=== PATIENT | female | born 2005 | race African-American/Black ===

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

== ENCOUNTER 2024-09-29 04:34 | Emergency (ER) | payer BC, SELFPAY ==
[2024-09-29 04:36] VITALS: BP 131/69; PULSE 80; RESP 14; TEMP 36.4; O2SAT 100
--- OUTSIDE RECORDS SUMMARY | 2024-10-06 05:43 | XMS_ITS | Encounter Summary ---
Author Organization [facility] Address [address] [place] [address] Care Team Providers Care Fiction And Nonfiction Writer Prose Name Role Phone Alfredo Cardoza MD Primary Care Provider Unavail able Reason for Visit * Reason Onset Date Comments Follow-up 03/08/2014 Encounter Details Date Type Department Care Team (Late st Contact Info) Description 03/08/2014 Telephone [facility] Pediatrics - Urology [address] [place] [id number] Gayatri Yepez APRN-CNP [address] [place] [id number] Follow-up Social History Tobacco Use Types Packs/Day Years Used Date Smoking Tobacco: Never Assessed Sex and Gender Information Value Date Recorded Sex Assigned at Not on file Gender Identity Not on file Sexual Orientation Not on file documented as of this encounter Miscellaneous Notes * Telephone Encounter - Gayatri Yepez APRN-CNP - 03/08/2014 3:07 PM CDT Spoke with mother/ Dr. Pena reviewed records and tests [id number]. He agrees with the plan of care and has no additional recommendations at ashok time. Urine tests from Tuesday are all ok. Mom to call in 2-3 weeks with progress report, anytime with questions or concerns. Mom verbalizes understanding and agreement. documented in this encounter Plan of Treatment Not on file documented as of this encounter Visit Diagnoses Not on filedocumented in this encounter Care Teams Fiction And Nonfiction Writer Prose Relationship Specialty Start Date End Date Alfredo Cardoza MD PCP - General 02/05/11 08/27/21 documented as of this encounter
--- OUTSIDE RECORDS SUMMARY | 2024-10-06 05:43 | XMS_ITS | Encounter Summary ---
Author Organization [facility] Address [address] [place] [address] Care Team Providers Care Project Scientist Name Role Phone Alfredo Cardoza MD Primary Care Provider Unavail able Encounter Details Date Type Department Care Team (Late st Contact Info) Description 03/16/2011 3:50 PM CDT Hospital Encounter [facility] Pediatrics - Surgery [address] [place] [address] Alfred Minor MD No information available Surgery General Discharge Disposition: Home or Self Care Social History Tobacco Use Types Packs/Day Years Used Date Smoking Tobacco: Never Assessed Sex and Gender Information Value Date Recorded Sex Assigned at Not on file Gender Identity Not on file Sexual Orientation Not on file documented as of this encounter Medications at Time of Discharge Medication Sig Dispensed Refills Start Date End Date albuterol (PROVENTIL;VENTOLIN) (2.5 MG/3ML) 0.083% nebulizer solution Inhale by mouth every 4 hours while awake. 01/09/2014 montelukast (SINGULAIR) 4 MG chew tablet Take 4 mg by mouth at bedtime. 01/09/2014 documented as of this encounter Plan of Treatment Not on file documented as of this encounter Visit Diagnoses Not on filedocumented in this encounter Care Teams Project Scientist Relationship Specialty Start Date End Date Alfredo Cardoza MD PCP - General 02/05/11 08/27/21 documented as of this encounter
--- OUTSIDE RECORDS SUMMARY | 2024-10-06 05:43 | XMS_ITS | Encounter Summary ---
Author Organization [facility] Address [address] [address] Care Team Providers Care Entertainment Agent Name Role Phone Radha Grove MD Primary Care Provider [phone] Reason for Visit * Reason Onset Date Comments Mri Triage 09/11/2021 Encounter Details Date Type Department Care Team (Late st Contact Info) Description 09/11/2021 Telephone [facility] Gynecology [facility] [address] [place], [place] [id number] Beti Sesay MD [address] [id number] Mri Triage Social History Tobacco Use Types Packs/Day Years Used Date Smoking Tobacco: Never Smokeless Tobacco: Never Alcohol Use Standard Drinks/Week Comments No 0 (1 standard drink = 0.6 oz pur e alcohol) Sex and Gender Information Value Date Recorded Sex Assigned at Not on file Gender Identity Not on file Sexual Orientation Not on file documented as of this encounter Miscellaneous Notes * Telephone Encounter - Beti Sesay MD - 09/11/2021 4:37 PM CST TC to mother Radha. Reviewed MRI report from scan done 09/09/21. Normal uterus without lesion noted. Smooth fundus. No fibroid or other abnormality seen 4 cm simple left ov cyst. Patient's last menstrual period was 08/20/2021. Due next week. Pain had been 7-8/10, now 3-4, occ pain meds and heat. Normal Hb, WBC, UA 08/27. Advised to contact us if pain persists after next period. Mother agreeable. Beti Sesay MD HIKER * Telephone Encounter - Ju Rodriguez - 09/11/2021 10:50 AM CST Pt's mother called in on her behalf wanting to speak with a nurse regarding her mri results. Pleaseadvise. CB# [phone] HIKER documented in this encounter Plan of Treatment Not on file documented as of this encounter Visit Diagnoses Not on filedocumented in this encounter Care Teams Entertainment Agent Relationship Specialty Start Date End Date Radha Grove MD [address] [place] [phone] PCP - General Pediatrics 08/28/21 documented as of this encounter
--- OUTSIDE RECORDS SUMMARY | 2024-10-06 05:43 | XMS_ITS | Encounter Summary ---
Author Organization [facility] Address [address] [place] [address] Care Team Providers Care Shipping Point Inspector Name Role Phone Alfredo Cardoza MD Primary Care Provider Unavail able Reason for Visit * Reason Comments Evaluation mom states primary doctor sent her for urine issues (negative urine cultures) Encounter Details Date Type Department Care Team (Latest Contact Info) Description 01/09/2014 3:44 PM CDT - 01/09/2014 11:59 PM CDT Hospital Encounter [facility] Pediatrics - Urology [address] [place] [address] Lin Kowalsik, TECHNICAL SUPPORT [facility] [address] [place] [address] Discharge Disposition: Home or Self Care Social History Tobacco Use Types Packs/Day Years Used Date Smoking Tobacco: Never Assessed Sex and Gender Information Value Date Recorded Sex Assigned at Not on file Gender Identity Not on file Sexual Orientation Not on file documented as of this encounter Last Filed Vital Signs Vital Sign Reading Time Taken Comments Blood Pressure 98/50 01/09/2014 3:45 PM CDT Pulse - - Temperature - - Respiratory Rate - - Oxygen Saturation - - Inhaled Oxygen Concentration - - Weight 30.1 kg (66 lb 4.8 oz) 01/09/2014 3:45 PM CDT Height 129.5 cm (4' 2.98 ) 01/09/2014 3:45 PM CD T Body Mass Index 17.93 01/09/2014 3:45 PM CDT Body Mass Index Percentile 71.22% 01/09/2014 3:4 5 PM CDT Growth Chart: [facility] (Girls, 2- 20 Years) documented in this encounter Discharge Instructions * Patient Instructions* Gayatri Yepez APRN-LIGHT OUT EXAMINER - 01/09/2014 4:55 PM CDT BOWEL MANAGEMENT PROTOCOL Many children with urinary tract problems also have the added problem of constipation or infrequentbowel movements. The following recommendations have been developed as the first step in eliminatingthe risk factor for developing urinary tract problems. Lack of success with this protocol may warrant further evaluation. STEP 1: Keep track of your child's bowel movements on an elimination diary for 2 weeks. 1. Foods to be encouraged: Your child should pick at least 3 from these groups: ?? Whole grain bread e.g.. Netta Bowman Brumble, Cinnamon Raisin, Brown Sugar, Smooth and Soft; Wonder-Whole Grain White; Iron Kids or Essentials bread. Netta Bowman also has a hot dog and hamburger buns that are whole grain. Software Artistry high fiber buns. Check the fiber content on the package. ?? Fresh fruits especially apples and pears (not bananas) ?? Salads or any fresh vegetables-uncooked is best but cooked works too. ?? Dried fruits e.g. Raisins, prunes, apricots, Craisins by [place] (they come in flavors of antonio, strawberry, orange and plain) ?? Hot cereal (especially oatmeal). ?? Bran, Total, Wheaties, Frosted Mini Wheats, Frosted [place] Mini Wheats ?? Fiber Plus granola bars or any other high fiber granola bar. ?? Fiber One low calorie lemon bars, brownies, and cinnamon bars ?? Kashi cereals (there are multiple varieties/may also a small amount to another cereal if hesitant to try it alone) ?? Increase fluids-drinks 6-8 glasses per day with one glass before breakfast. ?? Good juices: Grape (white or purple), prune, peach, apricot, or pear nectars: if no urinary symptoms may also use orange or orange combinations to treat constipation. ?? Mix koolaid or another juice like René D with prune juice and freeze to make popsicles. Use equal parts of each. ?? Popcorn-for children over 3 years old. ?? Fahad has raisin bran bagels (7Gm. Fiber) and fig bars (1 Gm. Per cookie) as well as breakfast breads like cinnamon raisin. ?? Kat Splash (fiber infusion packets/just add to water). ?? Sugarfree life savers--start with a 2 per day may help BM's since it has a laxative effect. Serving size says 4 life-savers and eating them in excess may have laxative effect. So increase 1 per day to see how many work. ?? Smooth Move Tea-- (12 yo or older) tea bags to make hot cup of tea; available at [employer], [facility]'s; drink in the evening and get up with soft BM in the morning. In the tea/coffee section. ?? Benefiber can be added to foods or liquids and used in cooking to add fiber. 2. Limited quantities of milk: 2-3 servings (8 ounce/serving) are enough for a day. That should include milk, cheese, yogurt, ice cream, cottage cheese, and custard. Too much dairy products can cause hard BM's. 3. Eliminate the following foods for the first month (each of these foods/drinks may cause hardened or infrequent bowel movements). ?? Cheese ?? Apple Juice ?? Tea ?? Applesauce ?? Bananas 4. The following foods/drinks may be bladder irritants/discontinue for bladder health: ?? Caffeine ?? Brown chocolate ?? Mcdonald fruits and juices ?? Carbonation ?? Energy drinks ?? Gatorade ?? Zyrtec ?? Benadryl STEP 2: Send the calendar to our office (att'n. Pediatric Urology) or fax it to us at [phone].Include your child's name, your name and a daytime phone number with the area code. We will call you back to advise you. ?? Void every 2 hours during waking hours, Sing the ABC's to self and void again. ?? Urinary and bowel limitations and recommendations ?? Elimination diary for 2 weeks ?? School letter ?? Wiggle and wick--girls should wipe front to back. Take another piece of toilet paper, hold it against her private area, stand up and wiggle a little or jump. This will catch any drops of urine that may be caught in her private area. ?? Behavior modification reward calendar for 4 weeks B documented in this encounter Medications at Time of Discharge Medication Sig Dispensed Refills Start Date End Date polyethylene glycol 3350 (MIRALAX) packet Take 17 g by mouth once daily. With 8 ounces of fluid. 527 g 2 01/09/2014 polyethylene glycol 3350 (MIRALAX) powderIndications:Unspecif ied constipation Take 17 g by mouth once daily. 527 g 3 01/09/2014 08/13/2015 documented as of this encounter Progress Notes * Gayatri Yepez APRN-CNP - 01/09/2014 5:36 PM CDT Mary Coffman is a 8 y.o. Black/ who comes to us today for an evaluation and management of frequency and abdominal pain. Mary Coffman has been referred by herPCP. She has had a 1 month history of urinary frequency with abdominal pain, occasional back pain, no fever, nausea, or chills. By report, she urinates at least 5 times a day and has bowel movements most days; it has been at least 2 days since her last bowel movement. She has no other medical issues or concerns today. Mom reports a normal pregnacy, labor and delivery with no history of hydronephrosis. Patient has 2 siblings who are followed by a number of sub specialists. FAMILY HISTORY: No known kidney or bladder issues SOCIAL HISTORY: She lives with her family and attends elementary school Past Medical History Diagnosis Date ??? Asthma Mom states patient has had appendix removed ROS: Complete Negative Except For: Urinary frequency, abdominal pain , back pain ASSESSMENT: BP 98/50 Ht 1.295 m (4' 2.98 ) Wt 30.073 kg (66 lb 4.8 oz) BMI 17.93 kg/m2 SKIN: negative HEENT: normocephalic CHEST: clear all lung puga CARDIO: RRR ABDOMEN/GI: soft, c/o mild lower abdominal pain after deep palpation; good bowel sounds : Female exam: Normal introitus NEUROMUSCULAR: grossly normal IMPRESSION: Constipation Urinary frequency Abdominal and back pain intermittantly DISCHARGE INSTRUCTIONS UA, urine culture Miralax 17 g po daily with fluids q 2 hr timed voiding schedule during the day Elimination diary x 2 weeks- send back to me for review School letter Bowel management protocol Return 6-8 weeks Contact info Call if questions or concerns BRIAN Franco 01/10/2014 1:53 PM documented in this encounter Procedure Notes * Gayatri Yepez APRN-CNP - 01/10/2014 10:20 AM CDTAssociated Order(s): US BLADDER RESIDUAL ACC Procedure(s): MEASURE POST VOID RESIDUAL Pre-Procedure Diagnose(s): Urinary frequency Post void residual per bladder scan 30 ml, immediately after voiding documented in this encounter Miscellaneous Notes * Miscellaneous Scans - Document, Scanned - 01/10/2014 11:30 PM CDT documented in this encounter Plan of Treatment Not on file documented as of this encounter Procedures Procedure Name Priority Date/Time Associated Diagnosis Comments US BLADDER RESIDUAL ACC Routine 01/10/2014 2:51 PM CDT URINALYSIS REFLEX TO MICROSCOPIC NO CULTURE Routine 01/09/2014 5:04 PM CDT Unspecified constipation Urinary frequency CULTURE URINE Routine 01/09/2014 5:04 PM CDT Unspecified constipation Urinary frequency URINE MICROSCOPIC ONLY Routine 01/09/2014 5:04 PM CDT Unspecified constipation Urinary frequency documented in this encounter Results * US BLADDER RESIDUAL ACC (01/10/2014 2:51 PM CDT) Narrative Gayatri Yepez APRN-CNP - 01/10/2014 2:51 PM CDT BRIAN Franco ? 01/10/2014 ??2:51 PM Post void residual per bladder scan 30 ml, immediately after voiding Procedure Note Gayatri Yepez APRN-CNP - 01/10/2014 10:20 AM CDT Post void residual per bladder scan 30 ml, immediately after voiding Gayatri TORRES PROCEDURE ORD ERABLES * CULTURE URINE (01/09/2014 5:04 PM CDT) Pathologist [facility] Culture No Growth (<1,000 CFU/mL) 01/11/2014 6:57 AM CDT [facility] MICROBIOLOGY Urine URINE SPECIMEN OBTAINED BY CLEAN CATCH PROCEDURE / Unknown 01/09/2014 5:04 PM CDT 01/09/2014 5:14 PM CDT Gayatri TORRES LAB - MICROBIOLO GY ORDERABLES [facility] MICROBIOLOGY [address] [facility] * (ABNORMAL) URINALYSIS ROUTINE AUTO (01/09/2014 5:04 PM CDT) Color UA Yellow Straw, Yellow, Dark Yellow 01/09/2014 5:25 PM CDT [facility] Clarity UA Clear 01/09/2014 5:25 PM CDT [facility] Specific [place] UA 1.010 1.005 - 1.030 01/09/2014 5:25 PM CDT [facility] pH UA 6.5 5.0 - 8.0 pH 01/09/2014 5:25 PM CDT [facility] Protein UA Negative Negative 01/09/2014 5:25 PM CDT [facility] Blood UA Negative Negative 01/09/2014 5:25 PM CDT [facility] Leukocyte UA Trace(A) Negative 01/09/2014 5:25 PM CDT [facility] Nitrite UA Negative Negative 01/09/2014 5:25 PM CDT [facility] Glucose UA Negative Negative 01/09/2014 5:25 PM CDT [facility] Ketone UA Negative Negative 01/09/2014 5:25 PM CDT [facility] Bilirubin UA Negative Negative 01/09/2014 5:25 PM CDT [facility] Urobilinogen UA 0.2 0.1 - 1.0 EU/dL 01/09/2014 5:25 PM CDT [facility] Urine URINE SPECIMEN OBTAINED BY CLEAN CATCH PROCEDURE / Unknown 01/09/2014 5:04 PM CDT 01/09/2014 5:13 PM CDT Gayatri Yepez TECHNICAL SUPPORT INTERNSHIP-LIGHT OUT EXAMINER LAB - URINALYSIS ORDERABLES Performing Organization Address City/[facility] Co de Phone Number [facility] [address] [place] [address] * URINALYSIS MICROSCOPIC ONLY (01/09/2014 5:04 PM CDT) RBC UA 0-2 0-2, 2-5 # /hpf 01/09/2014 5:25 PM CDT [facility] WBC UA 0-2 0-2, 2-5 # /hpf 01/09/2014 5:25 PM CDT [facility] Bacteria UA None Seen None Seen, Trace 01/09/2014 5:25 PM CDT [facility] Epithelial Cell UA 0-2 0-2, 2-5 01/09/2014 5:25 PM CDT [facility] Urine URINE SPECIMEN OBTAINED BY CLEAN CATCH PROCEDURE / Unknown 01/09/2014 5:04 PM CDT 01/09/2014 5:13 PM CDT Gayatri Yepez TECHNICAL SUPPORT INTERNSHIP-LIGHT OUT EXAMINER LAB - URINALYSIS ORDERABLES Performing Organization Address City/[facility] Co de Phone Number [facility] [address] [place] [address] documented in this encounter Visit Diagnoses Diagnosis Unspecified constipation- Primary Urinary frequency documented in this encounter Care Teams Shipping Point Inspector Relationship Specialty Start Date End Date Alfredo Cardoza MD PCP - General 02/05/11 08/27/21 documented as of this encounter
--- OUTSIDE RECORDS SUMMARY | 2024-10-06 05:43 | XMS_ITS | Encounter Summary ---
Author Organization [facility] Address [address] [place] [address] Care Team Providers Care Studio Technician Name Role Phone Alfredo Cardoza MD Primary Care Provider Unavail able Encounter Details Date Type Department Care Team (Latest Contact Info) Description 01/09/2014 2:31 PM CDT - 01/09/2014 3:29 PM CDT Hospital Encounter [facility] Pediatrics - Radiology [address] [place] [phone] Discharge Disposition: Home or Self Care Social History Tobacco Use Types Packs/Day Years Used Date Smoking Tobacco: Never Assessed Sex and Gender Information Value Date Recorded Sex Assigned at Not on file Gender Identity Not on file Sexual Orientation Not on file documented as of this encounter Plan of Treatment Not on file documented as of this encounter Procedures Procedure Name Priority Date/Time Associated Diagnosis Comments XR ABDOMEN KUB Routine 01/09/2014 3:06 PM CDT Dysuria documented in this encounter Results * XR ABDOMEN 1 VW (01/09/2014 3:06 PM CDT) Anatomical Region Laterality Modality Abdomen Radiographic Salima ging 01/09/2014 3:31 PM CDT Impressions 01/09/2014 3:32 PM CDT Normal Narrative 01/09/2014 3:32 PM CDT Abdomen, AP view 01/09/2014 Gas pattern is within normal limits. There is no obstruction or free air. No pathologic calcification is present. The lung bases are clear. Procedure Note Jeff Hester MD - 01/09/2014 Abdomen, AP view 01/09/2014 Gas pattern is within normal limits. There is no obstruction or free air. No pathologic calcification is present. The lung bases are clear. IMPRESSION Normal Gayatri Yepez APRN-DYEING MACHINE TENDER DIAGNOSTIC IMAGI NG ORDERABLES documented in this encounter Visit Diagnoses Diagnosis Dysuria documented in this encounter Care Teams Studio Technician Relationship Specialty Start Date End Date Alfredo Cardoza MD PCP - General 02/05/11 08/27/21 documented as of this encounter
--- OUTSIDE RECORDS SUMMARY | 2024-10-06 05:43 | XMS_ITS | Encounter Summary ---
Author Organization [facility] Address [address] [place] [address] Care Team Providers Care Towing Pilot Name Role Phone Alfredo Cardoza MD Primary Care Provider Unavail able Encounter Details Date Type Department Care Team (Latest Contact Info) Description 01/09/2014 3:30 PM CDT - 01/09/2014 3:43 PM CDT Hospital Encounter [facility] Pediatrics - Urology [address] [place] [phone] Jan Pena MD [address] [place] [phone] Discharge Disposition: Home or Self Care Social History Tobacco Use Types Packs/Day Years Used Date Smoking Tobacco: Never Assessed Sex and Gender Information Value Date Recorded Sex Assigned at Not on file Gender Identity Not on file Sexual Orientation Not on file documented as of this encounter Miscellaneous Notes * Miscellaneous Scans - Document, Scanned - 01/10/2014 11:30 PM CDT documented in this encounter Plan of Treatment Not on file documented as of this encounter Visit Diagnoses Not on filedocumented in this encounter Care Teams Towing Pilot Relationship Specialty Start Date End Date Alfredo Cardoza MD PCP - General 02/05/11 08/27/21 documented as of this encounter
--- OUTSIDE RECORDS SUMMARY | 2024-10-06 05:43 | XMS_ITS | Encounter Summary ---
Author Organization [facility] Address [address] [facility] [place] [place] [address] Care Team Providers Care Drilling Foreman Name Role Phone Alfredo Cardoza MD Primary Care Provider Unavail able Reason for Visit * Reason Comments Follow-up appendectomy Encounter Details Date Type Department Care Team (Latest Contact Info) Description 02/18/2011 10:15 AM CDT - 02/18/2011 11:59 PM T Hospital Encounter [facility] Pediatrics - Surgery [address] [place] [phone] Maynor Parks MD [address] [place] [phone] Discharge Disposition: Home or Self Care Social [...] bedtime. 01/09/2014 documented as of this encounter Progress Notes * Black Uribe MD - 02/18/2011 10:30 AM CDT Pediatric Surgery Fellow We saw Mary in follow up after her appendectomy. She has been doing well, with no fevers, nor anorexia. Her pathology confirmed acute appendicitis. Her incisions are well healed and her abdomen is soft and non tender. We have not booked any further followup, but if she has any problems, we'd be happy to see her. Thanks, Black Uribe MD 02/18/2011 10:30 AM documented in this encounter Miscellaneous Notes * Miscellaneous Scans - Document, Scanned - 05/26/2011 8:14 AM CDT * Miscellaneous Scans - Document, Scanned - 04/19/2011 11:29 AM CDT documented in this encounter Plan of Treatment Not on file documented as of this encounter Visit Diagnoses Not on filedocumented in this encounter Care Teams Drilling Foreman Relationship Specialty Start Date End Date Alfredo Cardoza MD PCP - General 02/05/11 08/27/21 documented as of this encounter
--- OUTSIDE RECORDS SUMMARY | 2024-10-06 05:43 | XMS_ITS | Encounter Summary ---
Author Organization [facility] Address [address] [facility] [place] [address] Care Team Providers Care Die Repairer Forging Name Role Phone Alfredo Cardoza MD Primary Care Provider Unavail able Reason for Referral * Radiology Services - Closed Specialty Diagnoses / Procedures Referred By Rowena garcia Referred To Contact Diagnoses Dysuria Procedures US KIDNEY AND BLADDER Gayatri Yepez APRN-CNP [address] [place] [id number] Referral ID Status Reason Start Date Expiration Date Visits Re quested Visits Authorized [id number] Closed 01/04/2014 07/03/2014 1 1 Reason for Visit * Reason Onset Date Comments Consultation 01/04/2014 Encounter Details Date Type Department Care Team (Late st Contact Info) Description 01/04/2014 Telephone [facility] Pediatrics - Urology [address] [place] [phone] Lin Pearson I RN Consultation Social History Tobacco Use Types Packs/Day Years Used Date Smoking Tobacco: Never Assessed Sex and Gender Information Value Date Recorded Sex Assigned at Not on file Gender Identity Not on file Sexual Orientation Not on file documented as of this encounter Miscellaneous Notes * Telephone Encounter - Lin Pearson RN - 01/04/2014 3:32 PM CDT Received referral from PCP to see Mary in urology clinic for urinary frequency and dysuria for4 weeks. Lab results negative for UTI Mary has also been seen in ED recently for same complaints. Records reviewed with PNP Gayatri Yepez, urology recommendation fro KUB, BEAU, and PVR with PNP office visit. Message left on home phone requesting call back to discuss testing and schedule appointments. Will schedule when parent returns call. documented in this encounter Plan of Treatment Not on file documented as of this encounter Results * US KIDNEY AND BLADDER (01/09/2014 3:19 PM CDT) Anatomical Region Laterality Modality Ultrasound 01/09/2014 3:26 PM CDT Impressions 01/09/2014 3:48 PM CDT Normal renal ultrasound. D: Diamond Malik M.D. I, Quinn Marcum, have personally reviewed the images and I agree with this report. Narrative 01/09/2014 3:48 PM CDT EXAMINATION: Renal ultrasound dated ??January 09, 2014 COMPARISON: None available FINDINGS: Renal cortical echogenicity is normal. ??No hydronephrosis, masses, or stones are seen. ??The ureters are not dilated. Length: Right kidney ??8.1 x 3.2 x 4.4 cm Left kidney ??8.7 x 3.6 x 3.3 cm The bladder is incompletely distended, limiting evaluation. Post void images demonstrate a small amount of residual urine within the bladder. Procedure Note Quinn Marcum MD - 01/09/2014 EXAMINATION: Renal ultrasound dated January 09, 2014 COMPARISON: None available FINDINGS: Renal cortical echogenicity is normal. No hydronephrosis, masses, or stones are seen. The ureters are not dilated. Length: Right kidney 8.1 x 3.2 x 4.4 cm Left kidney 8.7 x 3.6 x 3.3 cm The bladder is incompletely distended, limiting evaluation. Post void images demonstrate a small amount of residual urine within the bladder. IMPRESSION Normal renal ultrasound. D: Diamond Malik M.D. I, Quinn Marcum, have personally reviewed the images and I agree with this report. Gayatri Yepez APRN-FILLING WINDER US ORDERABLES * XR ABDOMEN 1 VW (01/09/2014 3:06 [...] bases are clear. IMPRESSION Normal Gayatri Yepez APRN-FILLING WINDER DIAGNOSTIC IMAGI NG ORDERABLES documented in this encounter Visit Diagnoses Diagnosis Dysuria- Primary Dysuria Dysuria documented in this encounter Care Teams Die Repairer Forging Relationship Specialty Start Date End Date Alfredo Cardoza MD PCP - General 02/05/11 08/27/21 documented as of this encounter
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
--- OUTSIDE RECORDS SUMMARY | 2024-10-06 05:43 | XMS_ITS | Encounter Summary ---
Author Organization [facility] Address [address] [place] [address] Care Team Providers Care Hotel Front Office Manager Name Role Phone Alfredo Cardoza MD Primary Care Provider Unavail able Reason for Visit * Reason Comments Injury Leg pain to bottom of R knee x 2 days. pt has been at camp, no recent injuries or falls. pt with full ROM. no redness or swelling noted. wiggles toes, +pedal pulse. denies numbness or ting,ing. cap refill <3. Encounter Details Date Type Department Care Team (Late st Contact Info) Description 03/07/2015 3:20 PM CDT - 03/07/2015 5:07 PM CDT Emergency ER at [address] [address] Knee pain, acute, right; Overuse injury Discharge Disposition: Home or Self Care Social History Tobacco Use Types Packs/Day Years Used Date Smoking Tobacco: Never Alcohol Use Standard Drinks/Week Comments No 0 (1 standard drink = 0.6 oz pur e alcohol) Sex and Gender Information Value Date Recorded Sex Assigned at Not on file Gender Identity Not on file Sexual Orientation Not on file documented as of this encounter Last Filed Vital Signs Vital Sign Reading Time Taken Comments Blood Pressure 124/85 03/07/2015 3:26 PM CDT Pulse 100 03/07/2015 3:26 PM CDT Temperature 37 ??C (98.6 ??F) 03/07/2015 3:26 PM CDT Respiratory Rate 24 03/07/2015 3:26 PM CDT Oxygen Saturation 100% 03/07/2015 3:26 PM CDT Inhaled Oxygen Concentration - - Weight 34.1 kg (75 lb 2.8 oz) 03/07/2015 3:26 PM CDT Height - - Body Mass Index - - documented in this encounter Discharge Instructions * Discharge Instructions* Nadine Martinez APRN-CNP - 03/07/2015 4:49 PM CDT Images from the original note were not included. Knee Pain Knee pain can be a result of an injury or other medical conditions. Treatment will depend on the cause of your pain. HOME CARE ?? Only take medicine as told by your doctor. ?? Keep a healthy weight. Being overweight can make the knee hurt more. ?? Stretch before exercising or playing sports. ?? If there is constant knee pain, change the way you exercise. Ask your doctor for advice. ?? Make sure shoes fit well. Choose the right shoe for the sport or activity. ?? Protect your knees. Wear kneepads if needed. ?? Rest when you are tired. GET HELP RIGHT AWAY IF: ?? Your knee pain does not stop. ?? Your knee pain does not get better. ?? Your knee joint feels hot to the touch. ?? You have a temperature by mouth above 102?? F (38.9?? C), not controlled by medicine. ?? Your baby is older than 3 months with a rectal temperature of 102?? F (38.9?? C) or higher. ?? Your baby is 3 months old or younger with a rectal temperature of 100.4?? F (38?? C) or higher. MAKE SURE YOU: ?? Understand these instructions. ?? Will watch this condition. ?? Will get help right away if you are not doing well or get worse. Document Released: 12/09/2009 Document Revised: 12/04/2012 Document Reviewed: 12/09/2009 ExitCare?? Patient Information ??2014 [employer]. documented in this encounter Medications at Time of Discharge Medication Sig Dispensed Refills Start Date End Date albuterol HFA (PROVENTIL;VENTOLIN;PROAIR ) 108 (90 BASE) MCG/ACT inhaler Inhale 2 Puffs by mouth every 6 hours as needed polyethylene glycol 3350 (MIRALAX) packet Take 17 g by mouth once daily. With 8 ounces of fluid. 527 g 2 01/09/2014 acetaminophen (TYLENOL) 160 MG/5ML SOLN solution Take by mouth every 4 hours as needed for Fever or Pain 09/02/2021 polyethylene glycol 3350 (MIRALAX) powderIndications:Unspecif ied constipation Take 17 g by mouth once daily. 527 g 3 01/09/2014 08/13/2015 documented as of this encounter ED Notes * Kamila Caballero RN - 03/07/2015 5:06 PM CDT Pt awake, alert, NAD, VSS at time of discharge. Discharge instructions reviewed with pt's family member and family member verbalized understanding of instructions with no further questions at this time. Pt ambulatory and walked out of ED with family member. * Kamila Caballero RN - 03/07/2015 4:26 PM CDT Mother updated on plan of care. Awaiting results of pt's xray. Pt resting on stretcher, NAD, motherat bedside. * Kamila Caballero RN - 03/07/2015 3:57 PM CDT Pt transported to and from [facility] with transportation refrigeration technician. * Nadine Martinez APRN-LADI - 03/07/2015 3:33 PM CDT EMERGENCY DEPARTMENT 03/07/2015 Dear Doctor, We had the pleasure of caring for your patient, Mary Coffman in our emergency department on 03/07/2015. A note from the provider(s) who cared for your patient is attached. Should you wish to access any laboratory results, please call . Should you wish to access any radiology results, please call , option 3. In addition, you can access patient information 24 hours a day, from any computer, through [employer], the online version of our electronic medical record. If you would like to use this service, please call Shiloh Tamez, Connectivity Coordinator, at . We appreciate the opportunity to care for your patients. If you would like additional information, please call the emergency department directly at . Sincerely, Nadine Martinez APRN-LADI Division of Emergency Medicine [place], [place] [facility] [place] Provider contact with the patient: 03/07/2015 15:33 Mary Coffman [id number] [facility] History Chief Complaint Patient presents with ??? Injury Leg pain to bottom of R knee x 2 days. pt has been at camp, no recent injuries or falls. pt with full ROM. no redness or swelling noted. wiggles toes, +pedal pulse. denies numbness or ting,ing. cap refill <3. HPI Comments: 9 yo female with history of asthma presents to the ED with her mother for c/o right knee and lower leg pain that started yesterday afternoon. Mom stated, She was folding laundry and all of a sudden started complaining about the pain. Pain has caused the child to cry. No oral medication given. Mom applied warmth to the knee and was able to fall asleep. Denies redness, swelling or fever. Denies injury. Child has been attending [employer] [facility] [employer] camp for 5 days which involves [place], dancing, kickball and other sports. Denies history of right knee or right lower leg injury. Immunizations UTD Past Medical History Diagnosis Date ??? Asthma ??? Frequent urination Past Surgical History Procedure Laterality Date ??? Appendectomy History Social History ??? Marital Status: Single Spouse Name: N/A Number of Children: N/A ??? Years of Education: N/A Occupational History ??? Not on file. Social History Main Topics ??? Smoking status: Never Smoker ??? Smokeless tobacco: Not on file ??? Alcohol Use: No ??? Drug Use: No ??? Sexual Activity: Not on file Other Topics Concern ??? Not on file Social History Narrative Medications Current Outpatient Prescriptions Medication Sig Dispense Refill ??? albuterol HFA (PROVENTIL;VENTOLIN;PROAIR) 108 (90 BASE) MCG/ACT inhaler Inhale 2 Puffs by mouthevery 6 hours as needed ??? acetaminophen (TYLENOL) 160 MG/5ML SOLN solution Take by mouth every 4 hours as needed for Fever or Pain ??? polyethylene glycol 3350 (MIRALAX) powder Take 17 g by mouth once daily. 527 g 3 ??? polyethylene glycol 3350 (MIRALAX) packet Take 17 g by mouth once daily. With 8 ounces of fluid. 527 g 2 Review of Systems Review of Systems Constitutional: Negative for fever, activity change and appetite change. HENT: Negative for congestion and rhinorrhea. Respiratory: Negative for cough. Gastrointestinal: Negative for vomiting and diarrhea. Genitourinary: Negative for decreased urine volume and difficulty urinating. Musculoskeletal: Right knee and lower leg pain Skin: Negative for rash. All relevant systems reviewed. BP 124/85 mmHg Pulse 100 Temp(Src) 98.6 ??F Resp 24 Wt 34.1 kg (75 lb 2.8 oz) SpO2 100% Physical Exam Physical Exam Constitutional: She appears well-developed and well-nourished. She is active. No distress. Sitting on stretcher Cooperative with exam HENT: Head: Atraumatic. Right Ear: Tympanic membrane normal. Left Ear: Tympanic membrane normal. Nose: Nose normal. No nasal discharge. Mouth/Throat: Mucous membranes are moist. Dentition is normal. No dental caries. No tonsillar exudate. Oropharynx is clear. Pharynx is normal. Eyes: Conjunctivae and EOM are normal. Pupils are equal, round, and reactive to light. Right eye exhibits no discharge. Left eye exhibits no discharge. Neck: Normal range of motion. Neck supple. No rigidity. Cardiovascular: Normal rate, regular rhythm, S1 normal and S2 normal. Pulses are palpable. No murmur heard. Pulmonary/Chest: Effort normal and breath sounds normal. There is normal air entry. No stridor. No respiratory distress. Air movement is not decreased. She has no wheezes. She has no rhonchi. She hasno rales. She exhibits no retraction. Abdominal: Soft. Bowel sounds are normal. She exhibits no distension and no mass. There is no hepatosplenomegaly. There is no tenderness. There is no rebound and no guarding. No hernia. Musculoskeletal: Normal range of motion. She exhibits no edema or deformity. Child able to ambulate in the room Normal ROM of right knee but child complains of pain with ROM No redness or swelling of right knee Tenderness noted below right knee Lymphadenopathy: No occipital adenopathy is present. She has no cervical adenopathy. Neurological: She is alert. Skin: Skin is warm and moist. Capillary refill takes less than 3 seconds. No rash noted. She is notdiaphoretic. Nursing note and vitals reviewed. Procedures Procedures ECG Interpretation ECG Interpretation Lab Interpretation Oxygen Saturation Interpretation The oxygen saturation level is: 100%. The patient was on Room Air for the saturation measurement. Measurement frequency: Spot Check. Oxygen saturation interpretation is Normal. Intervention(s) used: None. Progress Notes No evidence of bacterial infection, distress or dehydration. Mom verbalized understanding of discharge plan. Mom advised to return to ED for worsening symptoms, problems, or concerns. Child discharged alert, active and well-appearing. ED Course Explained to Mom that clinically the child does not meet criteria for an x-ray. Mother raised her voice and stated that she demands an x-ray. Orders Placed This Encounter ??? BANDAGE BARON 3 STERILE Standing Status: Standing Number of Occurrences: 1 Standing Expiration Date: Order Specific Question: Is this supply stocked on the unit? Answer: Yes ??? XR KNEE 1 OR 2 VW RIGHT Standing Status: Standing Number of Occurrences: 1 Standing Expiration Date: Order Specific Question: Exam to be performed? Answer: Per Radiologist protocol ??? ibuprofen (ADVIL; MOTRIN) suspension 341 mg Sig: Right Knee X-ray read by radiology: Soft tissue swelling anterior to the anterior tibial tubercle which may represent Agustina-Schlatter's Disease. Findings: No joint effusion. The anterior tibial tubercle is just beginning to ossify. The osseous structuresare intact and well aligned. Plan Rest: No sports for the next week or until there is no more pain. Ice: Keep an ice pack on it for 20 minutes out of every hour while awake as tolerated. Do this for the first 48 hours after the injury, then you may switch to warmth (heating pad). Compression: Keep the baron wrap on except for bathing. Elevate: Keep elevated above the level of the heart if at all possible. May give Ibuprofen every 6 hours as needed for pain. Follow up with the Ortho Clinic in 1 week if the pain has not improved. Medical Decision Making I have reviewed the: Nursing Notes and Vitals. I have interpreted the following results: X-Ray and Oxygen Saturation. I have discussed the case with Family/Caregiver. Clinical Impression Final diagnoses: Knee pain, acute, right Overuse injury documented in this encounter Plan of Treatment Not on file documented as of this encounter Procedures Procedure Name Priority Date/Time Associated Diagnosis Comments XR KNEE RIGHT 2VW OR LESS STAT 03/07/2015 3:54 PM CDT Knee pain, acute, right documented in this encounter Results * XR KNEE 1 OR 2 VW RIGHT (03/07/2015 3:54 PM CDT) Anatomical Region Laterality Modality Lower Extremity Radiographic Salima ging 03/07/2015 4:37 PM CDT Impressions 03/07/2015 4:39 PM CDT Soft tissue swelling anterior to the anterior tibial tubercle which may represent Napoleon-Schlatter's disease. No fracture or dislocation. Narrative 03/07/2015 4:39 PM CDT Exam: Right knee, 2 view History: 9-year-old female with right knee pain x2 days without recent trauma Comparison: None Findings: Soft tissue swelling is present over the anterior tibial tubercle. There is no joint effusion. The anterior tibial tubercle is just beginning to ossify. The osseous structures are intact and well aligned. Procedure Note Reina Macdonald MD - 03/07/2015 Exam: Right knee, 2 view History: 9-year-old female with right knee pain x2 days without recent trauma Comparison: None Findings: Soft tissue swelling is present over the anterior tibial tubercle. There is no joint effusion. The anterior tibial tubercle is just beginning to ossify. The osseous structures are intact and well aligned. IMPRESSION Soft tissue swelling anterior to the anterior tibial tubercle which may represent Napoleon-Schlatter's disease. No fracture or dislocation. Nadine Martinez EFFICIENCY MINER[employer] DIAGNOSTIC SLAIMA GING ORDERABLES documented in this encounter Visit Diagnoses Diagnosis Swelling of limb- Primary Knee pain, acute, right Overuse injury Unspecified site of sprain and strain documented in this encounter Administered Medications Inactive Administered Medications - up to 3 most recent administrations Medication Order MAR Action Action Date Dose Rate Site ibuprofen (ADVIL; MOTRIN) suspension 341 mg 341 mg (10 mg/kg ? 34.1 kg), Oral, NOW, 1 dose, On Tue03/07/15 at 1530, Shake well before using $ Given 03/07/2015 3:28 PM CDT 341 mg documented in this encounter Active and Recently Administered Medications Times are shown in CDT. Scheduled Medication Order 03/05/2015 03/06/2015 03/07/2015 ibuprofen (ADVIL; MOTRIN) suspension 341 mg (COMPLETED) 341 mg (10 mg/kg ? 34.1 kg), Oral, NOW, 1 dose, On Tue03/07/15 at 1530, Shake well before using 1528 ($ Given - Prov ider: Radha Ng RN) documented in this encounter Care Teams Hotel Front Office Manager Relationship Specialty Start Date End Date Alfredo Cardoza MD PCP - General 02/05/11 08/27/21 documented as of this encounter
--- OUTSIDE RECORDS SUMMARY | 2024-10-06 05:43 | XMS_ITS | Encounter Summary ---
Author Organization [facility] Address [address] [place] [address] Care Team Providers Care Clothing Worker Name Role Phone Alfredo Cardoza MD Primary Care Provider Unavail able Reason for Visit * Reason Onset Date Comments Consultation 01/07/2014 Encounter Details Date Type Department Care Team (Late st Contact Info) Description 01/07/2014 Telephone [facility] Pediatrics - Urology [address] [place] [id number] Lin Pearson I RN Consultation Social History Tobacco Use Types Packs/Day Years Used Date Smoking Tobacco: Never Assessed Sex and Gender Information Value Date Recorded Sex Assigned at Not on file Gender Identity Not on file Sexual Orientation Not on file documented as of this encounter Miscellaneous Notes * Telephone Encounter - Lin Pearson I RN - 01/07/2014 10:27 AM CDT Mom returned call, informed of urology recommendation for BEAU, KUB, and PVR. Mom verbalized understanding, appointments scheduled for January 09, 2014. documented in this encounter Plan of Treatment Not on file documented as of this encounter Visit Diagnoses Not on filedocumented in this encounter Care Teams Clothing Worker Relationship Specialty Start Date End Date Alfredo Cardoza MD PCP - General 02/05/11 08/27/21 documented as of this encounter
--- OUTSIDE RECORDS SUMMARY | 2024-10-06 05:43 | XMS_ITS | Encounter Summary ---
Author Organization [facility] Address [address] [place] [address] Care Team Providers Care Safety Compliance Specialist Name Role Phone Alfredo Cardoza MD Primary Care Provider Unavail able Reason for Visit * Reason Comments Pain Urinary Mom states pt has sanchez d intermittent complaint of dysuria for a week, but has worsened. No fever. Encounter Details Date Type Department Care Team (Late st Contact Info) Description 12/09/2013 11:00 AM CDT - 12/09/2013 12:18 PM CDT Emergency ER at [address] [address] Farzana Preston, [address] [address] Dysuria (Primary Dx); Constipation Discharge Disposition: Home or Self Care Social History Tobacco Use Types Packs/Day Years Used Date Smoking Tobacco: Never Assessed Sex and Gender Information Value Date Recorded Sex Assigned at Not on file Gender Identity Not on file Sexual Orientation Not on file documented as of this encounter Last Filed Vital Signs Vital Sign Reading Time Taken Comments Blood Pressure 124/54 12/09/2013 11:05 AM CDT Pulse 65 12/09/2013 11:05 AM CDT Temperature 36.9 ??C (98.5 ??F) 12/09/2013 11:05 AM C DT Respiratory Rate 20 12/09/2013 11:05 AM CDT Oxygen Saturation - - Inhaled Oxygen Concentration - - Weight 30.1 kg (66 lb 5.7 oz) 12/09/2013 11:05 A M CDT Height - - Body Mass Index - - documented in this encounter Discharge Instructions * Discharge Instructions* Farzana Preston, FRONT END WEB DESIGNER-SENIOR MAINTENANCE TECHNICIAN - 12/09/2013 12:10 PM CDT Dysuria Dysuria is the medical term for pain with urination. There are many causes for dysuria, but urinarytract infection is the most common. If a urinalysis was performed it can show that there is a urinary tract infection. A urine culture confirms that you or your child is sick. You will need to followup with a healthcare provider because: ?? If a urine culture was done you will need to know the culture results and treatment recommendations. ?? If the urine culture was positive, you or your child will need to be put on antibiotics or know if the antibiotics prescribed are the right antibiotics for your urinary tract infection. ?? If the urine culture is negative (no urinary tract infection), then other causes may need to be explored or antibiotics need to be stopped. Today laboratory work may have been done and there does not seem to be an infection. If cultures were done they will take at least 24 to 48 hours to be completed. Today x-rays may have been taken and they read as normal. No cause can be found for the problems. The x-rays may be re-read by a radiologist and you will be contacted if additional findings are made. You or your child may have been put on medications to help with this problem until you can see yourprimary caregiver. If the problems get better, see your primary caregiver if the problems return. If you were given antibiotics (medications which kill germs), take all of the mediations as directed for the full course of treatment. If laboratory work was done, you need to find the results. Leave a telephone number where you can be reached. If this is not possible, make sure you find out how you are to get test results. HOME CARE INSTRUCTIONS ?? Drink lots of fluids. For adults, drink eight, 8 ounce glasses of clear juice or water a day. For children, replace fluids as suggested by your caregiver. ?? Empty the bladder often. Avoid holding urine for long periods of time. ?? After a bowel movement, women should cleanse front to back, using each tissue only once. ?? Empty your bladder before and after sexual intercourse. ?? Take all the medicine given to you until it is gone. You may feel better in a few days, but TAKEALL MEDICINE. ?? Avoid caffeine, tea, alcohol and carbonated beverages, because they tend to irritate the bladder. ?? In men, alcohol may irritate the prostate. ?? Only take [id number] or prescription medicines for pain, discomfort, or fever as directed by your caregiver. ?? If your caregiver has given you a follow-up appointment, it is very important to keep that appointment. Not keeping the appointment could result in a chronic or permanent injury, pain, and disability. If there is any problem keeping the appointment, you must call back to this facility for assistance. SEEK IMMEDIATE MEDICAL CARE IF: ?? Back pain develops. ?? A fever develops. ?? There is nausea (feeling sick to your stomach) or vomiting (throwing up). ?? Problems are no better with medications or are getting worse. MAKE SURE YOU: ?? Understand these instructions. ?? Will watch your condition. ?? Will get help right away if you are not doing well or get worse. Document Released: 06/10/2005 Document Revised: 12/04/2012 Document Reviewed: 04/17/2009 Constipation in Children Over One Year of Age, with Fiber Content of Foods Constipation is a change in a child's bowel habits. Constipation occurs when the stools are too hard, too infrequent, too painful, too large, or there is an inability to have a bowel movement at all. SYMPTOMS ?? Cramping with belly (abdominal) pain. ?? Hard stool or painful bowel movements. ?? Less than 1 stool in 3 days. ?? Soiling of undergarments. HOME CARE INSTRUCTIONS ?? Check your child's bowel movements so you know what is normal for your child. ?? If your child is toilet trained, have them sit on the toilet for 10 minutes following breakfast or until the bowels empty. Rest the child's feet on a stool for comfort. ?? Do not show concern or frustration if your child is unsuccessful. Let the child leave the bathroom and try again later in the day. ?? Include fruits, vegetables, bran, and whole grain cereals in the diet. ?? A child must have fiber-rich foods with each meal (see Fiber Content of Foods Table). ?? Encourage the intake of extra fluids between meals. ?? Prunes or prune juice once daily may be helpful. ?? Encourage your child to come in from play to use the bathroom if they have an urge to have a bowel movement. Use rewards to reinforce this. ?? If your caregiver has given medication for your child's constipation, give this medication everyday. You may have to adjust the amount given to allow your child to have 1 to 2 soft stools every day. ?? To give added encouragement, reward your child for good results. This means doing a small favor for your child when they sit on the toilet for an adequate length (10 minutes) of time even if they have not had a bowel movement. ?? The reward may be any simple thing such as getting to watch a favorite TV show, giving a stickeror keeping a chart so the child may see their progress. ?? Using these methods, the child will develop their own schedule for good bowel habits. ?? Do not give enemas, suppositories, or laxatives unless instructed by your child's caregiver. ?? Never punish your child for soiling their pants or not having a bowel movement. This will only worsen the problem. SEEK IMMEDIATE MEDICAL CARE IF: ?? There is bright red blood in the stool. ?? The constipation continues for more than 4 days. ?? There is abdominal or rectal pain along with the constipation. ?? There is continued soiling of undergarments. ?? You have any questions or concerns. Drinking plenty of fluids and consuming foods high in fiber can help with constipation. See the list below for the fiber content of some common foods. Starches and Grains Cheerios, 1 Cup, 3 grams of fiber Gilbert's Brumley Flakes, 1 Cup, 0.7 grams of fiber Rice Krispies, 1 ?? Cup, 0.3 grams of fiber Confucianism Oat Life Cereal, ?? Cup, 2.1 grams of fiberOatmeal, instant (cooked), ?? Cup, 2 grams of fiberEnrique's Frosted Mini Wheats, 1 Cup, 5.1 grams of fiberRice, brown, long-grain (cooked), 1 Cup, 3.5 grams of fiberRice, white, long-grain (cooked), 1 Cup, 0.6 grams of fiberMacaroni, cooked, enriched, 1 Cup, 2.5 grams of fiber Legumes Beans, baked, canned, plain or vegetarian, ?? Cup, 5.2 grams of fiberBeans, kidney, canned, ?? Cup,6.8 grams of fiberBeans, kelly, dried (cooked), ?? Cup, 7.7 grams of fiberBeans, kelly, canned, ?? Cup, 7.7 grams of fiber Breads and Crackers Skyler crackers, plain or honey, 2 squares, 0.7 grams of fiberSaltine crackers, 3, 0.3 grams of fiberPretzels, plain, salted, 10 pieces, 1.8 grams of fiberBread, whole wheat, 1 slice, 1.9 grams of fiber Bread, white, 1 slice, 0.7 grams of fiberBread, raisin, 1 slice, 1.2 grams of fiberBagel, plain, 3 oz, 2 grams of fiberTortilla, flour, 1 oz, 0.9 grams of fiberTortilla, corn, 1 small, 1.5 grams of fiber Bun, hamburger or hotdog, 1 small, 0.9 grams of fiber Fruits Apple, raw with skin, 1 medium, 4.4 grams of fiber Applesauce, sweetened, ?? Cup, 1.5 grams of fiberBanana, ?? medium, 1.5 grams of fiberGrapes, 10 grapes, 0.4 grams of fiberOrange, 1 small, 2.3 grams of fiberRaisin, 1.5 oz, 1.6 grams of fiber Melon,1 Cup, 1.4 grams of fiber Vegetables Green beans, canned ?? Cup, 1.3 grams of fiber Carrots (cooked), ?? Cup, 2.3 grams of fiber Broccoli (cooked), ?? Cup, 2.8 grams of fiber Peas, frozen (cooked), ?? Cup, 4.4 grams of fiber Potatoes, mashed, ?? Cup, 1.6 grams of fiber Lettuce, 1 Cup, 0.5 grams of fiber Brumley, canned, ?? Cup, 1.6 gramsof fiber Tomato, ?? Cup, 1.1 grams of fiberInformation taken from the USDA National Nutrient Database, 2008. Document Released: 09/12/2006 Document Revised: 12/04/2012 Document Reviewed: 01/16/2008 ExitCare?? Patient Information ??2013 BasisCode. * Discharge Instructions* Document, Scanned - 12/11/2013 1:12 AM CDT documented in this encounter Medications at [...] bedtime. 01/09/2014 documented as of this encounter Procedure Notes * Document, Scanned - 02/07/2014 10:12 AM CDTAssociated Order(s): LAB RESULTS ORDER documented in this encounter ED Notes * Farzana Preston APRN-CNP - 12/09/2013 11:15 AM CDT Images from the original note were not included. EMERGENCY DEPARTMENT 12/09/2013 Dear Doctor, We had the pleasure of caring for your patient, Mary Coffman in our emergency department on 12/09/2013. A note from the provider(s) who cared for your patient is attached. Should you wish to access any laboratory results, please call . Should you wish to access any radiology results, please call , option 3. In addition, you can access patient information 24 hours a day, from any computer, through [employer], the online version of our electronic medical record. If you would like to use this service, please call Shiloh Tamez, Connectivity Coordinator, at . We appreciate the opportunity to care for your patients. If you would like additional information, please call the emergency department directly at . Sincerely, Farzana Preston APRN-LADI Division of Emergency Medicine [place], [place] [facility] [place] DESIGNATED EMERGENCY DEPARTMENT Provider contact with the patient: 12/09/2013 11:[id number] [facility] EMERGENCY DEPARTMENT History Chief Complaint Patient presents with ??? Pain Urinary Mom states pt has had intermittent complaint of dysuria for a week, but has worsened. No fever. Female Genitourinary The primary symptoms include dysuria.The primary symptoms do not include vaginal bleeding or flank pain.The history is provided by the parent and patient. This is a new problem. Episode onset: 1 weekago. The problem occurs intermittent. The problem has been gradually worsening. The pain is moderate. The symptoms occur during urination and after urination. Urine output has increased. The last void occurred less than 6 hours ago. Associated symptoms include constipation and frequency.Pertinent negatives include no diarrhea, no nausea, no vomiting, no hematuria, no urgency or no vaginal discharge.There has been no fever. She has tried a warm bath for the symptoms. Past Medical History Diagnosis [...] on file Medications Current Outpatient Prescriptions Medication Sig Dispense Refill ??? fluticasone hfa 110 (FLOVENT HFA 110) 110 MCG/ACT inhaler Inhale 2 Puffs by mouth 2 times daily. ??? montelukast (SINGULAIR) 4 MG chew tablet Take 4 mg by mouth at bedtime. ??? albuterol (PROVENTIL;VENTOLIN) (2.5 MG/3ML) 0.083% nebulizer solution Inhale by mouth every 4 hours while awake. Review of Systems Review of Systems Constitutional: Negative. NKA; albuterol PRN; hx asthma, appendectomy 2 years ago; vaccinations UTD. HENT: Negative. Eyes: Negative. Respiratory: Negative. Hx asthma Cardiovascular: Negative. Gastrointestinal: Positive for constipation. Negative for nausea, vomiting, diarrhea and blood in stool. Last BM 2 days ago with straining. Has been miralax in past for constipation. Genitourinary: Positive for dysuria and frequency. Negative for urgency, hematuria, flank pain, decreased urine volume, vaginal bleeding, vaginal discharge, enuresis and difficulty urinating. Urine odor sometimes. Denies discharge or itching. Musculoskeletal: Negative. Skin: Negative. BP 124/54 Pulse 65 Temp 98.5 ??F Resp 20 Wt 30.1 kg (66 lb 5.7 oz) Physical Exam Physical Exam Nursing note and vitals reviewed. Constitutional: She appears well-developed and well-nourished. She is active. HENT: Mouth/Throat: Mucous membranes are moist. Oropharynx is clear. Eyes: Conjunctivae normal and EOM are normal. Pupils are equal, round, and reactive to light. Neck: Normal range of motion. Neck supple. No adenopathy. Cardiovascular: Normal rate and regular rhythm. Pulmonary/Chest: Effort normal and breath sounds normal. Abdominal: Soft. Bowel sounds are normal. She exhibits no distension and no mass. There is no hepatosplenomegaly. There is tenderness. There is no rebound and no guarding. No hernia. Mild epigastric, periumbilical, lower abdomen tenderness. Small scar inferior to umbilicus. Neurological: She is alert. Skin: Skin is warm and dry. Capillary refill takes less than 3 seconds. Procedures Procedures Lab/SPO2 Interpretation Results for orders placed during the hospital encounter of 12/09/13 URINALYSIS ROUTINE AUTO Component Value Range Color UA Yellow Straw, Yellow, Dark Yellow Clarity UA Clear Specific Lucas UA 1.010 1.005-1.030 pH UA 7.0 5.0-8.0 pH Protein UA Negative Negative Blood UA Negative Negative Leukocyte UA Negative Negative Nitrite UA Negative Negative Glucose UA Negative Negative Ketone UA Negative Negative Bili UA Negative Negative Urobilinogen UA 0.2 0.1-1.0 EU/dL URINALYSIS MICROSCOPIC ONLY Component Value Range RBC UA 0-2 0-2, 2-5 # /hpf WBC UA 0-2 0-2, 2-5 # /hpf Bacteria UA Trace None Seen, Trace Epithelial Cell UA 0-2 0-2, 2-5 Progress Notes Pt alert, active, well-appearing. ED Course Orders Placed This Encounter ??? CULTURE URINE Standing Status: Standing Number of Occurrences: 1 Standing Expiration Date: ??? URINALYSIS ROUTINE AUTO Standing Status: Standing Number of Occurrences: 1 Standing Expiration Date: ??? URINALYSIS MICROSCOPIC ONLY Standing Status: Standing Number of Occurrences: 1 Standing Expiration Date: Culture pending. Mother made aware of cx process and f/u. Medical Decision Making I have reviewed the: Nursing Notes and Vitals. I have interpreted the following results: Labs. I have discussed the case with Family/Caregiver. Encourage fluid intake and fiber in diet; fruits, vegetables, whole grains. Allow ample time for daily bowel movements. Start miralax 8.5g (1/2 capful) daily to facilitate bowel movements. Call your wet machine cutter for persistence/worsening or other concerns. Our follow-up nurse will call your if the urine culture is abnormal. Clinical Impression Final diagnoses: Dysuria (Primary) Constipation documented in this encounter Miscellaneous Notes * Miscellaneous Scans - Document, Scanned - 12/11/2013 1:12 AM CDT documented in this encounter Plan of Treatment Not on file documented as of this encounter Procedures Procedure Name Priority Date/Time Associated Diagnosis Comments LAB RESULTS ORDER 02/07/2014 10: 12 AM CDT URINALYSIS REFLEX TO MICROSCOPIC NO CULTURE STAT 12/09/2013 11:13 AM CDT CULTURE URINE STAT 12/09/2013 11:13 AM CDT URINE MICROSCOPIC ONLY STAT 12/09/2013 11:13 AM CDT documented in this encounter Results * LAB RESULTS ORDER (02/07/2014 10:12 AM CDT) Narrative 02/07/2014 10:12 AM CDT Ordered by an unspecified provider. Transcriptions Document, Scanned - 02/07/2014 10:12 AM CDT Scanned Document LAB - THERAPEUTIC DR [place]ING[place] MONITORING ORDERABLES * CULTURE URINE (12/09/2013 11:13 AM CDT) Culture <10,000 CFU/mL normal urogenital sarah 12/11/2013 6:59 AM CDT [facility] Urine URINE SPECIMEN OBTAINED BY CLEAN CATCH PROCEDURE / Unknown 12/09/2013 11:13 AM CDT 12/09/2013 11:29 AM CDT Farzana Preston APRN-SENIOR MAINTENANCE TECHNICIAN LAB - MICROBIOL OGY ORDERABLES [facility] [address] [place], [place] [address], [facility] * URINALYSIS ROUTINE AUTO (12/09/2013 11:13 AM CDT) Color UA Yellow Straw, Yellow, Dark Yellow 12/09/2013 11:43 AM CDT [facility] Clarity UA Clear 12/09/2013 11:43 AM CDT [facility] Specific Lucas UA 1.010 1.005 - 1.030 12/09/2013 11:43 AM CDT [facility] pH UA 7.0 5.0 - 8.0 pH 12/09/2013 11:43 AM CDT [facility] Protein UA Negative Negative 12/09/2013 11:43 AM CDT [facility] Blood UA Negative Negative 12/09/2013 11:43 AM CDT [facility] Leukocyte UA Negative Negative 12/09/2013 11:43 AM CDT [facility] Nitrite UA Negative Negative 12/09/2013 11:43 AM CDT [facility] Glucose UA Negative Negative 12/09/2013 11:43 AM CDT [facility] Ketone UA Negative Negative 12/09/2013 11:43 AM T [facility] Bilirubin UA Negative Negative 12/09/2013 11:43 AM T [facility] Urobilinogen UA 0.2 0.1 - 1.0 EU/dL 12/09/2013 11:43 AM T [facility] Urine URINE SPECIMEN OBTAINED BY CLEAN CATCH PROCEDURE / Unknown 12/09/2013 11:13 AM CDT 12/09/2013 11:29 AM CDT Farzana Preston APRN-SENIOR MAINTENANCE TECHNICIAN LAB - URINALYSI S ORDERABLES Performing Organization Address [facility] Co de Phone Number [facility] [address] [place] [address] * URINALYSIS MICROSCOPIC ONLY (12/09/2013 11:13 AM CDT) RBC UA 0-2 0-2, 2-5 # /hpf 12/09/2013 11:52 AM T [facility] WBC UA 0-2 0-2, 2-5 # /hpf 12/09/2013 11:52 AM T [facility] Bacteria UA Trace None Seen, Trace 12/09/2013 11:52 AM T [facility] Epithelial Cell UA 0-2 0-2, 2-5 12/09/2013 11:52 AM T [facility] Urine URINE SPECIMEN OBTAINED BY CLEAN CATCH PROCEDURE / Unknown 12/09/2013 11:13 AM CDT 12/09/2013 11:29 AM CDT Farzana Preston APRN-SENIOR MAINTENANCE TECHNICIAN LAB - URINALYSI S ORDERABLES Performing Organization Address City/[facility] Co de Phone Number [facility] [address] [place] [address] documented in this encounter Visit Diagnoses Diagnosis Dysuria- Primary Constipation documented in this encounter Care Teams Safety Compliance Specialist Relationship Specialty Start Date End Date Alfredo Cardoza MD PCP - General 02/05/11 08/27/21 documented as of this encounter
--- OUTSIDE RECORDS SUMMARY | 2024-10-06 05:43 | XMS_ITS | Encounter Summary ---
Author Organization [facility] Address [address] [place] [address] Care Team Providers Care Clerical Order Filler Name Role Phone Alfredo Cardoza MD Primary Care Provider Unavail able Reason for Visit * Reason Comments Urinary frequency Dysuria Encounter Details Date Type Department Care Team (Latest Contact Info) Description 03/06/2014 3:45 PM CDT - 03/06/2014 11:59 PM CDT Hospital Encounter [facility] Pediatrics - Urology [address] [place] [id number] Lin Kowalski, CASH MANAGEMENT ASSOCIATE-[address] [address] Discharge Disposition: Home or Self Care Social History Tobacco Use Types Packs/Day Years Used Date Smoking Tobacco: Never Assessed Sex and Gender Information Value Date Recorded Sex Assigned at Not on file Gender Identity Not on file Sexual Orientation Not on file documented as of this encounter Last Filed Vital Signs Vital Sign Reading Time Taken Comments Blood Pressure 88/56 03/06/2014 3:46 PM CDT Pulse - - Temperature - - Respiratory Rate - - Oxygen Saturation - - Inhaled Oxygen Concentration - - Weight 30.3 kg (66 lb 11.2 oz) 03/06/2014 3:46 P M CDT Height 130.2 cm (4' 3.26 ) 03/06/2014 3:46 PM CD T Body Mass Index 17.85 03/06/2014 3:46 PM CDT Body Mass Index Percentile 68.93% 03/06/2014 3:4 6 PM CDT Growth Chart: [facility] (Girls, 2- 20 Years) documented in this encounter Discharge Instructions * Patient Instructions* Lucho Gayatri, CASH MANAGEMENT ASSOCIATE-POINTER HELPER - 03/06/2014 4:37 PM CDT Call me in 2 weeks with response to ditropan; dose may be adjusted yrodynamics nurse will call to schedule testing I will call with Dr Pena's recommendations ?? Void every 2 hours during waking hours, Sing the ABC's to self and void again. ?? Urinary and bowel limitations and recommendations ? School letter ?? Wiggle and wick--girls should wipe front to back. Take another piece of toilet paper, hold it against her private area, stand up and wiggle a little or jump. This will catch any drops of urine that may be caught in her private area. BOWEL MANAGEMENT PROTOCOL Many children with urinary [...] on an elimination diary for 2 weeks. Foods to be encouraged: Your child should pick at least 3 from these groups: Whole grain bread e.g.. Netta Bowman Brumble, Cinnamon Raisin, Brown Sugar, Smooth and Soft; Wonder- Whole Grain White; Iron Kids or Essentials bread. Netta Bowman also has a hot dog and hamburger buns that are whole grain. Arnold brand high fiber buns. Check the fiber content on the package. Fresh fruits especially apples and pears (not bananas) Salads or any fresh vegetables-uncooked is best but cooked works too. Dried fruits e.g. Raisins, prunes, apricots, Craisins by [place] (they come in flavors of antonio, strawberry, orange and plain) Hot cereal (especially oatmeal). Bran, Total, Wheaties, Frosted Mini Wheats, Frosted [place]isk Mini Wheats Fiber Plus granola bars or any other high fiber granola bar. Fiber One low calorie lemon bars, brownies, and cinnamon bars Kashi cereals (there are multiple varieties/may also a small amount to another cereal if hesitant to try it alone) Increase fluids-drinks 6-8 glasses per day with one glass before breakfast. Good juices: Grape (white or purple), prune, peach, apricot, or pear nectars: if no urinary symptoms may also use orange or orange combinations to treat constipation. Mix koolaid or another juice like René D with prune juice and freeze to make popsicles. Use equal parts of each. Popcorn-for children over 3 years old. [employer] has raisin bran bagels (7Gm. Fiber) and fig bars (1 Gm. Per cookie) as well as breakfast breads like cinnamon raisin. Kat Splash (fiber infusion packets/just add to water). Sugarfree life savers--start with a 2 per day may help BM's since it has a laxative effect. Esperanza says 4 life-savers and eating them in excess may have laxative effect. So increase 1 per day to see how many work. Smooth Move Tea-- (12 yo or older) tea bags to make hot cup of tea; available at [employer], [employer] and [employer]; drink in the evening and get up with soft BM in the morning. In the tea/coffee section. Yogi brand--Get Regular tea (also for 12 yo and older) in the herbal tea section. Benefiber can be added to foods or [...] may cause hardened or infrequent bowel movements). Cheese Apple Juice Tea Applesauce Bananas 4. The following foods/drinks may be bladder irritants/discontinue for bladder health: Caffeine Brown chocolate [place] fruits and juices Carbonation Energy drinks Gatorade Zyrtec Benadryl STEP 2: Send the calendar to our office (att'n. Pediatric Urology) or fax it to us at [phone].Include your child's name, your name and a daytime phone number with the area code. We will call you back to advise you. documented in this encounter Medications at Time of Discharge Medication Sig Dispensed Refills Start Date End Date polyethylene glycol 3350 (MIRALAX) packet Take 17 g by mouth once daily. With 8 ounces of fluid. 527 g 2 01/09/2014 oxybutynin (DITROPAN) 5 MG/5ML syrupIndications:Urinary Frequency Take 3 mL by mouth 3 times daily. Indications: Frequent Urination 473 mL 0 03/06/2014 03/07/2015 polyethylene glycol 3350 (MIRALAX) powderIndications:Unspec ified constipation Take 17 g by mouth once daily. 527 g 3 01/09/2014 08/13/2015 documented as of this encounter Progress Notes * Gayatri Yepez APRN-CNP - 03/06/2014 5:20 PM CDT Mary Coffman is a 8 y.o. Black/ who comes to us today for an evaluation and management of frequency. Mary Coffman was seen for the first time in Urology 4-6 weeks ago for the same problem. She was started on Miralx, q 2 hr timed voiding schedule with properpositioning, and wiping techniques. Her mom reports she still continues with frequency. Her bowel habits are beginning to improve. She is here for an office visit. Will try to obtain a post void residual first. Post void residual 60ml. After second void 30 ml. There are no new issues or concerns. FAMILY HISTORY: No known history of kidney or bladder issues SOCIAL HISTORY: Lives with parents and sibling; attends elementary school ROS: Complete Negative Except For:frequency, dysuria, constipation ASSESSMENT: BP 88/56 Ht 1.302 m (4' 3.26 ) Wt 30.255 kg (66 lb 11.2 oz) BMI 17.85 kg/m2 SKIN: negative HEENT: normocephalic CHEST: clear all lung puga CARDIO:RRR ABDOMEN/GI: Soft, no tenderness to palpation, bowel sounds present : Female exam: Stan I and Normal introitus, no discharge NEUROMUSCULAR:grossly normal IMPRESSION: Frequency constipation DISCHARGE INSTRUCTIONS: UA, urine culture, calcium/creatinine ratio Continue q 2 hr timed voiding schedule, with positioning and wiping techniques Continue miralax Start a short course of ditropan 3 ml tid- may increase dose if she tolerates medication Will review post void residual with Dr Pena for further recommendation Follow up pending Contact info Call if questions or concerns BRIAN Franco 03/07/2014 1:23 PM documented in this encounter Procedure Notes * Vanesa Murry RN - 03/07/2014 11:40 AM CDTProcedure(s): URODYNAMIC TESTING Post void residual (pvr) per Bladder scan after 10 ml void = 60 ml. Voided a second time 20 ml, PVR = 30 ml. documented in this encounter Miscellaneous Notes * Miscellaneous Scans - Document, Scanned - 03/08/2014 12:49 AM CDT documented in this encounter Plan of Treatment Not on file documented as of this encounter Procedures Procedure Name Priority Date/Time Associated Diagnosis Comments CALCIUM/CREAT RATIO URINE RANDOM PANEL Routine 03/06/2014 4:49 PM CDT Frequency URINALYSIS REFLEX TO MICROSCOPIC NO CULTURE Routine 03/06/2014 4:48 PM CDT Frequency CULTURE URINE Routine 03/06/2014 4:48 PM CDT Frequency URINE MICROSCOPIC ONLY Routine 03/06/2014 4:48 PM CDT Frequency documented in this encounter Results * CALCIUM/CREAT RATIO URINE RANDOM PANEL (03/06/2014 4:49 PM CDT) Calcium Urine 3.36 mg/dL 03/06/2014 5:41 PM CDT [facility] Creatinine Urine 79.20 mg/dL 03/06/2014 5:41 PM CDT [facility] Calcium/Creatin ine Ratio Urine 0.04 03/06/2014 5:41 PM CDT [facility] Urine URINE SPECIMEN OBTAINED BY CLEAN CATCH PROCEDURE / Unknown 03/06/2014 4:49 PM CDT 03/06/2014 4:56 PM CDT Narrative [facility] - 03/06/2014 5:41 PM CDT Normal ? <0.16 Borderline ??0.16-0.20 Abnormal ?? >0.20 Gayatri Yepez [facility] LAB - URINE CHEM ISTRY ORDERABLES Performing Organization Address City/[facility] Co de Phone Number [facility] [address] [place] [address] * CULTURE URINE (03/06/2014 4:48 PM CDT) [facility] Culture 10,000-50,000 CFU/mL normal urogenital sarah 03/08/2014 11:46 AM CDT [facility] MICROBIOLOG[facility] Urine URINE SPECIMEN OBTAINED BY CLEAN CATCH PROCEDURE / Unknown 03/06/2014 4:48 PM CDT 03/06/2014 4:56 PM CDT Gayatri Yepez [facility] LAB - MICROBIOLO GY ORDERABLES Performing Organization Address City/[facility]/ZIP Co de Phone Number [facility] MICROBIOLOGY [address] [place] [address], [facility] * (ABNORMAL) URINALYSIS ROUTINE AUTO (03/06/2014 4:48 PM CDT) Color UA Yellow Straw, Yellow, Dark Yellow 03/06/2014 5:39 PM CDT [facility] Clarity UA Clear 03/06/2014 5:39 PM CDT [facility] Specific [place] UA 1.010 1.005 - 1.030 03/06/2014 5:39 PM CDT [facility] pH UA 8.5(H) 5.0 - 8.0 pH 03/06/2014 5:39 PM CDT [facility] Protein UA Negative Negative 03/06/2014 5:39 PM CDT [facility] Blood UA Negative Negative 03/06/2014 5:39 PM CDT [facility] Leukocyte UA Negative Negative 03/06/2014 5:39 PM CDT [facility] Nitrite UA Negative Negative 03/06/2014 5:39 PM CDT [facility] Glucose UA Negative Negative 03/06/2014 5:39 PM CDT [facility] Ketone UA Negative Negative 03/06/2014 5:39 PM CDT [facility] Bilirubin UA Negative Negative 03/06/2014 5:39 PM CDT [facility] Urobilinogen UA 0.2 0.1 - 1.0 EU/dL 03/06/2014 5:39 PM CDT [facility] Urine URINE SPECIMEN OBTAINED BY CLEAN CATCH PROCEDURE / Unknown 03/06/2014 4:48 PM CDT 03/06/2014 4:56 PM CDT Gayatri Yepez APRN-POINTER HELPER LAB - URINALYSIS ORDERABLES Performing Organization Address City/[facility]/ZIP Co de Phone Number [facility] [address] [place] [address] * URINALYSIS MICROSCOPIC ONLY (03/06/2014 4:48 PM CDT) RBC UA 0-2 0-2, 2-5 # /hpf 03/06/2014 5:39 PM CDT [facility] WBC UA 0-2 0-2, 2-5 # /hpf 03/06/2014 5:39 PM CDT [facility] Bacteria UA None Seen None Seen, Trace 03/06/2014 5:39 PM CDT [facility] Epithelial Cell UA 0-2 0-2, 2-5 03/06/2014 5:39 PM CDT [facility] Urine URINE SPECIMEN OBTAINED BY CLEAN CATCH PROCEDURE / Unknown 03/06/2014 4:48 PM CDT 03/06/2014 4:56 PM CDT Gayatri Yepez APRN-POINTER HELPER LAB - URINALYSIS ORDERABLES Performing Organization Address City/[facility]/ZIP Co de Phone Number [facility] [address] [place] [phone] documented in this encounter Visit Diagnoses Diagnosis Frequency- Primary Urinary frequency Unspecified constipation documented in this encounter Care Teams Clerical Order Filler Relationship Specialty Start Date End Date Alfredo Cardoza MD PCP - General 02/05/11 08/27/21 documented as of this encounter
--- OUTSIDE RECORDS SUMMARY | 2024-10-06 05:43 | XMS_ITS | Encounter Summary ---
Author Organization [facility] [employer] Address [address] [place] [address] Care Team Providers Care Jamb Cutter Name Role Phone Alfredo Cardoza MD Primary Care Provider Unavail able Encounter Details Date Type Department Care Team (Latest Contact Info) Description 02/18/2011 10:14 AM CDT Hospital Encounter [facility] [facility] Pediatrics - Surgery [address] [place] [address] Maynor Parks MD [facility] [place] [address] Surgery General Discharge Disposition: Home or Self [...] documented as of this encounter Visit Diagnoses Diagnosis Acute appendicitis without mention of peritonitis documented in this encounter Care Teams Jamb Cutter Relationship Specialty Start Date End Date Alfredo Cardoza MD PCP - General 02/05/11 08/27/21 documented as of this encounter
--- OUTSIDE RECORDS SUMMARY | 2024-10-06 05:43 | XMS_ITS | Encounter Summary ---
Author Organization [facility] Address [address] [place] [address] Care Team Providers Care Trailer Tank Truck Driver Name Role Phone Alfredo Cardoza MD Primary Care Provider Unavail able Reason for Visit * Reason Comments Urinary frequency Encounter Details Date Type Department Care Team (Latest Contact Info) Description 08/13/2015 3:15 PM FLAT KNITTER HELPER - 08/13/2015 11:59 PM [facility] Hospital Encounter [facility] Pediatrics - Urology [address] [place] [address] Henrietta Lal, FASHION INTERN-HOT BRAIDER [address] [place] [address] Discharge Disposition: Home or Self Care Social [...] Sign Reading Time Taken Comments Blood Pressure 90/58 08/13/2015 3:34 PM FLAT KNITTER HELPER Pulse - - Temperature - - Respiratory Rate - - Oxygen Saturation - - Inhaled Oxygen Concentration - - Weight 37 kg (81 lb 9.1 oz) 08/13/2015 3:[address] Height 141 cm (4' 7.51 ) 08/13/2015 3:34 PM FLAT KNITTER HELPER Body Mass Index 18.61 08/13/2015 3:34 PM FLAT KNITTER HELPER Body Mass Index Percentile 65.86% 08/13/2015 3:3 4 PM FLAT KNITTER HELPER Growth Chart: [facility] (Girls, 2- 20 Years) documented in this encounter Discharge Instructions * Patient Instructions* Hali Henrietta DICKSON Velasquez-HOT BRAIDER - 08/13/2015 4:10 PM FLAT KNITTER HELPER Foods to be encouraged to help with Bowel Movements (Your child should pick at least 3 from these groups): ?? Whole grain bread e.g.. Netta Bowman Brumble, Cinnamon Raisin, Brown Sugar, Smooth and Soft; Wonder-Whole Grain White; Iron Kids or Essentials bread. Netta Bowman also has a hot dog and hamburger buns that are whole grain. [employer] brand high fiber buns. Check the fiber content on the package. ?? Fresh fruits especially apples and pears (not bananas) ?? Salads or any fresh vegetables-uncooked is best but cooked works too. ?? Dried fruits e.g. Raisins, prunes, apricots, Craisins by [place] (they come in flavors of antonio, strawberry, orange and plain) ?? Hot cereal (especially oatmeal). ?? Bran, Total, Wheaties, Frosted Mini Wheats, Frosted [place] Mini Wheats ?? Fiber Plus granola bars [...] or orange combinations to treat constipation. ?? Mckeon's 100% grape juice FIBER has added fiber. (3 grams/8 ounces) ?? Mix koolaid or another juice like [...] hot cup of tea; available at [employer], Jenn Foster's; drink in the evening and get up with soft BM in the morning. In the tea/coffee section. Yogi brand--Get Regular tea (also for 12 yo and older) in the herbal tea section. ?? Benefiber can be added to foods or liquids and used in cooking to add fiber. DO'S AND DON'TS OF URINARY AND BOWEL HEALTH DO'S: ?? Use Dove or Tone bar soap without additives (we have no data on either soap in its liquid form).These are the closest to normal skin pH. ?? Use all cotton panties (not just cotton panty liners) ?? Use unscented menstrual pads and tampons ?? Use menstrual pads without plastic liners ?? Use diaper wipes without alcohol or scents ?? SHOWERS! --hand held showers offer the benefit of better hygiene. (If you do not have a hand held shower, you can use an empty squirt bottle filled with warm water. [place] the genital area to improve hygiene after spreading the labia apart). ?? Use color and fragrance free moisturizers and cleansers. May have sodium LAURATH sulfate. ?? Wipe front to back and use different paper when cleaning after having a bowel movement. ?? Potty train when closer to 3 years and can tell you he/she has to go and shows interest in learning. Being able to wake up dry is also a sign of readiness. ?? Girls should spread their legs in a V-Shape when urinating. Always wipe from front to the back. ?? Drink more water and decrease salt. Eat more fruits and vegetables. ?? Can try taking sugarfeee lifesavers to help make BM's soft. Start with 1-2 per day and increase if needed. DO NOT'S: The following may cause problems with your bladder: ?? Caffeine (check all drinks, sodas, yogurts, ice cream, etc for caffeine eg mocha flavors) ?? [place] fruit and juices ?? Energy drinks (contain guarana) ?? Carbonation ?? Chocolate (white chocolate is ok) ?? Gatorade (too much salt) ?? Zyrtec (allergy medicine) ?? Hot, spicy foods The following may cause problems with the bowel: ?? Bananas ?? Applesauce ?? Apple juice or apple juice combinations ?? Tea ?? Slices of cheese, grilled cheese, string cheese, etc. ?? More than 3 servings of milk products per day -- there is also some possible correlation to bedwetting so no milk products after lunch may also help. The following have been associated with infections, irritation, and/or blood in the urine: ?? Always menstrual pads or any other pads with a plastic barrier on the pad. ?? Tampons and menstrual pads with scent or deodorant ?? Thong underwear ?? Douches ?? Powders ?? Many bath soaps are very harsh and extremely irritating to skin in the genital area eg. Zest, Ivory, [place] Spring, Coast, Dial, Lever 2000 ?? Bubble baths or tub baths with shampoo and soapy water ?? Scented toilet paper ?? Diaper wipes with alcohol ?? Cleansers and moisturizers with color, fragrance or sodium LAURYL sulfate ?? Potty training at 2 years or younger -- many children learn to hold too well ?? Soda has been associated with kidney stones ?? No powders, talc, or diaper ointments should be used after diaper changes Other possible associations with enuresis or bed wetting are carbonated drinks, artificial colors, citric acid (orange, lemon and grapefruit), vitamin C, sugary foods and candy, and milk products in the evening. Instructions for patients with megacystis (large capacity for age), wet pants or bed, urine poolingin the genital (private) area, and/or infrequent or too frequent voiding: ?? Void every 2 hours by the clock during waking hours. She may not feel like she needs to go but she should go in, relax, and try to urinate. Say the ABC's to themselves and try to void again. In other words, take your time and don't acosta. ?? Use Dove or Tone bar soap for bathing. Children should shower and rinse well. They should not sit in soapy or shampoo water or use other soaps including liquid soaps. ?? Girls should straddle the toilet backwards or sit with their legs spread in a V shape to void.Feet should be on floor, stool, or phone books so she is sitting up straight with feet supported. ?? Girls should wipe with toilet paper from front to back. Take additional paper, hold to their genital area, stand up and do a little dance to wick any urine out of the genital area. ?? Do not wear tight underwear or clothing. Increase size with weight gain and growth. ?? Crooked, spraying, sideways, or backward streams should be reported. Report consistent problems with this to your doctor or nurse practitioner. It may also be caused by constipation from pressure on the bladder and/or urethra. So first correct the constipation. ?? Many children with urinary issues also have bowel issues. BM's should be soft, shaped like a banana, slide into the toilet water without splashing, and be messy enough to require several wipes to get clean. Ball-shaped, large, bulky, difficult to pass or flush BM's are signs of constipation or an unhealthy bowel habit. ?? Children with bedwetting need to stop drinking liquids 2 hours before bedtime as well as the above info. ?? To aid in keeping the genitals (privates) clean, use a hand held shower to rinse well. ?? Use a hairdryer on a low setting to fan dry after bathing to manage rashes or irritation in the genital area. This is the most often needed in overweight children. If there is not improvement in 2days, call our office to discuss further treatment. ?? For redness in the private area of girls, can apply generic Aquaphor healing ointment 2-3 times per day. Should improve in 24-48 hours. If not call and discuss with provider. ?? Urinary and bowel limitations and recommendations ?? Elimination diary for 2 weeks--fax or send when completed ?? School letter ?? Wiggle and wick: girls should wipe front to back. Take another piece of toilet paper, hold it against her private area, stand up and wiggle a little or jump. This will catch any drops of urine that may be caught in her private area. ?? Behavior modification reward calendar for 4 weeks--fax or send when completed Fluid guidelines for children--vary depending on activity and temperature outside; especially encourage water. (1 cup=8 ounces) 4-8 yo girls: 5 cups 9-13 yo girls: 7 cups 14-18 yo girls: 8 cups Please call in one month with an update or as needed with concerns at [phone] ext [phone]. Our fax number is . KNITTER HELPER documented in this encounter Medications at Time of Discharge Medication Sig Dispensed Refills Start Date End Date albuterol HFA (PROVENTIL;VENTOLIN;PROA IR) 108 (90 BASE) MCG/ACT inhaler Inhale 2 Puffs by mouth every 6 hours as needed polyethylene glycol 3350 (MIRALAX) packet Take 17 g by mouth once daily. With 8 ounces of fluid. 527 g 2 01/09/2014 acetaminophen (TYLENOL) 160 MG/5ML SOLN solution Take by mouth every 4 hours as needed for Fever or Pain 09/02/2021 oxybutynin (DITROPAN) 5 MG tabletIndications:Urinar y Frequency,Urinary Incontinence,Urinary Urgency Take 1 Tab by mouth 3 times daily Reasons: Frequent Urination, Urinary Incontinence, Urinary Urgency 90 Tab 5 08/13/2015 09/02/2021 documented as of this encounter Progress Notes * Henrietta Lal APRN-CNP - 08/13/2015 3:43 PM CST Mary Coffman and her mother were seen in our Pediatric Urology Clinic at [facility] on 08/13/2015. She is a 10 y.o. who presents for evaluation and management of: Urinary frequency HPI: Mary has been experiencing urinary frequency and urgency. This has been an ongoing problem that did get better but over the last two months it has seemed to return. She was previously on Ditropan-per parent this was helpful. No dysuria, no hematuria, no belly pain, no back pain, no enuresis. No recent UTIs. She drinks milk, water, juice, chocolate milk and Helene Sun. She voids 5 times at home and 5 times at school. She was potty trained at 18month for daytime continence and 18months for night time continence. Her stream caliber is full. BMs are banana shaped and mixed with usage of toilet paper requires more wipes. Incontinence score 10. Records Reviewed Yes. Mary Coffman's current treatment regimen is as follows: Current Outpatient Prescriptions on File Prior to Encounter Medication Sig Dispense Refill ??? albuterol HFA (PROVENTIL;VENTOLIN;PROAIR) 108 (90 BASE) MCG/ACT inhaler Inhale 2 Puffs by mouthevery 6 hours as needed ??? acetaminophen (TYLENOL) 160 MG/5ML SOLN solution Take by mouth every 4 hours as needed for Fever or Pain ??? polyethylene glycol 3350 (MIRALAX) packet Take 17 g by mouth once daily. With 8 ounces of fluid. 527 g 2 No current facility-administered medications on file prior to encounter. Review of Systems: :frequency and urgency Psychological: negative HEENT: positive for - headaches, should wear glasses but they are broken Allergy: negative Hematological: negative Endocrine: negative Respiratory: positive for - asthma Cardiovascular: negative Gastrointestinal: positive for - constipation (history of) Musculoskeletal: negative Neurological: positive for - headaches Dermatological: positive for - eczema Labor and Delivery: Born at 40 weeks, weighing 6lbs 10oz via emergency delivery due to decels and went home with mom, had to go back due to jaundice. Past Medical, Family, and Social history: Past Medical History Diagnosis Date ??? Asthma ??? Frequent urination Family History: Maternal- No pertinent history Paternal- No pertinent history Siblings- 3 sisters-healthy Social History: History Social History Narrative Mary Coffman lives with her mother, father, grandmother, and 3 sisters. She attends school and is in the 5th grade and is achieving good grades. For extracurricular activity She participates plays board games and enjoys art. Physical Examination: BP 90/58 mmHg Ht 1.41 m (4' 7.51 ) Wt 37 kg (81 lb 9.1 oz) BMI 18.61 kg/m2 66%ile (Z=0.41) based on CDC 2-20 Years BMI-for-age data using vitals from 08/13/2015. General: awake and alert : Normal appearing introitus; Stan 2 HEENT: normocephalic, normal TM's, PERRL, normal tonsils and airway and uvula midline Cardiovascular: RRR Respiratory: clear all lung puga and normal RR Dermatological: negative Abdomen: no masses and no organomegaly Neurological/Developmental: normal gait and developmentally appropriate Musculoskeletal: normal gait Diagnostic Studies: Hospital Encounter on 08/13/15 CULTURE URINE Result Value Ref Range Culture <10,000 CFU/mL normal urogenital sarah URINALYSIS ROUTINE AUTO Result Value Ref Range Color UA Yellow Straw, Yellow, Dark Yellow Clarity UA Clear Specific [place] UA <=1.005 1.005-1.030 pH UA 7.0 5.0-8.0 pH Protein UA Negative Negative Blood UA Negative Negative Leukocyte UA Trace (Abnormal) Negative Nitrite UA Negative Negative Glucose UA Negative Negative Ketone UA Negative Negative Bili UA Negative Negative Urobilinogen UA 0.2 0.1-1.0 EU/dL URINALYSIS MICROSCOPIC ONLY Result Value Ref Range RBC UA 0-2 0-2, 2-5 # /hpf WBC UA 2-5 0-2, 2-5 # /hpf Bacteria UA Trace None Seen, Trace Epithelial Cell UA 5-10 (Abnormal) 0-2, 2-5 Impression: Urinary Frequency; Plan: ?? Void every 2 hours, double void; girls should sit with their legs spread in wide V shape, and with their feet on the floor or a stool. She may also straddle the toilet backwards. ?? Do not wear tight underwear or clothing. ?? Urinary and bowel limitations and recommendations ?? Elimination diary for 2 weeks--fax or send when completed. ?? Behavior modification reward calendar for 4 weeks--fax or send when completed. ?? School letter ?? Wiggle and wick--girls who leak, should wipe front to back. Take another piece of toilet paper, hold it against her private area, stand up and wiggle a little or jump. This will catch any drops ofurine that may be caught in her private area. ?? Use Dove or Tone bar soap for bathing. No additives or perfumes to soap. ?? Restart Ditropan until spring or summer break then trial off ?? Consider Miralax to help with stooling if Ditropan causes constipation ?? Parent to call office in one month with an update or sooner for concerns Follow-up: Return in about 6 months (around 02/11/2016). BRIAN Farley 08/13/2015 KNITTER HELPER documented in this encounter Plan of Treatment Not on file documented as of this encounter Procedures Procedure Name Priority Date/Time Associated Diagnosis Comments CULTURE URINE Routine 08/13/2015 5:52 PM FLAT KNITTER HELPER Urinary frequency URINALYSIS REFLEX TO MICROSCOPIC NO CULTURE Routine 08/13/2015 4:43 PM FLAT KNITTER HELPER Urinary frequency URINE MICROSCOPIC ONLY Routine 08/13/2015 4:43 PM FLAT KNITTER HELPER Urinary frequency documented in this encounter Results * CULTURE URINE (08/13/2015 5:52 PM FLAT KNITTER HELPER) Pathologist [facility] Culture <10,000 CFU/mL normal urogenital sarah HE 08/15/2015 7:51 AM FLAT KNITTER HELPER [facility] MICROBIOLOGY Urine URINE SPECIMEN OBTAINED BY CLEAN CATCH PROCEDURE / Unknown 08/13/2015 5:52 PM FLAT KNITTER HELPER 08/13/2015 4:43 PM FLAT KNITTER HELPER [facility] - MICROBIO LOGY ORDERABLES [facility] MICROBIOLOG[facility] [address] [place] [address], [facility] [phone] * (ABNORMAL) URINALYSIS MICROSCOPIC ONLY (08/13/2015 4:43 PM FLAT KNITTER HELPER) Pathologist [facility] RBC UA 0-2 0-2, 2-5 # /hpf 08/13/2015 5:10 PM [facility] WBC UA 2-5 0-2, 2-5 # /hpf 08/13/2015 5:10 PM [facility] Bacteria UA Trace None Seen, Trace 08/13/2015 5:10 PM [facility] Epithelial Cell UA 5-10(A) 0-2, 2-5 08/13/2015 5:10 PM [facility] Urine URINE SPECIMEN OBTAINED BY CLEAN CATCH PROCEDURE / Unknown 08/13/2015 4:43 PM FLAT KNITTER HELPER 08/13/2015 4:43 PM FLAT KNITTER HELPER Henrietta A Hali FASHION INTERN-HOT BRAIDER LAB - URINALYS IS ORDERABLES Performing Organization Address City/State/[facility] Co de Phone Number [facility] [place] [address] * (ABNORMAL) URINALYSIS ROUTINE AUTO (08/13/2015 4:43 PM FLAT KNITTER HELPER) Color UA Yellow Straw, Yellow, Dark Yellow 08/13/2015 5:10 PM [facility] Clarity UA Clear 08/13/2015 5:10 PM [facility] Specific [place] UA <=1.005 1.005 - 1.030 08/13/2015 5:10 PM [facility] pH UA 7.0 5.0 - 8.0 pH 08/13/2015 5:10 PM [facility] Protein UA Negative Negative 08/13/2015 5:10 PM [facility] Blood UA Negative Negative 08/13/2015 5:10 PM [facility] Leukocyte UA Trace(A) Negative 08/13/2015 5:10 PM [facility] Nitrite UA Negative Negative 08/13/2015 5:10 PM [facility] Glucose UA Negative Negative 08/13/2015 5:10 PM [facility] Ketone UA Negative Negative 08/13/2015 5:10 PM [facility] Bilirubin UA Negative Negative 08/13/2015 5:10 PM [facility] Urobilinogen UA 0.2 0.1 - 1.0 EU/dL 08/13/2015 5:10 PM [facility] Urine URINE SPECIMEN OBTAINED BY CLEAN CATCH PROCEDURE / Unknown 08/13/2015 4:43 PM FLAT KNITTER HELPER 08/13/2015 4:43 PM FLAT KNITTER HELPER Henrietta A Hali FASHION INTERN-HOT BRAIDER LAB - URINALYS IS ORDERABLES [facility] [address] [place] [address] documented in this encounter Visit Diagnoses Diagnosis Urinary frequency- Primary documented in this encounter Care Teams Trailer Tank Truck Driver Relationship Specialty Start Date End Date Alfredo Cardoza MD PCP - General 02/05/11 08/27/21 documented as of this encounter
--- OUTSIDE RECORDS SUMMARY | 2024-10-06 05:43 | XMS_ITS | Referral Summary ---
Author Organization [facility] Address [address] [facility] [place] [address] Care Team Providers Care Retail Parts Professional Name Role Phone Radha Grove MD Primary Care Provider [phone] Source Comments [facility],non-owned Affiliates and Associated Physician Practices is amultiple site organization consisting of ambulatory clinics and hospital sitesin [place], [place], [place] and [place]. This disclosure is being madepursuant to the Care Everywhere program and may not contain all information available regarding this patient. Last updated 18.[facility] Allergies Active Allergy Reactions Criticality Noted Date Comments Amoxicillin Other Medium 08/27/2021 Medications * Be aware that medications may not be up to date on this document. Alwaysverify current medications with the patient. Medication Sig Dispensed Refills Start Date End Date Status polyethylene glycol 3350 (MIRALAX) packet Take 17 g by mouth once daily. With 8 ounces of fluid. 527 g 2 01/09/2014 Active Additional Information Patient taking differently:17 g OralDAILY PRN, With 8 ounces of fluid., Reported on 09/02/2021 albuterol HFA (PROVENTIL;VENTOLIN; PROAIR) 108 (90 BASE) MCG/ACT inhaler Inhale 2 Puffs by mouth every 6 hours as needed Active triamcinolone acetonide (KENALOG) 0.1 % cream APPLY EXTERNALLY TO THE AFFECTED AREA THREE TIMES DAILY FOR 7 DAYS DIRECTED 12/29/2020 Active Acetaminophen (TYLENOL PO) Take 500 mg by mouth as needed Active ibuprofen (MOTRIN) 200 MG tablet Take 200 mg by mouth every 6 hours as needed for Pain Active Active Problems Problem Noted Date Diagnosed Date Appendicitis 02/05/2011 Immunizations Name Administration Dates Next Due Tom Salmon primary monoval ent 12+ yr 0.3mL Purple cap 04/25/2021,04/04/2021 INFLUENZA VACCINE, QUADR. (F LUZONE; FLULAVAL; FLUARIX; AFLURIA QUADRIVALENT; 6MO+), 0.5 ML (IIV4) 08/27/2021 Social History Tobacco Use Types Packs/Day Years Used Date Smoking Tobacco: Never Smokeless Tobacco: Never Alcohol Use Standard Drinks/Week Comments No 0 (1 standard drink = 0.6 oz pur e alcohol) Sex and Gender Information Value Date Recorded Sex Assigned at Not on file Gender Identity Not on file Sexual Orientation Not on file Last Filed Vital Signs Vital Sign Reading Time Taken Comments Blood Pressure 122/78 09/02/2021 8:33 AM FACILITY SECURITY OFFICER Pulse 100 03/07/2015 3:26 PM CDT Temperature 37 ??C (98.6 ??F) 03/07/2015 3:26 PM CDT Respiratory Rate 24 03/07/2015 3:26 PM CDT Oxygen Saturation 100% 03/07/2015 3:26 PM CDT Inhaled Oxygen Concentration - - Weight 61.2 kg (135 lb) 09/02/2021 8:33 AM FACILITY SECURITY OFFICER Height 157.5 cm (5' 2 ) 09/02/2021 8:33 AM FACILITY SECURITY OFFICER Body Mass Index 24.69 09/02/2021 8:33 AM FACILITY SECURITY OFFICER Plan of Treatment Not on file Care Teams Retail Parts Professional Relationship Specialty Start Date End Date Radha Grove MD [address] [place] [address] PCP - General Pediatrics 08/28/21
--- OUTSIDE RECORDS SUMMARY | 2024-10-06 05:43 | XMS_ITS | Encounter Summary ---
Author Organization [facility] Address [address] [place] [address] Care Team Providers Care Dip Dyer Name Role Phone Alfredo Cardoza MD Primary Care Provider Unavail able Reason for Visit * Reason Comments Surgical Follow-up appendectomy Mom thi nks there is a lump at umbilicus and child compains of pain. no drainage Encounter Details Date Type Department Care Team (Late st Contact Info) Description 03/16/2011 3:50 PM CDT Hospital Encounter [facility] Pediatrics - Surgery [address] [place] [address] Alfred Minor MD No information available Discharge Disposition: Home or Self Care Social [...] as of this encounter Progress Notes * Cornelio Rhodes MD - 03/16/2011 4:11 PM CDT Pediatric Surgery Clinic Visit Mary Coffman 5 y.o. female 2005 Alfredo Cardoza MD Reason for visit: Redness around umbilical incision site since today (s/p laparoscopic appendectomy on 02/05). No fever, discharge, drainage. No other complaints. Exam There were no vitals taken for this visit. AO x 3, in no apparent distress Chest: clear to auscultation bilaterally CVS: RRR, no murmurs Abd: soft, erythema around umbilicus with slight tenderness to palpation, no fluctuance/discharge, bowel sounds present Assessment: Superficial skin infection (umbilical incision site) Plan: 1. Patient seen in clinic with Dr Minor. 2. Will prescribe a course of Augmentin with instructions to follow up in clinic with Dr Parks nextday. 3. Plan discussed with mother. Patient seen and discussed with Dr. Minor. Cornelio Rhodes MD 03/16/2011 4:11 PM documented in this encounter Miscellaneous Notes * Miscellaneous Scans - Document, Scanned - 06/08/2011 4:00 PM CDT documented in this encounter Plan of Treatment Not on file documented as of this encounter Visit Diagnoses Not on filedocumented in this encounter Care Teams Dip Dyer Relationship Specialty Start Date End Date Alfredo Cardoza MD PCP - General 02/05/11 08/27/21 documented as of this encounter
--- OUTSIDE RECORDS SUMMARY | 2024-10-06 05:43 | XMS_ITS | Encounter Summary ---
Author Organization [facility] Address [address] [place] [address] Care Team Providers Care Exercise Teacher Name Role Phone Alfredo Cardoza MD Primary Care Provider Unavail able Reason for Referral * Radiology Services - Closed Specialty Diagnoses / Procedures Referred By Rowena garcia Referred To Contact Diagnoses Dysuria Procedures KIDNEY AND BLADDER Gayatri Yepez APRN-CNP [address] [place] [id number] Referral ID Status Reason Start Date Expiration Date Visits Re quested Visits Authorized [id number] Closed 01/04/2014 07/03/2014 1 1 Reason for Visit * Radiology Services - Closed Specialty Diagnoses / Procedures Referred By Rowena garcia Referred To Contact Diagnoses Dysuria Procedures KIDNEY AND BLADDER Gayatri Yepez APRN-CNP [address] [place] [id number] Referral ID Status Reason Start Date Expiration Date Visits Re quested Visits Authorized [id number] Closed 01/04/2014 07/03/2014 1 1 Encounter Details Date Type Department Care Team (Latest Contact Info) Description 01/09/2014 2:31 PM CDT - 01/09/2014 3:29 PM CDT Hospital Encounter [facility] - Ultrasound [address] [place] [address] Lucho Gayatri, DICKSON-BATCH TRUCKER [address] [place] [address] Discharge Disposition: Home or Self Care Social History Tobacco Use Types Packs/Day Years Used Date Smoking Tobacco: Never Assessed Sex and Gender Information Value Date Recorded Sex Assigned at Not on file Gender Identity Not on file Sexual Orientation Not on file documented as of this encounter Miscellaneous Notes * Miscellaneous Scans - Document, Scanned - 01/11/2014 12:13 AM CDT documented in this encounter Plan of Treatment Not on file documented as of this encounter Procedures Procedure Name Priority Date/Time Associated Diagnosis Comments US KIDNEYS W BLADDER Routine 01/09/2014 3:19 PM CDT Dysuria documented in this encounter Results * US KIDNEY AND [...] I agree with this report. Gayatri Yepez LEAD RECREATION ASSISTANT-BATCH TRUCKER US ORDERABLES documented in this encounter Visit Diagnoses Diagnosis Dysuria documented in this encounter Care Teams Exercise Teacher Relationship Specialty Start Date End Date Alfredo Cardoza MD PCP - General 02/05/11 08/27/21 documented as of this encounter
--- OUTSIDE RECORDS SUMMARY | 2024-10-06 05:43 | XMS_ITS | Encounter Summary ---
Author Organization [facility] Address [address] [place] [address] Care Team Providers Care Editor Dictionary Name Role Phone Alfredo Cardoza MD Primary Care Provider Unavail able Reason for Visit * Reason Comments Appendix Problem pt with abd pain for the last 9 days intermittently, yesterday pain got increasingly worse and today mom took to OSH, transferred here for R/O appy. Encounter Details Date Type Department Care Team (Latest Contact Info) Description 02/05/2011 10:24 PM CDT - 02/07/2011 2:56 PM CDT Hospital Encounter CG [address] [address] Alexi Saxena MD [address] [place] [id number] Maynor Parks MD [address] [place] [id number] Surgery General Discharge Disposition: Home or Self Care Social History Tobacco Use Types Packs/Day Years Used Date Smoking Tobacco: Never Assessed Sex and Gender Information Value Date Recorded Sex Assigned at Not on file Gender Identity Not on file Sexual Orientation Not on file documented as of this encounter Last Filed Vital Signs Vital Sign Reading Time Taken Comments Blood Pressure 101/48 02/07/2011 8:10 AM CDT Pulse 86 02/07/2011 8:10 AM CDT Temperature 36.1 ??C (97 ??F) 02/07/2011 8:10 AM CDT Respiratory Rate 20 02/07/2011 8:10 AM CDT Oxygen Saturation 100% 02/07/2011 8:10 AM CDT Inhaled Oxygen Concentration - - Weight 17 kg (37 lb 7.7 oz) 02/05/2011 4:02 PM C DT Height - - Body Mass Index - - documented in this encounter Discharge Summaries * Maynor Parks MD - 02/07/2011 12:32 PM CDT Pediatric Surgery Discharge Summary This is a clinical resume for patient Mary Coffman for attending Alexi Saxena MD Admission Date: 02/05/2011 Discharge Date: 02/07/2011 Hospitalization duration: Hospital Day: 2 HPI: Mary presented to the hospital with abdominal pain and was found clinically and radiographically to have appendicitis. She was taken to the operating room where appendectomy was performed. Post operatively she had a slow advance of her diet, but was able on day of discharge to tolerate diet well. Past Medical History Diagnosis Date ??? ASTHMA No past surgical history on file. No family history on file. Clinical course: improved Pertinent labs: CBC w/o Manual Diff: Component Name 02/07/11 1151 WBC 5.92 HGB 10.6* HCT 30.8* PLTCOUNT 310 BMP: No results found for this basename: SODIUM:3,POTASSIUM:3,CHLORIDE:3,CO2:3,BUN:3,CREATININE:3,GLUCOSE:3,CALCIUM:3 in the last 90838 hours Consultations: None Diagnostic studies: radiology: CT scan: consistant with appendicitis Procedures: See hospital course Discharge Physical Exam: Relevent findings include: General: healthy, alert and no distress Neuro: alert, oriented, normal speech, no focal findings or movement disorder noted Neck: range of motion is intact, no masses, thyroid not enlarged, no adenopathy, supple Lungs: breath sounds symmetrical without rales or wheezes Heart: regular rate and rhythm, normal S1 and S2, no murmurs Abdomen: soft, tender, non-distended, no hepatosplenomegaly or masses and incisions clean/dry/intact Skin: no rashes Extremities: No clubbing, cyanosis or edema Mary Coffman Home Medication Instructions JOSIE:[facility]_[id number] Printed on:02/07/11 1232 Medication Information montelukast (SINGULAIR) 4 MG chew tablet Take 4 mg by mouth at bedtime. albuterol (PROVENTIL;VENTOLIN) (2.5 MG/3ML) 0.083% nebulizer solution Inhale by mouth every 4 hours while awake. hydrocodone-acetaminophen solution (LORTAB) 7.5-500 MG/15ML solution Take 5 mL by mouth every 4 hours as needed for Pain. Discharge Diagnosis(es): Acute appendicits Follow up in 2 weeks( 02/18/2011) with Dr. Maynor Parks MD during the Surgery clinic. Call [phone] for appointment time. Return to ER or call [phone] and page pediatric surgery resident if develop severe pain, nausea, vomiting, or fever > 101.0 F. Osman Manzanares MD CC: Alfredo Cardoza MD documented in this encounter Discharge Instructions * Discharge Instructions* Glenna Vang RN - 02/07/2011 1:25 PM CDT Discharge Instructions for: Mary Coffman Discharge Procedure Orders CALL PHYSICIAN If unrelieved pain; excessive bleeding at surgical site; excessive redness/unusual drainage at surgical site or IV site; fever over 100 degrees under the arm or 101 degrees orally; numbness/tingling/changes in color in affected extremity. PATIENT TO CALL PHYSICIAN/CLINIC FOR APPOINTMENT Follow up with Dr. Parks in 14 days. Bring all medications to next visit. NO RESTRICTIONS. No diet restrictions NO ACTIVITY RESTRICTIONS AT DISCHARGE Return to school in 2 days, a parent needs to stay home to care for child during this period. The following belonging have been returned to you If your child has any worsening of his or her condition, please call your primary care doctor (or their exchange if after hours) or return to the ED if your primary care doctor cannot be reached. 02/07/2011 * Discharge Instructions* Document, Scanned - 02/09/2011 9:05 AM CDT documented in this encounter Medications at Time of Discharge Medication Sig Dispensed Refills Start Date End Date albuterol (PROVENTIL;VENTOLIN) (2.5 MG/3ML) 0.083% nebulizer solution Inhale by mouth every 4 hours while awake. 01/09/2014 hydrocodone-acetaminophen solution (LORTAB) 7.5-500 MG/15ML solution Take 5 mL by mouth every 4 hours as needed for Pain. 120 mL 1 02/07/2011 02/18/2011 montelukast (SINGULAIR) 4 MG chew tablet Take 4 mg by mouth at bedtime. 01/09/2014 documented as of this encounter Progress Notes * Document, Scanned - 02/09/2011 9:05 AM CDT * Glenna Vang RN - 02/07/2011 1:00 PM CDT Reviewed patient discharge instructions and prescription with mother. Mother's questions answered. Waiting on ride. * Rika Arcos - 02/07/2011 6:28 AM CDT Patient slept comfortably over night after receiving one dose morphine as ordered. No other significant events from . * Maynor Parks MD - 02/07/2011 6:27 AM CDT Pediatric General Surgery Progress Note Admit Date: 02/05/2011 10:24 PM Hospital Day: 2 Subjective No acute events overnight. Scheduled Toradol started to get better pain control - child appears more comfortable. No other complaints. Objective Data BP: 106/74 Pulse: 96 Temp: 98 ??F Resp: 20 Wt: 17 kg (37 lb 7.7 oz) SpO2: 99% FiO2: Intake/Output Summary (Last 24 hours) at 02/07/11 0627 Last data filed at 02/07/11 0550 Gross per 24 hour Intake 1432.2 ml Output 1305 ml Net 127.2 ml My review of labs, imaging, notes and other tests shows no new significant findings. Physical Exam General appearance: alert, cooperative, no distress Lungs: breath sounds normal and symmetric; no rales or wheezes Abdomen: soft without mass, mild tenderness to palpation at incision sites, with normal bowel sounds Wound: incision: clean and dry, no erythema Extremities: no clubbing, cyanosis or edema Assessment/Plan 5 yr old female s/p laparoscopic appendectomy 1. Patient seen and examined during morning rounds. 2. Child appears to be doing better this morning. 3. May consider discharging patient later today if she is doing better. 4. Advance to regular diet, decrease iv fluids to 25 ml/hr, ambulate as tolerated. Cornelio Rhodes MD 02/07/2011 6:28 AM I have seen and examined this patient and agree with above note as amended by me. On examination Minimal abdominal distension Plan Advance diet as tolerated CBC with diff Maynor Parks MD 02/07/2011 12:50 PM * Glenna Vang RN - 02/06/2011 7:42 PM CDT No significant events noted during shift [id number]. * Maynor Parks MD - 02/06/2011 7:53 AM CDT Pediatric General Surgery Progress Note Admit Date: 02/05/2011 10:24 PM Hospital Day: 1 Subjective S/p laparoscopic appendectomy on 02/05/2011. Patient appears to be doing well. Complains of some incisional pain, but is otherwise feeling better. Tolerated some sips of liquids. Objective Data BP: 107/54 Pulse: 73 Temp: 97.2 ??F Resp: 26 Wt: 17 kg (37 lb 7.7 oz) SpO2: 99% FiO2: Intake/Output Summary (Last 24 hours) at 02/06/11 0754 Last data filed at 02/06/11 0056 Gross per 24 hour Intake 409 ml Output 0 ml Net 409 ml My review of labs, imaging, notes and other tests shows no new significant findings. Physical Exam General appearance: alert, cooperative, no distress Lungs: breath sounds normal and symmetric; no rales or wheezes Abdomen: soft without mass, mild tenderness to palpation at incision sites, with normal bowel sounds Wound: incision: clean and dry, no erythema Extremities: no clubbing, cyanosis or edema Assessment/Plan 5 yr old female s/p laparoscopic appendectomy 1. Patient seen and examined during morning rounds. 2. Child appears to be doing better this morning. 3. Will advance diet as tolerated to regular diet. 4. May consider discharging patient later today if she is doing better Cornelio Rhodes MD 02/06/2011 7:53 AM I have seen and examined this patient and agree with above note as amended by me. On examination Abdominal distension Plan: slowly advance the feed .Maynor Parks MD 02/06/2011 12:30 PM * Mathieu Daugherty MD - 02/05/2011 11:31 PM CDT POST-OP ANESTHESIA EVALUATION Mary Coffman is Post Op from Scheduled Procedure Scheduled procedure: Laparoscopic appendectomy The patient is sufficiently recovered from the acute administration of the anesthesia so as to participate in the evaluation or neurologic status has returned to pre-operative or expected level of consciousness. The post-anesthesia assessment was completed based upon the elements below. The patient is stable and has adequately recovered from anesthesia unless otherwise noted. Post-op Evaluation: Temp: 97.2 ??F Pulse: 73 Resp: 26 SpO2: 99 % BP: 107/54 mmHg Pain Rating Score #: 0 Resp function: Natural Airway Cardiac Function: Stable Mental Status : Awake/Alert Pain: Comfortable / acceptable Nausea / Vomiting: None Post Procedure Hydration: Adequate Other complications A post-op evaluation was performed on the patient with the following assessment: No Apparent Anesthesia Complications Unless otherwise indicated, the patient is being discharged from anesthesia care. * Mathieu Daugherty MD - 02/05/2011 8:32 PM CDT Mary Coffman 5 y.o. female : 2005 PRE-ANESTHESIA EVALUATION Scheduled Procedure Scheduled procedure: Laparoscopic appendectomy Patient Active Problem List Diagnoses Code ??? Appendicitis 541E Allergies Review of patient's allergies indicates no known allergies. Meds Prescriptions prior to admission Medication Sig Dispense Refill ??? montelukast (SINGULAIR) 4 MG chew tablet Take 4 mg by mouth at bedtime. ??? albuterol (PROVENTIL;VENTOLIN) (2.5 MG/3ML) 0.083% nebulizer solution Inhale by mouth every 4 hours while awake. Current facility-administered medications Medication Dose Route Frequency Provider Last Rate Last Dose ??? ioversol (OPTIRAY 320) 68 % injection Intravenous Contrast - Once Alexi Saxena MD Last Dose: 37 mL at 02/05/11 1829 ??? 0.9 % nacl IV BOLUS 340 mL 20 mL/kg Intravenous Once Ani G Silvestre, DO Last Dose: 340 mL at 02/05/11 1944 ??? piperacillin-tazobactam (ZOSYN) 60 mg/ml pediatric IV 1,699.8 mg 100 mg/kg Intravenous Once AniG Silvestre, DO ??? metroNIDAZOLE (FLAGYL) pediatric IV 255 mg 15 mg/kg Intravenous q8h Ani G Silvestre, DO Past Medical History Diagnosis Date ??? ASTHMA No past surgical history on file.No family history on file. Labs:No results found for this basename: WBC,HGB,HCT,PLTCOUNT in the last 59916 hoursNo results found for this basename: SODIUM,POTASSIUM,CLORIDE,CO2,BUN,CREATININE,GLUCOSE in the last 59750 hoursNo r esults found for this basename: PT,INR,PTT in the last 59081 hours Test:No results found for this basename: HCGURINE,HCGQUAL in the last 32067 hours VITAL SIGNS Temp: 98.6 ??F Pulse: 100 Resp: 24 BP: 112/62 mmHg Weight: 17 kg (37 lb 7.7 oz) Pre-Eval ExamPrevious Review I reviewed previous documentation: Yes PHYSICAL EXAM NPO status: Other (NPO to clear liquids x 1 hour, NPO to solids > 24 h) Heart Sounds: S1 S2 Respiratory Pattern/Effort: CTA Oriented x 3: Yes Teeth: Ok;Loose (upper two incisors loose) Airway Class: I ANESTHESIA ASA: II;E Anesthesia Choices: General Post-Op: PACU PRE-EVAL REVIEW I have reviewed all previously documented physician evaluations: Yes Patient prefers Mask flavor: strawberry I have discussed anesthesia with the parents including possible complications and techniques. He/She/They understand(s) and consent(s). * Lalo Antonio MD - 02/05/2011 8:32 PM CDT I have personally reviewed the patient's condition and agree with the above evaluation and anesthetic plan. documented in this encounter H&P Notes * Maynor Parks MD - 02/05/2011 6:09 PM CDT Pediatric General Surgery History and Physical Patient's Primary Care Physician: Alfredo Cardoza MD Name: Mary Coffman Age: 5 y.o. Race: Sex: female Admit Date: 02/05/2011 3:55 PM Chief Complaint/History of Present Illness 5 yr old female presents to [facility] ER with c/o abdominal pain. Patient's mother states that the childhas been having cramping lower abdominal pain for the past 9 days. It was intermittent in nature, and lasted only a few seconds. Since yesterday, the patient's pain became constant, mostly in her lower abdomen (mainly ori-umbilical and RLQ). The pain was constant, severe and did not have any aggravating/relieving factors. Patient also had some nausea and a few episodes of non-bilious emesis. Patient has not been taking goodPO intake since yesterday, although she has been having normal bowel movements. Child complains of some burning while micturating. Mother states that she has also been having fever (reported up to 101.8 F, currently 100.2 F) for which received Ibuprofen. Child was taken to [facility] in [place] where workup revealed a WBC count of 14.8 and a KUB which showed some stool in her rectum - she received some laxatives for this. She was transferred to [facility] ER for further evaluation and treatment of her abdominal pain. Past Medical History Diagnosis Date ??? ASTHMA No past surgical history on file. No family history on file. Social History Occupational History ??? Not on file. Social History Main Topics ??? Smoking status: Not on file ??? Smokeless tobacco: Not on file ??? Alcohol Use: Not on file ??? Drug Use: Not on file ??? Sexually Active: Not on file (Not in a hospital admission) No Known Allergies Review of Systems Pertinent items are noted in HPI Exam Vitals: 02/05/11 1602 02/05/11 1759 BP: 112/62 Pulse: 92 88 Temp: 99.8 ??F 97 ??F Resp: 20 24 Weight: 17 kg (37 lb 7.7 oz) General appearance: alert, cooperative, no distress Heart: regular rhythm, normal S1 and S2, without murmurs, rubs or gallops Lungs: breath sounds normal and symmetric; no rales or wheezes Abdomen: soft, tenderness to palpation over lower abdomen, rebound tenderness - ve, no peritoneal signs, non-distended, bowel sounds present. Extremities: no clubbing, cyanosis or edema Data BP: 112/62 Pulse: 88 Temp: 97 ??F Resp: 24 Wt: 17 kg (37 lb 7.7 oz) FiO2: No intake or output data in the 24 hours ending 02/05/11 1816 Imaging: ADDITIONAL COMMENTS: 1.2 cm fluid filled appendix with thickened enhancing rosa, extending into R pelvis. Mild ori-appendiceal fat stranding. Mild free pelvic fluid. Findings c/w acute appendicitis. Small bowel ileus. DW Dr. Silvestre of ER. Assessment and Plan 5 yF with appendicitis per CT scan -Zosyn Flagyl -IVF bolus -NPO To the OR for appendectomy Consent obtained from Mom Pt seen with Dr. Charly Manzanares MD 02/05/2011 10:17 PM I have seen and examined this patient and agree with above note as amended by me. History noted On examination Tenderness right lower quadrant Guarding and rigidity Diagnosis: Acute appendicitis Plan: Laparoscopic possible open appendectomy. Maynor Parks, MD 02/05/2011 10:30 PM documented in this encounter Procedure Notes * Document, Scanned - 02/09/2011 9:05 AM CDTAssociated Order(s): LAB RESULTS ORDER * Document, Scanned - 02/09/2011 9:05 AM CDTAssociated Order(s): PATHOLOGY/CYTOLOGY REPORT ORDER documented in this encounter OR Notes * Operative - Maynor Parks MD - 02/05/2011 9:32 PM CDT PEDIATRIC SURGERY OPERATIVE REPORT Date of Procedure: 02/05/2011 Patient name: Mary Coffman Preoperative diagnosis: Acute appendicitis Postoperative diagnosis: Acute appendicitis, non-ruptured. Procedure performed: Laparoscopic appendectomy Surgeon: Maynor Parks MD Medical Record Transcriber: Black Uribe MD Anesthesia: General endotracheal anesthesia with local ropivicaine Indications: This is a 5 y.o. female with a history of abdominal pain. The history and physical exam are consistent with acute appendicitis. The patient also had a CT scan confirming the diagnosis. Therefore, we will proceed with a laparoscopic appendectomy. We have discussed the potential benefitsversus risks of the operation and the parents wish to proceed. Findings: Acutely inflamed appendix without perforation with purulent fluid in right paracolic gutter. Procedure: The patient was brought to the operating room and underwent general anesthesia. The abdomen was prepped and draped in the standard fashion. IV antibiotics were given and a Jhonston catheter was placed. We made a 10 mm incision below the umbilicus and extended this down to the fascia. The fascia was opened and the trocar placed under direct visualization. Two more 5 mm trocars were inserted in the suprapubic and left lower quadrant areas. Ropivicaine was infiltrated into the wounds. There was a little pus in the belly, and the appendix was inflamed but not perforated. The appendix was located and grasped at the base. A window was made at the base and then the appendix was stapled free of the cecum. The mesentery was then stapled free of the cecum, and then the appendix was removed using an EndoCatch bag. We then suctioned all of the fluid out of the abdomen, including the pelvis. The insuff lation was then terminated. The trocars were removed and the wounds were closed using 0 Vicryl and 4-0 Monocryl sutures. The wounds were dressed with steristrips. The patient was extubated and taken to the recovery room in satisfactory condition. Dr Parks was present for the entirety of the case. Complications: none EBL: minimal Specimens: appendix Black Uribe MD 02/05/2011 9:33 PM documented in this encounter ED Notes * Fabiola Jesus RN - 02/05/2011 5:55 PM CDT Surgery at to see pt. * Alexi Saxena MD - 02/05/2011 5:06 PM CDT 02/05/2011 5:06 PM Mary Coffman [id number] [facility] EMERGENCY DEPT History Chief Complaint Patient presents with ??? Appendix Problem pt with abd pain for the last 9 days intermittently, yesterday pain got increasingly worse and today mom took to OSH, transferred here for R/O appy. HPI Comments: 5 yo female began having abd pain yesterday along with some N/V no diarrhea along with fever today Was seen at [facility] and received IV fluids, zofran and labs. Now with worsening of RLQ pain and tenderness PMH no previous surgeries ROS + fever +N/V no diarrhea PE wn wd in no distress pink alert awake lungs clear RRR Abd soft +RLQ tenderness +guarding CBC 14,800 crp -elevated gen surg consult - think she has an appendicytis and needs an operation Signed out to Dr [email or web address] I have personally seen and examined this patient. I have fully participated in the care of this patient. I have reviewed all pertinent clinical information, including history, physical exam and plan.I have reviewed the nurses notes. I have reviewed available labs and radiographic studies. RLQ abd pain R/O appendicytis Past Medical History Diagnosis Date ??? ASTHMA No past surgical history on file. History [...] ??? No narrative on file Medications Current outpatient prescriptions Medication Sig Dispense Refill ??? montelukast (SINGULAIR) 4 MG chew tablet Take 4 mg by mouth at bedtime. ??? albuterol (PROVENTIL;VENTOLIN) (2.5 MG/3ML) 0.083% nebulizer solution Inhale by mouth every 4 hours while awake. Review of Systems BP 112/62 Pulse 92 Temp 99.8 ??F Resp 20 Wt 17 kg (37 lb 7.7 oz) Physical Exam Procedures Procedures EKG Interpretation Lab/SPO2 Interpretation Medical Decision Making Progress Notes ED Plan/Course US equivical IV fluids gen surg consultation needsadmission for possible appendicytis Clinical Impression appendicytis Encounter Diagnosis Name Primary? Abdominal pain, right lower quadrant * Michelle Silvestre DO - 02/05/2011 4:55 PM CDT 02/05/2011 4:55 PM Mary Coffman [id number] [facility] EMERGENCY DEPT History Chief Complaint Patient presents with ??? Appendix Problem pt with abd pain for the last 9 days intermittently, yesterday pain got increasingly worse and today mom took to OSH, transferred here for R/O appy. HPI Comments: Pt is a 5 yo female who presents with mom and dad for c/o RLQ pain x 9 days. Mom reports that pt has had intermittent abd pain for the past 9 days, 2-3 episodes/day lasting around 5-10 seconds. Yesterday had vomiting, dec energy and appetite. Slept for most of day. This AM temp of 102.1F. Gave ibuprofen. Mom says has been walking guarding RLQ. Pain has been constant since yesterday, worse with movement, wants to stay curled up. Mom denies diarrhea or constipation. KUB from other facility showed small amount stool in rectal vault. Went to [facility] in [place].Found that WBC was 14.8. Given 1mg morphine from outside facility and Zofran. No congestion, runny nose. Has a small cough, but nothing out of ordinary for her as she is a known asthmatic. Transferred to [facility] for r/o appy. Otherwise other med hx includes asthma. No prev surgeries. NKDA. No hospitalizations. Past Medical History Diagnosis Date ??? ASTHMA No past surgical history on file. History [...] ??? No narrative on file Medications Current outpatient prescriptions Medication Sig Dispense Refill ??? montelukast (SINGULAIR) 4 MG chew tablet Take 4 mg by mouth at bedtime. ??? albuterol (PROVENTIL;VENTOLIN) (2.5 MG/3ML) 0.083% nebulizer solution Inhale by mouth every 4 hours while awake. Review of Systems Constitutional: Positive for fever, activity change, appetite change and fatigue. HENT: Negative for ear pain, nosebleeds, congestion, sore throat, rhinorrhea, sneezing and neck pain. Respiratory: Positive for cough. Negative for shortness of breath and wheezing. Cardiovascular: Negative for chest pain. Gastrointestinal: Positive for nausea, vomiting and abdominal pain. Negative for diarrhea, constipation and blood in stool. Genitourinary: Negative for dysuria, hematuria, decreased urine volume and difficulty urinating. Musculoskeletal: Negative for back pain, arthralgias and gait problem. Skin: Negative for rash. Neurological: Negative for dizziness, facial asymmetry and headaches. Psychiatric/Behavioral: Negative for behavioral problems and agitation. BP 112/62 Pulse 92 Temp 99.8 ??F Resp 20 Wt 17 kg (37 lb 7.7 oz) Physical Exam Constitutional: She appears well-developed and well-nourished. She is active. No distress. HENT: Head: Atraumatic. Right Ear: Tympanic membrane normal. Left Ear: Tympanic membrane normal. Nose: Nose normal. No nasal discharge. Mouth/Throat: Mucous membranes are moist. Dentition is normal. No tonsillar exudate. Oropharynx is clear. Pharynx is normal. Eyes: Conjunctivae and extraocular motions are normal. Pupils are equal, round, and reactive to light. Neck: Normal range of motion. Neck supple. No rigidity or adenopathy. Cardiovascular: Normal rate, regular rhythm, S1 normal and S2 normal. Pulses are palpable. No murmur heard. Pulmonary/Chest: Effort normal and breath sounds normal. There is normal air entry. No respiratory distress. She has no wheezes. She has no rhonchi. She has no rales. She exhibits no retraction. Abdominal: Soft. Bowel sounds are normal. She exhibits no distension. Tenderness is present in the right lower quadrant. She has rebound and guarding. She has no rigidity. No hernia. Musculoskeletal: Normal range of motion. Neurological: She is alert. No cranial nerve deficit. Skin: Skin is warm and dry. Capillary refill takes less than 3 seconds. No rash noted. She is not diaphoretic. Procedures Procedures EKG Interpretation Lab/SPO2 Interpretation Medical Decision Making I have reviewed the: Nursing Notes, Vitals and Outside Records. I have interpreted the following results: Ultrasound and CT Scans. I have discussed the case with PCP and Surgery. Progress Notes ED Plan/Course 1) Abd pain, RLQ, fever, vomiting. Suspicious for appy. Will consult surgery. RLQ US ordered. RLQ US showed exam limited by extensive bowel gas, minimal ascites. Surgery requested CT abd/pelvis. CT showed 1.2 cm dilated appendix, wall thickening, mild fat stranding, SBO ileus, likely appendicitis on CT. Will order Zosyn at 100mg/kg and Flagyl at 15mg/kg pre-op. Will Bolus NS at 20ml/kg. Pain control as needed. Surgery planned for 2029 tonite. Will admit to Dr[address] Parks, ped surg. Spoke to Dr. Cardoza, relayed information about pt visit and diagnosis of appendectomy, to OR tonite. Clinical Impression Encounter Diagnosis Name Primary? Abdominal pain, right lower quadrant * Fabiola Jesus RN - 02/05/2011 4:04 PM CDT Pt awake, alert and in nad in triage, lungs CTA, MMM, abd soft, tender to the lower umbilical area upon palpation. * Fabiola Jesus RN - 02/05/2011 3:57 PM CDTBed:1
Expected date:
Expected time:
Means of arrival:
Comments:
R/o appy documented in this encounter Miscellaneous Notes * Miscellaneous Scans - Document, Scanned - 02/12/2011 8:52 PM CDT * Miscellaneous Scans - Document, Scanned - 02/10/2011 1:22 PM CDT * Miscellaneous Scans - Document, Scanned - 02/09/2011 9:05 AM CDT * Miscellaneous Scans - Document, Scanned - 02/09/2011 9:05 AM CDT * Miscellaneous Scans - Document, Scanned - 02/09/2011 9:05 AM CDT * Miscellaneous Scans - Document, Scanned - 02/09/2011 9:05 AM CDT * Miscellaneous Scans - Document, Scanned - 02/09/2011 9:05 AM CDT * Miscellaneous Scans - Document, Scanned - 02/09/2011 9:05 AM CDT * Miscellaneous Scans - Document, Scanned - 02/09/2011 9:05 AM CDT * Miscellaneous Scans - Document, Scanned - 02/09/2011 9:05 AM CDT * Miscellaneous Scans - Document, Scanned - 02/09/2011 9:05 AM CDT * Miscellaneous Scans - Document, Scanned - 02/09/2011 9:05 AM CDT documented in this encounter Plan of Treatment Not on file documented as of this encounter Procedures Procedure Name Priority Date/Time Associated Diagnosis Comments PATHOLOGY/CYTOLOGY REPORT ORDER 02/09/2011 9:05 AM CDT LAB RESULTS ORDER 02/09/2011 9:0 5 AM CDT CBC W AUTO DIFFERENTIAL STAT 02/07/2011 11:51 AM CDT GROSS + MICRO EXAM Routine 02/05/2011 9: [address] ABDOMEN PELVIS W CONTRAST STAT 02/05/2011 6:39 PM CDT Abdominal pain, right lower quadrant US ABDOMEN LIMITED STAT 02/05/2011 4: 46 PM CDT Abdominal pain, right lower quadrant documented in this encounter Results * PATHOLOGY/CYTOLOGY REPORT ORDER (02/09/2011 9:05 AM CDT) Narrative Procedure Note Document, Scanned - 02/09/2011 9:05 AM CDT Scanned Document LAB - PATHOLOGY/CYTO LOGY ORDERABLES * LAB RESULTS ORDER (02/09/2011 9:05 AM CDT) Narrative Procedure Note Document, Scanned - 02/09/2011 9:05 AM CDT Scanned Document LAB - THERAPEUTIC DR BINGHAM MONITORING ORDERABLES * (ABNORMAL) CBC W AUTO DIFFERENTIAL (02/07/2011 11:51 AM CDT) WBC 5.92 5.0 - 14.5 K/cumm [facility] RBC 3.73(L) 3.90 - 5.30 mill/cumm [facility] Hemoglobin 10.6(L) 11.5 - 13.5 gm/dl [facility] Hematocrit 30.8(L) 34.0 - 40.0 % [facility] MCV 82.6 75.0 - 87.0 cu microns [facility] MCH 28.4 24.0 - 30.0 uug [facility] MCHC 34.4 31.0 - 37.0 % [facility] RDW 12.5 % [facility] MPV 9.1 fl [facility] Platelet Count 310 100 - 400 K/cumm [facility] Granulocytes % 56.3 20 - 70 % [facility] Lymphocytes % 33.1 16 - 70 % [facility] Monocytes % 7.4 3 - 13 % [facility] Eosinophils % 2.4 0 - 7 % [facility] Basophils % 0.8 0 - 1 % [facility] Comment Manual Diff Automated Diff Performed [facility] BLOOD SPECIMEN / Unknown 02/07/2011 11:51 AM CDT 02/07/2011 12:06 PM CDT Alexi Saxena MD LAB - HEMATOLOGY O RDERABLES [facility] [address] [facility] [place] [address] * GROSS + MICRO EXAM (02/05/2011 9:20 PM CDT) [facility] Clinical History [facility] Comment: The patient is a 5-year-old girl with appendicitis who underwent laparoscopic appendectomy. Gross Description [facility] Comment: Submitted fresh in one container labeled with the patient's name, Mary Coffman, and appendix is a 9.0 x 0.8 x 0.5 cm vermiform appendix with attached mesoappendix. ??The external surface is pale, pink-art and partially covered by a yellow-white, fibrinous exudate. ?? The proximal appendix and mesentery are stapled. ??The appendiceal lumen is patent and contains dark red mucoid material. ??The appendiceal wall varies from 1.0 mm to 3.0 mm in thickness. ??The appendiceal lumen varies from 2.0 mm to 4.0 mm in diameter. ??The specimen is serially sectioned, and service center representative sections are submitted in cassette A1 . ?? (CT/lw) Microscopic Examination [facility] Comment: 1 H+E Sections of the appendix show intraluminal pus, a transmural neutrophilic infiltrate with focal necrosis, and a serosal surface with a fibrinopurulent exudate. ??(SS/lw) Diagnosis [facility] Comment: DIAGNOSIS: ??VERMIFORM APPENDIX, APPENDECTOMY: ?-ACUTE APPENDICITIS. This case has been personally reviewed and interpreted by the attending (teaching) pathologist. Parts Clerk Plant Maintenance Zbigniew Parker, [facility] Resident in Pathology Daylin Miner M.D. [facility] Pathologist Dc Rodríguez M.D. [facility] Electronically Signed By Dc Rodríguez M.D. [facility] ENTIRE APPENDIX / Unknown 02/05/2011 9:20 PM CDT 02/08/2011 8:18 AM CDT Alexi Saxena MD LAB - PATHOLOGY/CY TOLOGY ORDERABLES [facility] [address] [facility] [place] [address] * CT ABDOMEN AND PELVIS WITH IV CONTRAST (02/05/2011 6:39 PM CDT) Anatomical Region Laterality Modality Abdomen, Pelvis Computed Tomogra phy 02/06/2011 8:12 AM CDT Impressions 02/06/2011 8:12 AM CDT Findings consistent with appendicitis as described above. Narrative 02/06/2011 8:12 AM CDT EXAMINATION:CT scan of the abdomen, and pelvis with intravenous contrast dated ??February 05, 2011 06:39:56 PM. HISTORY: ??ABDOMINAL PAIN, RIGHT LOWER QUADRANT . TECHNIQUE: Utilizing 1.25mm collimation images of the abdomen, and pelvis were obtained with IV contrast. 5mm reconstructions were made with lung and soft tissue algorithms.Additional multiplanar reconstructions were made using the thin data set in the coronal plane. FINDINGS: No prior examinations are available for comparison. The lung bases are clear without evidence infiltrates or nodular opacity. No pleural effusion, focal pleural thickening is identified. The liver, gallbladder, pancreas, spleen, adrenals, and kidneys appear normal. The appendix is visualized and measures approximately 1.2 cm in maximal diameter. It is fluid-filled with thickened enhancing rosa . There is some mild periappendiceal fat stranding . Is a small amount of free pelvic fluid. ??No free air is identified. No other imaging abnormalities are appreciated. Procedure Note Quinn Marcum - 02/06/2011 EXAMINATION:CT scan of the abdomen, and pelvis with intravenous contrast dated February 05, 2011 06:39:56 PM. HISTORY: ABDOMINAL PAIN, RIGHT LOWER QUADRANT . TECHNIQUE: Utilizing 1.25mm collimation images of the abdomen, and pelvis were obtained with IV contrast. 5mm reconstructions were made with lung and soft tissue algorithms.Additional multiplanar reconstructions were made using the thin data set in the coronal plane. FINDINGS: No prior examinations are available for comparison. The lung bases are clear without evidence infiltrates or nodular opacity. No pleural effusion, focal pleural thickening is identified. The liver, gallbladder, pancreas, spleen, adrenals, and kidneys appear normal. The appendix is visualized and measures approximately 1.2 cm in maximal diameter. It is fluid-filled with thickened enhancing rosa . There is some mild periappendiceal fat stranding . Is a small amount of free pelvic fluid. No free air is identified. No other imaging abnormalities are appreciated. IMPRESSION Findings consistent with appendicitis as described above. Michelle Griffiths DO CT ORDERABLES * US ABD FOR APPENDICITIS (02/05/2011 4:46 PM CDT) Anatomical Region Laterality Modality Abdomen Ultrasound 02/05/2011 5:03 PM CDT Impressions 02/05/2011 5:03 PM CDT 1. Exam limited by extensive bowel gas artifact. 2. Minimal ascites. 3. No gross evidence for appendicitis, however, I cannot exclude it given the extensive gas in the abdomen. Narrative 02/05/2011 5:03 PM CDT Ultrasound abdomen limited 02/05/2011 The examination is markedly limited by extensive bowel gas present within the abdomen. At the area of palpated tenderness indicated by the patient, there is no appendix visible. Minimal ascites is present. Procedure Note Jeff Hester MD - 02/05/2011 Ultrasound abdomen limited 02/05/2011 The examination is markedly limited by extensive bowel gas present within the abdomen. At the area of palpated tenderness indicated by the patient, there is no appendix visible. Minimal ascites is present. IMPRESSION 1. Exam limited by extensive bowel gas artifact. 2. Minimal ascites. 3. No gross evidence for appendicitis, however, I cannot exclude it given the extensive gas in the abdomen. Alexi Saxena MD US ORDERABLES documented in this encounter Visit Diagnoses Diagnosis Abdominal pain, right lower quadrant Appendicitis Appendicitis, unqualified Appendicitis Appendicitis, unqualified documented in this encounter Administered Medications Inactive Administered Medications - up to 3 most recent administrations Medication Order MAR Action Action Date Dose Rate Site 0.9 % nacl IV BOLUS 340 mL 340 mL (20 mL/kg ? 17 kg), at 340 mL/hr, Administer over 60 Minutes, Intravenous, ONCE, 1 dose, On Tue02/05/11 at 1945 $ Given 02/05/2011 7:44 PM CDT 340 mL 340 mL/hr 0.9% NaCl infusion at 75 mL/hr, Intravenous, CONTINUOUS, Starting on Tue02/05/11 at 1930, Until Tue02/05/11 at 1939 $ New Bag/Syringe 02/05/2011 7:29 PM CDT 75 mL/hr 75 mL/hr 0.9% NaCl infusion ADS Med 1 dose, Starting on Tue02/05/11 at 1926, Until Tue02/05/11 at 1929, FABIOLA JESUS: Cabinet Override 0.9% NaCl injection 1-10 mL 1-10 mL (0.0588-0.5882 mL/kg), Intracatheter, EVERY 8 HOURS, First dose on Tue02/07/11 at 1630, Until Discontinued $ Given 02/07/2011 10:28 AM CDT 2.5 mL dextrose 5% and 0.45% nacl with KCl 20 mEq infusion at 55 mL/hr, Intravenous, CONTINUOUS, Starting on Tue02/05/11 at 2315, Until Tue02/07/11 at 0731 $ New Bag/Syringe 02/06/2011 5:10 PM CDT 55 mL/hr $ New Bag/Syringe 02/05/2011 11:40 PM CDT 55 mL /hr dextrose 5% and 0.45% nacl with KCl 20 mEq infusion at 25 mL/hr, Intravenous, CONTINUOUS, Starting on Tue02/07/11 at 0745, Until Tue02/08/11 at 0256 Rate Change 02/07/2011 8:02 AM CDT 25 mL/hr hydrocodone-acetaminophen solution (LORTAB) 7.5-500 MG/15ML solution 5 mL 5 mL (0.294 mL/kg = 2.5 mg), Oral, EVERY 4 HOURS PRN, Pain, Starting on Tue02/05/11 at 2227, Until Tue02/08/11 at 0256 $ Given 02/07/2011 10:38 AM CDT 5 mL $ Given 02/06/2011 8:04 AM CDT 5 mL $ Given 02/06/2011 1:00 AM CDT 5 mL ioversol (OPTIRAY 320) 68 % injection Intravenous, CONTRAST ONCE, Starting on Tue02/05/11 at 1828, Until Tue02/05/11 at 2227 $ Given 02/05/2011 6:29 PM CDT 37 mL isolyte-S pH 7.4 infusion 4 mL/kg/hr ? 17 kg (rounded to 68 mL/hr), Intravenous, POST-OP CONTINUOUS, Starting on Tue02/05/11 at 2115, Until Tue02/05/11 at 2224 Current Rate 02/05/2011 9:43 PM CDT 4 mL/kg/hr 68 mL/hr ketorolac (TORADOL) injection 8.4 mg 8.4 mg (0.494 mg/kg = 0.5 mg/kg ? 17 kg), Intravenous, EVERY 6 HOURS, 20 doses, First dose on Tue02/06/11 at 2030, Last dose on Juanita 02/11/11 at 1430, Infuse SLOWLY over 1-5 minutes. . WASTE DISPOSAL INSTRUCTIONS: Black Bin Disposal required. $ Given 02/07/2011 8:03 AM CDT 8.4 mg $ Given 02/07/2011 3:06 AM CDT 8.4 mg $ Given 02/06/2011 9:39 PM CDT 8.4 mg metroNIDAZOLE (FLAGYL) pediatric IV 255 mg 255 mg (15 mg/kg ? 17 kg), at 51 mL/hr, Intravenous, EVERY 8 HOURS, First dose on Tue02/05/11 at 2200, Until Discontinued, Diluted in Normal Saline. DO NOT Refrigerate $ Given 02/07/2011 8:03 AM CDT 255 mg 51 mL/hr $ Given 02/07/2011 12:13 AM CDT 255 mg 51 mL/hr $ Given 02/06/2011 5:13 PM CDT 255 mg 51 mL/hr morphine injection 0.3 mg 0.3 mg (0.0176 mg/kg), Intravenous, EVERY 2 HOURS PRN, Pain, Starting on 02/06/11 at 1005, Until Tue02/08/11 at 0256 $ Given 02/06/2011 10:37 PM CDT 0.3 mg $ Given 02/06/2011 2:48 PM CDT 0.3 mg morphine injection 0.5 mg 0.5 mg (0.0294 mg/kg), Intravenous, EVERY 2 HOURS PRN, Pain, Starting on Tue02/05/11 at 2227, Until 02/06/11 at 1005 $ Given 02/06/2011 8:18 AM CDT 0.5 mg $ Given 02/06/2011 3:30 AM CDT 0.5 mg morphine injection 1 mg 1 mg (0.0588 mg/kg), Intravenous, POST-OP MULTIPLE, Starting on Tue02/05/11 at 2105, Until Tue02/05/11 at 2224, May repeat first dose every 5 minutes. Max dose 2.5 mg. For pain level 5-10 on pain scale. DO NOT EXCEED MORPHINE 0.2 mg/kg/hr IV. High Risk, High Alert Medication: Must document double check on IV MAR Flowsheet $ Given 02/05/2011 10:00 PM CDT 1 mg ondansetron (ZOFRAN) injection 2 mg 2 mg (0.118 mg/kg), Intravenous, EVERY 6 HOURS PRN, Nausea/Vomiting, Starting on 02/06/11 at 0036, Until 02/08/11 at 0256 $ Given 02/06/2011 8:18 AM CDT 2 mg phenol (CHLORASEPTIC) 1.4 % liquid Oral, PRN, Sore Throat, Starting on 02/06/11 at 0715, Until 02/08/11 at 0256, . WASTE DISPOSAL INSTRUCTIONS: Black Bin Disposal required. $ Given 02/06/2011 9:45 AM CDT piperacillin-tazobactam (ZOSYN) 60 mg/ml pediatric IV 1,699.8 mg 1,699.8 mg (100 mg/kg ? 17 kg), at 56.66 mL/hr, Intravenous, ONCE, 1 dose, On Tue02/05/11 at 1945, Diluted in D5W $ Given 02/05/2011 8:50 PM CDT 1,699.8 mg 56.66 mL/hr piperacillin-tazobactam (ZOSYN) 60 mg/ml pediatric IV 1,699.8 mg 1,699.8 mg (100 mg/kg ? 17 kg), at 56.66 mL/hr, Intravenous, EVERY 6 HOURS, First dose on 02/06/11 at 0230, Until Discontinued, Diluted in D5W $ Given 02/07/2011 8:03 AM CDT 1,699.8 mg 56.66 mL/hr $ Given 02/07/2011 2:32 AM CDT 1,699.8 mg 56.66 mL/hr $ Given 02/06/2011 8:24 PM CDT 1,699.8 mg 56.66 mL/hr documented in this encounter Active and Recently Administered Medications Times are shown in CDT. Scheduled Medication Order 02/05/2011 02/06/2011 02/07/2011 0.9 % nacl IV BOLUS 340 mL (COMPLETED) 340 mL (20 mL/kg ? 17 kg), at 340 mL/hr, Administer over 60 Minutes, Intravenous, ONCE, 1 dose, On Tue02/05/11 at 1945 1944 ($ Given - Provider: Fabiola Jesus, TIANA)4 (Due: Rx Stopped - Provider: Fabiola Jesus RN) 0.9% NaCl injection 1-10 mL (CANCELED) 1-10 mL (0.0588-0.5882 mL/kg), Intracatheter, EVERY 8 HOURS, First dose on Tue02/07/11 at 1630, Until Discontinued 1028 ($ Given - Provider: Glenna Vang RN) ioversol (OPTIRAY 320) 68 % injection (CANCELED) Intravenous, CONTRAST ONCE, Starting on Tue02/05/11 at 1828, Until Tue02/05/11 at 2227 1829 ($ Given - Provider: Olga Garcia, RT(R)) ketorolac (TORADOL) injection 8.4 mg (CANCELED) 8.4 mg (0.494 mg/kg = 0.5 mg/kg ? 17 kg), Intravenous, EVERY 6 HOURS, 20 doses, First dose on Tue02/06/11 at 2030, Last dose on Juanita 02/11/11 at 1430, Infuse SLOWLY over 1-5 minutes. . WASTE DISPOSAL INSTRUCTIONS: Black Bin Disposal required. 1714 ($ Given - Provider: Glenna Vang RN - Comment: ID pain control)2139 ($ Given - Provider: Rika Arcos) 0306 ($ Given - Provider: Rika Arcos)0803 ($ Given - Provider: Glenna Vang, TIANA)1430 (Due) metroNIDAZOLE (FLAGYL) pediatric IV 255 mg (CANCELED) 255 mg (15 mg/kg ? 17 kg), at 51 mL/hr, Intravenous, EVERY 8 HOURS, First dose on Tue02/05/11 at 2200, Until Discontinued, Diluted in Normal Saline. DO NOT Refrigerate 2049 ($ Given - Provider: Lalo Antonio MD)215 (Due: Rx Stopped - Provider: Lalo Antonio MD) 0300 ($ Given - Provider: Alejandra Blake, RN)0400 (Rx Stopped - Provider: Alejandra Blake RN)0943 ($ Given - Provider: Glenna Vang RN - Comment: morphine given prior to dose)1058 (Rx Stopped - Provider: Glenna Vang RN)1713 ($ Given - Provider: Glenna Vang, TIANA)1819 (Rx Stopped - Provider: Glenna Vang RN) 0013 ($ Given - Provider: Rika Arcos)0113 (Rx Stopped - Provider: Rika Arcos)0803 ($ Given - Provider: Glenna Vang RN)0947 (Rx Stopped - Provider: Glenna Vang RN) morphine injection 1 mg (CANCELED) 1 mg (0.0588 mg/kg), Intravenous, POST-OP MULTIPLE, Starting on Tue02/05/11 at 2105, Until Tue02/05/11 at 2224, May repeat first dose every 5 minutes. Max dose 2.5 mg. For pain level 5-10 on pain scale. DO NOT EXCEED MORPHINE 0.2 mg/kg/hr IV. High Risk, High Alert Medication: Must document double check on IV MAR Flowsheet 2199 ($ Given - Provider: Abi Samuel, TIANA) piperacillin-tazobactam (ZOSYN) 60 mg/ml pediatric IV 1,699.8 mg (COMPLETED) 1,699.8 mg (100 mg/kg ? 17 kg), at 56.66 mL/hr, Intravenous, ONCE, 1 dose, On Tue02/05/11 at 1945, Diluted in D5W 1944 (Due)2049 ($ Given - Provider: Lalo Antonio MD)2119 (Due: Rx Stopped - Provider: Lalo Antonio MD) piperacillin-tazobactam (ZOSYN) 60 mg/ml pediatric IV 1,699.8 mg (CANCELED) 1,699.8 mg (100 mg/kg ? 17 kg), at 56.66 mL/hr, Intravenous, EVERY 6 HOURS, First dose on 02/06/11 at 0230, Until Discontinued, Diluted in D5W 0230 ($ Given - Provider: Alejandra Blake RN)0300 (Rx Stopped - Provider: Alejandra Blake RN)0804 ($ Given - Provider: Glenna Vang, TIANA)0940 (Rx Stopped - Provider: Glenna Vang RN)1433 ($ Given - Provider: Glenna Vang, TIANA)1510 (Rx Stopped - Provider: Glenna Vang, TIANA)2024 ($ Given - Provider: Rika Bowman [place])2054 (Rx Stopped - Provider: Rika Bowman [place]) 0232 ($ Given - Provider: Rika Bowman [place])0306 (Rx Stopped - Provider: Rika Arcos)0803 ($ Given - Provider: Glenna Vang RN)0858 (Rx Stopped - Provider: Glenna Vang RN)1430 (Due) Continuous Medication Order 02/05/2011 02/06/2011 02/07/2011 0.9% NaCl infusion (CANCELED) at 75 mL/hr, Intravenous, CONTINUOUS, Starting on Tue02/05/11 at 1930, Until Tue02/05/11 at 1939 1929 ($ New Bag/Syringe - Provider: Fabiola Jesus, TIANA)1944 (Stopped - Provider: Fabiola Jesus, TIANA) dextrose 5% and 0.45% nacl with KCl 20 mEq infusion (CANCELED) at 55 mL/hr, Intravenous, CONTINUOUS, Starting on Tue02/05/11 at 2315, Until Tue02/07/11 at 0731 2340 ($ New Bag/Syringe - Provider: Alvaro Shi RN) 1710 ($ New Bag/Syringe - Provider: Glenna Vang RN) dextrose 5% and 0.45% nacl with KCl 20 mEq infusion (CANCELED) at 25 mL/hr, Intravenous, CONTINUOUS, Starting on 02/07/11 at 0745, Until Tue02/08/11 at 0256 0802 (Rate Change - Provider: Glenna Vang RN)1036 (Stopped - Provider: Glenna Vang RN) isolyte-S pH 7.4 infusion (CANCELED) 4 mL/kg/hr ? 17 kg (rounded to 68 mL/hr), Intravenous, POST-OP CONTINUOUS, Starting on Tue02/05/11 at 2115, Until Tue02/05/11 at 2224 2143 (Current Rate - Provider: Abi Samuel RN - Comment: started in OR) PRN Medication Order 02/05/2011 02/06/2011 02/07/2011 hydrocodone-acetaminophen solution (LORTAB) 7.5-500 MG/15ML solution 5 mL 5 mL (0.294 mL/kg = 2.5 mg), Oral, EVERY 4 HOURS PRN, Pain, Starting on Tue02/05/11 at 2227, Until 02/08/11 at 0256 0100 ($ Given - Provider: Alvaro Shi RN)0804 ($ Given - Provider: Glenna Vang RN) 1038 ($ Given - Provider: Glenna Vang RN) morphine injection 0.3 mg (CANCELED) 0.3 mg (0.0176 mg/kg), Intravenous, EVERY 2 HOURS PRN, Pain, Starting on 02/06/11 at 1005, Until 02/08/11 at 0256 1448 ($ Given - Provider: Glenna Vang RN)2237 ($ Given - Provider: Rika Arcos) morphine injection 0.5 mg (CANCELED) 0.5 mg (0.0294 mg/kg), Intravenous, EVERY 2 HOURS PRN, Pain, Starting on Tue02/05/11 at 2227, Until 02/06/11 at 1005 0330 ($ Given - Provider: Alejandra Blake RN)0818 ($ Given - Provider: Glenna Vang, TIANA) ondansetron (ZOFRAN) injection 2 mg (CANCELED) 2 mg (0.118 mg/kg), Intravenous, EVERY 6 HOURS PRN, Nausea/Vomiting, Starting on 02/06/11 at 0036, Until 02/08/11 at 0256 0818 ($ Given - Provider: Glenna Vang, TIANA) phenol (CHLORASEPTIC) 1.4 % liquid (CANCELED) Oral, PRN, Sore Throat, Starting on 02/06/11 at 0715, Until 02/08/11 at 0256, . WASTE DISPOSAL INSTRUCTIONS: Black Bin Disposal required. 0945 ($ Given - Provider: Glenna Vang RN) documented in this encounter Care Teams Editor Dictionary Relationship Specialty Start Date End Date Alfredo Cardoza MD PCP - General 02/05/11 08/27/21 documented as of this encounter
--- OUTSIDE RECORDS SUMMARY | 2024-10-06 05:43 | XMS_ITS | Clinical Summary ---
Author Organization [facility] [employer] Address [address] [place] [address] Care Team Providers Care Electric System Operator Name Role Phone Radha Grove MD Primary Care Provider [phone] Source Comments [facility],non-owned Affiliates and Associated Physician Practices is amultiple site organization consisting of ambulatory clinics and hospital sitesin [place] and [place]. This disclosure is being madepursuant to the Care Everywhere program and may not contain all information available regarding this patient. 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 BUILDER Pulse 100 03/07/2015 3:26 PM CDT Temperature 37 ??C (98.6 ??F) 03/07/2015 3:26 PM CDT Respiratory Rate 24 03/07/2015 3:26 PM CDT Oxygen Saturation 100% 03/07/2015 3:26 PM CDT Inhaled Oxygen Concentration - - Weight 61.2 kg (135 lb) 09/02/2021 8:33 AM BAND BUILDER Height 157.5 cm (5' 2 ) 09/02/2021 8:33 AM BAND BUILDER Body Mass Index 24.69 09/02/2021 8:33 AM BAND BUILDER Plan of Treatment Health Maintenance Due Date Last Done Comments HIV SCREENING 2019 HPV VACCINE (1 - 3-dose series) 2019 CHLAMYDIA/GONORRHEA SCREENING 2020 MENINGOCOCCAL (Group B) VACCINE (1 of 2 - Standard) 2020 HEPATITIS C SCREENING 07/18/2022 DTAP/TDAP/TD VACCINES (1 - Tdap) 2023 HEPATITIS B VACCINE (1 of 3 - 19+ 3-dose series) 2023 COVID-19 VACCINE (3 - 2023-2 5 season) 2024 04/25/2021, 04/04/2021 INFLUENZA VACCINE (#1) 2024 08/27/2021 DEPRESSION SCREENING 09/26/2024 ZOSTER VACCINE (1 of 2) 2054 HIB VACCINE Aged Out No longer eligi ble based on patient's age to complete this topic MENINGOCOCCAL VACCINE Aged Out No sandy hailey eligible based on patient's age to complete this topic PNEUMOCOCCAL VACCINE Aged Out No long er eligible based on patient's age to complete this topic Care Teams Electric System Operator Relationship Specialty Start Date End Date Radha Grove MD [address] [place] [address] PCP - General Pediatrics 08/28/21
--- OUTSIDE RECORDS SUMMARY | 2024-10-06 05:43 | XMS_ITS | Encounter Summary ---
Author Organization [facility] Address [address] [place] [address] Care Team Providers Care Vice President Of Advertising Name Role Phone Radha Grove MD Primary Care Provider Reason for Visit * Radiology Services (Routine) - Closed Specialty Diagnoses / Procedures Referred By Contac t Referred To Contact MRI Diagnoses Uterine mass Left lower quadrant abdominal pain Left flank pain Procedures MRI PELVIS WWO CONTRAST Beti Sesay MD [address] [address] [facility] [address] [place] [id number] Referral ID Status Reason Start Date Expiration Date Visits Re quested Visits Authorized [id number] Closed 09/02/2021 10/31/2021 1 1 Encounter Details Date Type Department Care Team (Latest Contact Info) Description 09/09/2021 3:08 PM [facility] - 09/09/2021 11:59 PM [facility] Hospital Encounter [facility] - MRI [address] [place] [address] Beti Sesay MD [address] [facility] [address] [place] [address] Discharge Disposition: Home or Self Care Social [...] Sig Dispensed Refills Start Date End Date Acetaminophen (TYLENOL PO) Take 500 mg by mouth as needed albuterol HFA (PROVENTIL;VENTOLIN;PROA IR) 108 (90 BASE) MCG/ACT inhaler Inhale 2 Puffs by mouth every 6 hours as needed ibuprofen (MOTRIN) 200 MG tablet Take 200 mg by mouth every 6 hours as needed for Pain polyethylene glycol 3350 (MIRALAX) packet Take 17 g by mouth once daily. With 8 ounces of fluid. 527 g 2 01/09/2014 triamcinolone acetonide (KENALOG) 0.1 % cream APPLY EXTERNALLY TO THE AFFECTED AREA THREE TIMES DAILY FOR 7 DAYS DIRECTED 12/29/2020 documented as of this encounter Plan of Treatment Not on file documented as of this encounter Procedures Procedure Name Priority Date/Time Associated Diagnosis Comments MRI PELVIS WWO CONTRAST Routine 09/09/2021 4:56 PM [facility] Uterine mass Left lower quadrant abdominal pain Left flank pain documented in this encounter Results * MRI PELVIS WWO CONTRAST (09/09/2021 4:56 PM ORE DRYER) Anatomical Region Laterality Modality Pelvis Magnetic Resonan ce 09/10/2021 10:3 5 AM [facility]ER Addenda Addendum by Fawn Nolan MD on 09/10/2021 11:46 AM ORE DRYER Findings should state: VAGINAL CANAL/VULVA: No abnormal signal or enhancement. > Interpreting Provider: Fawn Nolan MD on 09/10/2021 11:43 AM Impressions 09/10/2021 11:37 AM [facility] IMPRESSION: 1. A 4.7 cm simple left ovarian cyst for which no further follow-up is required. 2. Normal adnexa and uterus. > Interpreting Provider: Fawn Nolan MD on 09/10/2021 11:37 AM Narrative 09/10/2021 11:37 AM ORE DR[facility]ER PROCEDURE: ??MRI PELVIS WWO CONTRAST, DATE/TIME OF EXAM: ??09/09/2021 4:58 PM, LOCATION ??[facility] INDICATION: N85.8: Other specified noninflammatory disorders of uterus; R10.32: Left lower quadrant pain; R10.9: Unspecified abdominal pain ADDITIONAL CLINICAL INFORMATION: Ordering Provider Reason For Exam: ??acute LLQ/left flank pain, ??PV US at [facility] in [place] 08/27 wtih 2.8 cm heterogeneous area in body of uterus (report in [facility]) Technologist Note: ??Left lower quadrant/left flank pain, outside ultrasound 08/27/2021 showed 2.8 cm heterogeneous focus in the fundus of the uterus Additional: Independent review of the report from the outside institution for pelvic ultrasound 08/27/2021 described a 2.8 cm heterogeneous rounded mass at the uterine fundus questioning a fibroid. COMPARISON: No ultrasound images available for comparison. CT 02/05/2011 is reviewed TECHNIQUE: Multiplanar, multisequence MRI of the female pelvis was performed without and with intravenous contrast. CONTRAST: ?? GADOBUTROL 1 MMOL/ML IV SOLN:6 mL FINDINGS: RIGHT OVARY/ADNEXA: Normal signal and enhancement of the stroma, contains numerous tiny follicles. Measures 2.0 x 1.9 x 4.0 cm. No adnexal mass. LEFT OVARY/ADNEXA: Contains a 4.7 x 3.6 x 4.0 cm simple cyst. Ovarian stroma structure about the cyst shows normal signal and enhancement. There are numerous adjacent tiny follicles. No left adnexal mass. UTERUS/CERVIX: Anteverted and retroflexed. Normal thickness of the junctional zone measuring 4 mm. Normal thickness of the endometrial stripe, 10 mm. Normal signal and enhancement of the uterine myometrium. Normal signal, enhancement of the cervix. No abnormality at the endocervix. No fibroid. VAGINAL CANAL/VULVA: Abnormal signal and enhancement. OTHER: : Urinary bladder is decompressed. GI: Grossly normal caliber. No bowel wall thickening Peritoneum/Retroperitoneum: Small amount of free fluid in the pelvis, likely physiologic. Vascular: Normal flow voids and enhancement. Bones/Soft Tissues: Normal marrow signal. No adenopathy. Normal soft tissues. Procedure Note Fawn Nolan MD - 09/10/2021 PROCEDURE: MRI PELVIS WWO CONTRAST, DATE/TIME OF EXAM: 09/09/2021 4:58 PM, LOCATION [facility] INDICATION: N85.8: Other specified noninflammatory disorders of uterus; R10.32: Left lower quadrant pain; R10.9: Unspecified abdominal pain ADDITIONAL CLINICAL INFORMATION: Ordering Provider Reason For Exam: acute LLQ/left flank pain, PV US at [facility] in [place] 08/27 wtih 2.8 cm heterogeneous area in body of uterus (report in [facility]) Technologist Note: Left lower quadrant/left flank pain, outsideultrasound 08/27/2021 showed 2.8 cm heterogeneous focus in the fundus of the uterus Additional: [facility] described a 2.8 cm heterogeneous rounded mass at the uterine fundus questioning a fibroid. COMPARISON: No ultrasound images available for comparison. CT 02/05/2011is reviewed TECHNIQUE: Multiplanar, multisequence MRI of the female pelvis was performedwithout and with intravenous contrast. CONTRAST: GADOBUTROL 1 MMOL/ML IV SOLN:6 mL FINDINGS: RIGHT OVARY/ADNEXA: Normal signal and enhancement of the stroma,contains numerous tiny follicles. Measures 2.0 x 1.9 x 4.0 cm. No adnexal mass. LEFT OVARY/ADNEXA: Contains a 4.7 x 3.6 x 4.0 cm simple cyst. Ovarian stroma structure about the cyst shows normal signal and enhancement.There are numerous adjacent tiny follicles. No left adnexal mass. UTERUS/CERVIX: Anteverted and retroflexed. Normal thickness of the junctional zone measuring 4 mm. Normal thickness of the endometrialstripe, 10 mm. Normal signal and enhancement of the uterine myometrium. Normal signal, enhancement of the cervix. No abnormality at the endocervix. No fibroid. VAGINAL CANAL/VULVA: Abnormal signal and enhancement. OTHER: : Urinary bladder is decompressed. GI: Grossly normal caliber. No bowel wall thickening Peritoneum/Retroperitoneum: Small amount of free fluid in the pelvis, likely physiologic. Vascular: Normal flow voids and enhancement. Bones/Soft Tissues: Normal marrow signal. No adenopathy. Normal soft tissues. IMPRESSION: 1. A 4.7 cm simple left ovarian cyst for which no further follow-up is required. 2. Normal adnexa and uterus. > Interpreting Provider: Fawn Nolan MD on 09/10/2021 11:37 AM Beti Sesay MD MR ORDERABLES documented in this encounter Visit Diagnoses Diagnosis Uterine mass Other specified symptom associated with female genital organs Left lower quadrant abdominal pain Left flank pain Abdominal pain, unspecified site documented in this encounter Administered Medications Inactive Administered Medications - up to 3 most recent administrations Medication Order MAR Action Action Date Dose Rate Site gadobutrol (Gadavist) injection Intravenous, CONTRAST ONCE, Starting on 09/09/21 at 1613, Until Juanita 09/10/21 at 0123 $ Given - Contrast 09/09/2021 4:40 PM [facility] 6 mL documented in this encounter Care Teams Vice President Of Advertising Relationship Specialty Start Date End Date Radha Grove MD [address] [place] [address] PCP - General Pediatrics 08/28/21 documented as of this encounter
--- OUTSIDE RECORDS SUMMARY | 2024-10-06 05:43 | XMS_ITS | Encounter Summary ---
Author Organization [facility] Address [address] [place] [address] Care Team Providers Care Cook Jelly Name Role Phone Radha Grove MD Primary Care Provider Reason for Visit * Reason Onset Date Comments Consultation 08/28/2021 for abnormal pel neftali US, acute lower abdominal pain Encounter Details Date Type Department Care Team (Late st Contact Info) Description 08/28/2021 Telephone [facility] [address] [place], [place] [id number] Beti Sesay MD [address] [address] Consultation (for abnormal pelvic US, acute lower abdominal pain) Social History Tobacco Use Types Packs/Day Years [...] Telephone Encounter - Beti Sesay MD - 08/28/2021 11:05 AM CST Tc from PNP at PCP office. Mother called that 16 year old 1 month old patient with 2 day h/o 8/10 lower abdominal pain. Seen at office 08/27 and then sent to ER. Seen at [facility] in [place]. Labs and pelvic ultrasound done. Ultrasound showed 2 m cystic area in superior portion of uterus suggestive of fibroid. Recommended MRI f/u. Pat still with pain. Labs n/a to PNP at time of phone call (CBC,CMP, amylase, lipase). Did have neg urine test. Advised we will call to schedule new patient consultation with myself or one of my [facility] colleagues next week at our [facility] office location. PNP requested we call mother directly to schedule. Confirmed mother Radha Coffman Phone numbers: [phone] Advised Ms. Dowling we would contact them if unable to see patient for any reason (insurance coverageor otherwise) After phone call with PNP and phone encounter opened, I was then able to view US reports, lab results and ER note. PNP had said lower abdominal pain, ER note and imagina indicaions listed as LLQ and left flank pain for 2 days. Patient had to lay on right side due to colicky pain. No urinary symptoms. H/o appy. Denied any prior SA. No exercise, trauma or strenuous activity. Poor appetite. lmp lastweek normal. UA and UPT at PCP office neg 08/27. ER note A/P: 16 year old female presenting with LLQ pain/left flank pain who is well appearing and in no acute distress. DDx: Kidney stone vs ovarian pathology (torsion vs cyst) vs UTI (less likely as reportedly normal UA at PMD's office) vs (less likely as reportedly negative beta HCG). Reports never been sexually active so lower concern for PID. Pancreatitis possible given family history (sister has recurrent pancreatitis of unknown cause) but no nausea/vomiting so less likely. Planfor CBC, CMP, lipase, UA, urine and ultrasound of ovaries and kidney. For pain plan for tylenol and NS bolus. Will then reassess. ED Course as of 08/27/21 7303 Time: 08/27 2326 Comment: Ultrasound shows 2.8 cm heterogeneous round mass within the uterus fundus, possibly a fibroid and radiology recommended MRI for further evaluation. Ovaries and kidneys normal on ultrasound. Discussed ultrasound finding with mother and patient. Recommended close gynecology follow-upfor further imaging and evaluatuion. Also discussed NSAID and heating pad as needed for comfort until follow-up. Mother requested [facility] gynecology number, number provided. Gave return precautions. Mother and patient expressed understanding. By: Farzana Amin MD Jill K Powell, MD SURGEON documented in this encounter Plan of Treatment Not on file documented as of this encounter Visit Diagnoses Not on filedocumented in this encounter Care Teams Cook Jelly Relationship Specialty Start Date End Date Radha Grove MD [address] [place] [address] PCP - General Pediatrics 08/28/21 documented as of this encounter
--- OUTSIDE RECORDS SUMMARY | 2024-10-06 05:43 | XMS_ITS | Encounter Summary ---
Author Organization [facility] Address [address] [place] [address] Care Team Providers Care Knife Blade Polisher Name Role Phone Alfredo Cardoza MD Primary Care Provider Unavail able Reason for Visit * Reason Onset Date Comments Results 01/10/2014 Encounter Details Date Type Department Care Team (Late st Contact Info) Description 01/10/2014 Telephone [facility] Pediatric[facility] - Urology [address] [place] [id number] Gayatri Yepez APRN-CNP [address] [place] [phone] Results Social History Tobacco Use Types Packs/Day Years Used Date Smoking Tobacco: Never Assessed Sex and Gender Information Value Date Recorded Sex Assigned at Not on file Gender Identity Not on file Sexual Orientation Not on file documented as of this encounter Miscellaneous Notes * Telephone Encounter - Gayatri Yepez APRN-CNP - 01/14/2014 9:28 AM CDT Notified mom of negative urines so far; will follow documented in this encounter Plan of Treatment Not on file documented as of this encounter Visit Diagnoses Not on filedocumented in this encounter Care Teams Knife Blade Polisher Relationship Specialty Start Date End Date Alfredo Cardoza MD PCP - General 02/05/11 08/27/21 documented as of this encounter
--- OUTSIDE RECORDS SUMMARY | 2024-10-06 05:43 | XMS_ITS | Encounter Summary ---
Author Organization [facility] Address [address] [place] [address] Care Team Providers Care Motion Picture Camera Operator Name Role Phone Alfredo Cardoza MD Primary Care Provider Unavail able Reason for Visit * Reason Comments Surgical Follow-up appy 02/05 then dejan garcia infection Encounter Details Date Type Department Care Team (Latest Contact Info) Description 03/25/2011 8:59 AM CDT - 03/25/2011 11:59 PM CDT Hospital Encounter [facility] Pediatrics - Surgery [address] [place] [address] Discharge Disposition: Home or Self Care Social [...] mouth every 4 hours while awake. 01/09/2014 amoxicillin-clavulanate (AUGMENTIN) 400-57 MG chew tabletIndications:skin infection Take 1 Tab by mouth 2 times daily for 10 days. Indications: skin infection 20 Tab 0 03/16/2011 03/26/2011 montelukast (SINGULAIR) 4 MG chew tablet Take 4 mg by mouth at bedtime. 01/09/2014 documented as of this encounter Progress Notes * Maynor Parks MD - 03/25/2011 9:27 AM CDT Mary Coffman Female, 5 y.o. 2005 She was operated on 02/05/2011for Lap appendectomy and seen by surgery team for follow up. On examination Abdomen Soft Incision sites are healing well. No evidence of infection at this time Plan: Follow up as needed. Maynor Parks MD 03/25/2011 9:29 AM documented in this encounter Miscellaneous Notes * Miscellaneous Scans - Document, Scanned - 06/17/2011 11:00 AM CDT documented in this encounter Plan of Treatment Not on file documented as of this encounter Visit Diagnoses Not on filedocumented in this encounter Care Teams Motion Picture Camera Operator Relationship Specialty Start Date End Date Alfredo Cardoza MD PCP - General 02/05/11 08/27/21 documented as of this encounter
--- OUTSIDE RECORDS SUMMARY | 2024-10-06 05:43 | XMS_ITS | Encounter Summary ---
Author Organization [facility] Address [address] [place] [address] Care Team Providers Care Cement Rubber Name Role Phone Radha Grove MD Primary Care Provider [phone] Reason for Referral * Radiology Services (Routine) - Closed Specialty Diagnoses / Procedures Referred By Contdidi t Referred To Contact MRI Diagnoses Uterine mass Left lower quadrant abdominal pain Left flank pain Procedures MRI PELVIS WWO CONTRAST Beti Sesay MD [address] [address] [place] [address] Referral ID Status Reason Start Date Expiration Date Visits Re quested Visits Authorized [id number] Closed 09/02/2021 10/31/2021 1 1 [place] PERFORMANCE SPECIALIST Reason for Visit * Reason Comments Pain Abdominal left side Encounter Details Date Type Department Care Team (Late st Contact Info) Description 09/02/2021 8:30 AM RETAIL PERFORMANCE SPECIALIST Office Visit [facility] [address] [place] [address] Beti Sesay MD [address] [address] Uterine mass (Primary Dx); Left lower quadrant abdominal pain; Left flank pain Social History Tobacco Use Types Packs/Day Years [...] Comments Blood Pressure 122/78 09/02/2021 8:33 AM RETAIL PERFORMANCE SPECIALIST Pulse - - Temperature - - Respiratory Rate - - Oxygen Saturation - - Inhaled Oxygen Concentration - - Weight 61.2 kg (135 lb) 09/02/2021 8:33 AM RETAIL PERFORMANCE SPECIALIST Height 157.5 cm (5' 2 ) 09/02/2021 8:33 AM RETAIL PERFORMANCE SPECIALIST Body Mass Index 24.69 09/02/2021 8:33 AM RETAIL PERFORMANCE SPECIALIST Body Mass Index Percentile 82.52% 09/02/2021 8:3 3 AM RETAIL PERFORMANCE SPECIALIST Growth Chart: [facility] (Girls, 2- 20 Years) documented in this encounter Patient Instructions * Patient Instructions* Beti Sesay MD - 09/02/2021 9:19 AM RETAIL PERFORMANCE SPECIALIST Trial of lidocaine patches as directed on box Trial of alternating heat/ice for 10 minutes at a time to area Continue the scheduled NSAIDS (ibuprofen 600 mg every 6-8 hours) We will coordinate with [facility] about getting the MRI of the pelvis approved to check the uterus in better detail. Contact us if you have not heard about the scheduling for it by Friday 09/07. [place] PERFORMANCE SPECIALIST documented in this encounter Progress Notes * Beti Sesay MD - 09/13/2021 11:51 PM CST 16 year old 1 month old here for f/u abnormal ultrasound ?2.8 cm homogeneous echogenic area at fundus of uterus 08/27/21 [facility] pelvic US. Reviewed report in CareEverywhere on DOS Done for left flank, LLQ pain. No h/o severe dysmenorrhea, uterine problems, etc. Normal BM's, voiding. Patient's last menstrual period was 08/20/2021. Outpatient Medications Marked as Taking for the 09/02/21 encounter (Office Visit) with Beti Sesay MD Medication Sig ??? Acetaminophen (TYLENOL PO) Take 500 mg by mouth as needed ??? albuterol HFA (PROVENTIL;VENTOLIN;PROAIR) 108 (90 BASE) MCG/ACT inhaler Inhale 2 Puffs by mouthevery 6 hours as needed ??? ibuprofen (MOTRIN) 200 MG tablet Take 200 mg by mouth every 6 hours as needed for Pain ??? polyethylene glycol 3350 (MIRALAX) packet Take 17 g by mouth once daily. With 8 ounces of fluid. (Patient taking differently: Take 17 g by mouth once daily as needed With 8 ounces of fluid.) ??? triamcinolone acetonide (KENALOG) 0.1 % cream APPLY EXTERNALLY TO THE AFFECTED AREA THREE TIMESDAILY FOR 7 DAYS DIRECTED Allergies Allergen Reactions ??? Amoxicillin Other Past Medical History: Diagnosis Date ??? Asthma ??? Frequent urination Past Surgical History: Procedure Laterality Date ??? Appendectomy No family history on file. Social History Tobacco Use ??? Smoking status: Never Smoker ??? Smokeless tobacco: Never Used Vaping Use ??? Vaping Use: Never used Substance Use Topics ??? Alcohol use: No ??? Drug use: No Social History Substance and Sexual Activity Sexual Activity Not on file Social History Social History Narrative Mary Coffman lives with her mother, father, grandmother, and 3 sisters. She attends school and is in the 5th grade and is achieving good grades. For extracurricular activity She participates plays board games and enjoys art. PE: BP 122/78 Ht 5' 2 Wt 135 lb BMI 24.69 kg/m2 WDWN female in NAD Skin: No rashes or abn lesions HEENT: WNL Neck: No tmg, nodules, lad Nodes: Negative cerv, SCL, ax, inguinal Abd: Soft, nt, nd, no masses or organomegaly Ext: No c/c/e Neuro: Grossly nonfocal Psych: Normal affect and behavior A/P: ICD-10-CM 1. Uterine mass N85.8 2. Left lower quadrant abdominal pain R10.32 3. Left flank pain R10.9 Orders Placed This Encounter ??? CULTURE URINE REFLEXED III ??? MRI PELVIS WWO CONTRAST Standing Status: Future Number of Occurrences: 1 Standing Expiration Date: 09/02/2022 Order Specific Question: Release to patient Answer: Immediate Order Specific Question: What is the anatomic region of interest? Answer: Uterus Order Specific Question: Exam to be performed? Answer: Per Radiologist protocol Order Specific Question: What specific clinical question do you want answered? Answer: acute LLQ/left flank pain, PV US at [facility] in [place] 08/27 wtih 2.8 cm heterogeneous area in body of uterus (report in careeverywhere) ??? URINALYSIS W/MICROSCOPIC REFLEX TO CULTURE Order Specific Question: Release to patient Answer: Immediate Unclear etiology for pain and for abnormal pelvic US imaging. Needs MRI to further investigate. Possible MS abd wall pain source. Patient Instructions Trial of lidocaine patches as directed on box Trial of alternating heat/ice for 10 minutes at a time to area Continue the scheduled NSAIDS (ibuprofen 600 mg every 6-8 hours) We will coordinate with [facility] about getting the MRI of the pelvis approved to check the uterus in better detail. Contact us if you have not heard about the scheduling for it by Friday 09/07. Beti Sesay MD [place] PERFORMANCE SPECIALIST documented in this encounter Plan of Treatment Not on file documented as of this encounter Procedures Procedure Name Priority Date/Time Associated Diagnosis Comments CULTURE URINE REFLEXED III 09/02/2021 11:57 AM RETAIL PERFORMANCE SPECIALIST Left lower quadrant abdominal pain Left flank pain URINALYSIS W/MICROSCOPIC REFLEX TO CULTURE Routine 09/02/2021 11:57 AM RETAIL PERFORMANCE SPECIALIST Left lower quadrant abdominal pain Left flank pain documented in this encounter Results * MRI PELVIS WWO CONTRAST (09/09/2021 4:56 PM RETAIL PERFORMANCE SPECIALIST) Anatomical Region Laterality Modality Pelvis Magnetic Resonan ce 09/10/2021 10:3 5 AM RETAIL PERFORMANCE SPECIALIST Addenda Addendum by Fawn Nolan MD on 09/10/2021 11:46 AM RETAIL PERFORMANCE SPECIALIST Findings should state: VAGINAL CANAL/VULVA: No abnormal signal or enhancement. > Interpreting Provider: Fawn Nolan MD on 09/10/2021 11:43 AM Impressions 09/10/2021 11:37 AM RETAIL PERFORMANCE SPECIALIST IMPRESSION: 1. A 4.7 cm simple left ovarian cyst for which no further follow-up is required. 2. Normal adnexa and uterus. > Interpreting Provider: Fawn Nolan MD on 09/10/2021 11:37 AM Narrative 09/10/2021 11:37 AM RETAIL PERFORMANCE SPECIALIST PROCEDURE: ??MRI PELVIS WWO CONTRAST, DATE/TIME OF EXAM: ??09/09/2021 4:58 PM, LOCATION ??[facility] INDICATION: N85.8: Other specified noninflammatory disorders of uterus; R10.32: Left lower quadrant pain; R10.9: Unspecified abdominal pain ADDITIONAL CLINICAL INFORMATION: Ordering Provider Reason For Exam: ??acute LLQ/left flank pain, ??PV US at [facility] in [place] 08/27 wtih 2.8 cm heterogeneous area in body of uterus [facility] Technologist Note: ??Left lower quadrant/left flank pain, [...] DATE/TIME OF EXAM: 09/09/2021 4:58 PM, LOCATION [facility] INDICATION: N85.8: Other specified noninflammatory disorders of uterus; R10.32: Left lower quadrant pain; R10.9: Unspecified abdominal pain ADDITIONAL CLINICAL INFORMATION: Ordering Provider Reason For Exam: acute LLQ/left flank pain, PV US at [facility] in [place] 08/27 wtih 2.8 cm heterogeneous area in body of uterus ([facility] Technologist Note: Left lower quadrant/left flank pain, outsideultrasound 08/27/2021 showed 2.8 cm heterogeneous focus in the fundus of the uterus Additional: Independent review of the report from the outsideinstitution for pelvic ultrasound 08/27/2021 described a 2.8 [...] 11:37 AM Beti Sesay MD MR ORDERABLES * CULTURE URINE REFLEXED III (09/02/2021 11:57 AM RETAIL PERFORMANCE SPECIALIST) Reflexive Urine Culture See Below [facility] Comment: NO CULTURE INDICATED Test Performed at: [facility] ??[id number] SHAKA HAY MD 09/02/2021 11:5 7 AM RETAIL PERFORMANCE SPECIALIST 09/03/2021 2:53 AM RETAIL PERFORMANCE SPECIALIST Beti Sesay MD LAB - MICROBIOLOGY O RDERABLES [address] [address] * URINALYSIS W/MICROSCOPIC REFLEX TO CULTURE (09/02/2021 11:57 AM RETAIL PERFORMANCE SPECIALIST) Color UA YELLOW YELLOW [facility] Appearance CLEAR CLEAR [facility] Specific [place] UA 1.024 1.001 - 1.035 [facility] pH UA 6.5 5.0 - 8.0 [facility] Glucose UA NEGATIVE NEGATIVE [facility] Bilirubin UA NEGATIVE NEGATIVE [facility] Ketone UA NEGATIVE NEGATIVE [facility] Blood UA NEGATIVE NEGATIVE [facility] Protein UA NEGATIVE NEGATIVE [facility] Nitrite NEGATIVE NEGATIVE [facility] Leukocyte Esterase NEGATIVE NEGATIVE [facility] WBC UA 0-5 < OR = 5 /HPF [facility] RBC UA NONE SEEN < OR = 2 /HPF [facility] Epithelial Cell UA 0-5 < OR = 5 /HPF [facility] Bacteria UA NONE SEEN NONE SEEN /HPF [facility] Hyaline Casts NONE SEEN NONE SEEN /LPF [facility] Comment: Test Performed at: [facility] [place], [place] ??[id number] SHAKA HAY MD Urine URINE SPECIMEN OBTAINED BY CLEAN CATCH PROCEDURE / Unknown 09/02/2021 11:57 AM RETAIL PERFORMANCE SPECIALIST 09/03/2021 2:53 AM RETAIL PERFORMANCE SPECIALIST Beti Sesay MD LAB - URINALYSIS ORD ERABLES Performing Organization Address City/State/[facility] Co de Phone Number [address] [address] documented in this encounter Visit Diagnoses Diagnosis Uterine mass- Primary Other specified symptom associated with female genital organs Left lower quadrant abdominal pain Left flank pain Abdominal pain, unspecified site Uterine mass Other specified symptom associated with female genital organs Left lower quadrant abdominal pain Left flank pain Abdominal pain, unspecified site documented in this encounter Care Teams Cement Rubber Relationship Specialty Start Date End Date Radha Grove MD [address] [place] [address] PCP - General Pediatrics 08/28/21 documented as of this encounter
--- OUTSIDE RECORDS SUMMARY | 2024-10-06 05:43 | XMS_ITS | Patient Health Summary ---
Author Organization [facility] [employer] Address [address] [place] [address] Care Team Providers Care Manager Medicare Marketing Name Role Phone Radha Grove MD Primary Care Provider [phone] Note from [facility],non-owned Affiliates and Associated Physician Practices is amultiple site organization consisting of ambulatory clinics and hospital sitesin [place], [place], [place] and [place]. This disclosure is being madepursuant to the Care Everywhere program and may not contain all information available regarding this patient. Last updated 18.[facility] Allergies * Amoxicillin(Other) -Medium Criticality Medications * Be aware that medications may not be up to date on this document. Alwaysverify current medications with the patient. * polyethylene glycol 3350 (MIRALAX) packet(Started 01/09/2014) Take 17 g by mouth once daily. With 8 ounces of fluid. 2 refills left * albuterol HFA (PROVENTIL;VENTOLIN;PROAIR) 108 (90 BASE) MCG/ACT inhaler Inhale 2 Puffs by mouth every 6 hours as needed * triamcinolone acetonide (KENALOG) 0.1 % cream(Started 12/29/2020) APPLY EXTERNALLY TO THE AFFECTED AREA THREE TIMES DAILY FOR 7 DAYS DIRECTED * Acetaminophen (TYLENOL PO) Take 500 mg by mouth as needed * ibuprofen (MOTRIN) 200 MG tablet Take 200 mg by mouth every 6 hours as needed for Pain Active Problems Problem Noted Date Diagnosed Date Appendicitis 02/05/2011 Immunizations * Covid Pfizer primary monovalent 12+ yr 0.3mL Purple cap(Given 04/25/2021, 04/04/2021) * INFLUENZA VACCINE, QUADR. (FLUZONE; FLULAVAL; FLUARIX; AFLURIA QUADRIVALENT; 6MO+), 0.5 ML (IIV4)(Given 08/27/2021) Social History Tobacco Use Types Packs/Day Years [...] Comments Blood Pressure 122/78 09/02/2021 8:33 AM AVIATION SURVIVAL TECHNICIAN Pulse 100 03/07/2015 3:26 PM CDT Temperature 37 ??C (98.6 ??F) 03/07/2015 3:26 PM CDT Respiratory Rate 24 03/07/2015 3:26 PM CDT Oxygen Saturation 100% 03/07/2015 3:26 PM CDT Inhaled Oxygen Concentration - - Weight 61.2 kg (135 lb) 09/02/2021 8:33 AM AVIATION SURVIVAL TECHNICIAN Height 157.5 cm (5' 2 ) 09/02/2021 8:33 AM AVIATION SURVIVAL TECHNICIAN Body Mass Index 24.69 09/02/2021 8:33 AM AVIATION SURVIVAL TECHNICIAN Procedures * MRI PELVIS WWO CONTRAST(Performed 09/09/2021) Performed for Uterine mass, Left lower quadrant abdominal pain, Left flank pain * URINALYSIS W/MICROSCOPIC REFLEX TO CULTURE(Performed 09/02/2021) Performed for Left lower quadrant abdominal pain, Left flank pain * CULTURE URINE REFLEXED III(Performed 09/02/2021) Performed for Left lower quadrant abdominal pain, Left flank pain * CULTURE URINE(Performed 08/13/2015) Performed for Urinary frequency * URINE MICROSCOPIC ONLY(Performed 08/13/2015) Performed for Urinary frequency * URINALYSIS REFLEX TO MICROSCOPIC NO CULTURE(Performed 08/13/2015) Performed for Urinary frequency * XR KNEE RIGHT 2VW OR LESS(Performed 03/07/2015) Performed for Knee pain, acute, right * CALCIUM/CREAT RATIO URINE RANDOM PANEL(Performed 03/06/2014) Performed for Frequency * URINALYSIS REFLEX TO MICROSCOPIC NO CULTURE(Performed 03/06/2014) Performed for Frequency * CULTURE URINE(Performed 03/06/2014) Performed for Frequency * URINE MICROSCOPIC ONLY(Performed 03/06/2014) Performed for Frequency * LAB RESULTS ORDER(Performed 02/07/2014) * US BLADDER RESIDUAL ACC(Performed 01/10/2014) * URINALYSIS REFLEX TO MICROSCOPIC NO CULTURE(Performed 01/09/2014) Performed for Unspecified constipation, Urinary frequency * CULTURE URINE(Performed 01/09/2014) Performed for Unspecified constipation, Urinary frequency * URINE MICROSCOPIC ONLY(Performed 01/09/2014) Performed for Unspecified constipation, Urinary frequency * US KIDNEYS W BLADDER(Performed 01/09/2014) Performed for Dysuria * XR ABDOMEN KUB(Performed 01/09/2014) Performed for Dysuria * URINALYSIS REFLEX TO MICROSCOPIC NO CULTURE(Performed 12/09/2013) * CULTURE URINE(Performed 12/09/2013) * URINE MICROSCOPIC ONLY(Performed 12/09/2013) * XR PANOREX(Performed 06/12/2013) Performed for Jaw pain * PATHOLOGY/CYTOLOGY REPORT ORDER(Performed 02/09/2011) * LAB RESULTS ORDER(Performed 02/09/2011) * CBC W AUTO DIFFERENTIAL(Performed 02/07/2011) * GROSS + MICRO EXAM(Performed 02/05/2011) * CT ABDOMEN PELVIS W CONTRAST(Performed 02/05/2011) Performed for Abdominal pain, right lower quadrant * US ABDOMEN LIMITED(Performed 02/05/2011) Performed for Abdominal pain, right lower quadrant Results * MRI PELVIS WWO CONTRAST (09/09/2021 4:56 PM AVIATION SURVIVAL TECHNICIAN) Anatomical Region Laterality Modality Pelvis Magnetic Resonan ce 09/10/2021 10:3 5 AM AVIATION SURVIVAL TECHNICIAN Addenda Addendum by Fawn Nolan MD on 09/10/2021 11:46 AM AVIATION SURVIVAL TECHNICIAN Findings should state: VAGINAL CANAL/VULVA: No abnormal signal or enhancement. > Interpreting Provider: Fawn Nolan MD on 09/10/2021 11:43 AM Impressions 09/10/2021 11:37 AM AVIATION SURVIVAL TECHNICIAN IMPRESSION: 1. A 4.7 cm simple left ovarian cyst for which no further follow-up is required. 2. Normal adnexa and uterus. > Interpreting Provider: Fawn Nolan MD on 09/10/2021 11:37 AM Narrative 09/10/2021 11:37 AM AVIATION SURVIVAL TECHNICIAN PROCEDURE: ??MRI PELVIS WWO CONTRAST, DATE/TIME OF EXAM: ??09/09/2021 4:58 PM, LOCATION ??[facility] INDICATION: N85.8: Other specified noninflammatory disorders of uterus; R10.32: Left lower quadrant pain; R10.9: Unspecified abdominal pain ADDITIONAL CLINICAL INFORMATION: Ordering Provider Reason For Exam: ??acute LLQ/left flank pain, ??PV US at [facility] in [place] 08/27 wtih 2.8 cm heterogeneous area in body of uterus (report in [facility]) Technologist Note: ??Left lower quadrant/left flank pain, [...] DATE/TIME OF EXAM: 09/09/2021 4:58 PM, LOCATION [facility] INDICATION: N85.8: Other specified noninflammatory disorders of uterus; R10.32: Left lower quadrant pain; R10.9: Unspecified abdominal pain ADDITIONAL CLINICAL INFORMATION: Ordering Provider Reason For Exam: acute LLQ/left flank pain, PV US at [facility] in [place] 08/27 wtih 2.8 cm heterogeneous area in body of uterus (report in [facility]) Technologist Note: Left lower quadrant/left flank pain, [...] CULTURE URINE REFLEXED III (09/02/2021 11:57 AM AVIATION SURVIVAL TECHNICIAN) Reflexive Urine Culture See Below [facility] Comment: NO CULTURE INDICATED Test Performed at: [email or web address] ??[id number] SHAKA HAY MD 09/02/2021 11:5 7 AM AVIATION SURVIVAL TECHNICIAN 09/03/2021 2:53 AM AVIATION SURVIVAL TECHNICIAN Beti Sesay MD LAB - MICROBIOLOGY O RDERABLES [address] [address] * URINALYSIS W/MICROSCOPIC REFLEX TO CULTURE (09/02/2021 11:57 AM AVIATION SURVIVAL TECHNICIAN) Color UA YELLOW YELLOW [facility] Appearance CLEAR CLEAR [facility] Specific [place] UA 1.024 1.001 - 1.035 [facility] pH [...] SEEN /LPF [facility] Comment: Test Performed at: [email or web address] ??[id number] SHAKA HAY MD Urine URINE SPECIMEN OBTAINED BY CLEAN CATCH PROCEDURE / Unknown 09/02/2021 11:57 AM AVIATION SURVIVAL TECHNICIAN 09/03/2021 2:53 AM AVIATION SURVIVAL TECHNICIAN Beti Sesay MD LAB - URINALYSIS ORD ERABLES [facility] [address] [place] [address] * CULTURE URINE (08/13/2015 5:52 PM AVIATION SURVIVAL TECHNICIAN) Only the most recent of4 resultswithin the time period is included. Culture <10,000 CFU/mL normal urogenital sarah HE 08/15/2015 7:51 AM AVIATION SURVIVAL TECHNICIAN [facility] MICROBIOLOGY Urine URINE SPECIMEN OBTAINED BY CLEAN CATCH PROCEDURE / Unknown 08/13/2015 5:52 PM AVIATION SURVIVAL TECHNICIAN 08/13/2015 4:43 PM AVIATION SURVIVAL TECHNICIAN Henrietta Lal APRN-CAR FRAMER LAB - MICROBIO LOGY ORDERABLES Performing Organization Address City/[facility]/ZIP Co de Phone Number [facility] MICROBIOLOGY [address] [phone] * (ABNORMAL) URINALYSIS ROUTINE AUTO (08/13/2015 4:43 PM AVIATION SURVIVAL TECHNICIAN) Only the most recent of4 resultswithin the time period is included. Color UA Yellow Straw, Yellow, Dark Yellow 08/13/2015 5:10 PM [facility] Clarity UA Clear 08/13/2015 5:10 PM [facility] Specific [place] UA <=1.005 1.005 - 1.030 08/13/2015 5:10 PM [facility] pH UA 7.0 5.0 - 8.0 pH 08/13/2015 5:10 PM [facility] Protein UA Negative Negative 08/13/2015 5:10 PM [facility] Blood UA Negative Negative 08/13/2015 5:10 PM [facility] Leukocyte UA Trace(A) Negative 08/13/2015 5:10 PM [facility] Nitrite UA Negative Negative 08/13/2015 5:10 PM [facility] Glucose UA Negative Negative 08/13/2015 5:10 PM [facility] Ketone UA Negative Negative 08/13/2015 5:10 PM [facility] Bilirubin UA Negative Negative 08/13/2015 5:10 PM [facility] Urobilinogen UA 0.2 0.1 - 1.0 EU/dL 08/13/2015 5:10 PM AVIATION SURVIVAL TECHNICIAN [facility] Urine URINE SPECIMEN OBTAINED BY CLEAN CATCH PROCEDURE / Unknown 08/13/2015 4:43 PM AVIATION SURVIVAL TECHNICIAN 08/13/2015 4:43 PM AVIATION SURVIVAL TECHNICIAN Henrietta Lal REAL ESTATE RECRUITER-CAR FRAMER LAB - URINALYS IS ORDERABLES Performing Organization Address [facility] Co de Phone Number [facility] [address] [place] [address] * (ABNORMAL) URINALYSIS MICROSCOPIC ONLY (08/13/2015 4:43 PM AVIATION SURVIVAL TECHNICIAN) Only the most recent of4 resultswithin the time period is included. RBC UA 0-2 0-2, 2-5 # /hpf 08/13/2015 5:10 PM AVIATION SURVIVAL TECHNICIAN [facility] WBC UA 2-5 0-2, 2-5 # /hpf 08/13/2015 5:10 PM [facility] Bacteria UA Trace None Seen, Trace 08/13/2015 5:10 PM [facility] Epithelial Cell UA 5-10(A) 0-2, 2-5 08/13/2015 5:10 PM [facility] Urine URINE SPECIMEN OBTAINED BY CLEAN CATCH PROCEDURE / Unknown 08/13/2015 4:43 PM AVIATION SURVIVAL TECHNICIAN 08/13/2015 4:43 PM AVIATION SURVIVAL TECHNICIAN Henrietta Lal REAL ESTATE RECRUITER-CAR FRAMER LAB - URINALYS IS ORDERABLES Performing Organization Address [facility] de Phone Number [facility] [address] [place] [address] * XR KNEE 1 OR 2 VW RIGHT (03/07/2015 3:54 PM CDT) Anatomical Region Laterality Modality Lower Extremity Radiographic Salima ging 03/07/2015 4:37 PM CDT Impressions 03/07/2015 4:39 PM CDT Soft tissue swelling anterior to the anterior tibial tubercle which may represent Agustina-Schlatter's disease. No fracture or dislocation. Narrative 03/07/2015 [...] anterior tibial tubercle which may represent Agustina-Schlatter's disease. No fracture or dislocation. Nadine TORRES DIAGNOSTIC SALIMA GING ORDERABLES * CALCIUM/CREAT RATIO URINE RANDOM PANEL (03/06/2014 4:49 PM CDT) Calcium Urine 3.36 mg/dL 03/06/2014 5:41 PM CDT [facility] Creatinine Urine 79.20 mg/dL 03/06/2014 5:41 PM CDT [facility] Calcium/Creatin ine Ratio Urine 0.04 03/06/2014 5:41 PM CDT [facility] Urine URINE SPECIMEN OBTAINED BY CLEAN CATCH PROCEDURE / Unknown 03/06/2014 4:49 PM CDT 03/06/2014 4:56 PM CDT Narrative [facility] - 03/06/2014 5:41 PM CDT Normal ? <0.16 Borderline ??0.16-0.20 Abnormal ?? >0.20 Gayatri Yepez [facility] - URINE CHEM ISTRY ORDERABLES [facility] [address] [place] [address] * LAB RESULTS ORDER (02/07/2014 10:12 AM CDT) Only the most recent of2 resultswithin the time period is included. Narrative 02/07/2014 10:12 AM CDT Ordered by an unspecified provider. Transcriptions Document, Scanned - 02/07/2014 10:12 AM CDT Scanned Document LAB - THERAPEUTIC DR [place] MONITORING ORDERABLES * US BLADDER RESIDUAL ACC (01/10/2014 2:51 PM CDT) Narrative Gayatri Yepez APRN-CNP - 01/10/2014 2:51 PM CDT BRIAN Franco ? 01/10/2014 ??2:51 PM Post void residual per bladder scan 30 ml, immediately after voiding Procedure Note Gayatri Yepez APRN-CNP - 01/10/2014 10:20 AM CDT Post void residual per bladder scan 30 ml, immediately after voiding Gayatri TORRES PROCEDURE ORD ERABLES * US KIDNEY AND BLADDER (01/09/2014 3:19 [...] I agree with this report. Gay[facility] US ORDERABLES * XR ABDOMEN 1 VW [...] bases are clear. IMPRESSION Normal [facility]atri [facility] DI[facility]STIC IMAGI NG ORDERABLES * XR PANOREX (06/12/2013 9:11 PM CDT) Anatomical Region Laterality Modality Head Radiographic Salima ging 06/13/2013 7:27 AM CDT Impressions 06/13/2013 7:52 AM CDT No evidence of mandible fracture. Dictated by Arron Booth on 06/13/2013 7:37 AM I, Precious Pickens, have personally reviewed the images and I [...] by Arron Booth on 06/13/2013 7:37 AM I, Precious Pickens, have personally reviewed the images and I agree with this report. Tameka Collazo APRN-[employer] [facility] DIAGNOSTIC IMAG ING ORDERABLES * PATHOLOGY/CYTOLOGY REPORT ORDER (02/09/2011 9:05 AM CDT) Narrative Procedure Note Document, Scanned - 02/09/2011 9:05 AM CDT Scanned Document LAB - PATHOLOGY/CYTO LOGY ORDERABLES * (ABNORMAL) CBC W AUTO DIFFERENTIAL (02/07/2011 11:51 AM CDT) WBC 5.92 5.0 - 14.5 K/cumm [facility] RBC 3.73(L) 3.90 - 5.30 mill/cumm [facility] Hemoglobin 10.6(L) 11.5 - 13.5 gm/dl [facility] Hematocrit 30.8(L) 34.0 - 40.0 % [facility] MCV 82.6 75.0 - 87.0 cu microns [facility] MCH 28.4 24.0 - 30.0 uug [facility] MCHC 34.4 31.0 - 37.0 % [facility] RDW 12.5 % [facility] MPV 9.1 fl [facility] Platelet Count 310 100 - 400 K/cumm [facility] Granulocytes % 56.3 20 - 70 % [facility] Lymphocytes % 33.1 16 - 70 % [facility] Monocytes % 7.4 3 - 13 % [facility] Eosinophils % 2.4 0 - 7 % [facility] Basophils % 0.8 0 - 1 % [facility] Comment Manual Diff Automated Diff Performed [facility] BLOOD SPECIMEN / Unknown 02/07/2011 11:51 AM CDT 02/07/2011 12:06 PM CDT Alexi Saxena MD LAB - HEMATOLOGY O RDERABLES [facility] [address] [place] [address] * GROSS + MICRO EXAM (02/05/2011 9:20 PM CDT) [facility] Clinical History [facility] Comment: The patient is a 5-year-old girl with appendicitis who underwent laparoscopic appendectomy. Gross Description [facility] Comment: Submitted fresh in one [...] diameter. ??The specimen is serially sectioned, and district sales representative sections are submitted in cassette A1 . ?? (CT/lw) Microscopic Examination [facility] Comment: 1 H+E Sections of the appendix show intraluminal pus, a transmural neutrophilic infiltrate with focal necrosis, and a serosal surface with a fibrinopurulent exudate. ??(SS/lw) Diagnosis [facility] Comment: DIAGNOSIS: ??VERMIFORM APPENDIX, APPENDECTOMY: ?-ACUTE APPENDICITIS. This case has been personally reviewed and interpreted by the attending (teaching) pathologist. District Engineer Zbigniew Parker, [facility] Resident in Pathology Daylin Miner M.D. [facility] Pathologist Dc Rodríguez M.D. [facility] Electronically Signed By Dc Rodríguez M.D. [facility] ENTIRE APPENDIX / Unknown 02/05/2011 9:20 PM CDT 02/08/2011 8:18 AM CDT Alexi Saxena MD LAB - PATHOLOGY/CY DIETER ORDERABLES [facility] [address] [place] [address] * CT ABDOMEN AND PELVIS WITH IV [...] consistent with appendicitis as described above. Michelle Vera XanderGoldieVadito CT ORDERABLES * US ABD FOR APPENDICITIS [...] gas in the abdomen. Alexi Saxena MD ORDERABLES Care Teams Manager Medicare Marketing Relationship Specialty Start Date End Date Radha Grove MD [address] [place] [address] PCP - General Pediatrics 08/28/21
--- OUTSIDE RECORDS SUMMARY | 2024-10-06 05:44 | XMS_ITS | Clinical Summary ---
Author Organization [place] [id number] [facility] Address [address] [place] [address] Care Team Providers Care Cardiopulmonary Technician Name Role Phone Katarina Jack NP Primary Care Provider [phone] Allergies Active Allergy Reactions Criticality Noted Date Comments Amoxicillin Muscle pain Medium 08/27/2021 Medications ibuprofen 200 mg tab/cap Take 1 tablet/capsule (200 mg total) by mouth every 6 (six) hours as needed Active triamcinolone (KENALOG) 0.1 % creamIndications: Eczema, unspecified type Apply topically 3 (three) times a day 30 g 1 023 Active Additional Information Patient not taking.Reported on 08/20/2024 fluticasone propionate (FLONASE) 50 mcg/actuation nasal spray Administer 1 spray into each nostril daily 1 each 1 024 Active polyethylene glycol (MIRALAX) 17 gram packetIndications :constipation Take 1 packet (17 g total) by mouth daily 30 packet 11 024 2024 Active albuterol HFA (PROVENTIL HFA,VENTOLIN HFA,PROAIR HFA) 90 mcg/actuation inhalerIndication s:Mild persistent asthma, unspecified whether complicated INHALE 2 PUFFS BY MOUTH EVERY 6 HOURS NEEDED FOR SHORTNESS OF BREATH 6.7 g 1 025 Active drospirenone-ethi nyl estradioL (Sydni, 28,) 3-0.02 mg per tabletIndications :Contraceptive education Take 1 tablet by mouth daily 84 tablet 2 025 2025 Active ondansetron ODT (ZOFRAN-ODT) 4 mg disintegrating tablet Take 1 tablet (4 mg total) by mouth every 8 (eight) hours as needed for nausea or vomiting 20 tablet 025 Active albuterol HFA (PROVENTIL HFA,VENTOLIN HFA,PROAIR HFA) 90 mcg/actuation inhalerIndication s:Mild persistent asthma, unspecified whether complicated Inhale 2 puffs every 6 (six) hours as needed for shortness of breath 1 each 1 023 2024 Discontinued drospirenone-ethi nyl estradioL (Sydni, 28,) 3-0.02 mg per tabletIndications :Contraceptive education Take 1 tablet by mouth daily 84 tablet 12 024 2024 Discontinued(R eorder) Active Problems Problem Noted Date Diagnosed Date Diarrhea 02/10/2024 Tonsil pain 10/14/2023 BMI 26.0-26.9,adult 02/17/2023 Physical exam, annual 02/17/2023 Assessment & Plan (02/17/2023 10:07 AM CDT): This is a significant, separately identifiable problem that was evaluated and managed on the same day as the wellness exam Eczema 02/17/2023 Mild persistent asthma 02/17/2023 Sore throat 01/20/2023 Assessment & Plan (01/20/2023 3:34 PM CDT): VSS, no acute respiratory distress, lungs CTAB Bilateral tonsilar edema 2, large right sided tonsilar exudate Rapid strep negative. Throat culture pending PCN intolerance (dehdyration, muscle pain?) Omnicef 300 mg BID x 10 days. Discussed with patient she can wait till cultures to start antibiotic, or go ahead and start antibiotic prior to culture results if symptoms persist or worsen Warm salt water gargles Tylenol (acetaminophen) or Advil/Motin (ibuprofen) as needed per package directions for aches/pains. CDC recommendations for return to work/school: at least 12 hours on antibiotics and no fever Change your toothbrush on the third day you are on antibiotics. Avoid sharing food/drinks and close contact until you are less contagious. Frequent warm or cool liquids can be soothing. Try soups or popsicles for comfort. If you are not improving or worsening in the next 3-5 days you must RETURN to the clinic, go to your PCP, or Urgent Care/ER to be SEEN and reevaluated. No further prescriptions or refills will be given by phone without another evaluation. Encounters Date Type Department Care Team Description 09/29/2024 6:45 AM [facility]ADLE [facility]END[facility] - 09/29/2024 8:03 AM [facility] Emergency [facility] Emergency Department [address] [place] [address] Bakari Alba MD Abdominal pain (Primary Dx); Nausea and vomiting, unspecified vomiting type Discharge Disposition: Discharge to home or self care 09/28/2024 Telephone [facility] [address] [place] [address] Sangeeta Randall PA 08/28/2024 Telephone [facility] Gastroenterology [address] [place] [address] Sydni Mendoza LPN 08/20/2024 9:25 AM [facility] T[facility]ER Lab [facility] Endocrinology Metabolism and Lipid [address]th [place] [address] [place] [address] Irritable bowel syndrome with constipation; Screening for cholesterol level 08/20/2024 9:21 AM [facility]ADLE TENDER - 08/20/2024 11:59 PM [employer] TENDER Hospital Encounter [facility] [address] [place] [address] Irritable bowel syndrome with constipation Discharge Disposition: Discharge to home or self care 08/20/2024 8:30 AM [facility]AD[employer] TENDER Office Visit [facility] Gastroenterology [address] [place] [address] [place] [address] Bel Mata PA Irritable bowel syndrome with constipation (Primary Dx); Heartburn; Diarrhea, unspecified type from Last 3 Months Immunizations Name Administration Dates Next Due DTaP 05/13/2006 DTaP / Hep B / IPV 02/16/2005,2004, 004 DTaP, Unspecified 05/10/2009 HPV9 11/23/2016,07/20/2016,05/20/2016 Hep A, Ped Unspecified 12/06/2006,05/13/2006 Hep B, Adolescent or Pediatric 2004 HiB 10/25/2005,2004,2004 IPV 05/10/2009 Influenza, Quadrivalent, Spl it, Preservative Free, Intramuscular 08/27/2021,07/30/2014 Influenza, Unspecified 02/10/2024(Deferr ed: Patient Refused),10/14/2023(Deferred: Patient Refused),09/26/2023(Deferred: Patient Refused),09/26/2023(Deferred: Patient Refused),09/26/2023(Deferred: Patient Refused),04/14/2023(Deferred: Patient Refused),02/17/2023(Deferred: Patient Refused),10/27/2021(Deferred: Patient Refused),10/27/2021(Deferred: Patient Refused) MMR 05/10/2009 MMRV 10/25/2005 Meningococcal B, OMV (Bexsero) 05/17/2022,2021 Meningococcal MCV4P (Menactra) 04/14/2022,2015 Pneumococcal Conjugate 7-Valent 10/25/19 06,02/16/2005,2004,09/17 Pneumococcal Conjugate PCV 13 09/18/2005 Tdap 05/20/2016 Varicella 05/10/2009 Surgical History Surgery Date Site/Laterality Comments APPENDECTOMY Medical History Medical History Date Comments Asthma Eczema Family History Medical History Relation Name Comments Diabetes Father Hypertension Father Stroke Father Multiple myeloma Maternal Grandfather Hypertension Mother Pancreatitis Sister Relation Name Status Comments Father Maternal Grandfather Mother Sister Social History Tobacco Use Types Packs/Day Years Used Date Smoking Tobacco: Never Smokeless Tobacco: Never Tobacco Cessation:Counseling Given: Not Answered Alcohol Use Standard Drinks/Week Comments Never 0 (1 standard drink = 0.6 oz pur e alcohol) AUDIT-C Answer Date Recorded Frequency of Alcohol Consumption Not on file 03/08/2024 Q2: How many drinks containi ng alcohol do you have on a typical day when you are drinking? Patient does not drink Frequency of Binge Drinking Not on file 02/24 PHQ-2 Answer Date Recorded PHQ-2 Total Score (If total score is 3 or more points, staff should administer the PHQ-9) 0 03/09/2024 Personal Safety Answer Date Recorded Have you ever been in or are you currently in a harmful physical or emotional relationship or is someone making you feel afraid or unsafe? Denies 09/29/2024 Comments No Sex and Gender Information Value Date Recorded Sex Assigned at Not on file Legal Sex Female 7:28 PM [employer] Gender Identity Not on file Sexual Orientation Not on file Obstetrics History Last Filed Vital Signs Vital Sign Reading Time Taken Comments Blood Pressure 141/81 09/29/2024 7:30 AM [employer] TENDER Pulse 80 09/29/2024 7:30 AM [employer]ADLE TENDER Temperature 36.7 ??C (98 ??F) 09/29/2024 6:37 AM [employer]ADLE TENDER Respiratory Rate 18 09/29/2024 7:30 AM [employer]ADLE TENDER Oxygen Saturation 99% 09/29/2024 7:30 AM [employer]ADLE TENDER Inhaled Oxygen Concentration - - Weight 64.4 kg (141 lb 15.6 oz) 09/29/2024 6:37 AM [employer]ADLE TENDER Height 157.5 cm (5' 2 ) 09/29/2024 6:37 AM [employer]ADLE TENDER Body Mass Index 25.97 09/29/2024 6:37 AM [employer] LADLE TENDER Plan of Treatment Health Maintenance Due Date Last Done Comments Chlamydia and Gonorrhea (GC/ CT) Screening 2004 Hepatitis C Screening 2004 Pneumococcal vaccine <65 (1 of 1 - PPSV23 or PCV20) 2010 10/25/2005, 09/18/2005, 02/16/2005, Additional history exists Covid-19 Vaccine (3 2023-2 5 season) 2024 04/25/2021, 04/04/2021 Influenza Vaccine (#1) 2024 08/27/2021, 2013 Depression Screening 03/09/2025 03/09/2024, 02/10/2024, 10/14/2023, Additional history exists Regular Well Visit/Exam 18-64 03/09/2025 03/09/2024, 02/17/2023 DTaP/Tdap/Td Vaccine (7 - Td or Tdap) 05/20/2026 05/20/2016, 05/10/2009, 05/13/2006, Additional history exists Varicella Vaccines Completed 05/10/2009, 10/25/2005 HPV Vaccines Completed 11/23/2016, 06/27, 05/20/2016 Meningococcal Vaccine Completed 04/14/2022, 016 Meningococcal B Vaccine Completed 05/17/2022, 04/14 Procedures Procedure Name Priority Date/Time Associated Diagnosis Comments POCT HCG, URINE Routine 09/29/2024 7:45 AM BUGGY LADLE TENDER URINALYSIS, MICROSCOPIC ONLY STAT 09/29/2024 7:45 AM [employer] LADLE TENDER URINALYSIS AND REFLEX TO MICROSCOPIC AND CULTURE STAT 09/29/2024 7:45 AM [employer] TENDER EGFR STAT 09/29/2024 6:47 AM [employer]LE TENDER DIFFERENTIAL AUTO STAT 09/29/2024 6:4 7 AM [employer] T[employer]ER COMPREHENSIVE METABOLIC PANEL STAT 09/29/2024 6:47 AM [employer] TENDER CBC WITH AUTO DIFFERENTIAL STAT 09/29/2024 6:47 AM [employer] TENDER INFLUENZA A/B, RSV, AND COVID-19 PCR STAT 09/29/2024 6:47 AM [employer]LE TENDER LIPID PANEL Routine 08/20/2024 9:22 AM [employer] TENDER Screening for cholesterol level IGA Routine 08/20/2024 9:21 AM [employer] TENDER Irritable bowel syndrome with constipation TISSUE TRANSGLUTAMINASE, IGA Routine 08/20/2024 9:21 AM [employer]ER Irritable bowel syndrome with constipation CBC WITH AUTO DIFFERENTIAL Routine 08/20/2024 9:21 AM [employer]ADLE TENDER Irritable bowel syndrome with constipation COMPREHENSIVE METABOLIC PANEL Routine 08/20/2024 9:21 AM [employer] TENDER Irritable bowel syndrome with constipation TSH Routine 08/20/2024 9:21 AM [employer] TENDER Irritable bowel syndrome with constipation from Last 3 Months Results * (ABNORMAL) Urinalysis reflex to microscopic and culture Urine (09/29/2024 7:45 AM BUGGY LADLE TENDER) Color, ur Yellow Yellow Comment:Testing performed by : [address] [address] Clarity, ur Clear Clear CAROLINE Comment:Testing performed by : [address] [address] Specific gravity, ur 1.030 1.003 - 1.030 CAR[facility]INE Comment:Testing performed by : [address] [address] pH, urine 7.0 CAROLINE Comment: Interpretive Data ? Urine pH is affected by diet, medications, systemic acid-base disturbances, and renal tubular function. ??pH may affect urinary stone formation. ??For example, urine pH below 6.0 may help reduce the tendency for calcium phosphate stones and pH greater than 6.0 may reduce the tendency for uric acid stone formation. Source: [facility] [employer] Current Interpretive Data was last revised on 2017 Testing performed by: [address] [address] Protein, ur ql 1+(A) Negative CAROLINE Comment:Testing performed by : [address] [address] Glucose, ur ql Negative Negative CAROLINE Comment:Testing performed by : [address] [address] Ketones, ur 2+(A) Negative CAROLINE Comment:Testing performed by : [address] [address] Bilirubin, ur Negative Negative CAROLINE Comment:Testing performed by : [address] [address] Blood, ur Negative Negative CAROLINE Comment:Testing performed by : [address], [place]., [address] Urobilinogen, ur <2.0 <2.0 mg/dL CAROLINE HORVATH Comment:Testing performed by : [facility] [address] [place] [address], [place]., [address] Nitrite, ur Negative Negative CAROLINE Comment:Testing performed by : [facility] [address] [place] [address], [place]., [address] Leukocyte esterase, ur Negative Negative CAROLINE Comment:Testing performed by : [facility] [address] [place] [address], [place]., [address] UA reflex comment Reflex to microscopic UA will be performed. CAROLINE HORVATH Comment:Testing performed by : [facility] [address] [place] [address], [place]., [address] Urine 09/29/2024 7:45 AM [employer]Y LADLE TENDER 09/29/2024 7:48 AM [employer] TENDER Bakari Alba MD LAB MICROBIOLOGY - GEN ERAL ORDERABLES Final Result CAROLINE [address] [facility] [place] [address] * (ABNORMAL) Urinalysis, microscopic only (09/29/2024 7:45 AM BUGGY LADLE TENDER) WBC, ur 0-5 0 - 5 /HPF Comment:Testing performed by : [facility] [address] [place] [address], [place]., [address] RBC, ur 0-2 0 - 2 /HPF CAROLINE HORVATH Comment:Testing performed by : [facility] [address] [place] [address], [place]., [address] Epithelial cells, squamous, ur 21-50(A) 0 - 5 /HPF CAROLINE Comment:Testing performed by : [facility] [address] [place] [address], [place]., [address] Mucous, ur Present(A) CAROLINE HORVATH Comment:Testing performed by : [address], [place]., [address] Culture Reflex Comment Reflex conditions for urine culture (WBC >10) not met. CAROLINE HORVATH Comment:Testing performed by : [facility] [address] [place] [address], [place]., [address] Urine 09/29/2024 7:45 AM BU[employer] LADLE TENDER 09/29/2024 7:48 AM [employer]ADLE TENDER Bakari Alba MD LAB URINE ORDERABLES F inal Result CAROLINE [address] [facility] Department [place] [address] * POCT hCG, urine (09/29/2024 7:45 AM BUGGY LADLE TENDER) Pathologist [facility] HCG, ur, POC Negative Negative Lot Number [id number] QC Backgroud Clear Acceptable QC Control Line Acceptable Urine 09/29/2024 7:45 AM [employer]ADLE TENDER Bakari Alba MD POINT OF CARE TEST ORD ERABLES Final Result * Influenza A/B, RSV, and COVID-19 PCR Nasopharyngeal (09/29/2024 6:47 AM BUGGY LADLE TENDER) [facility] COVID-19 RNA Negative Negative Comment:Testing performed by : [address] [address] Influenza A RNA Negative Negative [facility] Comment:Testing performed by : [address] [address] Influenza B RNA Negative Negative [facility] Comment:Testing performed by : [address] [address] RSV RNA Negative Negative [facility] Comment: Interpretive data: Testing performed by [facility]. This test is performed using the [employer] Xpert Xpress CoV-2/Flu/RSV plus assay. This is a multiplex, real-time reverse transcriptase PCR assay intended for the qualitative detection of nucleic acid from SARS-CoV-2, influenza A, influenza B, and respiratory syncytial virus. This assay has been cleared by the [place] Food and Drug administration. The performance characteristics have been verified by the [facility]. ??Results must be considered in the clinical context, and a negative result does not rule out infection. Interpretive Data last revised 2023 Testing performed by: [address], [place]., [address] Nasopharyngeal 09/29/2024 6: 47 AM [employer]Y LADLE TENDER 09/29/2024 6:51 AM BUGGY LADLE TENDER Narrative CAROLINE HORVATH - 09/29/2024 7:36 AM BUGGY LADLE TENDER Is the Patient experiencing symptoms consistent with COVID?->Unknown Bakari Alba MD LAB MICROBIOLOGY - GEN ERAL ORDERABLES Final Result CAROLINE [address] [facility] [place] [address] * eGFR (09/29/2024 6:47 AM BUGGY LADLE TENDER) eGFR >90 >=60 mL/min/1. 73 m2 Comment: Interpretive Data Reference Interval Normal ?>/= 90 mL/min/1.73m2 Mildly decreased* ? 60 - 89 mL/min/1.73m2 Mildly to moderately decreased ?45 - 59 mL/min/1.73m2 Moderately to severely decreased ??30 - 44 mL/min/1.73m2 Severely decreased ?15 - 29 mL/min/1.73m2 Kidney Failure ?< 15 ??mL/min/1.73m2 *Relative to young adult level Estimated glomerular filtration rate is determined by the 2020 CKD-EPI equation recommended by the National Kidney Foundation (A Unifying Approach to GFR Estimation: Recommendations of the NKF-ASK Task Force on Reassessing the Inclusion of Race in Diagnosing Kidney Disease, JASN 202). The CKD-EPI equation should not be used for patients with unstable renal function and has not been validated in children and those over 70. Current interpretive data was last reviewed 2021. Testing performed by: [facility], [address] [place] [address]., [address] Blood 09/29/2024 6:47 AM BU[employer]Y LADLE TENDER 09/29/2024 6:51 AM BUGGY LADLE TENDER us Bakari Alba MD LAB BLOOD ORDERABLES F inal Result CAROLINE [address] [facility] [place] [address] * (ABNORMAL) Differential, auto (09/29/2024 6:47 AM BUGGY LADLE TENDER) Neutrophil abs 9.2(H) 1.5 - 6.5 K/cumm Comment:Testing performed by : [address] [address] Imm gran abs 0.0 0.0 - 0.1 K/cumm CAROLINE Comment:Testing performed by : [address] [address] Lymphocyte abs 1.1 0.8 - 3.3 K/cumm CAROLINE Comment:Testing performed by : [address] [address] Monocyte abs 0.3 0.2 - 0.8 K/cumm CAROLINE Comment:Testing performed by : [address] [address] Eosinophil abs 0.0 0.0 - 0.5 K/cumm CAROLINE Comment:Testing performed by : [address] [address] Basophil abs 0.0 0.0 - 0.1 K/cumm CAROLINE Comment:Testing performed by : [address] [address] Neutrophil pct 86.0 % CAROLINE Comment: Interpretive Data Percent cell count reference ranges are not reported, since discordance with absolute values may lead to misinterpretation of CBC data. Current Interpretive Data was last revised on 2018. Testing performed by: [address] [address] Imm gran pct 0.3 % [facility] Comment: Interpretive Data Percent cell count reference ranges are not reported, since discordance with absolute values may lead to misinterpretation of CBC data. Current Interpretive Data was last revised on 2018. Testing performed by: [address] [address] Lymphocyte pct 10.3 % [facility] Comment: Interpretive Data Percent cell count reference ranges are not reported, since discordance with absolute values may lead to misinterpretation of CBC data. Current Interpretive Data was last revised on 2018. Testing performed by: [address] [address] Monocyte pct 3.0 % [facility] Comment: Interpretive Data Percent cell count reference ranges are not reported, since discordance with absolute values may lead to misinterpretation of CBC data. Current Interpretive Data was last revised on 2018. Testing performed by: [address] [address] Eosinophil pct 0.1 % [facility] Comment: Interpretive Data Percent cell count reference ranges are not reported, since discordance with absolute values may lead to misinterpretation of CBC data. Current Interpretive Data was last revised on 2018. Testing performed by: [address] [address] Basophil pct 0.3 % [facility] Comment: Interpretive Data Percent cell count reference ranges are not reported, since discordance with absolute values may lead to misinterpretation of CBC data. Current Interpretive Data was last revised on 2018. Testing performed by: [address] [address] Blood 09/29/2024 6:47 AM BUGGY LADLE TENDER 09/29/2024 6:51 AM BUGG[employer] LADLE TENDER us Bakari Alba MD LAB BLOOD ORDERABLES F inal Result CAROLINE [address] [facility] [place] [address] * (ABNORMAL) CBC with auto differential (09/29/2024 6:47 AM BUGGY LADLE TENDER) WBC 10.7(H) 3.8 - 9.9 K/cumm Comment:Testing performed by : [address] [place] [address] Hgb 12.8 11.9 - 15.5 g/dL CAROLINE Comment:Testing performed by : [address] [address] Hct 37.4 35.6 - 45.5 % CAROLINE Comment:Testing performed by : [address] [address] Plt 318 150 - 400 K/cumm CAROLINE Comment:Testing performed by : [address] [address] MPV 9.8 9.1 - 12.3 fL CAROLINE Comment:Testing performed by : [address], [address] RBC 4.22 3.90 - 5.20 M/cumm CAROLINE Comment:Testing performed by : [address] [address] MCV 88.6 81.3 - 96.4 fL CAROLINE Comment:Testing performed by : [address] [address] MCH 30.3 27.1 - 33.3 pg CAROLINE Comment:Testing performed by : [address] [address] MCHC 34.2 32.3 - 35.7 g/dL CAROLINE Comment:Testing performed by : [address], [address] RDW CV 11.9 11.1 - 14.9 % CAROLINE Comment:Testing performed by : [address], [address] RDW SD 38.1 35.7 - 48.1 fL CAROLINE Comment:Testing performed by : [address] [address] NRBC abs 0.00 0.00 - 0.01 K/cumm CAROLINE Comment:Testing performed by : [address] [address] Blood 09/29/2024 6:47 AM BUGGY LADLE TENDER 09/29/2024 6:51 AM BUGGY LADLE TENDER us Bakari Alba MD LAB BLOOD ORDERABLES F inal Result CAROLINE [address] [facility] [place] [address] * (ABNORMAL) Comprehensive metabolic panel (09/29/2024 6:47 AM BUGGY LADLE TENDER) Sodium 138 135 - 145 mmol/L Comment:Testing performed by : [address] [address] Potassium, pl 4.1 3.3 - 4.9 mmol/L CAROLINE Comment:Testing performed by : [address] [address] Chloride 104 97 - 110 mmol/L CAROLINE Comment:Testing performed by : [address] [address] CO2 23 22 - 32 mmol/L CAROLINE Comment:Testing performed by : [address] [address] Anion gap 11 2 - 15 mmol/L CAROLINE Comment:Testing performed by : [address] [address] BUN 8 6 - 25 mg/dL CAROLINE Comment:Testing performed by : [address] [address] Creatinine 0.50(L) 0.60 - 1.10 mg/dL CAROLINE Comment:Testing performed by : [address] [address] Glucose 118 70 - 199 mg/dL CAROLINE Comment: Interpretive Data Fasting glucose >/= 126 mg/dl is diagnostic for diabetes. ?? Fasting is defined as no caloric intake for at least 8 hours. Fasting glucose between 100 mg/dl to 125 mg/dl is diagnostic of prediabetes. In a patient with classic symptoms of hyperglycemia or hyperglycemic crisis, a random glucose >/= 200 mg/dl is diagnostic for diabetes. In the absence of unequivocal hyperglycemia, results should be confirmed by repeat testing. The classification and Diagnosis of Diabetes Diabetes Care 202; 46: S19-S40. Current interpretive data was last revised 2022. Testing performed by: [facility], [address] [place] [address]., [address] Calcium 9.7 8.5 - 10.3 mg/dL CAROLINE Comment:Testing performed by : [facility], [address] [place] [address]., [address] Bilirubin, total 0.4 0.1 - 1.2 mg/dL CAROLINE Comment:Testing performed by : [address], [address] Protein, pl 8.0 6.5 - 8.5 g/dL CAROLINE Comment:Testing performed by : [address] [address] Albumin 4.7 3.5 - 5.0 g/dL CAROLINE Comment:Testing performed by : [address] [address] Alk phos 61 40 - 130 Units/L CAROLINE Comment:Testing performed by : [address], [address] ALT 8 7 - 45 Units/L CAROLINE Comment:Testing performed by : [address] [address] AST 19 10 - 45 Units/L CAROLINE Comment:Testing performed by : [address] [address] Blood 09/29/2024 6:47 AM BUGGY LADLE TENDER 09/29/2024 6:51 AM BUGGY LADLE TENDER us Bakari Alba MD LAB BLOOD ORDERABLES F inal Result CAROLINE [address] [facility] [place] [address] * (ABNORMAL) Lipid panel (08/20/2024 9:22 AM BUGGY LADLE TENDER) Triglycerides 179(H) <150 mg/dL [facility] Comment: Desirable: <150 mg/dL, fasting <175 mg/dL, non-fasting Persistently elevated triglycerides may enhance atherosclerotic cardiovascular disease. Total Cholesterol 212(H) <200 mg/dL [facility] Total HDL-C Direct 75 >50 mg/dL [facility] Non-HDL cholesterol 137 <220 mg/dL [facility] Friedewald LDL Chol 101 <190 mg/dL [facility] Comment: The Friedewald equation is accurate in most patients when triglycerides are less than 150 mg/dL. ??Consider the use of non-HDL-C or Apo B to help estimate atherosclerotic cardiovascular diesase risk if triglycerides are elevated. Blood 08/20/2024 9:22 AM BUGGY LADLE TENDER 08/20/2024 11:01 AM BUGGY LADLE TENDER Narrative [facility] - 08/20/2024 12:10 PM BUGGY LADLE TENDER Current interpretive data was last updated August 28, 2021. us Katarina Jack [facility] LAB BLOOD ORDERABLES Final Re sult [facility] * CBC with auto differential (08/20/2024 9:21 AM BUGGY LADLE TENDER) White Blood Count 6.9 3.6 - 11.2 K/uL [facility] RBC 4.39 3.63 - 4.92 M/uL [facility] Hemoglobin 13.6 11.9 - 15.5 g/dL [facility] Hematocrit 39.8 36.1 - 44.3 % [facility] MCV 90.6 80.0 - 97.6 fL [facility] MCH 31.1 26.7 - 33.7 pg [facility] MCHC 34.3 32.7 - 35.5 g/dL [facility] RBC Dist Width 12.7 12.3 - 17.0 % [facility] Platelet Count 247 140 - 440 K/uL [facility] MPV 9.5 6.8 - 10.4 fL [facility] Neutrophils % 50.6 38.7 - 74.5 % [facility] Lymphocyte % 39.5 20.0 - 54.3 % [facility] Monocytes % 7.5 4.3 - 13.5 % [facility] Eosinophils % 1.7 0.0 - 6.0 % [facility] Basophil % 0.7 0.0 - 3.0 % [facility] Absolute Neutrophil 3.5 1.8 - 6.6 K/uL [facility] Absolute Lymphocyte 2.7 0.8 - 3.3 K/uL [facility] Absolute Monocyte 0.5 0.2 - 1.2 K/uL [facility] Absolute Eosinophil 0.1 0.0 - 0.5 K/uL [facility] Absolute Basophil 0.0 0.0 - 0.2 K/uL [facility] Nucleated RBC % 0.2 0.0 - 0.4 /100 WBC [facility] Blood 08/20/2024 9:21 AM BUGGY LADLE TENDER 08/20/2024 11:01 AM BUGGY LADLE TENDER [place] [facility] LAB BLOOD ORDERABLES Fi nal Result Performing Organization Address City/[facility]/ZIP Co de Phone Number [facility] * Tissue transglutaminase IgA (TGG-IgA Ab) (08/20/2024 9:21 AM BUGGY LADLE TENDER) TTG ab, IgA <0.5 <=14.9 units/mL Comment: Interpretive data Negative: <15 units/mL Positive: > or equal to 15 units/mL Current interpretive data was last revised on 2017. Blood 08/20/2024 9:21 AM BUGGY LADLE TENDER 08/20/2024 12:06 PM BUGGY LADLE TENDER [place] [facility] LAB BLOOD ORDERABLES Fi nal Result [facility] Department [place] [address] * TSH (08/20/2024 9:21 AM BUGGY LADLE TENDER) TSH (Thyrotropin) 1.76 0.27 - 4.20 uIU/mL [facility] Blood 08/20/2024 9:21 AM BUGGY LADLE TENDER 08/20/2024 11:01 AM BUGGY LADLE TENDER [place] [facility] BLOOD ORDERABLES Fi nal Result [facility] * IgA (08/20/2024 9:21 AM BUGGY LADLE TENDER) Immunoglobulin A 97 70 - 400 mg/dL Blood 08/20/2024 9:21 AM BUGGY LADLE TENDER 08/20/2024 12:06 PM BUGGY LADLE TENDER [place] [facility] LAB BLOOD ORDERABLES Fi nal Result [facility] Department [place] [address] * Comprehensive metabolic panel (08/20/2024 9:21 AM BUGGY LADLE TENDER) Total Protein 8.1 6.1 - 8.4 g/dL [facility] Albumin 4.5 3.5 - 5.2 g/dL [facility] Calcium 9.7 8.6 - 10.3 mg/dL [facility] BUN 7 7 - 23 mg/dL [facility] Total Bilirubin 0.28 0.20 - 1.40 mg/dL [facility] Alk Phos, Total 59 35 - 129 IU/L [facility] AST (SGOT) 20 11 - 47 IU/L [facility] ALT (SGPT) 16 6 - 53 IU/L [facility] Creatinine 0.62 0.60 - 1.10 mg/dL [facility] Sodium 139 135 - 145 mmol/L [facility] Potassium 4.0 3.3 - 5.1 mmol/L [facility] Chloride 103 95 - 107 mmol/L [facility] CO2 Content 23 21 - 29 mmol/L [facility] Glucose 77 64 - 99 mg/dL [facility] Comment: NONFASTING GLUCOSE RANGE = 64-199 mg/dL FASTING GLUCOSE 64 - 99 = NORMAL FASTING GLUCOSE 100 - 125 = IMPAIRED FASTING GLUCOSE FASTING GLUCOSE >=126 = PROVISIONAL DIAGNOSIS OF DIABETES eGFR >90.0 >60.0 mL/min/1.7 3 m2 [facility] Blood 08/20/2024 9:21 AM BUGGY LADLE TENDER 08/20/2024 11:01 AM BUGGY LADLE TENDER [place] [facility] BLOOD ORDERABLES Fi nal Result [facility] from Last 3 Months Insurance [employer] [facility] [employer] REPLACED BY [facility] Care Teams Cardiopulmonary Technician Relationship Specialty Start Date End Date Katarina Jack NP [address] [facility] [address] [place] [address] PCP - General Internal Medicine 02/17/23
--- OUTSIDE RECORDS SUMMARY | 2024-10-06 05:44 | XMS_ITS | Clinical Summary ---
Author Organization [facility] Address [address] [place] [address] Care Team Providers Care Fluorescent Lighting Model Maker Name Role Phone Unavailable Primary Care Provider Unavailabl e Social History Tobacco Use Types Packs/Day Years Used Date Smoking Tobacco: Never Assessed Comments Unknown Sex and Gender Information Value Date Recorded Sex Assigned at Not on file Legal Sex Female 1:51 PM ORDER TO DELIVERY SUPERVISOR Gender Identity Not on file Sexual Orientation Not on file Plan of Treatment Health Maintenance Due Date Last Done Comments Hepatitis C Virus (HCV) Screening 2004 Meningococcal B Immunization (1 of 2 - Standard) 2020 Influenza Immunization (#1) 2024 07/30/2014 SARS-COV-2 Immunization ( season) 2024 Respiratory Syncytial Virus (RSV) Immunization (Adult) (1 - 1-dose 75+ series) 2079 Hepatitis B Immunization Completed 005, 2004, 2004, Additional history exists Polio (IPV) Immunization Discontinued 005, 2004, 2004 Pneumococcal Immunization Combined Completed 10/25/2005, 09/18/2005, 02/16/2005, Additional history exists Hepatitis A Immunization Discontinued 12/06/2006, 04/26 Measles Mumps Rubella (MMR) Immunization Discontinued 05/10/2009, 10/25/2005 Varicella Immunization Discontinued 05/10/2009, 2005 DTaP/Tdap/Td Immunization Discontinued 2015, 05/10/2009, 05/13/2006, Additional history exists Meningococcal Immunization (ACWY) Aged Out 05/20/2016 No longer eligible based on patient's age to complete this topic TdaP Immunization Completed 05/20/2016 Human Papillomavirus (HPV) Immunization Completed 11/23/2016, 07/20/2016, 05/20/2016 Rotavirus Immunization Aged Out No lo nger eligible based on patient's age to complete this topic
--- OUTSIDE RECORDS SUMMARY | 2024-10-06 05:44 | XMS_ITS | Encounter Summary ---
Author Organization [facility] Address [address] [facility] [address] [place] [address] Phone Care Team Providers Care Tower Hand Name Role Phone Katarina Jack NP Primary Care Provider [phone] Encounter Details Date Type Department Care Team (Late st Contact Info) Description 08/28/[address] [facility] G[facility] [address] [facility] [address] [place] [address] Sydni Mendoza LPN Social History Tobacco Use Types Packs/Day Years Used Date Smoking Tobacco: Never Smokeless Tobacco: Never Alcohol Use Standard Drinks/Week Comments Never 0 [...] staff should administer the PHQ-9) 0 03/09/2024 Comments No Sex and Gender Information Value Date Recorded Sex Assigned at Not on file Legal Sex Female 7:28 PM AIR TRAFFIC CONTROLLER Gender Identity Not on file Sexual Orientation Not on file documented as of this encounter Miscellaneous Notes * Telephone Encounter - Sydni Mendoza LPN - 08/28/2024 11:22 AM CST Called and left detailed VM for patient to discuss celiac testing results. TRAFFIC CONTROLLER documented in this encounter Plan of Treatment Not on file documented as of this encounter Visit Diagnoses Not on filedocumented in this encounter Care Teams Tower Hand Relationship Specialty Start Date End Date Katarina Jack NP [address] [facility] [address] [place] [address] PCP - General Internal Medicine 02/17/23 documented as of this encounter
--- OUTSIDE RECORDS SUMMARY | 2024-10-06 05:44 | XMS_ITS | Referral Summary ---
Author Organization [facility] [address] [facility] Address [facility] [place] [address] Care Team Providers Care Draw End Hand Name Role Phone Katarina Jack NP Primary Care Provider [phone] Encounters Date Type Department Care Team Description 09/29/2024 6:45 AM GENERAL STORE MANAGER - 09/29/2024 8:03 AM GENERAL STORE MANAGER Emergency [facility] Emergency Department [address] [place] [address] Bakari Alba MD Abdominal pain (Primary Dx); Nausea and vomiting, unspecified vomiting type Discharge Disposition: Discharge to home or self care 09/28/2024 Telephone [facility] Family Medicine [address] [facility] [address] [place] [address] Sangeeta Randall PA 08/28/2024 Telephone [facility] Gastroenterology [address] [facility] 2nd [address] [place] [address] Sydni Mendoza LPN 08/20/2024 9:21 AM GENERAL STORE MANAGER - 08/20/2024 11:59 PM GENERAL STORE MANAGER Hospital Encounter [facility] [address] [place] [address] Irritable bowel syndrome with constipation Discharge Disposition: Discharge to home or self care 08/20/2024 9:25 AM GENERAL STORE MANAGER Lab [facility] Endocrinology Metabolism and Lipid [address] [facility] 12th [place] [address] [place] [address] Irritable bowel syndrome with constipation; Screening for cholesterol level 08/20/2024 8:30 AM GENERAL STORE MANAGER Office Visit [facility] Gastroenterology [address] [facility] 12th [place] [address] [place] [address] Bel Mata PA Irritable bowel syndrome with constipation (Primary Dx); Heartburn; Diarrhea, unspecified type from Last 3 Months Allergies Active Allergy Reactions Criticality Noted Date [...] be given by phone without another evaluation. Immunizations Name Administration Dates Next Due DTaP [...] PCV 13 09/18/2005 Tdap 05/20/2016 Varicella 05/10/2009 Social History Tobacco Use Types Packs/Day Years [...] on file Legal Sex Female 7:28 PM GENERAL STORE MANAGER Gender Identity Not on file Sexual Orientation Not on file Last Filed Vital Signs Vital Sign Reading Time Taken Comments Blood Pressure 141/81 09/29/2024 7:30 AM GENERAL STORE MANAGER Pulse 80 09/29/2024 7:30 AM GENERAL STORE MANAGER Temperature 36.7 ??C (98 ??F) 09/29/2024 6:37 AM GENERAL STORE MANAGER Respiratory Rate 18 09/29/2024 7:30 AM GENERAL STORE MANAGER Oxygen Saturation 99% 09/29/2024 7:30 AM GENERAL STORE MANAGER Inhaled Oxygen Concentration - - Weight 64.4 kg (141 lb 15.6 oz) 09/29/2024 6:37 AM GENERAL STORE MANAGER Height 157.5 cm (5' 2 ) 09/29/2024 6:37 AM GENERAL STORE MANAGER Body Mass Index 25.97 09/29/2024 6:37 AM GENERAL STORE MANAGER Plan of Treatment Not on file Procedures Procedure Name Priority Date/Time Associated Diagnosis Comments POCT HCG, URINE Routine 09/29/2024 7:45 AM GENERAL STORE MANAGER URINALYSIS, MICROSCOPIC ONLY STAT 09/29/2024 7:45 AM GENERAL STORE MANAGER URINALYSIS AND REFLEX TO MICROSCOPIC AND CULTURE STAT 09/29/2024 7:45 AM GENERAL STORE MANAGER EGFR STAT 09/29/2024 6:47 AM GENERAL STORE MANAGER DIFFERENTIAL AUTO STAT 09/29/2024 6:4 7 AM GENERAL STORE MANAGER COMPREHENSIVE METABOLIC PANEL STAT 09/29/2024 6:47 AM GENERAL STORE MANAGER CBC WITH AUTO DIFFERENTIAL STAT 09/29/2024 6:47 AM GENERAL STORE MANAGER INFLUENZA A/B, RSV, AND COVID-19 PCR STAT 09/29/2024 6:47 AM GENERAL STORE MANAGER LIPID PANEL Routine 08/20/2024 9:22 AM GENERAL STORE MANAGER Screening for cholesterol level IGA Routine 08/20/2024 9:21 AM GENERAL STORE MANAGER Irritable bowel syndrome with constipation TISSUE TRANSGLUTAMINASE, IGA Routine 08/20/2024 9:21 AM GENERAL STORE MANAGER Irritable bowel syndrome with constipation CBC WITH AUTO DIFFERENTIAL Routine 08/20/2024 9:21 AM GENERAL STORE MANAGER Irritable bowel syndrome with constipation COMPREHENSIVE METABOLIC PANEL Routine 08/20/2024 9:21 AM GENERAL STORE MANAGER Irritable bowel syndrome with constipation TSH Routine 08/20/2024 9:21 AM GENERAL STORE MANAGER Irritable bowel syndrome with constipation from Last 3 Months Results * (ABNORMAL) Urinalysis reflex to microscopic and culture Urine (09/29/2024 7:45 AM GENERAL STORE MANAGER) Color, ur Yellow Yellow Comment:Testing performed by : [address] [address] Clarity, ur Clear Clear CAROLINE Comment:Testing performed by : [address] [address] Specific gravity, ur 1.030 1.003 - 1.030 CAROLINE Comment:Testing performed by : [address] [address] pH, urine 7.0 CAROLINE Comment: Interpretive Data ? Urine pH is affected by diet, medications, systemic acid-base disturbances, and renal tubular function. ??pH may affect urinary stone formation. ??For example, urine pH below 6.0 may help reduce the tendency for calcium phosphate stones and pH greater than 6.0 may reduce the tendency for uric acid stone formation. Source: [employer] Current Interpretive Data was last revised on 2017 Testing performed by: [address] [address] Protein, ur ql 1+(A) Negative CAROLINE Comment:Testing performed by : [facility], [address] [place] [address], [place]., [address] Glucose, ur ql Negative Negative CAROLINE Comment:Testing performed by : [address], [place]., [address] Ketones, ur 2+(A) Negative CAROLINE HORVATH Comment:Testing performed by : [facility], [address] [place] [address], [place]., [address] Bilirubin, ur Negative Negative CAROLINE Comment:Testing performed by : [address], [place]., [address] Blood, ur Negative Negative CAROLINE Comment:Testing performed by : [address], [place]., [address] Urobilinogen, ur <2.0 <2.0 mg/dL CAROLINE Comment:Testing performed by : [address], [place]., [address] Nitrite, ur Negative Negative CAROLINE Comment:Testing performed by : [address], [place]., [address] Leukocyte esterase, ur Negative Negative CAROLINE Comment:Testing performed by : [address], [place]., [address] UA reflex comment Reflex to microscopic UA will be performed. CAROLINE Comment:Testing performed by : [address], [place]., [address] Urine 09/29/2024 7:45 AM GENERAL STORE MANAGER 09/29/2024 7:48 AM GENERAL STORE MANAGER us Bakari Alba MD LAB MICROBIOLOGY - GEN ERAL ORDERABLES Final Result CAROLINE [address] [facility] Department [place] [address] * (ABNORMAL) Urinalysis, microscopic only (09/29/2024 7:45 AM GENERAL STORE MANAGER) WBC, ur 0-5 0 - 5 /HPF Comment:Testing performed by : [address], [place]., [address] RBC, ur 0-2 0 - 2 /HPF CAROLINE HORVATH Comment:Testing performed by : [facility], [address] [place] [address]., [address] Epithelial cells, squamous, ur 21-50(A) 0 - 5 /HPF CAROLINE Comment:Testing performed by : [facility], [address] [place] [address], [place]., [address] Mucous, ur Present(A) CAROLINE Comment:Testing performed by : [address], [place]., [address] Culture Reflex Comment Reflex conditions for urine culture (WBC >10) not met. CAROLINE Comment:Testing performed by : [address] [address] Urine 09/29/2024 7:45 AM GENERAL STORE MANAGER 09/29/2024 7:48 AM GENERAL STORE MANAGER Bakari Alba MD LAB URINE ORDERABLES F inal Result Performing Organization Address City/State/[facility] Co de Phone Number CAROLINE [address] [facility] Department [place] [address] * POCT hCG, urine (09/29/2024 7:45 AM GENERAL STORE MANAGER) HCG, ur, POC Negative Negative Lot Number [id number] QC Backgroud Clear Acceptable QC Control Line Acceptable Urine 09/29/2024 7:45 AM GENERAL STORE MANAGER Bakari Alba MD POINT OF CARE TEST ORD ERABLES Final Result * Influenza A/B, RSV, and COVID-19 PCR Nasopharyngeal (09/29/2024 6:47 AM GENERAL STORE MANAGER) COVID-19 RNA Negative Negative Comment:Testing performed by : [address] [address] Influenza A RNA Negative Negative CAROLINE Comment:Testing performed by : [address] [address] Influenza B RNA Negative Negative CAROLINE Comment:Testing performed by : [address] [address] RSV RNA Negative Negative CAROLINE Comment: Interpretive data: Testing performed by [facility]. This test is performed using the [employer] Xpert Xpress CoV-2/Flu/RSV plus assay. This is a multiplex, real-time reverse transcriptase PCR assay intended for the qualitative detection of nucleic acid from SARS-CoV-2, influenza A, influenza B, and respiratory syncytial virus. This assay has been cleared by the [place] Food and Drug administration. The performance characteristics have been verified by the [facility]. ??Results must be considered in the clinical context, and a negative result does not rule out infection. Interpretive Data last revised 2023 Testing performed by: [facility], [address] [place] [address], [place]., [address] Nasopharyngeal 09/29/2024 6: 47 AM GENERAL STORE MANAGER 09/29/2024 6:51 AM GENERAL STORE MANAGER Narrative CAROLINE - 09/29/2024 7:36 AM GENERAL STORE MANAGER Is the Patient experiencing symptoms consistent with COVID?->Unknown us Bakari Alba MD LAB MICROBIOLOGY - GEN ERAL ORDERABLES Final Result [facility] [address] [facility] Department [place] [address] * eGFR (09/29/2024 6:47 AM GENERAL STORE MANAGER) eGFR >90 >=60 mL/min/1. 73 m2 Comment: [...] of Race in Diagnosing Kidney Disease, JASN 2020). The CKD-EPI equation should not be used for patients with unstable renal function and has not been validated in children and those over 70. Current interpretive data was last reviewed 2021. Testing performed by: [address] [address] Blood 09/29/2024 6:47 AM GENERAL STORE MANAGER 09/29/2024 6:51 AM GENERAL STORE MANAGER us Bakari Alba MD LAB BLOOD ORDERABLES F inal Result [place] [address] [facility] Department [place] [address] * (ABNORMAL) Differential, auto (09/29/2024 6:47 AM GENERAL STORE MANAGER) Neutrophil abs 9.2(H) 1.5 - 6.5 K/cumm Comment:Testing performed by : [address] [address] Imm gran abs 0.0 0.0 - 0.1 K/cumm CAROLINE Comment:Testing performed by : [address] [address] Lymphocyte abs 1.1 0.8 - 3.3 K/cumm CAROLINE Comment:Testing performed by : [address] [address] Monocyte abs 0.3 0.2 - 0.8 K/cumm CAROLINE Comment:Testing performed by : [address] [address] Eosinophil abs 0.0 0.0 - 0.5 K/cumm CAROLINE Comment:Testing performed by : [address] [address] Basophil abs 0.0 0.0 - 0.1 K/cumm CAROLINE Comment:Testing performed by : [address] [address] Neutrophil pct 86.0 % CAROLINE Comment: Interpretive Data Percent cell count reference ranges are not reported, since discordance with absolute values may lead to misinterpretation of CBC data. Current Interpretive Data was last revised on 2018. Testing performed by: [address] [address] Imm gran pct 0.3 % CAROLINE Comment: Interpretive Data Percent cell count reference ranges are not reported, since discordance with absolute values may lead to misinterpretation of CBC data. Current Interpretive Data was last revised on 2018. Testing performed by: [address] [address] Lymphocyte pct 10.3 % [facility] Comment: Interpretive Data Percent cell count reference ranges are not reported, since discordance with absolute values may lead to misinterpretation of CBC data. Current Interpretive Data was last revised on 2018. Testing performed by: [address] [address] Monocyte pct 3.0 % [facility] Comment: Interpretive Data Percent cell count reference ranges are not reported, since discordance with absolute values may lead to misinterpretation of CBC data. Current Interpretive Data was last revised on 2018. Testing performed by: [address] [address] Eosinophil pct 0.1 % [facility] Comment: Interpretive Data Percent cell count reference ranges are not reported, since discordance with absolute values may lead to misinterpretation of CBC data. Current Interpretive Data was last revised on 2018. Testing performed by: [address] [address] Basophil pct 0.3 % [facility] Comment: Interpretive Data Percent cell count reference ranges are not reported, since discordance with absolute values may lead to misinterpretation of CBC data. Current Interpretive Data was last revised on 2018. Testing performed by: [address] [address] Blood 09/29/2024 6:47 AM GENERAL STORE MANAGER 09/29/2024 6:51 AM GENERAL STORE MANAGER us Bakari Alba MD LAB BLOOD ORDERABLES F inal Result CAROLINE [address] [facility] Department [place] [address] * (ABNORMAL) CBC with auto differential (09/29/2024 6:47 AM GENERAL STORE MANAGER) [facility] WBC 10.7(H) 3.8 - 9.9 K/cumm Comment:Testing performed by : [address] [address] Hgb 12.8 11.9 - 15.5 g/dL CAROLINE Comment:Testing performed by : [address] [address] Hct 37.4 35.6 - 45.5 % CAROLINE Comment:Testing performed by : [address] [address] Plt 318 150 - 400 K/cumm CAROLINE Comment:Testing performed by : [address] [address] MPV 9.8 9.1 - 12.3 fL CAROLINE Comment:Testing performed by : [address] [address] RBC 4.22 3.90 - 5.20 M/cumm CAROLINE Comment:Testing performed by : [address] [address] MCV 88.6 81.3 - 96.4 fL CAROLINE Comment:Testing performed by : [address] [address] MCH 30.3 27.1 - 33.3 pg CAROLINE HORVATH Comment:Testing performed by : [address] [address] MCHC 34.2 32.3 - 35.7 g/dL CAROLINE Comment:Testing performed by : [address] [address] RDW CV 11.9 11.1 - 14.9 % CAROLINE HORVATH Comment:Testing performed by : [address] [address] RDW SD 38.1 35.7 - 48.1 fL CAROLINE HORVATH Comment:Testing performed by : [address] [address] NRBC abs 0.00 0.00 - 0.01 K/cumm CAROLINE HORVATH Comment:Testing performed by : [address] [address] Blood 09/29/2024 6:4 7 AM GENERAL STORE MANAGER 09/29/2024 6:51 AM GENERAL STORE MANAGER us Bakari Alba MD LAB BLOOD ORDERABLES F inal Result CAROLINE HORVATH [facility] Department [place] [address] * (ABNORMAL) Comprehensive metabolic panel (09/29/2024 6:47 AM GENERAL STORE MANAGER) Sodium 138 135 - 145 mmol/L Comment:Testing performed by : [address] [address] Potassium, pl 4.1 3.3 - 4.9 mmol/L CAROLINE HORVATH Comment:Testing performed by : [address] [address] Chloride 104 97 - 110 mmol/L CAROLINE HORVATH Comment:Testing performed by : [address] [address] CO2 23 22 - 32 mmol/L CAROLINE HORVATH Comment:Testing performed by : [address] [address] Anion gap 11 2 - 15 mmol/L CAROLINE HORVATH Comment:Testing performed by : [address] [address] BUN 8 6 - 25 mg/dL CAROLINE HORVATH Comment:Testing performed by : [address] [address] Creatinine 0.50(L) 0.60 - 1.10 mg/dL CAROLINE HORVATH Comment:Testing performed by : [address] [address] Glucose 118 70 - 199 mg/dL CAROLINE [...] classification and Diagnosis of Diabetes Diabetes Care 2021; 46: S19-S40. Current interpretive data was last revised 2022. Testing performed by: [address] [address] Calcium 9.7 8.5 - 10.3 mg/dL CAROLINE Comment:Testing performed by : [address] [address] Bilirubin, total 0.4 0.1 - 1.2 mg/dL [facility] Comment:Testing performed by : [address] [address] Protein, pl 8.0 6.5 - 8.5 g/dL [facility] Comment:Testing performed by : [address] [address] Albumin 4.7 3.5 - 5.0 g/dL CAROLINE Comment:Testing performed by : [address] [address] Alk phos 61 40 - 130 Units/L [facility] Comment:Testing performed by : [address] [address] ALT 8 7 - 45 Units/L [facility] Comment:Testing performed by : [address] [address] AST 19 10 - 45 Units/L CAROLINE Comment:Testing performed by : [address] [address] Blood 09/29/2024 6:47 AM GENERAL STORE MANAGER 09/29/2024 6:51 AM GENERAL STORE MANAGER Bakari Alba MD LAB BLOOD ORDERABLES F inal Result Performing Organization Address City/[facility]/ZIP Co de Phone Number [facility] Department of Laboratories [place], [place] [id number] * (ABNORMAL) Lipid panel (08/20/2024 9:22 AM GENERAL STORE MANAGER) Triglycerides 179(H) <150 mg/dL [facility] Comment: Desirable: <150 mg/dL, fasting <175 mg/dL, [...] triglycerides are elevated. Blood 08/20/2024 9:22 AM GENERAL STORE MANAGER 08/20/2024 11:01 AM GENERAL STORE MANAGER Narrative [facility] - 08/20/2024 12:10 PM GENERAL STORE MANAGER Current interpretive data was last updated August 28, 2021. Katarina Jack NP LAB BLOOD ORDERABLES Final Re sult [facility] * CBC with auto differential (08/20/2024 9:21 AM GENERAL STORE MANAGER) White Blood Count 6.9 3.6 - 11.2 [...] [facility] Blood 08/20/2024 9:21 AM GENERAL STORE MANAGER 08/20/2024 11:01 AM GENERAL STORE MANAGER Bel JORGENSEN LAB BLOOD ORDERABLES Fi nal Result [facility] * Tissue transglutaminase IgA (TGG-IgA Ab) (08/20/2024 9:21 AM GENERAL STORE MANAGER) TTG ab, IgA <0.5 <=14.9 units/mL Comment: Interpretive data Negative: <15 units/mL Positive: > or equal to 15 units/mL Current interpretive data was last revised on 2017. Blood 08/20/2024 9:21 AM GENERAL STORE MANAGER 08/20/2024 12:06 PM GENERAL STORE MANAGER Bel JORGENSEN LAB BLOOD ORDERABLES Fi nal Result CAROLINE [facility] [place] [address] * TSH (08/20/2024 9:21 AM GENERAL STORE MANAGER) TSH (Thyrotropin) 1.76 0.27 - 4.20 uIU/mL [facility] Blood 08/20/2024 9:21 AM GENERAL STORE MANAGER 08/20/2024 11:01 AM GENERAL STORE MANAGER Bel JORGENSEN LAB BLOOD ORDERABLES Fi nal Result Performing Organization Address [facility] Co de Phone Number [facility] * IgA (08/20/2024 9:21 AM GENERAL STORE MANAGER) Pathologist [facility] Immunoglobulin A 97 70 - 400 mg/dL Blood 08/20/2024 9:21 AM GENERAL STORE MANAGER 08/20/2024 12:06 PM GENERAL STORE MANAGER Bel JORGENSEN LAB BLOOD ORDERABLES Fi nal Result Performing Organization Address [facility] Co de Phone Number [facility] Department [place] [address] * Comprehensive metabolic panel (08/20/2024 9:21 AM GENERAL STORE MANAGER) Total Protein 8.1 6.1 - 8.4 g/dL [...] [facility] Blood 08/20/2024 9:21 AM GENERAL STORE MANAGER 08/20/2024 11:01 AM GENERAL STORE MANAGER us Bel JORGENSEN LAB BLOOD ORDERABLES nal Result Performing Organization Address City/State/[facility] Co de Phone Number [facility] from Last 3 Months Insurance [facility] [employer] [place] ST[place] Care Teams Draw End Hand Relationship Specialty Start Date End Date Katarina Jack NP [address] [facility] [address] [place] [address] PCP - General Internal Medicine 02/17/23
--- OUTSIDE RECORDS SUMMARY | 2024-10-06 05:44 | XMS_ITS | Encounter Summary ---
Author Organization [facility] Address [address] [place] [address]. [place] [id number] [place] [address] Care Team Providers Care Roof Fitter Name Role Phone Bg Gordon MD Primary Care Provider Unavailable Encounter Details Date Type Department Care Team (Late st Contact Info) Description 07/30/2017 [place] [address] Bg Gordon MD Social History Tobacco Use Types Packs/Day Years Used Date Smoking Tobacco: Never Assessed Comments Unknown Sex and Gender Information Value Date Recorded Sex Assigned at Not on file Legal Sex Female 6:51 PM CDT Gender Identity Not on file Sexual Orientation Not on file documented as of this encounter Plan of Treatment Not on file documented as of this encounter Visit Diagnoses Not on filedocumented in this encounter Care Teams Roof Fitter Relationship Specialty Start Date End Date Bg Gordon MD PCP - General 04/04/16 documented as of this encounter
--- OUTSIDE RECORDS SUMMARY | 2024-10-06 05:44 | XMS_ITS | Encounter Summary ---
Author Organization [facility] Address [address] [place] [address] Care Team Providers Care Wallcovering Hanger Name Role Phone Unavailable Primary Care Provider Unavailabl e Encounter Details Date Type Department Care Team (Late st Contact Info) Description 08/04/2020 Lab Requisition [facility] Mobile Testing [facility] [address] [place] [address] [place] [address] [place] [address] Social History Tobacco Use Types Packs/Day Years Used Date Smoking Tobacco: Never Assessed Comments Unknown Sex and Gender Information Value Date Recorded Sex Assigned at Not on file Legal Sex Female 1:51 PM SLD TEACHER Gender Identity Not on file Sexual Orientation Not on file documented as of this encounter Plan of Treatment Not on file documented as of this encounter Procedures Procedure Name Priority Date/Time Associated Diagnosis Comments SARS-COV-2 PCR [facility] ONLY Routine 08/04/2020 3:02 PM SLD TEACHER documented in this encounter Visit Diagnoses Not on filedocumented in this encounter
--- OUTSIDE RECORDS SUMMARY | 2024-10-06 05:44 | XMS_ITS | Encounter Summary ---
Author Organization [facility] Address [address] [place] [address]. [place], [place] [id number] [place] [address] Care Team Providers Care Solar Energy Technician Name Role Phone Bg Gordon MD Primary Care Provider Unavailable Encounter Details Date Type Department Care Team (Late st Contact Info) Description 04/04/2016 Abstract [facility] [address] [place], [place] [id number] Shaniqua Banks, MONOTYPER [address] [facility] [address] [place], [place] [id number] Social History Tobacco Use Types Packs/Day Years Used Date Smoking Tobacco: Never Assessed Comments Unknown Sex and Gender Information Value Date Recorded Sex Assigned at Not on file Legal Sex Female 6:51 PM CDT Gender Identity Not on file Sexual Orientation Not on file documented as of this encounter Plan of Treatment Not on file documented as of this encounter Visit Diagnoses Diagnosis Otalgia of right ear Otalgia, unspecified documented in this encounter Care Teams Solar Energy Technician Relationship Specialty Start Date End Date Bg Gordon MD PCP - General 04/04/16 documented as of this encounter
--- OUTSIDE RECORDS SUMMARY | 2024-10-06 05:44 | XMS_ITS | Encounter Summary ---
Author Organization [facility] Address [address] [place] [address] Phone Care Team Providers Care Pig Machine Crane Operator Name Role Phone Katarina Jack NP Primary Care Provider [phone] Encounter Details Date Type Department Care Team (Late st Contact Info) Description 08/20/2024 9:25 AM ACTIVITIES ATTENDANT Lab [facility] Endocrinology Metabolism and Lipid [address] [facility] Advanced Medicine 12th [place] [address] [place] [address] Irritable bowel syndrome with constipation; Screening for cholesterol level Social History Tobacco Use Types Packs/Day Years [...] on file Legal Sex Female 7:28 PM ACTIVITIES ATTENDANT Gender Identity Not on file Sexual Orientation Not on file documented as of this encounter Plan of Treatment Not on file documented as of this encounter Procedures Procedure Name Priority Date/Time Associated Diagnosis Comments LIPID PANEL Routine 08/20/2024 9:22 AM ACTIVITIES ATTENDANT Screening for cholesterol level CBC WITH AUTO DIFFERENTIAL Routine 08/20/2024 9:21 AM ACTIVITIES ATTENDANT Irritable bowel syndrome with constipation TSH Routine 08/20/2024 9:21 AM ACTIVITIES ATTENDANT Irritable bowel syndrome with constipation COMPREHENSIVE METABOLIC PANEL Routine 08/20/2024 9:21 AM ACTIVITIES ATTENDANT Irritable bowel syndrome with constipation documented in this encounter Results * (ABNORMAL) Lipid panel (08/20/2024 9:22 AM ACTIVITIES ATTENDANT) Triglycerides 179(H) <150 mg/dL [facility] [...] triglycerides are elevated. Blood 08/20/2024 9:22 AM ACTIVITIES ATTENDANT 08/20/2024 11:01 AM ACTIVITIES ATTENDANT Narrative [facility] - 08/20/2024 12:10 PM ACTIVITIES ATTENDANT Current interpretive data was last updated August 28, 2021. us Katarina Jack LEVERS LACE MACHINE OPERATOR LAB BLOOD ORDERABLES Final Re sult [facility] * CBC with auto differential (08/20/2024 9:21 AM ACTIVITIES ATTENDANT) White Blood Count 6.9 3.6 - 11.2 [...] [facility] Blood 08/20/2024 9:21 AM ACTIVITIES ATTENDANT 08/20/2024 11:01 AM ACTIVITIES ATTENDANT us Bel JORGENSEN LAB BLOOD ORDERABLES Fi nal Result [facility] * Comprehensive metabolic panel (08/20/2024 9:21 AM ACTIVITIES ATTENDANT) Total Protein 8.1 6.1 - 8.4 g/dL [...] [facility] Blood 08/20/2024 9:21 AM ACTIVITIES ATTENDANT 08/20/2024 11:01 AM ACTIVITIES ATTENDANT Bel JORGENSEN LAB BLOOD ORDERABLES Fi nal Result [facility] * TSH (08/20/2024 9:21 AM ACTIVITIES ATTENDANT) TSH (Thyrotropin) 1.76 0.27 - 4.20 uIU/mL [facility] Blood 08/20/2024 9:21 AM ACTIVITIES ATTENDANT 08/20/2024 11:01 AM ACTIVITIES ATTENDANT Bel JORGENSEN LAB BLOOD ORDERABLES Fi nal Result [facility] documented in this encounter Visit Diagnoses Diagnosis Irritable bowel syndrome with constipation Irritable bowel syndrome Screening for cholesterol level documented in this encounter Care Teams Pig Machine Crane Operator Relationship Specialty Start Date End Date Katarina Jack NP [address] [address] PCP - General Internal Medicine 02/17/23 documented as of this encounter
--- OUTSIDE RECORDS SUMMARY | 2024-10-06 05:44 | XMS_ITS | Encounter Summary ---
Author Organization [facility] Healthcare Address [address] [place] [address] Care Team Providers Care Plate Painter Name Role Phone Katairna Jack NP Primary Care Provider [phone] Encounter Details Date Type Department Care Team (Latest Contact Info) Description 08/20/2024 9:21 AM AUTOMOBILE ENGINE ASSEMBLER - 08/20/2024 11:59 PM AUTOMOBILE ENGINE ASSEMBLER Hospital Encounter [address] [address] Irritable bowel syndrome with constipation Discharge Disposition: Discharge to home or self care Social History Tobacco Use Types Packs/Day Years [...] on file Legal Sex Female 7:28 PM AUTOMOBILE ENGINE ASSEMBLER Gender Identity Not on file Sexual Orientation Not on file documented as of this encounter Medications at Time of Discharge ibuprofen 200 mg tab/cap Take 1 tablet/capsule (200 mg total) by mouth every 6 (six) hours as needed polyethylene glycol (MIRALAX) 17 gram packetIndications :constipation Take 1 packet (17 g total) by mouth daily 30 packet 11 08/20/2024 5 triamcinolone (KENALOG) 0.1 % creamIndications: Eczema, unspecified type Apply topically 3 (three) times a day 30 g 1 02/17/2023 albuterol HFA (PROVENTIL HFA,VENTOLIN HFA,PROAIR HFA) 90 mcg/actuation inhalerIndication s:Mild persistent asthma, unspecified whether complicated Inhale 2 puffs every 6 (six) hours as needed for shortness of breath 1 each 1 02/17/2023 5 drospirenone-ethi nyl estradioL (Sydni, 28,) 3-0.02 mg per tabletIndications :Contraceptive education Take 1 tablet by mouth daily 84 tablet 12 06/25/2024 5 documented as of this encounter Discharge Disposition Disposition Code Departure Means Destination Discharge to home or self care documented in this encounter Plan of Treatment Not on file documented as of this encounter Procedures Procedure Name Priority Date/Time Associated Diagnosis Comments TISSUE TRANSGLUTAMINASE, IGA Routine 08/20/2024 9:21 AM AUTOMOBILE ENGINE ASSEMBLER Irritable bowel syndrome with constipation IGA Routine 08/20/2024 9:21 AM AUTOMOBILE ENGINE ASSEMBLER Irritable bowel syndrome with constipation documented in this encounter Results * IgA (08/20/2024 9:21 AM AUTOMOBILE ENGINE ASSEMBLER) Immunoglobulin A 97 70 - 400 mg/dL Blood 08/20/2024 9:21 AM AUTOMOBILE ENGINE ASSEMBLER 08/20/2024 12:06 PM AUTOMOBILE ENGINE ASSEMBLER us Bel JORGENSEN LAB BLOOD ORDERABLES Fi nal Result [facility] Department [place] [address] * Tissue transglutaminase IgA (TGG-IgA Ab) (08/20/2024 9:21 AM AUTOMOBILE ENGINE ASSEMBLER) TTG ab, IgA <0.5 <=14.9 units/mL Comment: Interpretive data Negative: <15 units/mL Positive: > or equal to 15 units/mL Current interpretive data was last revised on 2017. Blood 08/20/2024 9:21 AM AUTOMOBILE ENGINE ASSEMBLER 08/20/2024 12:06 PM AUTOMOBILE ENGINE ASSEMBLER us Bel JORGENSEN LAB BLOOD ORDERABLES Fi nal Result [facility] Department [place] [address] documented in this encounter Visit Diagnoses Diagnosis Irritable bowel syndrome with constipation Irritable bowel syndrome documented in this encounter Care Teams Plate Painter Relationship Specialty Start Date End Date Katarina Jack NP [address] [facility] [address] [place] [address] PCP - General Internal Medicine 02/17/23 documented as of this encounter
--- OUTSIDE RECORDS SUMMARY | 2024-10-06 05:44 | XMS_ITS | Clinical Summary ---
Author Organization [facility] Address [address] [place] [address]. [place] [address] Care Team Providers Care Measurement Operator Name Role Phone Unavailable Primary Care Provider Unavailabl e Social History Tobacco Use Types Packs/Day Years Used Date Smoking Tobacco: Never Assessed Comments Unknown Sex and Gender Information Value Date Recorded Sex Assigned at Not on file Legal Sex Female 6:51 PM CDT Gender Identity Not on file Sexual Orientation Not on file Plan of Treatment Health Maintenance Due Date Last Done Comments Annual Physical 2007 HPV Vaccines (1 - 3-dose series) 2019 Hepatitis C 2022 DTaP, Tdap and Td Vaccines ( 1 - Tdap) 2023 Hepatitis B Vaccines (1 of 3 - 19+ 3-dose series) 2023 COVID-19 Vaccine ( - 2023-2 5 season) 2024 Influenza Adult (#1) 2024 Meningococcal Vaccine Aged Out No sandy hailey eligible based on patient's age to complete this topic Pneumococcal Vaccine: Pediat rics (0 to 5 Years) and At-Risk Patients (6 to 64 Years) Aged Out No longer eligible b ased on patient's age to complete this topic RSV Immunizations Under 20 Months Aged Out No longer eligible based on patient's age to complete this topic
--- OUTSIDE RECORDS SUMMARY | 2024-10-06 05:44 | XMS_ITS | Encounter Summary ---
Author Organization [facility] Healthcare Address [address] [place] [address] Care Team Providers Care Slotter Operator Name Role Phone Katarina Jack NP Primary Care Provider [phone] Encounter Details Date Type Department Care Team (Late st Contact Info) Description 09/28/2024 Telephone [facility] Medical Group Family Medicine [address] [facility] [address] [place] [address] Sangeeta Randall PA [address] [facility] [place] [address] Social History Tobacco Use Types Packs/Day Years [...] on file Legal Sex Female 7:28 PM LIBRARY PAGE Gender Identity Not on file Sexual Orientation Not on file documented as of this encounter Ordered Prescriptions Prescription Sig Dispense Quantity Refills Last Filled Start Date End Date drospirenone-ethin yl estradioL (Sydni, 28,) 3-0.02 mg per tabletIndications: Contraceptive education Take 1 tablet by mouth daily 84 tablet 2 09/28/2024 09/28/2025 documented in this encounter Miscellaneous Notes * Telephone Encounter - Renae García LPN - 09/28/2024 8:16 AM LIBRARY PAGE Refill sent per pt request ARY PAGE documented in this encounter Plan of Treatment Not on file documented as of this encounter Visit Diagnoses Diagnosis Contraceptive education Unspecified contraceptive management documented in this encounter Discontinued Medications Medication Sig Discontinue Reason Start Date End Da te drospirenone-ethinyl estradioL (Sydni, 28,) 3-0.02 mg per tabletIndications:Contra ceptive education Take 1 tablet by mouth daily Reorder 06/25/2024 09/28/2024 documented as of this encounter Care Teams Slotter Operator Relationship Specialty Start Date End Date Katarina Jack NP [address] [facility] [address] [place] [address] PCP - General Internal Medicine 02/17/23 documented as of this encounter
--- OUTSIDE RECORDS SUMMARY | 2024-10-06 05:44 | XMS_ITS | Encounter Summary ---
Author Organization [facility] Address [address] [place] [address] Care Team Providers Care Dry House Worker Name Role Phone Unavailable Primary Care Provider Unavailabl e Encounter Details Date Type Department Care Team (Late st Contact Info) Description 08/04/2020 2:00 PM CENTERLESS GRINDER OPERATOR Rapid Evaluation [place] [facility] Community Testing [facility] [address] [place] [address] Social History Tobacco Use Types Packs/Day Years Used Date Smoking Tobacco: Never Assessed Comments Unknown Sex and Gender Information Value Date Recorded Sex Assigned at Not on file Legal Sex Female 1:51 PM CENTERLESS GRINDER OPERATOR Gender Identity Not on file Sexual Orientation Not on file documented as of this encounter Plan of Treatment Not on file documented as of this encounter Visit Diagnoses Not on filedocumented in this encounter
--- OUTSIDE RECORDS SUMMARY | 2024-10-06 05:45 | XMS_ITS | Encounter Summary ---
Author Organization [facility] Healthcare Address [address] [place] [address] Care Team Providers Care Fine Craft Artist Name Role Phone Katarina Jack INFORMATION TECHNOLOGY TEACHER Primary Care Provider [phone] Reason for Visit * Reason Comments Follow-up Follow up 4wk Encounter Details Date Type Department Care Team (Late st Contact Info) Description 03/09/2024 9:30 AM CDT Office Visit [facility] Medical Group Internal Medicine [facility] [place] [address] [place] [address] Katarina Jack, INFORMATION TECHNOLOGY TEACHER [address] [place], [place] [id number] Physical exam, annual (Primary Dx); BMI 26.0-26.9,adult; Screening for thyroid disorder; Screening for cholesterol level; Screening for diabetes mellitus Social History Tobacco Use Types Packs/Day Years [...] on file Legal Sex Female 7:28 PM SILVER MINER Gender Identity Not on file Sexual Orientation Not on file documented as of this encounter Last Filed Vital Signs Vital Sign Reading Time Taken Comments Blood Pressure 120/80 03/09/2024 9:44 AM CDT Pulse 69 03/09/2024 9:44 AM CDT Temperature 36.9 ??C (98.4 ??F) 03/09/2024 9:44 AM CD T Respiratory Rate - - Oxygen Saturation 98% 03/09/2024 9:44 AM CDT Inhaled Oxygen Concentration - - Weight 65.3 kg (144 lb) 03/09/2024 9:44 AM CDT Height 157.5 cm (5' 2 ) 03/09/2024 9:44 AM CDT Body Mass Index 26.34 03/09/2024 9:44 AM CDT documented in this encounter Patient Instructions * Patient Instructions* Katarina Jack NP - 03/09/2024 9:30 AM CDT Routine annual physical completed today. Follow-up in 1 year. Have lab work completed. Contact the office with any questions or concerns documented in this encounter Progress Notes * Katarina Jack NP - 03/09/2024 9:30 AM CDT Images from the original note were not included. Subjective/Objective Patient ID: Mary Coffman is a 18 y.o. female. Visit Date: 03/09/2024 Chief Complaint Follow-up (Follow up 4wk) HPI 18-year-old female in for annual wellness exam. Due for lab work. Total cholesterol the last time was elevated at 217. She is seeing GI in March. She states her stomach has been doing well lately. Shehas no additional complaints concerns or needs Review of Systems Constitutional: Negative for activity change, chills and fatigue. HENT: Negative for congestion, ear pain, nosebleeds, rhinorrhea and sinus pressure. Respiratory: Negative for cough and shortness of breath. Cardiovascular: Negative for chest pain and palpitations. Gastrointestinal: Negative for abdominal pain. Endocrine: Negative for cold intolerance. Genitourinary: Negative for difficulty urinating and hematuria. Musculoskeletal: Negative for back pain and myalgias. Neurological: Negative for dizziness, weakness and headaches. Psychiatric/Behavioral: Negative for agitation, confusion and sleep disturbance. Physical Exam Constitutional: Appearance: Normal appearance. She is well-developed. HENT: Head: Normocephalic and atraumatic. Right Ear: Tympanic membrane normal. Left Ear: Tympanic membrane normal. Nose: Nose normal. Mouth/Throat: Mouth: Mucous membranes are moist. Eyes: Pupils: Pupils are equal, round, and reactive to light. Cardiovascular: Rate and Rhythm: Normal rate and regular rhythm. Heart sounds: Normal heart sounds. Pulmonary: Effort: Pulmonary effort is normal. Breath sounds: Normal breath sounds. Abdominal: General: Bowel sounds are normal. There is no distension. Palpations: Abdomen is soft. Musculoskeletal: General: No tenderness. Normal range of motion. Cervical back: Normal range of motion and neck supple. Skin: General: Skin is warm and dry. Capillary Refill: Capillary refill takes less than 2 seconds. Findings: No rash. Neurological: Mental Status: She is alert and oriented to person, place, and time. Psychiatric: Behavior: Behavior normal. Thought Content: Thought content normal. Assessment/Plan Diagnoses and all orders for this visit: Physical exam, annual (Z00.00) (Primary) Comments: Routine annual physical completed today. Complete lab work. Follow-up in 1 year sooner as needed BMI 26.0-26.9,adult (Z68.26) Comments: Maintain healthy and balanced diet Screening for thyroid disorder (Z13.29) Comments: Have lab work completed Orders: - TSH; Future Screening for cholesterol level (Z13.220) Comments: Have lab work completed Orders: - Lipid panel; Future Screening for diabetes mellitus (Z13.1) Comments: Have lab work completed Orders: - Comprehensive metabolic panel; Future documented in this encounter Miscellaneous Notes * Addendum Note - Barbra Crowley - 03/09/2024 9:30 AM CDTAddended by: BARBRA CROWLEY on: 08/20/2024 09:22 AM Modules accepted: Orders ER MINER documented in this encounter Plan of Treatment Scheduled Orders Name Type Priority Associated Diagnoses Orde r Schedule TSH Lab Routine Screening for thyroid disorder Expected: 03/12/2024, Expires: 03/09/2025 Comprehensive metabolic panel Lab Routine Screening for diabetes mellitus Expected: 03/12/2024, Expires: 03/09/2025 documented as of this encounter Results * (ABNORMAL) Lipid panel (08/20/2024 9:22 AM SILVER MINER) Triglycerides 179(H) <150 mg/dL [facility] [...] triglycerides are elevated. Blood 08/20/2024 9:22 AM SILVER MINER 08/20/2024 11:01 AM SILVER MINER Narrative [facility] - 08/20/2024 12:10 PM SILVER MINER Current interpretive data was last updated August 28, 2021. us Katarina Jack NP LAB BLOOD ORDERABLES Final Re sult [facility] documented in this encounter Visit Diagnoses Diagnosis Physical exam, annual- Primary BMI 26.0-26.9,adult Screening for thyroid disorder Screening for cholesterol level Screening for diabetes mellitus Irritable bowel syndrome with constipation Irritable bowel syndrome Screening for cholesterol level documented in this encounter Additional Health Concerns Infection Onset Date Last Indicated Resolved Time COVID: Suspected 04/14/2024 04/14/2024 04/14/2024 3:52 PM CDT COVID19 04/14/2024 04/14/2024 04/24/2024 3:05 AM CDT COVID: Recovered Comment:Added based on recent COVID infection. 04/24/2024 05/13/2024 07/23/2024 3:05 AM C DT documented as of this encounter Care Teams Fine Craft Artist Relationship Specialty Start Date End Date Katarina Jack, INFORMATION TECHNOLOGY TEACHER [address] [facility] [address] [place] [address] PCP - General Internal Medicine 02/17/23 documented as of this encounter
--- OUTSIDE RECORDS SUMMARY | 2024-10-06 05:45 | XMS_ITS | Encounter Summary ---
Author Organization [facility] Address [address] [facility] [address] [place] [address] Phone Care Team Providers Care Productivity Engineer Name Role Phone Katarina Jack NP Primary Care Provider [phone] Encounter Details Date Type Department Care Team (Late st Contact Info) Description 01/23/2024 Telephone [place] [facility] ([facility] ENT [address] [facility] Advanced Medicine 11th [place] [address] [place] [phone] Karolina Benton MS Social History Tobacco Use Types Packs/Day Years Used Date Smoking Tobacco: Never Smokeless Tobacco: Never Alcohol Use Standard Drinks/Week Comments Never 0 (1 standard drink = 0.6 oz pur e alcohol) PHQ-2 Answer Date Recorded PHQ-2 Total Score (If total score is 3 or more points, staff should administer the PHQ-9) 0 10/14/2023 Comments No Sex and Gender Information Value Date Recorded Sex Assigned at Not on file Legal Sex Female 7:28 PM AGENCY APPOINTMENTS SUPERVISOR Gender Identity Not on file Sexual Orientation Not on file documented as of this encounter Miscellaneous Notes * Telephone Encounter - Colby Albarran - 01/23/2024 12:40 PM CDT Provider called to see if referral has been reviewed, sent inbasket to [facility]. documented in this encounter Plan of Treatment Not on file documented as of this encounter Visit Diagnoses Not on filedocumented in this encounter Care Teams Productivity Engineer Relationship Specialty Start Date End Date Katarina Jack NP [address] [facility] [address] [place] [address] PCP - General Internal Medicine 02/17/23 documented as of this encounter
--- OUTSIDE RECORDS SUMMARY | 2024-10-06 05:45 | XMS_ITS | Encounter Summary ---
Author Organization [facility] Healthcare Address [address] [place] [address] Care Team Providers Care Grease And Tallow Pumper Name Role Phone Radha Grove MD PhD Primary Care Pr ovider Encounter Details Date Type Department Care Team (Latest Contact Info) Description 01/20/2023 3:22 PM CDT - 01/20/2023 11:59 PM CDT Hospital Encounter [address] [address] Sore throat Discharge Disposition: Discharge to home or self care Social History Tobacco Use Types Packs/Day Years Used Date Smoking Tobacco: Never Smokeless Tobacco: Never Alcohol Use Standard Drinks/Week Comments Never 0 (1 standard drink = 0.6 oz pur e alcohol) Comments No Sex and Gender Information Value Date Recorded Sex Assigned at Not on file Legal Sex Female 7:28 PM INFECTION CONTROL NURSE Gender Identity Not on file Sexual Orientation Not on file documented as of this encounter Medications at Time of Discharge ibuprofen 200 mg tab/cap Take 1 tablet/capsule (200 mg total) by mouth every 6 (six) hours as needed cefdinir (OMNICEF) 300 mg capsuleIndicatio ns:Sore throat Take 1 capsule (300 mg total) by mouth 2 (two) times a day for 10 days 20 capsule 01/20/2023 3 albuterol HFA (PROVENTIL HFA,VENTOLIN HFA,PROAIR HFA) 90 mcg/actuation inhaler Inhale 2 puffs every 6 (six) hours as needed 3 polyethylene glycol (MIRALAX) 17 gram/dose powder Take 17 g by mouth daily 01/09/2014 3 triamcinolone (KENALOG) 0.1 % cream APPLY EXTERNALLY TO THE AFFECTED AREA THREE TIMES DAILY FOR 7 DAYS DIRECTED 12/29/2020 3 documented as of this encounter Discharge Disposition Disposition Code Departure Means Destination Discharge to home or self care documented in this encounter Plan of Treatment Not on file documented as of this encounter Procedures Procedure Name Priority Date/Time Associated Diagnosis Comments THROAT CULTURE Routine 01/20/2023 9:55 AM CDT Sore throat documented in this encounter Results * Throat culture Throat (01/20/2023 9:55 AM CDT) Report Final Report: No growth of pathogens. [facility] Throat 01/20/2023 9:55 AM CDT 01/21/2023 11:17 AM CDT Narrative [facility] - 01/24/2023 11:30 AM CDT Collection date/time has been modified to:01/20/2023 09:55. Previous Collection date/time: 01/21/2023 09:55. Testing performed by [facility] Microbiology Laboratory ([phone]). Nickie [facility] MICROBIOLOGY - [facility] NIKHIL MESSINA Final Result [facility] One [facility] Department [place] [address] documented in this encounter Visit Diagnoses Diagnosis Sore throat Acute pharyngitis documented in this encounter Care Teams Grease And Tallow Pumper Relationship Specialty Start Date End Date Radha Grove MD PhD PCP - General Pediatrics 08/27/21 02/16/23 documented as of this encounter
--- OUTSIDE RECORDS SUMMARY | 2024-10-06 05:45 | XMS_ITS | Encounter Summary ---
Author Organization [facility] Healthcare Address [address] [place] [address] Care Team Providers Care Food Products Sales Representative Name Role Phone Katarina Jack NP Primary Care Provider [phone] Reason for Visit * Reason Comments Sore Throat Sore throat, body ac hes, cough started yesterday Encounter Details Date Type Department Care Team (Late st Contact Info) Description 04/14/2024 3:45 PM CDT Office Visit [facility] [place] [address] [place] [id number] Raissa Arita, JOSLYN [address] [place] [address] Strep pharyngitis (Primary Dx); COVID-19 Social History Tobacco Use Types Packs/Day Years [...] on file 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 Gender Identity Not on file Sexual Orientation Not on file documented as of this encounter Last Filed Vital Signs Vital Sign Reading Time Taken Comments Blood Pressure 112/62 04/14/2024 3:45 PM CDT Pulse 77 04/14/2024 3:45 PM CDT Temperature 36.5 ??C (97.7 ??F) 04/14/2024 3:45 PM CD T Respiratory Rate 16 04/14/2024 3:45 PM CDT Oxygen Saturation 98% 04/14/2024 3:45 PM CDT Inhaled Oxygen Concentration - - Weight - - Height - - Body Mass Index - - documented in this encounter Patient Instructions * Patient Instructions* Raissa Arita PA - 04/14/2024 3:45 PM CDT Warm salt water gargles Change toothbrush after 2 days of antibiotics Avoid sharing food/drinks and close contact Frequent warm/cool liquids Supportive care, rest, fluids (water), steam inhalation/humidifier OTC medications (Flonase, Nasal saline spray, Zyrtec/Claritin, Tylenol/Ibuprofen, Mucinex, Delsym per package instructions) Recommend monitoring oxygen saturation at home with pulse ox, if oxygen is <92% go to ER CDC Respiratory Virus Guidance recommends to stay home and away from others until BOTH: symptoms are improving AND fever-free for 24 hours without use of fever reducing medications. Then, take added precautions for the next 5 days to prevent spread of the virus. * Attachments The following attachments cannot be sent through Care Everywhere. * Strep Throat (AfterCare(R) Instructions(ER/ED)) (Wallisian) documented in this encounter Ordered Prescriptions Prescription Sig Dispense Quantity Refills Last Filled Start Date End Date cefdinir (OMNICEF) 300 mg capsuleIndications :Strep pharyngitis Take 1 capsule (300 mg total) by mouth 2 (two) times a day for 10 days 20 capsule 04/14/2024 4 documented in this encounter Progress Notes * Raissa Arita PA - 04/14/2024 3:45 PM CDT Images from the original note were not included. Subjective/Objective Patient ID: Mary Coffman is a 18 y.o. female. Chief Complaint Sore Throat (Sore throat, body aches, cough started yesterday ) Sore Throat Associated symptoms include coughing. Pertinent negatives include no abdominal pain, congestion, diarrhea, ear pain, headaches, shortness of breath or vomiting. Patient presents for evaluation of sore throat, body aches, cough since yesterday. Recently returned from [place]. Hx of asthma, has not needed to use albuterol inhaler. Review of Systems Constitutional: Negative for chills and fever. HENT: Positive for sore throat. Negative for congestion, ear pain and postnasal drip. Respiratory: Positive for cough. Negative for chest tightness, shortness of breath and wheezing. Cardiovascular: Negative for chest pain. Gastrointestinal: Negative for abdominal pain, diarrhea and vomiting. Musculoskeletal: Positive for myalgias. Neurological: Negative for headaches. All other systems reviewed and are negative. Physical Exam Vitals reviewed. Constitutional: General: She is not in acute distress. Appearance: Normal appearance. HENT: Head: Normocephalic and atraumatic. Right Ear: Tympanic membrane, ear canal and external ear normal. Left Ear: Tympanic membrane, ear canal and external ear normal. Nose: Nose normal. Mouth/Throat: Mouth: Mucous membranes are moist. Pharynx: Oropharynx is clear. Uvula midline. Posterior oropharyngeal erythema present. Tonsils: 2+ on the right. 2+ on the left. Cardiovascular: Rate and Rhythm: Normal rate and regular rhythm. Pulmonary: Effort: Pulmonary effort is normal. No respiratory distress. Breath sounds: Normal breath sounds. No stridor. No wheezing, rhonchi or rales. Skin: General: Skin is warm and dry. Neurological: General: No focal deficit present. Mental Status: She is alert and oriented to person, place, and time. Psychiatric: Mood and Affect: Mood normal. Behavior: Behavior normal. Vitals: 04/14/24 1545 BP: 112/62 Pulse: 77 Resp: 16 Temp: 36.5 ??C (97.7 ??F) SpO2: 98% Assessment/Plan Diagnoses and all orders for this visit: Strep pharyngitis (Primary) - POCT rapid strep A - cefdinir (OMNICEF) 300 mg capsule; Take 1 capsule (300 mg total) by mouth 2 (two) times a day for10 days COVID-19 - POC Influenza A/B, COVID-19 antigen Strep and COVID+ Cefdinir Warm salt water gargles Change toothbrush after 2 days of antibiotics Avoid sharing food/drinks and close contact Frequent warm/cool liquids Supportive care, rest, fluids (water), steam inhalation/humidifier OTC medications (Flonase, Nasal saline spray, Zyrtec/Claritin, Tylenol/Ibuprofen, Mucinex, Delsym per package instructions) Recommend monitoring oxygen saturation at home with pulse ox, if oxygen is <92% go to ER CDC Respiratory Virus Guidance recommends to stay home and away from others until BOTH: symptoms are improving AND fever-free for 24 hours without use of fever reducing medications. Then, take added precautions for the next 5 days to prevent spread of the virus. Recent Results (from the past 4 hour(s)) POC Influenza A/B, COVID-19 antigen Collection Time: 04/14/24 3:52 PM Result Value Ref Range Influenza A Ag, POC Negative Negative Influenza B Ag, POC Negative Negative COVID-19 Ag POC Positive (A) Presumptive Negative, Invalid POCT rapid strep A Collection Time: 04/14/24 3:56 PM Result Value Ref Range Rapid Strep A, POC Positive (A) Negative Disposition Treatment plan including expectations, follow up, and return precautions discussed with patient/parent, verbalizes understanding. Medication dosage, use, and potential adverse reactions discussed with patient/parent. Advised to follow up with PCP if symptoms do not resolve as expected or sooner if condition worsens. Signs/symptoms warranting ER evaluation reviewed. Patient and/or guardian was given an opportunity to ask questions, questions answered. JOSLYN Milner 04/14/24 4:13 PM documented in this encounter Plan of Treatment Not on file documented as of this encounter Procedures Procedure Name Priority Date/Time Associated Diagnosis Comments POCT RAPID STREP Routine 04/14/2024 3:56 PM CDT Strep pharyngitis POC INFLUENZA A/B, COVID-19 ANTIGEN Routine 04/14/2024 3:52 PM CDT COVID-19 documented in this encounter Results * (ABNORMAL) POCT rapid strep A (04/14/2024 3:56 PM CDT) Rapid Strep A, POC Positive(A ) Negative Swab 04/14/2024 3:56 PM CDT Raissa JORGENSEN POINT OF CARE TEST ORDERABLE S Final Result * (ABNORMAL) POC Influenza A/B, COVID-19 antigen (04/14/2024 3:52 PM CDT) Influenza A Ag, POC Negative Negative [facility] Influenza B Ag, POC Negative Negative [facility] COVID-19 Ag POC Positive(A) Presumptive Negative, Invalid [facility] Nasal 04/14/2024 3:52 PM CDT Raissa JORGENSEN POINT OF CARE TEST ORDERABLE S Final Result Performing Organization Address City/State/[facility] Co de Phone Number [facility] [address] [place] [address] documented in this encounter Visit Diagnoses Diagnosis Strep pharyngitis- Primary COVID-19 documented in this encounter Additional Health Concerns Infection Onset Date Last Indicated Resolved Time COVID: Suspected 04/14/2024 04/14/2024 04/14/2024 3:52 PM CDT COVID19 04/14/2024 04/14/2024 04/24/2024 3:05 AM CDT documented as of this encounter Care Teams Food Products Sales Representative Relationship Specialty Start Date End Date Katarina Jack NP [address] [place] [address] [place] [address] PCP - General Internal Medicine 02/17/23 documented as of this encounter
--- OUTSIDE RECORDS SUMMARY | 2024-10-06 05:45 | XMS_ITS | Encounter Summary ---
Author Organization [facility] Address [address] [facility] [address] [place] [address] Phone Care Team Providers Care Explosives Detonator Name Role Phone Katarina Jack NP Primary Care Provider [phone] Encounter Details Date Type Department Care Team (Late st Contact Info) Description 01/25/2024 Telephone [facility] ([facility]) - [facility] ENT [address] [facility] Advanced Medicine 11th [place] [address] [place] [phone] Karolina Benton MS Social History Tobacco Use [...] on file 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 documented in this encounter Plan of Treatment Not on file documented as of this encounter Visit Diagnoses Not on filedocumented in this encounter Care Teams Explosives Detonator Relationship Specialty Start Date End Date Katarina Jack NP [address] [facility] [address] [place] [address] PCP - General Internal Medicine 02/17/23 documented as of this encounter
--- OUTSIDE RECORDS SUMMARY | 2024-10-06 05:45 | XMS_ITS | Encounter Summary ---
Author Organization [facility] Address [address] [facility] [address] [place] [address] Care Team Providers Care Launchman Name Role Phone Katarina Jack NP Primary Care Provider [phone] Encounter Details Date Type Department Care Team (Late st Contact Info) Description 06/21/2023 Telephone [facility] Family Medicine [address] [place] [address] Katarina Jack NP [address] [facility] [place] [address] [place] [address] Social History Tobacco Use Types Packs/Day Years Used Date Smoking Tobacco: Never Smokeless Tobacco: Never Alcohol Use Standard Drinks/Week Comments Never 0 (1 standard drink = 0.6 oz pur e alcohol) PHQ-2 Answer Date Recorded PHQ-2 Total Score (If total score is 3 or more points, staff should administer the PHQ-9) 0 04/14/2023 Comments No Sex and Gender Information Value Date Recorded Sex Assigned at Not on file 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 Pt discharged with orders for metronidazole. See attached notes. documented in this encounter Plan of Treatment Not on file documented as of this encounter Visit Diagnoses Not on filedocumented in this encounter Care Teams Launchman Relationship Specialty Start Date End Date Katarina Jack NP [address] [facility] [address] [place] [address] PCP - General Internal Medicine 02/17/23 documented as of this encounter
--- OUTSIDE RECORDS SUMMARY | 2024-10-06 05:45 | XMS_ITS | Encounter Summary ---
Author Organization [facility] Healthcare Address [address] [place] [address] Care Team Providers Care Log Truck Driver Name Role Phone Katarina Jack NP Primary Care Provider [phone] Encounter Details Date Type Department Care Team (Late st Contact Info) Description 02/17/2023 10:40 AM CDT Lab [facility] Lab [address] [place] [address] Physical exam, annual Social History Tobacco Use Types Packs/Day Years Used Date Smoking Tobacco: Never Smokeless Tobacco: Never Alcohol Use Standard Drinks/Week Comments Never 0 (1 standard drink = 0.6 oz pur e alcohol) PHQ-2 Answer Date Recorded PHQ-2 Total Score (If total score is 3 or more points, staff should administer the PHQ-9) 0 02/17/2023 Comments No Sex and Gender Information Value Date Recorded Sex Assigned at Not on file 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 Gender Identity Not on file Sexual Orientation Not on file documented as of this encounter Plan of Treatment Not on file documented as of this encounter Procedures Procedure Name Priority Date/Time Associated Diagnosis Comments EGFR Routine 02/17/2023 11:14 AM CDT Physical exam, annual DIFFERENTIAL AUTO Routine 02/17/2023 11: 14 AM CDT Physical exam, annual IRON PROFILE W/ IBC Routine 02/17/2023 1 1:14 AM CDT Physical exam, annual CBC WITH AUTO DIFFERENTIAL Routine 02/17/2023 11:14 AM CDT Physical exam, annual TSH Routine 02/17/2023 11:14 AM CDT Physical exam, annual LIPID PANEL Routine 02/17/2023 11:14 AM CDT Physical exam, annual COMPREHENSIVE METABOLIC PANEL Routine 02/17/2023 11:14 AM CDT Physical exam, annual documented in this encounter Results * eGFR (02/17/2023 11:14 AM CDT) [facility] eGFR 133 mL/min/1. 73 m2 [facility] Comment: Interpretive Data Reference Interval Normal ?>/= [...] Current interpretive data was last reviewed 2021. Blood 02/17/2023 11:1 4 AM CDT 02/17/2023 11:19 AM CDT us Katarina Jack SAMPLE CLERK LAB BLOOD ORDERABLES Final Re sult [facility] [address] [facility] Department [place] [address] * Differential, auto (02/17/2023 11:14 AM CDT) Neutrophil abs 3.7 1.7 - 6.5 K/cumm [facility] Imm gran abs 0.0 0.0 - 0.1 K/cumm [facility] Lymphocyte abs 2.3 0.8 - 3.3 K/cumm [facility] Monocyte abs 0.4 0.2 - 0.8 K/cumm [facility] Eosinophil abs 0.1 0.0 - 0.5 K/cumm [facility] Basophil abs 0.1 0.0 - 0.1 K/cumm [facility] Neutrophil pct 56.7 % [facility] Comment: Interpretive Data Percent cell count reference ranges are not reported, since discordance with absolute values may lead to misinterpretation of CBC data. Current Interpretive Data was last revised on 2018. Imm gran pct 0.2 % [facility] Comment: Interpretive Data Percent cell count reference ranges are not reported, since discordance with absolute values may lead to misinterpretation of CBC data. Current Interpretive Data was last revised on 2018. Lymphocyte pct 35.0 % [facility] Comment: Interpretive Data Percent cell count reference ranges are not reported, since discordance with absolute values may lead to misinterpretation of CBC data. Current Interpretive Data was last revised on 2018. Monocyte pct 6.4 % [facility] Comment: Interpretive Data Percent cell count reference ranges are not reported, since discordance with absolute values may lead to misinterpretation of CBC data. Current Interpretive Data was last revised on 2018. Eosinophil pct 0.9 % [facility] Comment: Interpretive Data Percent cell count reference ranges are not reported, since discordance with absolute values may lead to misinterpretation of CBC data. Current Interpretive Data was last revised on 2018. Basophil pct 0.8 % [facility] Comment: Interpretive Data Percent cell count reference ranges are not reported, since discordance with absolute values may lead to misinterpretation of CBC data. Current Interpretive Data was last revised on 2018. Blood 02/17/2023 11:1 4 AM CDT 02/17/2023 11:19 AM CDT Katarina Jack SAMPLE CLERK LAB BLOOD ORDERABLES Final Re sult Performing Organization Address City/[facility]/ZIP Co de Phone Number CAROLINE [address] [place] [address] * CBC with auto differential (02/17/2023 11:14 AM CDT) WBC 6.4 3.8 - 9.9 K/cumm [facility] Hgb 13.8 11.9 - 15.5 g/dL [facility] Hct 41.5 35.6 - 45.5 % [facility] Plt 319 150 - 400 K/cumm [facility] MPV 9.5 9.1 - 12.3 fL [facility] RBC 4.52 3.90 - 5.20 M/cumm [facility] MCV 91.8 81.3 - 96.4 fL [facility] MCH 30.5 27.1 - 33.3 pg [facility] MCHC 33.3 32.3 - 35.7 g/dL [facility] RDW CV 12.1 11.1 - 14.9 % [facility] RDW SD 40.4 35.7 - 48.1 fL [facility] NRBC abs 0.00 0.00 - 0.01 K/cumm [facility] Blood 02/17/2023 11:1 4 AM CDT 02/17/2023 11:19 AM CDT Katarina Jack SAMPLE CLERK LAB BLOOD ORDERABLES Final Re sult Performing Organization Address City/[facility] Co de Phone Number CAROLINE [address] [place] [address] * Iron profile w/ IBC (02/17/2023 11:14 AM CDT) Iron 117 35 - 145 mcg/dL [facility] TIBC 380 250 - 400 mcg/dL [facility] Transferrin saturation 31 20 - 50 % [facility] Blood 02/17/2023 11:1 4 AM CDT 02/17/2023 11:19 AM CDT us Katarina Jack SAMPLE CLERK LAB BLOOD ORDERABLES Final Re sult [facility] [address] [facility] Department [place] [address] * (ABNORMAL) Comprehensive metabolic panel (02/17/2023 11:14 AM CDT) Sodium 139 135 - 145 mmol/L [facility] Potassium, pl 4.1 3.3 - 4.9 mmol/L [facility] Chloride 104 97 - 110 mmol/L [facility] CO2 24 22 - 32 mmol/L [facility] Anion gap 11 2 - 15 mmol/L [facility] BUN 9 8 - 25 mg/dL [facility] Creatinine 0.60 0.40 - 1.00 mg/dL [facility] Glucose 97 70 - 199 mg/dL [facility] Comment: Interpretive Data Fasting glucose >/= 126 [...] Current interpretive data was last revised 2022. Calcium 10.1 8.5 - 10.3 mg/dL [facility] Bilirubin, total 0.5 0.1 - 1.2 mg/dL [facility] Protein, pl 8.5 6.5 - 8.5 g/dL [facility] Albumin 5.2(H) 3.5 - 5.0 g/dL [facility] Alk phos 63(L) 70 - 260 Units/L [facility] ALT 9 7 - 45 Units/L [facility] AST 17 10 - 45 Units/L [facility] Blood 02/17/2023 11:1 4 AM CDT 02/17/2023 11:19 AM CDT us Katarina Jack SAMPLE CLERK LAB BLOOD ORDERABLES Final Re sult [facility] [address] [facility] Department [place] [address] * (ABNORMAL) Lipid panel (02/17/2023 11:14 AM CDT) Cholesterol 217(H) <=199 mg/dL [facility] Comment: Interpretive Data Ages < or = 19 years ??Acceptable: ? <170 mg/dL ??Borderline high: ??170-199 mg/dL ??High: ? >or= 200 mg/dL Ages > or = 20 years ??Desirable: ?<200 mg/dL ??Borderline high: ??200-239 mg/dL ??High: ? >or= 240 mg/dL Literature References: 1. Expert Panel on Integrated Guidelines for Cardiovascular Health and Risk Reduction in Children and Adolescents. Pediatrics 2011;128:S213 2. NCEP Expert Panel. Circulation 2004;110:227 Current Interpretive Data was last revised on 2018. Triglycerides 55 <=129 mg/dL [facility] Comment: Interpretive Data Ages < or = 9 years ??Acceptable: ? <75 mg/dL ??Borderline high: ??75-99 mg/dL ??High: ? >or= 100 mg/dL Ages 10 to 20 years ??Acceptable: ? <90 mg/dL ??Borderline high: ??90-129 mg/dL ??High: ? >or= 130 mg/dL Ages > or = 20 years ??Desirable: ?<150 mg/dL ??Borderline high: ??150-199 mg/dL ??High: ? 200-499 mg/dL ?Very high: ?? >or= 499 mg/dL Literature References: 1. Expert Panel on Integrated Guidelines for Cardiovascular Health and Risk Reduction in Children and Adolescents. Pediatrics 2011;128:S213 2. NCEP Expert Panel. Circulation 2004;110:227 Current Interpretive Data was last revised on 2018. HDL 83 >=45 mg/dL [facility] Comment: Interpretive Data Ages < or = 19 years ??Acceptable: ? >45 mg/dL ??Borderline low: ?? 40-45 mg/dL ??Low: ? <40 mg/dL Ages > or = 20 years ??Desirable: ?>or= 60 mg/dL ??Low: ? <40 mg/dL Literature References: 1. Expert Panel on Integrated Guidelines for Cardiovascular Health and Risk Reduction in Children and Adolescents. Pediatrics 2011;128:S213 2. NCEP Expert Panel. Circulation 2004;110:227 Current Interpretive Data was last revised on 2018. LDL, calculated 123 <=129 mg/dL [facility] Comment: Interpretive Data Ages < or = 19 years ??Acceptable: ? <110 mg/dL ??Borderline high: ??110-129 mg/dL ??High: ?>or= 130 mg/dL Ages > or = 20 years ??Optimal: ? <100 mg/dL ??Near optimal: ?100-129 mg/dL ??Borderline high: ?? 130-159 mg/dL ??High: ?>160 mg/dL Literature References: 1. Expert Panel on Integrated Guidelines for Cardiovascular Health and Risk Reduction in Children and Adolescents. Pediatrics 2011;128:S213 2. NCEP Expert Panel. Circulation 2004;110:227 Current Interpretive Data was last revised on 2018. Non-HDL Cholesterol 134 <=144 mg/dL [facility] Comment: Interpretive Data Ages < or = 19 years ??Acceptable: ?<120 mg/dL ??Borderline high: ??120-144 mg/dL ??High: ?>145 mg/dL Ages > or = 20 years ??When triglycerides are >200 mg/dL, Non-HDL cholesterol is a secondary target of ? therapy with treatment goals that are 30 mg/dL greater than the LDL cholesterol target. ? Literature References: 1. Expert Panel on Integrated Guidelines for Cardiovascular Health and Risk Reduction in Children and Adolescents. Pediatrics 2011;128:S213 2. NCEP Expert Panel. Circulation 2004;110:227 Current Interpretive Data was last revised on 2018. Chol/HDL ratio 3 [facility] Blood 02/17/2023 11:1 4 AM CDT 02/17/2023 11:19 AM CDT Katarina Jack SAMPLE CLERK LAB BLOOD ORDERABLES Final Re sult Performing Organization Address City/[facility] Co de Phone Number [facility] [facility] [place] [address] * TSH (02/17/2023 11:14 AM CDT) Thyroid Stimulating Hormone 1.05 0.30 - 4.20 mcIUnit/mL [facility] Blood 02/17/2023 11:1 4 AM CDT 02/17/2023 11:19 AM CDT Katarina Jack SAMPLE CLERK LAB BLOOD ORDERABLES Final Re sult Performing Organization Address City/[facility] de Phone Number [place] [id number] [facility] [place] [address] documented in this encounter Visit Diagnoses Diagnosis Physical exam, annual documented in this encounter Care Teams Log Truck Driver Relationship Specialty Start Date End Date Katarina Jack NP [address] [facility] [address] [place] [address] PCP - General Internal Medicine 02/17/23 documented as of this encounter
--- OUTSIDE RECORDS SUMMARY | 2024-10-06 05:45 | XMS_ITS | Encounter Summary ---
Author Organization [facility] Healthcare Address [address] [place] [address] Care Team Providers Care Posting Clerk Name Role Phone Alfredo Cardoza MD Primary Care Provider [phone] Encounter Details Date Type Department Care Team (Late st Contact Info) Description 03/14/2019 9:55 AM CDT - 03/14/2019 11:20 AM CDT Hospital Encounter [facility] [address] [place] [address] Unknown, Norma Hwang, Keven Isidro MD [address] [place] [address] [place] [id number] Discharge Disposition: Discharge to home or self care Social History Tobacco Use Types Packs/Day Years Used Date Smoking Tobacco: Never Assessed Comments Unknown Sex and Gender Information Value Date Recorded Sex Assigned at Not on file 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 Gender Identity Not on file Sexual Orientation Not on file documented as of this encounter Last Filed Vital Signs Vital Sign Reading Time Taken Comments Blood Pressure 120/76 03/14/2019 10:15 AM CDT Pulse 71 03/14/2019 10:15 AM CDT Temperature 36.7 ??C (98.1 ??F) 03/14/2019 10:15 AM C DT Respiratory Rate - - Oxygen Saturation 99% 03/14/2019 10:15 AM CDT Inhaled Oxygen Concentration - - Weight 55 kg (121 lb 4.1 oz) 03/14/2019 10:15 AM CDT Height 157.5 cm (5' 2 ) 03/14/2019 10:15 AM CDT Body Mass Index 22.18 03/14/2019 10:15 AM CDT Body Mass Index Percentile 75.73% 03/14/2019 10: 15 AM CDT Growth Chart: [facility] (Girls, 2- 20 Years) documented in this encounter Medications at Time of Discharge polyethylene glycol (MIRALAX) 17 gram/dose powder Take 17 g by mouth daily 01/09/2014 02/17/2023 documented as of this encounter Discharge Disposition Disposition Code Departure Means Destination Discharge to home or self care documented in this encounter Plan of Treatment Not on file documented as of this encounter Visit Diagnoses Not on filedocumented in this encounter Care Teams Posting Clerk Relationship Specialty Start Date End Date Alfredo Cardoza MD [address] [place] [address] PCP - General 03/14/19 08/26/21 documented as of this encounter
--- OUTSIDE RECORDS SUMMARY | 2024-10-06 05:45 | XMS_ITS | Encounter Summary ---
Author Organization [facility] Healthcare Address [address] [place] [address] Care Team Providers Care Long Distance Billing Operator Name Role Phone Katarina Jack NP Primary Care Provider [phone] Reason for Referral * Consultation (Routine) - Authorized Specialty Diagnoses / Procedures Referred By Contdidi t Referred To Contact Gastroenterology Diagnoses Diarrhea, unspecified type Katarina Jack NP [address] [place] [address] [place] [address] Phone: tel: fax: Aditi Sequeira MD [address] [facility] [place] [address] [place] [address] Phone: tel: fax: Referral ID Status Reason Start Date Expiration Date Visits Requested Visits Authorized [id number] Authorized Specialty Services Required 02/10/2024 03/11/2025 99 99 Question Answer Process Instructions: THE AMBULATORY REFERRAL TO GASTROENTEROLOGY IS NOT AN ORDER FOR A PROCEDURE (I.E. EGD, COLONOSCOPY.) USE THE DIRECT SCHEDULING CASE REQUEST ORDER (GI50) IF THE PATIENT REQUIRES A PROCEDURE TO BE PERFORMED. Please select the performing region: [facility] (All Locations) [[id number]] To provider: ADITI SEQUEIRA [[id number]] # of visits: 1 Reason for Visit * Reason Comments Diarrhea Mult GI problems wan ting referral Constipation Encounter Details Date Type Department Care Team (Late st Contact Info) Description 02/10/2024 9:30 AM CDT Office Visit [facility] Medical Group Internal Medicine at [place] [address] [place] [address] Katarina Jack NP [address] [place] [address] [place] [address] Diarrhea, unspecified type (Primary Dx); BMI 26.0-26.9,adult Social History Tobacco Use Types Packs/Day Years Used Date Smoking Tobacco: Never Smokeless Tobacco: Never Tobacco Cessation:Counseling Given: Not Answered Alcohol Use Standard Drinks/Week Comments Never 0 (1 standard drink = 0.6 oz pur e alcohol) PHQ-2 Answer Date Recorded PHQ-2 Total Score (If total score is 3 or more points, staff should administer the PHQ-9) 0 02/10/2024 Comments No Sex and Gender Information Value Date Recorded Sex Assigned at Not on file 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 Gender Identity Not on file Sexual Orientation Not on file documented as of this encounter Last Filed Vital Signs Vital Sign Reading Time Taken Comments Blood Pressure 100/60 02/10/2024 9:38 AM CDT Pulse 83 02/10/2024 9:38 AM CDT Temperature 37.1 ??C (98.7 ??F) 02/10/2024 9:38 AM CD T Respiratory Rate - - Oxygen Saturation 98% 02/10/2024 9:38 AM CDT Inhaled Oxygen Concentration - - Weight 65.3 kg (144 lb) 02/10/2024 9:38 AM CDT Height 157.5 cm (5' 2 ) 02/10/2024 9:38 AM CDT Body Mass Index 26.34 02/10/2024 9:38 AM CDT documented in this encounter Patient Instructions * Patient Instructions* Katarina Jack NP - 02/10/2024 9:30 AM CDT Use referral for Gastroenterology at [facility]. Follow-up in 4 weeks for annual wellness exam. Contact the office with any questions or concerns. Continue stool softener documented in this encounter Progress Notes * Katarina Jack NP - 02/10/2024 9:30 AM CDT Images from the original note were not included. Subjective/Objective Patient ID: Mary Coffman is a 18 y.o. female. Visit Date: 02/10/2024 Chief Complaint Diarrhea (Mult GI problems wanting referral) and Constipation HPI 18-year-old female in with complaints of constipation and diarrhea. [facility] States she has intermittent symptoms. Has taking Colace and MiraLax in the past. They caused stomach cramps and pain. Will not give Bentyl for this reason. She is currently taking astool softener. She would like to see a female at [place]. She will be due for her annual visit the o this month. She voices understanding Review of Systems Constitutional: Negative for activity change, chills and fatigue. HENT: Negative for congestion, ear pain, nosebleeds, rhinorrhea and sinus pressure. Respiratory: Negative for cough and shortness of breath. Cardiovascular: Negative for chest pain and palpitations. Gastrointestinal: Positive for abdominal pain, constipation and diarrhea. Endocrine: Negative for cold intolerance. Genitourinary: Negative for difficulty urinating and hematuria. Musculoskeletal: Negative for back pain and myalgias. Neurological: Negative for dizziness, weakness and headaches. Psychiatric/Behavioral: Negative for agitation, confusion and sleep disturbance. Physical Exam Constitutional: Appearance: Normal appearance. She is well-developed. HENT: Head: Normocephalic and atraumatic. Eyes: Pupils: Pupils are equal, round, and reactive to light. Cardiovascular: Rate and Rhythm: Normal rate and regular rhythm. Heart sounds: Normal heart sounds. Pulmonary: Effort: Pulmonary effort is normal. Breath sounds: Normal breath sounds. Abdominal: General: Bowel sounds are normal. There is no distension. Palpations: Abdomen is soft. Tenderness: There is abdominal tenderness. Musculoskeletal: General: No tenderness. Normal range of [...] Diagnoses and all orders for this visit: Diarrhea, unspecified type (R19.7) (Primary) Comments: intermittent constipation with diarrhea. Use referral to follow-up with GI for probable colonoscopy Orders: - Ambulatory referral to Gastroenterology; Future BMI 26.0-26.9,adult (Z68.26) Comments: maintain healthy and balanced diet documented in this encounter Plan of Treatment Scheduled Referrals Name Type Priority Associated Diagnoses Order Schedule Ambulatory referral to Gastroenterology Outpatient Referral Routine Diarrhea, unspecified type Expected: 02/24/2024 (Approximate), Expires: 02/09/2025 documented as of this encounter Visit Diagnoses Diagnosis Diarrhea, unspecified type- Primary BMI 26.0-26.9,adult documented in this encounter Care Teams Long Distance Billing Operator Relationship Specialty Start Date End Date Katarina Jack NP [address] [facility] [address] [place] [address] PCP - General Internal Medicine 02/17/23 documented as of this encounter
--- OUTSIDE RECORDS SUMMARY | 2024-10-06 05:45 | XMS_ITS | Encounter Summary ---
Author Organization [facility] Medical Group Address [address] [place] [address] Care Team Providers Care Life Tester [employer] Name Role Phone Katarina Jack OPERATOR AUTOMATED PROCESS Primary Care Provider [phone] Reason for Visit * Reason Comments Establish Care New pt Encounter Details Date Type Department Care Team (Late st Contact Info) Description 02/17/2023 9:30 AM CDT Office Visit 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 Gender Identity Not on file Sexual Orientation Not on file documented as of this encounter Last Filed Vital Signs Vital Sign Reading Time Taken Comments Blood Pressure 114/76 02/17/2023 9:32 AM CDT Pulse 66 02/17/2023 9:32 AM CDT Temperature 36.8 ??C (98.3 ??F) 02/17/2023 9:32 AM CD T Respiratory Rate - - Oxygen Saturation 97% 02/17/2023 9:32 AM CDT Inhaled Oxygen Concentration - - Weight 62.6 kg (138 lb) 02/17/2023 9:32 AM CDT Height 157.5 cm (5' 2 ) 02/17/2023 9:32 AM CDT Body Mass Index 25.24 02/17/2023 9:32 AM CDT Body Mass Index Percentile 82.11% 02/17/2023 9:3 2 AM CDT Growth Chart: [facility] (Girls, 2- 20 Years) documented in this encounter Patient Instructions * Patient Instructions* Katarina Jack NP - 02/17/2023 9:30 AM CDT Routine annual physical exam completed today. Have lab work completed. Follow-up in 3 months or sooner as needed documented in this encounter Ordered Prescriptions Prescription Sig Dispense Quantity Refills Last Filled Start Date End Date triamcinolone (KENALOG) 0.1 % creamIndications:E czema, unspecified type Apply topically 3 (three) times a day 30 g 1 02/17/2023 drospirenone-ethin yl estradioL (Sydni, 28,) 3-0.02 mg per tabletIndications: Contraceptive education Take 1 tablet by mouth daily 84 tablet 12 02/17/2023 4 albuterol HFA (PROVENTIL HFA,VENTOLIN HFA,PROAIR HFA) 90 mcg/actuation inhalerIndications :Mild persistent asthma, unspecified whether complicated Inhale 2 puffs every 6 (six) hours as needed for shortness of breath 1 each 1 02/17/2023 5 documented in this encounter Progress Notes * Katarina Jack NP - 02/17/2023 9:30 AM CDT Subjective/Objective Patient ID: Mary Coffman is a 17 y.o. female. Visit Date: 02/17/2023 Chief Complaint Establish Care (New pt ) HPI 17-year-old female in to establish care for annual wellness exam. Patient would like to have lab work completed. She does have history of asthma and eczema. She does need refills of triamcinolone in her albuterol inhaler. She would like to start control. She has decided on OCPs. We did discuss at length taking oral control at the same time daily. She is to set an alarm to take it at the same time. She is to start on the Tuesday after her cycle. She is currently on her cycle at this time. She is to start this Tuesday and take daily as directed. She is to follow-up in 3 months forfurther evaluation Review of Systems Constitutional: Negative for activity [...] Exam Constitutional: Appearance: Normal appearance. She is well-developed and normal weight. HENT: Head: Normocephalic and atraumatic. Right Ear: [...] annual (Z00.00) (Primary) Comments: Routine annual physical exam completed today. Have lab work completed. Follow-up in 3 months or sooner as needed Assessment & Plan: This is a significant, separately identifiable problem that was evaluated and managed on the same day as the wellness exam Orders: - CBC with auto differential; Future - Iron profile w/ IBC; Future - Comprehensive metabolic panel; Future - Lipid panel; Future - TSH; Future BMI 25.0-25.9,adult (Z68.25) Comments: Maintain healthy and balanced diet. Exercise on a regular basis Eczema, unspecified type (L30.9) Comments: Use triamcinolone cream up to 3 times daily as needed Orders: - triamcinolone (KENALOG) 0.1 % cream; Apply topically 3 (three) times a day Mild persistent asthma, unspecified whether complicated (J45.30) Comments: Use albuterol inhaler every 4 hours as needed Orders: - albuterol HFA (PROVENTIL HFA,VENTOLIN HFA,PROAIR HFA) 90 mcg/actuation inhaler; Inhale 2 puffs every 6 (six) hours as needed for shortness of breath Contraceptive education (Z30.09) Comments: Start you has control daily as directed. Follow-up in 3 months for further evaluation Assessment & Plan: This is a significant, separately identifiable problem that was evaluated and managed on the same day as the wellness exam Orders: - drospirenone-ethinyl estradioL (Sydni, Gilbert,) 3-0.02 mg per tablet; Take 1 tablet by mouth daily documented in this encounter Miscellaneous Notes * Assessment & Plan Note - Katarina Jack NP - 02/17/2023 10:07 AM CDT Associated Problem(s): Physical exam, annual This is a significant, separately identifiable problem that was evaluated and managed on the same day as the wellness exam documented in this encounter Plan of Treatment Not on file documented as of this encounter Results * TSH (02/17/2023 11:14 AM CDT) Thyroid Stimulating Hormone 1.05 0.30 - 4.20 mcIUnit/mL [facility] Blood 02/17/2023 11:1 4 AM CDT 02/17/2023 11:19 AM CDT us Katarina Jack NP LAB BLOOD ORDERABLES Final Re sult [facility] [address] [facility] Department [place] [address] * (ABNORMAL) Lipid panel (02/17/2023 11:14 AM CDT) Cholesterol 217(H) <=199 mg/dL [facility] Comment: Interpretive Data Ages < or = [...] on 2018. Triglycerides 55 <=129 mg/dL [facility] Comment: Interpretive Data Ages < or = [...] on 2018. Non-HDL Cholesterol 134 <=144 mg/dL [facility] Comment: Interpretive Data Ages < or = [...] last revised on 2018. Chol/HDL ratio 3 [facility] Blood 02/17/2023 11:1 4 AM CDT 02/17/2023 11:19 AM CDT us Katarina Jack OPERATOR AUTOMATED PROCESS LAB BLOOD ORDERABLES Final Re sult [facility] [address] [facility] Department [place] [address] * (ABNORMAL) Comprehensive metabolic panel (02/17/2023 11:14 AM CDT) Sodium 139 135 - 145 mmol/L [facility] Potassium, pl 4.1 3.3 - 4.9 mmol/L [facility] Chloride 104 97 - 110 mmol/L [facility] CO2 24 22 - 32 mmol/L [facility] Anion gap 11 2 - 15 mmol/L [facility] BUN 9 8 - 25 mg/dL [facility] Creatinine 0.60 0.40 - 1.00 mg/dL [facility] Glucose 97 70 - 199 mg/dL [facility] Comment: Interpretive Data Fasting glucose >/= 126 [...] 2022. Calcium 10.1 8.5 - 10.3 mg/dL [facility] Bilirubin, total 0.5 0.1 - 1.2 mg/dL [facility] Protein, pl 8.5 6.5 - 8.5 g/dL [facility] Albumin 5.2(H) 3.5 - 5.0 g/dL [facility] Alk phos 63(L) 70 - 260 Units/L [facility] ALT 9 7 - 45 Units/L [facility] AST 17 10 - 45 Units/L [facility] Blood 02/17/2023 11:1 4 AM CDT 02/17/2023 11:19 AM CDT Katarina Jack OPERATOR AUTOMATED PROCESS LAB BLOOD ORDERABLES Final Re sult Performing Organization Address City/[facility] de Phone Number [address] [employer] [place] [address] * Iron profile w/ IBC (02/17/2023 11:14 AM CDT) [facility] Iron 117 35 - 145 mcg/dL [facility] TIBC 380 250 - 400 mcg/dL [facility] Transferrin saturation 31 20 - 50 % [facility] Blood 02/17/2023 11:1 4 AM CDT 02/17/2023 11:19 AM CDT Katarina Jack OPERATOR AUTOMATED PROCESS LAB BLOOD ORDERABLES Final Re sult [address] [employer] [place] [address] * CBC with auto differential (02/17/2023 11:14 AM CDT) Pathologist [facility] WBC 6.4 3.8 - 9.9 K/cumm [facility] Hgb 13.8 11.9 - 15.5 g/dL [facility] Hct 41.5 35.6 - 45.5 % [facility] Plt 319 150 - 400 K/cumm [facility] MPV 9.5 9.1 - 12.3 fL [facility] RBC 4.52 3.90 - 5.20 M/cumm [facility] MCV 91.8 81.3 - 96.4 fL [facility] MCH 30.5 27.1 - 33.3 pg [facility] MCHC 33.3 32.3 - 35.7 g/dL [facility] RDW CV 12.1 11.1 - 14.9 % [facility] RDW SD 40.4 35.7 - 48.1 fL [facility] NRBC abs 0.00 0.00 - 0.01 K/cumm [facility] Blood 02/17/2023 11:1 4 AM CDT 02/17/2023 11:19 AM CDT Katarina Jack NP LAB BLOOD ORDERABLES Final Re sult [facility] [address] [facility] Department of Laboratories [place], [place] [id number] documented in this encounter Visit Diagnoses Diagnosis Physical exam, annual- Primary BMI 25.0-25.9,adult Eczema, unspecified type Mild persistent asthma, unspecified whether complicated Contraceptive education Unspecified contraceptive management documented in this encounter Discontinued Medications Medication Sig Discontinue Reason Start Date End Da te polyethylene glycol (MIRALAX) 17 gram/dose powder Take 17 g by mouth daily 01/09/2014 02/17/2023 triamcinolone (KENALOG) 0.1 % cream APPLY EXTERNALLY TO THE AFFECTED AREA THREE TIMES DAILY FOR 7 DAYS DIRECTED Reorder 12/29/2020 02/17/2023 albuterol HFA (PROVENTIL HFA,VENTOLIN HFA,PROAIR HFA) 90 mcg/actuation inhaler Inhale 2 puffs every 6 (six) hours as needed Reorder 02/17/2023 documented as of this encounter Care Teams Life Tester [employer] Relationship Specialty Start Date End Date Katarina Jack NP [address] [facility] [address] [place] [address] PCP - General Internal Medicine 02/17/23 documented as of this encounter
--- OUTSIDE RECORDS SUMMARY | 2024-10-06 05:45 | XMS_ITS | Encounter Summary ---
Author Organization [facility] Medical Group Address [address] [place] [address] Care Team Providers Care Solar Photovoltaic Installer Name Role Phone Katarina Jack FIRMWARE TEST ENGINEER Primary Care Provider [phone] Reason for Visit * Reason Comments Vaginal Bleeding Started spotting 3 - 4weeks agoStarted control pill in february Encounter Details Date Type Department Care Team (Late st Contact Info) Description 04/14/2023 10:30 AM CDT Office Visit [facility] Medical [facility] Internal Medicine at [place] [address] [place] [address] Katarina Jack, FIRMWARE TEST ENGINEER [address] [place] [address] Vaginal spotting (Primary Dx); BMI 25.0-25.9,adult Social History Tobacco Use Types Packs/Day Years [...] on file 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 Gender Identity Not on file Sexual Orientation Not on file documented as of this encounter Last Filed Vital Signs Vital Sign Reading Time Taken Comments Blood Pressure 110/70 04/14/2023 10:33 AM CDT Pulse 78 04/14/2023 10:33 AM CDT Temperature 36.7 ??C (98 ??F) 04/14/2023 10:33 AM CDT Respiratory Rate - - Oxygen Saturation 98% 04/14/2023 10:33 AM CDT Inhaled Oxygen Concentration - - Weight 62.6 kg (138 lb) 04/14/2023 10:33 AM CDT Height 157.5 cm (5' 2 ) 04/14/2023 10:33 AM CDT Body Mass Index 25.24 04/14/2023 10:33 AM CDT Body Mass Index Percentile 81.82% 04/14/2023 10: 33 AM CDT Growth Chart: [facility] (Girls, 2- 20 Years) documented in this encounter Patient Instructions * Patient Instructions* Katarina Jack NP - 04/14/2023 10:30 AM CDT Continue control daily as directed. Notify the office in 1 month if you continue to bleed andwe will switch control. Follow-up as needed documented in this encounter Progress Notes * Ktaarina Jack NP - 04/14/2023 10:30 AM CDT Subjective/Objective Patient ID: Mary Coffman is a 17 y.o. female. Visit Date: 04/14/2023 Chief Complaint Vaginal Bleeding (Started spotting 3 -4weeks ago/Started control pill in february) HPI 17-year-old female in with complaints of vaginal spotting for the last 3 weeks since starting birthcontrol in February. She states that she takes at the same time every day. She is currently not sexually active. We did discuss giving it a full 3 months before switching to a different medication. She voices understanding. She is not soaking tampons or pads. She does have to wear a tampon or pad due to the bleeding. She denies weakness or dizziness Review of Systems Constitutional: Negative for activity change, chills and fatigue. HENT: Negative for congestion, ear pain, nosebleeds, rhinorrhea and sinus pressure. Respiratory: Negative for cough and shortness of breath. Cardiovascular: Negative for chest pain and palpitations. Gastrointestinal: Negative for abdominal pain. Endocrine: Negative for cold intolerance. Genitourinary: Positive for vaginal bleeding. Negative for difficulty urinating and hematuria. Musculoskeletal: Negative for back pain and myalgias. Neurological: Negative for dizziness, weakness and headaches. Psychiatric/Behavioral: Negative for agitation, confusion and sleep disturbance. Physical Exam Constitutional: Appearance: Normal appearance. She is well-developed and normal weight. HENT: Head: Normocephalic and atraumatic. Eyes: Pupils: [...] Diagnoses and all orders for this visit: Vaginal spotting (N93.9) (Primary) Comments: Continue control at the same time every day. Should the bleeding continue pass one-month notify the office BMI 25.0-25.9,adult (Z68.25) Comments: Maintain healthy and balanced diet documented in this encounter Plan of Treatment Not on file documented as of this encounter Visit Diagnoses Diagnosis Vaginal spotting- Primary Other specified noninflammatory disorder of vagina BMI 25.0-25.9,adult documented in this encounter Care Teams Solar Photovoltaic Installer Relationship Specialty Start Date End Date Katarina Jack NP [address] [facility] [address] [place] [address] PCP - General Internal Medicine 02/17/23 documented as of this encounter
--- OUTSIDE RECORDS SUMMARY | 2024-10-06 05:45 | XMS_ITS | Encounter Summary ---
Author Organization [facility] Healthcare Address [address] [place] [address] Care Team Providers Care Corn Detasseler Name Role Phone Katarina Jack GROUP HOME COUNSELOR Primary Care Provider [phone] Reason for Visit * Reason Onset Date Comments Constipation 03/15/2024 Encounter Details Date Type Department Care Team (Late st Contact Info) Description 03/15/2024 Nurse Triage [facility] Internal Medicine at [place] [address] [place] [address] Katarina Jack, GROUP HOME COUNSELOR [address] [place] [address] [place] [address] Social History Tobacco Use Types [...] on file 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 Was referred to GI and has appt scheduled 04/02. States she is in quite a bit of pain, she has taken Dulcolax, stool softeners and is drinking warm water and has applied a heating pad to her abdomen. Her last BM was yesterday - had liquid stool. Patient rates her current pain as moderate. Denies vomiting. The abdominal pain comes and goes. Will call back to schedule appt if worsens or no improvement with enema. Care Advice Given: Give enema, continue stool softener, drink lots of water, add prune and pear juice, walk (not outside in the heat) Educated patient to call back if worsens, new symptoms develop or has further questions/concerns. Reason for Disposition Unable to have a bowel movement (BM) without using a laxative, suppository, or enema Protocols used: [id number] * Telephone Encounter - Abi Lee RN - 03/15/2024 10:50 AM CDT Regarding: severe stomach pain, constipation,bloating, ----- Message from Yessica Matthews sent at 03/15/2024 10:47 AM CDT ----- Symptom Based Call Chief Complaint(s): severe stomach pain, constipation,bloating, Duration: 4 days What type of symptom(s) is the patient experiencing? Red Flag. Is the patient concerned they are experiencing a medical emergency requiring an ambulance? No Additional Comments: Patient mother calling stating that patient has been having symptoms for a couple of days. She states that patient had an appointment last week and she was referred to GI but isn't scheduled until March. She is wanting recommendation from provider. CS was unable to schedule appointment due to red flag Does message need to be routed? Yes-Action Needed documented in this encounter Plan of Treatment Not on file documented as of this encounter Visit Diagnoses Not on filedocumented in this encounter Care Teams Corn Detasseler Relationship Specialty Start Date End Date Katarina Jack NP [address] [address] PCP - General Internal Medicine 02/17/23 documented as of this encounter
--- OUTSIDE RECORDS SUMMARY | 2024-10-06 05:45 | XMS_ITS | Encounter Summary ---
Author Organization [facility] Medical Group Address [address] [address] Care Team Providers Care Measurement Supervisor Name Role Phone Katarina Jack NP Primary Care Provider [phone] Reason for Visit * Reason Onset Date Comments Appointment Request 05/20/2023 Encounter Details Date Type Department Care Team (Late st Contact Info) Description 05/20/2023 Telephone [facility] Internal Medicine at [place] 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 Katarina Jack NP wants her to continue them and follow up in a year or sooner if having any problems. * Telephone Encounter - Renae García LPN - 05/20/2023 2:12 PM CDT Appt changed to virtual per ok of PCP * Telephone Encounter - Fabiola Ariza - 05/20/2023 12:02 PM CDT Medical Question/Miscellaneous Caller???s Concern: Patient calling to have 2:30pm appointment for today 05/20 switched to virtual, access center unable to change, please contact patient if able to change/once changed Sending kylee advice Caller???s Call back #: [phone] Does message need to be routed? Yes-Action Needed documented in this encounter Plan of Treatment Not on file documented as of this encounter Visit Diagnoses Not on filedocumented in this encounter Care Teams Measurement Supervisor Relationship Specialty Start Date End Date Katarina Jack NP [address] [facility] [address] [place] [address] PCP - General Internal Medicine 02/17/23 documented as of this encounter
--- OUTSIDE RECORDS SUMMARY | 2024-10-06 05:45 | XMS_ITS | Encounter Summary ---
Author Organization [facility] Healthcare Address [address] [place] [address] Care Team Providers Care Packing Clerk Name Role Phone Radha Grove MD PhD Primary Care Pr ovid Reason for Referral * Diagnostic Imaging (Routine) - Closed Specialty Diagnoses / Procedures Referred By Contac t Referred To Contact Diagnoses Pain in left hip Procedures XR Hip Left 2 or 3 Views Tameka Vilchis NP Phone: tel: fax: [address] [phone] Referral ID Status Reason Start Date Expiration Date Visits Re quested Visits Authorized [id number] Closed 12/16/2022 01/15/2024 1 1 Reason for Visit * Diagnostic Imaging (Routine) - Closed Specialty Diagnoses / Procedures Referred By Rowena garcia Referred To Contact Diagnoses Pain in left hip Procedures XR Hip Left 2 or 3 Views Tameka Vilchis NP Phone: tel: fax: [address] [address] Referral ID Status Reason Start Date Expiration Date Visits Re quested Visits Authorized [id number] Closed 12/16/2022 01/15/2024 1 1 Encounter Details Date Type Department Care Team (Latest Contact Info) Description 12/16/2022 2:10 PM CDT - 12/16/2022 11:59 PM CDT Hospital Encounter [facility] Diagnostic Imaging [address] [place] [address] Pain in left hip Discharge Disposition: Discharge to home or self care Social History Tobacco Use Types Packs/Day Years Used Date Smoking Tobacco: Never Smokeless Tobacco: Never Alcohol Use Standard Drinks/Week Comments Never 0 (1 standard drink = 0.6 oz pur e alcohol) Comments No Sex and Gender Information Value Date Recorded Sex Assigned at Not on file 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 Patient c/o pain in left hip x 1 week 2. Patient stated she had a fall onto hip. No other known injury. Patient having pain and swelling in left hip. ? FINDINGS: Two views submitted without comparison. There are no fractures. ??Alignment is normal. ??The left hip joint space is normal. IMPRESSION: Normal left hip evaluation. THIS IS AN ELECTRONICALLY VERIFIED FINAL REPORT 12/17/2022 3:00 PM - Electronically signed by ??Osman Louis M.D. D: ??12/17/2022 3:00 PM T: Report ID: [id number] Reading Location: ??[id number] Procedure Note Osman Louis MD - 12/17/2022 EXAM DESCRIPTION: XR HIP LEFT 2 OR 3 VIEWS REASON FOR STUDY: Pain in left hip Patient c/o pain in left hip x 1 week 09/27. Patient stated she had a fallonto hip. No other known injury. Patient having pain and swelling in left hip. FINDINGS: Two views submitted without comparison. There are no fractures. Alignment is normal. The left hip joint space is normal. IMPRESSION: Normal left hip evaluation. THIS IS AN ELECTRONICALLY VERIFIED FINAL REPORT 12/17/2022 3:00 PM - Electronically signed by Osman Louis M.D. T: Report ID: [id number] Reading Location: [id number] Tameka Vilchis MANAGER SCIENCE IMG XR PROCEDURES Final Result documented in this encounter Visit Diagnoses Diagnosis Pain in left hip documented in this encounter Care Teams Packing Clerk Relationship Specialty Start Date End Date Radha Grove MD PhD PCP - General Pediatrics 08/27/21 02/16/23 documented as of this encounter
--- OUTSIDE RECORDS SUMMARY | 2024-10-06 05:45 | XMS_ITS | Encounter Summary ---
Author Organization [facility] Address [address] [place] [address] Phone Care Team Providers Care Welding Machine Feeder Name Role Phone Katarina Jack NP Primary Care Provider [phone] Encounter Details Date Type Department Care Team (Late st Contact Info) Description 01/27/2024 Telephone [facility] ([facility] - [facility] ENT [address] [place] [address] [place] [phone] Karolina Benton MS Social History Tobacco Use [...] on file 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 Insurance needs karla added documented in this encounter Plan of Treatment Not on file documented as of this encounter Visit Diagnoses Not on filedocumented in this encounter Care Teams Welding Machine Feeder Relationship Specialty Start Date End Date Katarina Jack NP [address] [facility] [address] [place] [address] PCP - General Internal Medicine 02/17/23 documented as of this encounter
--- OUTSIDE RECORDS SUMMARY | 2024-10-06 05:45 | XMS_ITS | Encounter Summary ---
Author Organization [facility] Healthcare Address [address] [place] [address] Care Team Providers Care Reconciling Clerk Name Role Phone Radha Grove MD PhD Primary Care Pr ovider Reason for Visit * Reason Comments Abdominal Pain Flank Pain Encounter Details Date Type Department Care Team (Late st Contact Info) Description 08/27/2021 7:22 PM FRONT DESK WORKER - 08/27/2021 11:33 PM FRONT DESK WORKER Emergency [facility] Emergency Department [address] [place], [place] [address] Farzana Amin MD [address] [place] [address] [place] [id number] Uterine leiomyoma, unspecified location (Primary Dx) Discharge Disposition: Discharge to home or self care Social History Tobacco Use Types Packs/Day Years Used Date Smoking Tobacco: Never Smokeless Tobacco: Never Alcohol Use Standard Drinks/Week Comments Never 0 (1 standard drink = 0.6 oz pur e alcohol) Comments No Sex and Gender Information Value Date Recorded Sex Assigned at Not on file Legal Sex Female 7:28 PM FRONT DESK WORKER Gender Identity Not on file Sexual Orientation Not on file documented as of this encounter Last Filed Vital Signs Vital Sign Reading Time Taken Comments Blood Pressure 144/73 08/27/2021 11:32 PM FRONT DESK WORKER Pulse 69 08/27/2021 11:32 PM FRONT DESK WORKER Temperature 36.8 ??C (98.2 ??F) 08/27/2021 7:09 PM CS T Respiratory Rate 18 08/27/2021 11:3 2 PM FRONT DESK WORKER Oxygen Saturation 98% 08/27/2021 11: 32 PM FRONT DESK WORKER Inhaled Oxygen Concentration - - Weight 61.1 kg (134 lb 11.2 oz) 08/27/2021 7:09 PM FRONT DESK WORKER Height 157.5 cm (5' 2 ) 08/27/2021 7:09 PM FRONT DESK WORKER Body Mass Index 24.64 08/27/2021 7:09 PM FRONT DESK WORKER Body Mass Index Percentile 82.31% 08/27/2021 7:0 9 PM FRONT DESK WORKER Growth Chart: [facility] (Girls, 2- 20 Years) documented in this encounter Discharge Instructions * Discharge Instructions* Farzana Amin MD - 08/27/2021 11:20 PM FRONT DESK WORKER May do ibuprofen (600 mg) every 6 hours or heating pad as needed for pain. Follow up with gynecology at their soonest appointment. No referral needed for [facility]oles[facility] Gynecology. Return to the ER if severe worsening pain, fever or persistent vomiting. T DESK WORKER documented in this encounter Medications at Time [...] or self care documented in this encounter ED Notes * Farzana Amin MD - 08/27/2021 8:04 PM CST HPI Chief Complaint Patient presents with ??? Abdominal Pain ??? Flank Pain HPI 16-year-old female, with hx of appendectomy, presenting with left flank pain for 2 days. Pain is inleft lower quadrant extends along the left flank. Rates pain as an 8-10 on the pain scale. She has had to lay on her right side due to pain. Pain has been coming in waves but she has had some improvement with ibuprofen/tylenol and a heating pad. She has had no fevers. No nausea or vomiting. No diarrhea. She had a normal bowel movement yesterday. No urinary symptoms: No urinary frequency, urgency or dysuria. Poor appetite. LMP was last week. No vaginal discharge or itching. She has never been sexually active. No recent strenuous activity, exercise or trauma. Seen at PMD's office today, reportedly negative UA and urine test. Patient History: There are no problems to display for this patient. Past Medical History: Diagnosis Date ??? Asthma Past Surgical History: Procedure Laterality Date ??? APPENDECTOMY Family History Problem Relation Age of Onset ??? Hypertension Mother ??? Diabetes Father ??? Hypertension Father ??? Stroke Father ??? Pancreatitis Sister ??? Multiple myeloma Maternal Grandfather Social History Tobacco Use ??? Smoking status: Never Smoker ??? Smokeless tobacco: Never Used Vaping Use ??? Vaping Use: Never used Substance Use Topics ??? Alcohol use: Never ??? Drug use: Never Social History Social History Narrative Lives with parents and sisters. Feels safe at home. 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 Review of Systems Review of Systems Constitutional: Positive for appetite change. Negative for chills and fever. HENT: Negative for ear pain and sore throat. Eyes: Negative for pain and visual disturbance. Respiratory: Negative for cough and shortness of breath. Cardiovascular: Negative for chest pain and palpitations. Gastrointestinal: Negative for abdominal pain, diarrhea, nausea and vomiting. Genitourinary: Negative for difficulty urinating, dysuria, hematuria and vaginal discharge. Musculoskeletal: Negative for arthralgias and back pain. Skin: Negative for color change and rash. Neurological: Negative for seizures and syncope. Psychiatric/Behavioral: Negative for dysphoric mood. The patient is not nervous/anxious. All other systems reviewed and are negative. Physical Exam ED Triage Vitals [08/27/21 1909] Temp Pulse Resp BP SpO2 36.8 ??C 67 20 (!) 134/92 98 % Temp src Heart Rate Source Patient Position BP Location FiO2 (%) Oral -- -- -- -- Physical Exam Vitals and nursing note reviewed. Constitutional: General: She is not in acute distress. Appearance: She is well-developed. HENT: Head: Normocephalic and atraumatic. Eyes: Conjunctiva/sclera: Conjunctivae normal. Cardiovascular: Rate and Rhythm: Normal rate and regular rhythm. Heart sounds: Normal heart sounds. No murmur heard. Pulmonary: Effort: Pulmonary effort is normal. No respiratory distress. Breath sounds: Normal breath sounds. Abdominal: General: Abdomen is flat. Bowel sounds are normal. There is no distension. Palpations: Abdomen is soft. Tenderness: There is abdominal tenderness in the left lower quadrant. There is no right CVA tenderness, left CVA tenderness or guarding. Comments: Moderate tenderness in LLQ extending along left flank Musculoskeletal: Cervical back: Neck supple. Skin: General: Skin is warm and dry. Capillary Refill: Capillary refill takes less than 2 seconds. Neurological: General: No focal deficit present. Mental Status: She is alert and oriented to person, place, and time. MDM MDM 16 year old female presenting with LLQ pain/left flank pain who is well appearing and in no acute distress. DDx: Kidney stone vs ovarian pathology (torsion vs cyst) vs UTI (less likely as reportedly normal UA at PMD's office) vs (less likely as reportedly negative beta HCG). Reports neverbeen sexually active so lower concern for PID. Pancreatitis possible given family history (sister has recurrent pancreatitis of unknown cause) but no nausea/vomiting so less likely. Plan for CBC, CMP, lipase, UA, urine and ultrasound of ovaries and kidney. For pain plan for tylenol and NSbolus. Will then reassess. ED Course as of 08/27/21 6709 Time: 08/27 2007 Comment: Patient is currently eligible for influenza vaccination. Contraindications to vaccination include None. Guardian accepted the influenza vaccine in the ED today. By: Farzana Amin MD Time: 12/02 2050 Value: Blood, ur(!): 2+ Comment: (Reviewed) By: Farzana Amin MD Time: 08/27 2050 Value: RBC, ur(!): 3-5 Comment: (Reviewed) By: Farzana Amin MD Time: 08/27 2104 Comment: Normal CBC, CMP and lipase. By: Farzana Amin MD Time: 08/27 2239 Comment: Re-evaluated. Reports pain has improved some but that the ultrasound was very painful. Labs have thus been reassuring, only 3-5 RBCs noted on UA. Awaiting US results. By: Farzana Amin MD Time: 08/27 483 Comment: Ultrasound shows 2.8 cm heterogeneous round mass within the uterus fundus, possibly a fibroid and radiology recommended MRI for further evaluation. Ovaries and kidneys normal on ultrasound. Discussed ultrasound finding with mother and patient. Recommended close gynecology follow-upfor further imaging and evaluatuion. Also discussed NSAID and heating pad as needed for comfort until follow-up. Mother requested [facility] gynecology number, number provided. Gave return precautions. Mother and patient expressed understanding. By: Farzana Amin MD Final diagnoses: Uterine leiomyoma, unspecified location Farzana Amin MD 08/27/21 [id number] T DESK WORKER * Negra Ordonez RN - 08/27/2021 7:11 PM CST Pt also had negative test today at PCP. T DESK WORKER * Negra Ordonez RN - 08/27/2021 7:08 PM CST Pt c/o left sided abd pain that radiates to left flank since yesterday. Denies fever, nausea, vomiting, diarrhea. Seen by PCP today and did UA; negative for UTI per mother. T DESK WORKER documented in this encounter Plan of Treatment Not on file documented as of this encounter Procedures Procedure Name Priority Date/Time Associated Diagnosis Comments US PELVIS LIMITED ED 08/27/2021 10: 22 PM FRONT DESK WORKER US KIDNEY COMPLETE ED 08/27/2021 10 :21 PM FRONT DESK WORKER DIFFERENTIAL AUTO STAT 08/27/2021 8:2 8 PM FRONT DESK WORKER URINALYSIS AND REFLEX TO MICROSCOPIC AND CULTURE STAT 08/27/2021 8:28 PM FRONT DESK WORKER CBC WITH AUTO DIFFERENTIAL STAT 08/27/2021 8:28 PM FRONT DESK WORKER URINALYSIS, MICROSCOPIC ONLY STAT 08/27/2021 8:28 PM FRONT DESK WORKER LIPASE STAT 08/27/2021 8:28 PM FRONT DESK WORKER COMPREHENSIVE METABOLIC PANEL STAT 08/27/2021 8:28 PM FRONT DESK WORKER POCT HCG, URINE STAT 08/27/2021 8:19 PM FRONT DESK WORKER documented in this encounter Results * US Pelvis Limited (08/27/2021 10:22 PM FRONT DESK WORKER) Anatomical Region Laterality Modality Pelvis N/A Ultrasound 08/27/2021 10:3 9 PM FRONT DESK WORKER Narrative 08/27/2021 10:58 PM FRONT DESK WORKER EXAM DESCRIPTION: ?? US PELVIS LIMITED REASON FOR STUDY: ?? rule out ovarian torsion left lower quadrant left flank pain since yesterday TECHNIQUE: Grayscale ultrasound of the pelvic contents was performed with ?? transabdominal ??transducer. ?? COMPARISON: ?? None FINDINGS: UTERUS: ?? The uterus is anteverted. ??The uterus ??measures ?? 8.0 x 4.0 x 2.5 ?? cm. ??There is a 2.8 x 2.4 x 2.4 cm heterogeneous round area within the body of the uterus. ENDOMETRIUM: The endometrium measures ?? 2 mm ??in thickness. RIGHT OVARY: The right ovary measures ?? 3.0 x 1.9 x 1.4 ??cm. ?? There is documentation of color Doppler flow in the right ovary. The right ovary appears unremarkable. LEFT OVARY: The left ovary measures ?? 2.4 x 1.5 x 1.3 ??cm. ?? There is documentation of color Doppler flow in the left ovary. ??The left ovary appears unremarkable. PELVIC FLUID: ?? There is no evidence of free fluid in the pelvis. OTHER: ?? No other significant findings. IMPRESSION: ??No acute abnormality. ??No evidence of torsion. There is a 2.8 cm heterogeneous round mass within the uterus fundus, possibly a fibroid. ??This can be further evaluated with MRI.. THIS IS AN ELECTRONICALLY VERIFIED FINAL REPORT 08/27/2021 10:58 PM - Electronically signed by ??Moise Montejo M.D. RW: KAY D: ??08/27/2021 10:58 PM T: ??08/27/2021 10:58 PM Report ID: [id number] Reading Location: ??[id number] Procedure Note Moise Montejo MD - 08/27/2021 EXAM DESCRIPTION: US PELVIS LIMITED REASON FOR STUDY: rule out ovarian torsion left lower quadrant leftflank pain since yesterday TECHNIQUE: Grayscale ultrasound of the pelvic contents was performed with transabdominal transducer. COMPARISON: None FINDINGS: UTERUS: The uterus is anteverted. The uterus measures 8.0 x 4.0 x2.5 cm. There is a 2.8 x 2.4 x 2.4 cm heterogeneous round area within thebody of the uterus. ENDOMETRIUM: The endometrium measures 2 mm in thickness. RIGHT OVARY: The right ovary measures 3.0 x 1.9 x 1.4 cm. There is documentation of color Doppler flow in the right ovary. The right ovary appears unremarkable. LEFT OVARY: The left ovary measures 2.4 x 1.5 x 1.3 cm. There is documentation of color Doppler flow in the left ovary. The left ovaryappears unremarkable. PELVIC FLUID: There is no evidence of free fluid in the pelvis. OTHER: No other significant findings. IMPRESSION: No acute abnormality. No evidence of torsion. There is a 2.8 cm heterogeneous round mass within the uterus fundus,possibly a fibroid. This can be further evaluated with MRI.. THIS IS AN ELECTRONICALLY VERIFIED FINAL REPORT 08/27/2021 10:58 PM - Electronically signed by Moise Montejo M.D. RW: KAY Report ID: [id number] Reading Location: [id number] us Farzana Amin MD IMG US PROCEDURES Final Result * US Kidney Complete (08/27/2021 10:21 PM FRONT DESK WORKER) Anatomical Region Laterality Modality Kidney N/A Ultrasound 08/27/2021 10:3 3 PM FRONT DESK WORKER Narrative 08/27/2021 10:39 PM FRONT DESK WORKER EXAM DESCRIPTION: ?? US KIDNEY COMPLETE REASON FOR STUDY: ?? rule out stone mild left flank pain since yesterday evaluate for nephrolithiasis TECHNIQUE: Ultrasound of the kidneys and urinary bladder was performed with grayscale imaging. COMPARISON: ?? None FINDINGS: RIGHT KIDNEY: The right kidney measures ?? 9.9 x 4.1 x 4.6 ??cm in length. ?? There is no hydronephrosis. ??There is normal cortical thickness and echogenicity. LEFT KIDNEY: The left kidney measures ?? 9.4 x 4.1 x 4.1 ??cm in length. ?? There is no hydronephrosis. ??There is normal cortical thickness and echogenicity. URINARY BLADDER: ?? The urinary bladder, as visualized, appears unremarkable. ?? The bilateral ureteral jets are visualized. OTHER: ?? No other additional findings. IMPRESSION: ??Normal renal ultrasound. THIS IS AN ELECTRONICALLY VERIFIED FINAL REPORT 08/27/2021 10:39 PM - Electronically signed by ??Moise Montejo M.D. RW: KAY D: ??08/27/2021 10:39 PM T: ??08/27/2021 10:39 PM Report ID: [id number] Reading Location: ??[id number] Procedure Note Moise Montejo MD - 08/27/2021 EXAM DESCRIPTION: US KIDNEY COMPLETE REASON FOR STUDY: rule out stone mild left flank pain since yesterday evaluate for nephrolithiasis TECHNIQUE: Ultrasound of the kidneys and urinary bladder was performedwith grayscale imaging. COMPARISON: None FINDINGS: RIGHT KIDNEY: The right kidney measures 9.9 x 4.1 x 4.6 cm in length. There is no hydronephrosis. There is normal cortical thickness and echogenicity. LEFT KIDNEY: The left kidney measures 9.4 x 4.1 x 4.1 cm in length.There is no hydronephrosis. There is normal cortical thickness andechogenicity. URINARY BLADDER: The urinary bladder, as visualized, appearsunremarkable. The bilateral ureteral jets are visualized. OTHER: No other additional findings. IMPRESSION: Normal renal ultrasound. THIS IS AN ELECTRONICALLY VERIFIED FINAL REPORT 08/27/2021 10:39 PM - Electronically signed by Moise Montejo M.D. RW: KAY Report ID: [id number] Reading Location: [id number] us Farzana Amin MD [facility] US PROCEDURES Final Result * (ABNORMAL) Urinalysis, microscopic only (08/27/2021 8:28 PM FRONT DESK WORKER) WBC, ur 0-5 0 - 5 /HPF [facility] HORVATH Comment:Testing performed by : [address] [address] RBC, ur 3-5(A) 0 - 2 /HPF [facility]INE Comment:Testing performed by : [address] [address] Epithelial cells, squamous, ur 21-50(A) 0 - 5 /HPF CAR[facility]INE Comment: Suggestive of contamination. Consider recollection by clean catch. Testing performed by: [address] [address] Bacteria, ur Trace(A) CAR[facility]INE Comment:Testing performed by : [address], [place]., [address] Mucous, ur Present(A) CAROLINE Comment:Testing performed by : [address] [address] Culture Reflex Comment Reflex conditions for urine culture (WBC >10) not met. CAROLINE Comment:Testing performed by : [address] [address] Urine, clean voided 08/27/2021 8:28 PM FRONT DESK WORKER 08/27/2021 8:33 PM FRONT DESK WORKER us Farzana Amin MD LAB URINE ORDERABLES nal Result [facility] [address] [facility] Department [place] [address] * Differential, auto (08/27/2021 8:28 PM FRONT DESK WORKER) Neutrophil abs 3.1 1.7 - 6.5 K/cumm [facility]INE Comment:Testing performed by : [address] [address] Imm gran abs 0.0 0.0 - 0.1 K/cumm [facility]INE Comment:Testing performed by : [address] [address] Lymphocyte abs 2.7 0.8 - 3.3 K/cumm [facility] Comment:Testing performed by : [address] [address] Monocyte abs 0.5 0.2 - 0.8 K/cumm [facility] Comment:Testing performed by : [address] [address] Eosinophil abs 0.1 0.0 - 0.5 K/cumm [facility] Comment:Testing performed by : [address], [place]., [address] Basophil abs 0.0 0.0 - 0.1 K/cumm [facility] Comment:Testing performed by : [address] [address] Neutrophil pct 47.8 % [facility] Comment: Interpretive Data Percent cell count reference ranges are not reported, since discordance with absolute values may lead to misinterpretation of CBC data. Current Interpretive Data was last revised on 2018. Testing performed by: [address] [address] Imm gran pct 0.2 % [facility] Comment: Interpretive Data Percent cell count reference ranges are not reported, since discordance with absolute values may lead to misinterpretation of CBC data. Current Interpretive Data was last revised on 2018. Testing performed by: [address] [address] Lymphocyte pct 41.8 % [facility] Comment: Interpretive Data Percent cell count reference ranges are not reported, since discordance with absolute values may lead to misinterpretation of CBC data. Current Interpretive Data was last revised on 2018. Testing performed by: [address] [address] Monocyte pct 8.3 % [facility] Comment: Interpretive Data Percent cell count reference ranges are not reported, since discordance with absolute values may lead to misinterpretation of CBC data. Current Interpretive Data was last revised on 2018. Testing performed by: [address] [address] Eosinophil pct 1.4 % [facility] Comment: Interpretive Data Percent cell count reference ranges are not reported, since discordance with absolute values may lead to misinterpretation of CBC data. Current Interpretive Data was last revised on 2018. Testing performed by: [address] [address] Basophil pct 0.5 % [facility] Comment: Interpretive Data Percent cell count reference ranges are not reported, since discordance with absolute values may lead to misinterpretation of CBC data. Current Interpretive Data was last revised on 2018. Testing performed by: [address] [address] Blood 08/27/2021 8:28 PM FRONT DESK WORKER 08/27/2021 8:33 PM FRONT DESK WORKER us Farzana Amin MD LAB BLOOD ORDERABLES Fi nal Result [facility] [address] [facility] Department [place] [address] * (ABNORMAL) Urinalysis reflex to microscopic and culture Urine, clean voided (08/27/2021 8:28 PM FRONT DESK WORKER) Color, ur Yellow Yellow [facility]INE Comment:Testing performed by : [address] [address] Clarity, ur Clear Clear [facility]INE Comment:Testing performed by : [address] [address] Specific gravity, ur 1.028 1.003 - 1.030 [facility] Comment:Testing performed by : [address] [address] pH, urine 6.0 [facility] Comment:Testing performed by : [address] [address] Protein, ur ql 2+(A) Negative [facility] Comment:Testing performed by : [address] [address] Glucose, ur ql Negative Negative [facility] Comment:Testing performed by : [address] [address] Ketones, ur Negative Negative [facility] Comment:Testing performed by : [address] [address] Bilirubin, ur Negative Negative [facility] Comment:Testing performed by : [address] [address] Blood, ur 2+(A) Negative [facility] Comment:Testing performed by : [address] [address] Urobilinogen, ur 2.0(A) <2.0 mg/dL [facility] HORVATH Comment:Testing performed by : [address] [address] Nitrite, ur Negative Negative [facility] Comment:Testing performed by : [address] [address] Leukocyte esterase, ur Negative Negative [facility] Comment:Testing performed by : [address] [address] UA reflex comment Reflex to microscopic UA will be performed. [facility] Comment:Testing performed by : [address] [address] Urine, clean voided 08/27/2021 8:28 PM FRONT DESK WORKER 08/27/2021 8:33 PM FRONT DESK WORKER Narrative CAROL[facility] HORVATH - 08/27/2021 8:39 PM FRONT DESK WORKER ?? Urine pH is affected by diet, medications, systemic acid-base disturbances, and renal tubular function. ??pH may affect urinary stone formation. ??For example, urine pH below 6.0 may help reduce the tendency for calcium phosphate stones and pH greater than 6.0 may reduce the tendency for uric acid stone formation. Source: [facility] [employer]. Last revised 10-06-2017 Farzana Amin MD LAB MICROBIOLOGY - [facility] ORDERABLES Final Result [facility] [address] [facility] Department of Laboratories [place], [place] [id number] * Lipase (08/27/2021 8:28 PM FRONT DESK WORKER) Lipase 27 5 - 50 Units/L [facility]INE Comment:Testing performed by : [address] [address] Blood 08/27/2021 8:28 PM FRONT DESK WORKER 08/27/2021 8:33 PM FRONT DESK WORKER Farzana Amin MD LAB BLOOD ORDERABLES Fi nal Result [facility] [address] [facility] Department [place] [address] * (ABNORMAL) Comprehensive metabolic panel (08/27/2021 8:28 PM FRONT DESK WORKER) Sodium 139 135 - 145 mmol/L CAR[facility]INE Comment:Testing performed by : [address] [address] Potassium, pl 3.9 3.3 - 4.9 mmol/L [facility]INE Comment:Testing performed by : [address] [address] Chloride 104 100 - 114 mmol/L [facility]INE Comment:Testing performed by : [address] [address] CO2 24 20 - 30 mmol/L [facility] Comment:Testing performed by : [address] [address] Anion gap 11 2 - 15 mmol/L [facility]INE Comment:Testing performed by : [address] [address] BUN 9 9 - 18 mg/dL [facility]INE Comment:Testing performed by : [address] [address] Creatinine 0.60 0.40 - 1.00 mg/dL [facility]INE Comment:Testing performed by : [address] [address] Glucose 88 70 - 199 mg/dL CAROLINE Comment: Interpretive [...] classification and Diagnosis of Diabetes Diabetes Care 2017;40 (Suppl. 1):S11. Current interpretive data was last revised 2017. Testing performed by: [address] [place]., [address] Calcium 9.7 8.5 - 10.3 mg/dL [facility]INE Comment:Testing performed by : [address] [address] Bilirubin, total 0.5 0.1 - 1.2 mg/dL [facility] Comment:Testing performed by : [address] [address] Protein, pl 7.6 6.5 - 8.5 g/dL [facility] Comment:Testing performed by : [address] [address] Albumin 4.7 3.2 - 5.0 g/dL [facility] Comment:Testing performed by : [address] [address] Alk phos 64(L) 70 - 260 Units/L [facility] Comment:Testing performed by : [address] [address] ALT 10 7 - 45 Units/L [facility] Comment:Testing performed by : [address] [address] AST 14 10 - 50 Units/L [facility] Comment:Testing performed by : [address] [address] Blood 08/27/2021 8:28 PM FRONT DESK WORKER 08/27/2021 8:33 PM FRONT DESK WORKER us Farzana Amin MD LAB BLOOD ORDERABLES Fi nal Result [facility] [address] [facility] Department [place] [address] * CBC with auto differential (08/27/2021 8:28 PM FRONT DESK WORKER) [facility] WBC 6.5 3.8 - 9.9 K/cumm CAROLINE Comment:Testing performed by : [address] [address] Hgb 13.5 11.9 - 15.5 g/dL [facility] Comment:Testing performed by : [address] [address] Hct 40.7 35.6 - 45.5 % CAR[facility]INE Comment:Testing performed by : [address], [address] Plt 342 150 - 400 K/cumm CAR[facility]INE Comment:Testing performed by : [address], [address] MPV 9.6 9.1 - 12.3 fL CAR[facility]INE Comment:Testing performed by : [address], [address] RBC 4.55 3.90 - 5.20 M/cumm CAR[facility]INE Comment:Testing performed by : [address], [address] MCV 89.5 81.3 - 96.4 fL CAR[facility]INE Comment:Testing performed by : [address], [address] MCH 29.7 27.1 - 33.3 pg CAR[facility]INE Comment:Testing performed by : [address], [address] MCHC 33.2 32.3 - 35.7 g/dL CAROLINE Comment:Testing performed by : [address], [address] RDW CV 12.0 11.1 - 14.9 % CAR[facility]INE Comment:Testing performed by : [address], [address] RDW SD 39.5 35.7 - 48.1 fL [facility]INE Comment:Testing performed by : [address], [address] NRBC abs 0.00 0.00 - 0.01 K/cumm CAR[facility]INE Comment:Testing performed by : [address], [address] Blood 08/27/2021 8:28 PM FRONT DESK WORKER 08/27/2021 8:33 PM FRONT DESK WORKER us Farzana Amin MD LAB BLOOD ORDERABLES Fi nal Result CAROLINE MA [address] Department [place] [address] * POCT hCG, urine (08/27/2021 8:19 PM FRONT DESK WORKER) HCG, ur, POC Negative Lot Number [id number] QC Backgroud Clear Acceptable QC Control Line Acceptable Urine 08/27/2021 8:19 PM FRONT DESK WORKER Farzana Amin MD POINT OF CARE TEST NAELFaustina MAYURI Final Result documented in this encounter Visit Diagnoses Diagnosis Uterine leiomyoma, unspecified location- Primary documented in this encounter Administered Medications Inactive Administered Medications - up to 3 most recent administrations Medication Order MAR Action Action Date Dose Rate Site acetaminophen (TYLENOL) tablet 650 mg 650 mg, oral, Once, On Juanita 08/27/21 at 2048, For 1 dose Given 08/27/2021 8:54 PM FRONT DESK WORKER 650 mg influenza quadrivalent [id number] (FLULAVAL,FLUARIX,FLUZONE) 60 mcg (15 mcg x 4)/0.5 mL vaccine (STANDARD age 6 months and up) 0.5 mL 0.5 mL, intramuscular, During hospitalization, immunization, Starting on Juanita 08/27/21 at 2006, For 1 dose Given 08/27/2021 8:25 PM FRONT DESK WORKER 0.5 mL Right Deltoid sodium chloride 0.9% bolus 1,000 mL 1,000 mL, intravenous, Once, On Juanita 08/27/21 at 2003, For 1 dose New Bag 08/27/2021 8:24 PM FRONT DESK WORKER 1,000 mL documented in this encounter Active and Recently Administered Medications Times are shown in FRONT DESK WORKER. Scheduled Medication Order 08/25/2021 08/26/2021 08/27/2021 acetaminophen (TYLENOL) tablet 650 mg (COMPLETED) 650 mg, oral, Once, On Juanita 08/27/21 at 2048, For 1 dose 2053 (Given - Provid er: Jennifer Brantd RN) sodium chloride 0.9% bolus 1,000 mL (COMPLETED) 1,000 mL, intravenous, Once, On Juanita 08/27/21 at 2003, For 1 dose 2023 (New Bag - Prov ider: Jennifer Brandt RN)2137 (Stopped - Provider: Jennifer Brandt RN) PRN Medication Order 08/25/2021 08/26/2021 08/27/2021 influenza quadrivalent [id number] (FLULAVAL,FLUARIX,FLUZONE) 60 mcg (15 mcg x 4)/0.5 mL vaccine (STANDARD age 6 months and up) 0.5 mL (COMPLETED) 0.5 mL, intramuscular, During hospitalization, immunization, Starting on Juanita 08/27/21 at 2006, For 1 dose 2024 (Given - Provid er: Jennifer Brandt RN) documented in this encounter Care Teams Reconciling Clerk Relationship Specialty Start Date End Date Radha Grove MD PhD PCP - General Pediatrics 08/27/21 02/16/23 documented as of this encounter
--- OUTSIDE RECORDS SUMMARY | 2024-10-06 05:45 | XMS_ITS | Encounter Summary ---
Author Organization [facility] Healthcare Address [address] [place] [address] Care Team Providers Care Gold Frame Assembler Name Role Phone Katarina Jack NP Primary Care Provider [phone] Encounter Details Date Type Department Care Team (Late st Contact Info) Description 06/09/2023 Orders Only [facility] Information Management [address] [place] [id number] Scanning, Provider Social History Tobacco Use Types Packs/Day Years [...] on file Legal Sex Female 7:28 PM BUHR MILL OPERATOR Gender Identity Not on file Sexual Orientation Not on file documented as of this encounter Plan of Treatment Not on file documented as of this encounter Procedures Procedure Name Priority Date/Time Associated Diagnosis Comments SCAN - LABS 06/09/2023 documented in this encounter Results * SCAN - LABS (06/09/2023) us Provider Scanning Final Result documented in this encounter Visit Diagnoses Not on filedocumented in this encounter Additional Health Concerns Infection Onset Date Last Indicated Resolved Time COVID: Suspected 04/14/2024 04/14/2024 04/14/2024 3:52 PM CDT COVID19 04/14/2024 04/14/2024 04/24/2024 3:05 AM CDT COVID: Recovered Comment:Added based on recent COVID infection. 04/24/2024 05/13/2024 07/23/2024 3:05 AM C DT documented as of this encounter Care Teams Gold Frame Assembler Relationship Specialty Start Date End Date Katarina Jack NP [address] [address] PCP - General Internal Medicine 02/17/23 documented as of this encounter
--- OUTSIDE RECORDS SUMMARY | 2024-10-06 05:45 | XMS_ITS | Encounter Summary ---
Author Organization [facility] Medical [facility] Address [address] [address] Care Team Providers Care Home Care Specialist Name Role Phone Radha Grove MD PhD Primary Care Pr ovider Reason for Visit * Reason Comments Sore Throat Pt states she has so re throat, painful to swallow. Ongoing 3-4days Encounter Details Date Type Department Care Team (Late st Contact Info) Description 01/20/2023 3:00 PM CDT Office Visit [facility] [address] [place] [id number] Nickie Claire PA [address] [place] [address] Sore throat (Primary Dx) Social History Tobacco Use Types Packs/Day Years Used Date Smoking Tobacco: Never Smokeless Tobacco: Never Alcohol Use Standard Drinks/Week Comments Never 0 (1 standard drink = 0.6 oz pur e alcohol) Comments No Sex and Gender Information Value Date Recorded Sex Assigned at Not on file Legal Sex Female 7:28 PM SKETCH LINER Gender Identity Not on file Sexual Orientation Not on file documented as of this encounter Last Filed Vital Signs Vital Sign Reading Time Taken Comments Blood Pressure 118/62 01/20/2023 2:55 PM CDT Pulse 99 01/20/2023 2:55 PM CDT Temperature 36.3 ??C (97.3 ??F) 01/20/2023 2:55 PM CD T Respiratory Rate 18 01/20/2023 2:55 PM CDT Oxygen Saturation 98% 01/20/2023 2:55 PM CDT Inhaled Oxygen Concentration - - Weight 60.8 kg (134 lb) 01/20/2023 2:55 PM CDT Height 157.5 cm (5' 2 ) 01/20/2023 2:55 PM CDT Body Mass Index 24.51 01/20/2023 2:55 PM CDT Body Mass Index Percentile 78.37% 01/20/2023 2:5 5 PM CDT Growth Chart: [facility] (Girls, 2- 20 Years) documented in this encounter Patient Instructions * Patient Instructions* Nickie Claire PA - 01/20/2023 3:00 PM CDT Cefdinir 300 mg every 12 hours x 10 days Warm salt water gargles Tylenol (acetaminophen) or [...] be given by phone without another evaluation. * Attachments The following attachments cannot be sent through Care Everywhere. * Strep Throat in Children (Car Scrubber) (Colombian) documented in this encounter Ordered Prescriptions Prescription Sig Dispense Quantity Refills Last Filled Start Date End Date cefdinir (OMNICEF) 300 mg capsuleIndications :Sore throat Take 1 capsule (300 mg total) by mouth 2 (two) times a day for 10 days 20 capsule 01/20/2023 documented in this encounter Progress Notes * Nickie Claire PA - 01/20/2023 3:00 PM CDT Images from the original note were not included. Subjective/Objective Patient ID: Mary Coffman is a 17 y.o. female. Chief Complaint Sore Throat (Pt states she has sore throat, painful to swallow. Ongoing 3-4days) Sore Throat Associated symptoms include coughing. Pertinent negatives include no abdominal pain, shortness of breath or vomiting. The patient presents for an evaluation for sore throat, painful swallowing x 3-4 days. Also reportsrunny nose, nasal congestion, mild dry cough. Denies fever, chills, chest pain, shortness of breath, nausea, vomiting, abdominal pain. Denies known exposure to strep Review of Systems Constitutional: Positive for chills. Negative for fever. HENT: Positive for rhinorrhea, sinus pain and sore throat. Respiratory: Positive for cough. Negative for shortness of breath. Cardiovascular: Negative for chest pain. Gastrointestinal: Negative for abdominal pain, nausea and vomiting. Physical Exam Vitals reviewed. Constitutional: General: She is not in acute distress. Appearance: Normal appearance. HENT: Head: Normocephalic and atraumatic. Right Ear: Tympanic membrane normal. Left Ear: Tympanic membrane normal. Nose: Nose normal. Mouth/Throat: Mouth: Mucous membranes are moist. Pharynx: Oropharynx is clear. Posterior oropharyngeal erythema present. Tonsils: Tonsillar exudate present. 2+ on the right. 2+ on the left. Comments: Bilateral 2+ tonsillar edema and mild erythema Right sided tonsillar exudate Eyes: Pupils: Pupils are equal, round, and reactive to light. Cardiovascular: Rate and Rhythm: Normal rate and regular rhythm. Pulmonary: Effort: Pulmonary effort is normal. Breath sounds: Normal breath sounds. Abdominal: General: Abdomen is flat. Musculoskeletal: General: Normal range of motion. Cervical back: Normal range of motion. Skin: General: Skin is warm. Neurological: General: No focal deficit present. Mental Status: She is alert and oriented to person, place, and time. Psychiatric: Mood and Affect: Mood normal. Behavior: Behavior normal. Vitals: 01/20/23 1455 BP: 118/62 BP Location: Left arm Patient Position: Sitting Pulse: 99 Resp: 18 Temp: 36.3 ??C (97.3 ??F) TempSrc: Temporal SpO2: 98% Weight: 60.8 kg (134 lb) Height: 157.5 cm (5' 2 ) Assessment/Plan Diagnoses and all orders for this visit: Sore throat (Primary) Assessment & Plan: VSS, no acute respiratory distress, lungs CTAB [...] be given by phone without another evaluation. Orders: - POCT rapid strep A - Throat culture Throat; Future - POCT mononucleosis screen - cefdinir (OMNICEF) 300 mg capsule; Take 1 capsule (300 mg total) by mouth 2 (two) times a day for10 days Recent Results (from the past 4 hour(s)) POCT rapid strep A Collection Time: 01/20/23 3:22 PM Result Value Ref Range Rapid Strep A, POC Negative Negative POCT mononucleosis screen Collection Time: 01/20/23 3:24 PM Result Value Ref Range Heterophile, POC Negative Disposition Treatment plan including expectations, follow up, and return precautions discussed with patient/parent, verbalizes understanding. Medication dosage, use, and potential adverse reactions discussed with patient/parent. Advised to follow up with PCP if symptoms do not resolve as expected or sooner if condition worsens. Signs/symptoms warranting ER evaluation reviewed. Patient and/or guardian was given an opportunity to ask questions, questions answered. JOSLYN Cazares 01/20/23 3:34 PM documented in this encounter Miscellaneous Notes * Assessment & Plan Note - Nickie Claire PA - 01/20/2023 3:32 PM CDTAssociated Problem(s): Sore throat VSS, no acute respiratory distress, lungs CTAB [...] be given by phone without another evaluation. documented in this encounter Plan of Treatment Not on file documented as of this encounter Procedures Procedure Name Priority Date/Time Associated Diagnosis Comments POCT MONONUCLEOSIS SCREEN Routine 01/20/2023 3:24 PM CDT Sore throat POCT RAPID STREP Routine 01/20/2023 3:22 PM CDT Sore throat documented in this encounter Results * POCT mononucleosis screen (01/20/2023 3:24 PM CDT) Heterophile, POC Negative Blood 01/20/2023 3:24 PM CDT Nickie JORGENSEN POINT OF CARE TEST ORDERABLES F inal Result * POCT rapid strep A (01/20/2023 3:22 PM CDT) Rapid Strep A, POC Negative Negative Swab 01/20/2023 3:22 PM CDT Nickie JORGENSEN POINT OF CARE TEST ORDERABLES F inal Result * Throat culture Throat (01/20/2023 9:55 AM CDT) Report Final Report: No growth of pathogens. CAROLINE MIRANDA Throat 01/20/2023 9:55 AM CDT 01/21/2023 11:17 AM CDT N[facility]ative [facility] - 01/24/2023 11:30 AM CDT Collection date/time has been modified to:01/20/2023 09:55. Previous Collection date/time: 01/21/2023 09:55. Testing performed by [facility] ([phone]). Nickie J[facility]GENSEN [facility] Final Result [facility] Department [place] [address] documented in this encounter Visit Diagnoses Diagnosis Sore throat- Primary Acute pharyngitis Sore throat Acute pharyngitis documented in this encounter Historical Medications * This list may reflect changes made after this encounter. ibuprofen 200 mg tab/cap Take 1 tablet/capsule (200 mg total) by mouth every 6 (six) hours as needed albuterol HFA (PROVENTIL HFA,VENTOLIN HFA,PROAIR HFA) 90 mcg/actuation inhaler Inhale 2 puffs every 6 (six) hours as needed 3 polyethylene glycol (MIRALAX) 17 gram/dose powder Take 17 g by mouth daily 01/09/2014 3 triamcinolone (KENALOG) 0.1 % cream APPLY EXTERNALLY TO THE AFFECTED AREA THREE TIMES DAILY FOR 7 DAYS DIRECTED 12/29/2020 3 added in this encounter Care Teams Home Care Specialist Relationship Specialty Start Date End Date Radha Grove MD PhD PCP - General Pediatrics 08/27/21 02/16/23 documented as of this encounter
--- OUTSIDE RECORDS SUMMARY | 2024-10-06 05:45 | XMS_ITS | Encounter Summary ---
Author Organization [facility] Address [address] [facility] [address] [place] [address] Phone Care Team Providers Care Stump Shooter Name Role Phone Katarina Jack GROUND INSTRUCTOR ADVANCED Primary Care Provider [phone] Reason for Visit * Consultation (Routine) - Authorized Specialty Diagnoses / Procedures Referred By Contdidi t Referred To Contact Gastroenterology Diagnoses Diarrhea, unspecified type Katarina Jack NP [address] [place] [address] [place] [address] Phone: tel: fax: Aditi Maradaiga MD [address] [place] [address] [place] [address] Phone: tel: fax: Referral ID Status Reason Start Date Expiration Date Visits Requested Visits Authorized [id number] Authorized Specialty Services Required 02/10/2024 03/11/2025 99 99 Encounter Details Date Type Department Care Team (Late st Contact Info) Description 08/20/2024 8:30 AM PROGRAMMER OPERATOR NUMERICAL CONTROL Office Visit [facility] Gastroenterology [address] [place] [address] [place] [address] Bel Mata PA [address] [place] [address] Irritable bowel syndrome with constipation (Primary Dx); Heartburn; Diarrhea, unspecified type Social History Tobacco Use Types Packs/Day Years [...] on file Legal Sex Female 7:28 PM PROGRAMMER OPERATOR NUMERICAL CONTROL Gender Identity Not on file Sexual Orientation Not on file documented as of this encounter Last Filed Vital Signs Vital Sign Reading Time Taken Comments Blood Pressure 114/72 08/20/2024 8:39 AM PROGRAMMER OPERATOR NUMERICAL CONTROL Pulse 78 08/20/2024 8:39 AM PROGRAMMER OPERATOR NUMERICAL CONTROL Temperature 36.2 ??C (97.2 ??F) 08/20/2024 8:39 AM CS T Respiratory Rate - - Oxygen Saturation - - Inhaled Oxygen Concentration - - Weight 65.8 kg (145 lb) 08/20/2024 8:39 AM PROGRAMMER OPERATOR NUMERICAL CONTROL Height 157.5 cm (5' 2 ) 08/20/2024 8:39 AM PROGRAMMER OPERATOR NUMERICAL CONTROL Body Mass Index 26.52 08/20/2024 8:39 AM PROGRAMMER OPERATOR NUMERICAL CONTROL documented in this encounter Patient Instructions * Patient Instructions* Bel Mata PA - 08/20/2024 8:30 AM PROGRAMMER OPERATOR NUMERICAL CONTROL Office [phone] Increase dietary fiber Start Miralax + Benefiber once daily If you are going too much or stools too soft- take 1/2 capful of Miralax and continue Benefiber Call or message with update if not better RAMMER OPERATOR NUMERICAL CONTROL RAMMER OPERATOR NUMERICAL CONTROL documented in this encounter Ordered Prescriptions Prescription Sig Dispense Quantity Refills Last Filled Start Date End Date polyethylene glycol (MIRALAX) 17 gram packetIndications: constipation Take 1 packet (17 g total) by mouth daily 30 packet 11 08/20/2024 08/20/2025 documented in this encounter Progress Notes * Bel Mata PA - 08/20/2024 8:30 AM CST Reason for visit: Constipation, abdominal pain HPI: Mary Coffman is a 19 y.o. female with no significant past medical history who presents for further evaluation of abdominal pain and altered bowel habits. She presents with her mom today. Patient endorses having stomach issues off and on for years. Mom states she has always struggled with constipation. A year ago started having more issues with post prandial diarrhea with flecks of white tissue in the stool. This was worse with dairy. She notes that she typically tends toward constipation. She will have a BM 1-2 times per week. She will have very hard stools associated with straining and at least 20 minutes on the toilet. Denies blood in stool. Does get associated bloating and abdominal discomfort. She has tried using an enema once. Has also tried stool softeners, senna, dulcolax, Miralax, but nothing consistently. She also complains of quite a bit of heartburn, increased belching. Heavily seasoned food makes this worse. Denies dysphagia. Has not tried any medications for this. Eats a lot of fast foods, not a lot of veggies Does eat some fruits Denies dysphagia, loss of appetite or weight loss. 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 Denies tobacco, alcohol, drug/marijuana Patient Active Problem List Diagnosis Sore throat BMI 26.0-26.9,adult Physical exam, annual Eczema Mild persistent asthma Tonsil pain Diarrhea Outpatient Medications Marked as Taking for the 08/20/24 encounter (Office Visit) with Bel Mata PA Medication Sig Dispense Refill albuterol HFA (PROVENTIL HFA,VENTOLIN HFA,PROAIR HFA) 90 mcg/actuation inhaler Inhale 2 puffs every6 (six) hours as needed for shortness of breath 1 each 1 drospirenone-ethinyl estradioL (Sydni, 28,) 3-0.02 mg per tablet Take 1 tablet by mouth daily 84 tablet 12 ibuprofen 200 mg tab/cap Take 1 tablet/capsule (200 mg total) by mouth every 6 (six) hours as needed I have reviewed past medical history, past surgical history, allergies, current medications, familyhistory, and social history as recorded in [facility]. The new patient intake form was reviewed with the patient today during the visit. Review of Systems: Review of Systems All other systems reviewed and are negative. Physical Exam: BP 114/72 Pulse 78 Temp 36.2 ??C (97.2 ??F) Ht 157.5 cm (5' 2 ) Wt 65.8 kg (145 lb) BMI 26.52 kg/m?? Constitutional: Not in acute distress. Present with mom. HEENT: Sclera is not icterus. Conjunctiva is pink. Orapharynx is clear and moist. Neck: Supple. No thyromegaly. No lymphadenopathy. Pulmonary: Normal breathing sounds. Cardiovascular: Regular rate and rhythm. Normal S1 and S2. No murmur. Abdomen: Normal bowel sounds. Soft. No tenderness. No distention. Skin: No rash Laboratory data: Records and pertinent lab results were reviewed. Lab Results Component Value Date WBC 6.9 08/20/2024 HGB 13.6 08/20/2024 HCT 39.8 08/20/2024 MCV 90.6 08/20/2024 LABPLAT 319 02/17/2023 Chemistry Component Value Date/Time SODIUM 139 02/17/2023 1114 POTASSIUM 4.1 02/17/2023 1114 CHLORIDE 104 02/17/2023 1114 CO2 23 08/20/2024 0921 CO2 24 02/17/2023 1114 BUNSER 9 02/17/2023 1114 CREATININE 0.62 08/20/2024 0921 CREATININE 0.60 02/17/2023 1114 GLUCOSE 77 08/20/2024 0921 GLUCOSE 97 02/17/2023 1114 Component Value Date/Time CALCIUM 9.7 08/20/2024 0921 CALCIUM 10.1 02/17/2023 1114 ALKPHOS 59 08/20/2024 0921 ALKPHOS 63 (L) 02/17/2023 1114 AST 20 08/20/2024 0921 AST 17 02/17/2023 1114 ALT 16 08/20/2024 0921 ALT 9 02/17/2023 1114 BILITOT 0.28 08/20/2024 0921 BILITOT 0.5 02/17/2023 1114 Assessment/Plan: Diagnoses and all orders for this visit: Irritable bowel syndrome with constipation (Primary) Bowel movements 1-2 times per week, associated abdominal discomfort and bloating, straining. Lack of of fiber in diet. No alarm features- ie. Denies blood in stool, nocturnal symptoms, weight loss. Has tried OTC products but without any consistency. I suspect her symptoms are due to IBS-C. Will check labs today including Celiac serologies. No indication for colonoscopy at this time. I recommended that she start Miralax and Benefiber daily. Call or message if not better. - CBC with auto differential; Future - Comprehensive metabolic panel; Future - TSH; Future - IgA; Future - Tissue transglutaminase IgA (TGG-IgA Ab); Future Heartburn Intermittent heartburn and belching symptoms. Worse with certain foods. Denies dysphagia or alarm symptoms. Has not tried any medications for this. Symptoms may be due to her underlying constipation vs GERD. I recommended more aggressive management of her constipation. If this improves but reflux type symptoms persist, consider trial of omeprazole 20 mg once daily. Other orders - polyethylene glycol (MIRALAX) 17 gram packet; Take 1 packet (17 g total) by mouth daily Follow up: Return in about 3 months (around 11/20/2024). RAMMER OPERATOR NUMERICAL CONTROL documented in this encounter Plan of Treatment Not on file documented as of this encounter Results * Tissue transglutaminase IgA (TGG-IgA Ab) (08/20/2024 9:21 AM PROGRAMMER OPERATOR NUMERICAL CONTROL) TTG ab, IgA <0.5 <=14.9 units/mL Comment: Interpretive data Negative: <15 units/mL Positive: > or equal to 15 units/mL Current interpretive data was last revised on 2017. Blood 08/20/2024 9:21 AM PROGRAMMER OPERATOR NUMERICAL CONTROL 08/20/2024 12:06 PM PROGRAMMER OPERATOR NUMERICAL CONTROL Bel JORGENSEN LAB BLOOD ORDERABLES Fi nal Result Performing Organization Address [facility] Co de Phone Number [facility] [place] [address] * IgA (08/20/2024 9:21 AM PROGRAMMER OPERATOR NUMERICAL CONTROL) Pathologist [facility] Immunoglobulin A 97 70 - 400 mg/dL Blood 08/20/2024 9:21 AM PROGRAMMER OPERATOR NUMERICAL CONTROL 08/20/2024 12:06 PM PROGRAMMER OPERATOR NUMERICAL CONTROL Bel JORGENSEN LAB BLOOD ORDERABLES Fi nal Result Performing Organization Address [facility] de Phone Number [facility] [place] [address] * TSH (08/20/2024 9:21 AM PROGRAMMER OPERATOR NUMERICAL CONTROL) TSH (Thyrotropin) 1.76 0.27 - 4.20 uIU/mL [facility] Blood 08/20/2024 9:21 AM PROGRAMMER OPERATOR NUMERICAL CONTROL 08/20/2024 11:01 AM PROGRAMMER OPERATOR NUMERICAL CONTROL Bel JORGENSEN LAB BLOOD ORDERABLES Fi nal Result Performing Organization Address [facility] Co de Phone Number [facility] * Comprehensive metabolic panel (08/20/2024 9:21 AM PROGRAMMER OPERATOR NUMERICAL CONTROL) Total Protein 8.1 6.1 - 8.4 g/dL [...] [facility] Blood 08/20/2024 9:21 AM PROGRAMMER OPERATOR NUMERICAL CONTROL 08/20/2024 11:01 AM PROGRAMMER OPERATOR NUMERICAL CONTROL us Bel JORGENSEN LAB BLOOD ORDERABLES Fi nal Result [facility] * CBC with auto differential (08/20/2024 9:21 AM PROGRAMMER OPERATOR NUMERICAL CONTROL) White Blood Count 6.9 3.6 - 11.2 [...] [facility] Blood 08/20/2024 9:21 AM PROGRAMMER OPERATOR NUMERICAL CONTROL 08/20/2024 11:01 AM PROGRAMMER OPERATOR NUMERICAL CONTROL Bel JORGENSEN LAB BLOOD ORDERABLES Fi nal Result [facility] documented in this encounter Visit Diagnoses Diagnosis Irritable bowel syndrome with constipation- Primary Irritable bowel syndrome Heartburn Diarrhea, unspecified type documented in this encounter Orders Outpatient Referral Count Last Ordered Date Fir st Ordered Date AMB REFERRAL TO GASTROENTEROLOGY 1 08/20/20 24 documented in this encounter Care Teams Stump Shooter Relationship Specialty Start Date End Date Katarina Jack NP [address] [facility] [address] [place] [address] PCP - General Internal Medicine 02/17/23 documented as of this encounter
--- OUTSIDE RECORDS SUMMARY | 2024-10-06 05:45 | XMS_ITS | Encounter Summary ---
Author Organization [facility] Address [address] [facility] [address] [place] [address] Phone Care Team Providers Care Wood Furniture Assembler Name Role Phone Katarina Jack NP Primary Care Provider [phone] Reason for Visit * Reason Comments New Patient Tonsils * Consultation (Routine) - Authorized Specialty Diagnoses / Procedures Referred By Rowena garcia Referred To Contact Otolaryngology Diagnoses Tonsil pain Katarina Jack, ANSWERING SERVICE OPERATOR [address] [place] [address] [place] [address] Phone: tel: fax: Stanislav Sr MD [address] [place] [address] Phone: tel: fax: Referral ID Status Reason Start Date Expiration Date Visits Requested Visits Authorized [id number] Authorized Specialty Services Required 12/16/2023 01/14/2025 6 6 Encounter Details Date Type Department Care Team (Late st Contact Info) Description 03/08/2024 2:00 PM CDT Office Visit [place] [facility]) - [facility] ENT [address] 2[address] Floor, [address] [place] [address] Mandeep Fischer MD [address] [place] [address] Sore throat (Primary Dx); Tonsil pain Social History Tobacco Use Types Packs/Day [...] on file Legal Sex Female 7:28 PM TEXT TRANSCRIBER Gender Identity Not on file Sexual Orientation Not on file documented as of this encounter Last Filed Vital Signs Vital Sign Reading Time Taken Comments Blood Pressure - - Pulse - - Temperature - - Respiratory Rate - - Oxygen Saturation - - Inhaled Oxygen Concentration - - Weight 63.5 kg (140 lb) 03/08/2024 2:39 PM CDT Height 157.5 cm (5' 2 ) 03/08/2024 2:39 PM CDT Body Mass Index 25.61 03/08/2024 2:39 PM CDT documented in this encounter Ordered Prescriptions Prescription Sig Dispense Quantity Refills Last Filled Start Date End Date fluticasone propionate (FLONASE) 50 mcg/actuation nasal spray Administer 1 spray into each nostril daily 1 each 1 03/08/2024 methylPREDNISolone (MEDROL DOSEPACK) 4 mg Dosepack Take as directed on package 1 packet 03/08/2024 4 documented in this encounter Progress Notes * Mandeep Fischer MD - 03/08/2024 2:00 PM CDT Mandeep Fischer M.D., F.A.C.S. Department of Otolaryngology [facility] New Patient Report 03/08/2024 Patient: Mary Coffman : 2005 Chief Complaint: Evaluate tonsils Chief Complaint Patient presents with New Patient Tonsils Chief Complaint New Patient HPI: This is a 18 y.o. woman presenting for evaluation of tonsils and tonsil stone formation. She states that she has been forming tonsil stones since fall 2023. She feels some swelling in her throat. She has used manual disimpaction to help remove tonsil stones. She does not have a significant history of recurrent tonsillitis or strep. No complications from tonsillitis Physical Exam: General Appearance: Well-developed in no apparent distress. Alert and oriented times three. Breathing comfortably. No stridor or stertor. Normal voice. Eyes: Pupils equally round and reactive to light. Extraocular movements are intact throughout. No proptosis. Head/Face: Normocephalic, atraumatic. No facial lesions or masses. Facial nerve intact and symmetric. Sensation intact and symmetric throughout. No salivary masses or tenderness. Sinus palpation is nontender. Temporomandibular joints are nontender. Right Ear: Normal pinna and appearance of external ear. External auditory canal clear without lesions. Tympanic membrane intact and mobile. Middle ear aerated. Left Ear: Normal pinna and appearance of external ear. External auditory canal clear without lesions. Tympanic membrane intact and mobile. Middle ear aerated. Nasal Exam: External nose has no masses or lesions. The nasal septum is midline. Nasal mucosa is moist. Turbinates are normal. No polyps, masses, or purulent discharge on anterior rhinoscopy. Oral Cavity/Oropharynx: Normal lips, teeth, and gums. Oral mucosa is moist without lesions. Tongue and floor of mouth have no lesions or masses and are soft to palpation. Palate and uvula are clear and elevate symmetrically. Tonsils are 1+ with crypts, symmetric and without lesions. The oropharynx is clear. Neck: No masses, lesions, or lymphadenopathy. Trachea midline. Thyroid has no palpable nodules. Respiratory: No retractions. Procedure: Name of Procedure: Fiberoptic laryngoscopy Indication: Evaluate pharynx, adenoids Description: The patient's nose is topically anesthetized and decongested. A flexible fiberoptic endoscope was placed in the left nasal cavity and advanced to the larynx. There were no nasal lesions.The nasopharynx was significant for mildly inflamed adenoid tissue. The base of tongue was significant for lingual tonsil tissue. There was additional patches of lymphoid tissue in the oropharynx symmetrically. The vallecula and piriform sinuses were normal. Laryngeal exam was normal, without lesions or masses. True vocal cords were mobile and symmetric. The endoscope was removed. Assessment and Plan: This is a 18 y.o.-year-old female with history of tonsil stones. She would notmeet criteria for consideration of tonsillectomy. Based on lymphoid hypertrophy in general in the throat, plan for Medrol Dosepak as well as starting Flonase once per day for at least 2 months to help with swelling. Recommended conservative measures for tonsil stones including oral hygiene, mouthwash, and Waterpik use. Mandeep Fischer MD, FACS documented in this encounter Plan of Treatment Not on file documented as of this encounter Visit Diagnoses Diagnosis Sore throat- Primary Acute pharyngitis Tonsil pain documented in this encounter Orders Outpatient Referral Count Last Ordered Date Fir st Ordered Date AMB REFERRAL TO ENT 1 03/08/2024 documented in this encounter Care Teams Wood Furniture Assembler Relationship Specialty Start Date End Date Katarina Jack NP [address] [address] PCP - General Internal Medicine 02/17/23 documented as of this encounter
--- OUTSIDE RECORDS SUMMARY | 2024-10-06 05:45 | XMS_ITS | Encounter Summary ---
Author Organization [facility] Address [address] [place] [address] Care Team Providers Care Process Coordinator Name Role Phone Katarina Jack SCAFFOLDING HELPER Primary Care Provider [phone] Reason for Visit * Reason Comments Consult Wants to talk about problems with her tonsils, stones ? Encounter Details Date Type Department Care Team (Late st Contact Info) Description 10/14/2023 2:00 PM INSPECTOR PRECISION Office Visit [facility] Internal Medicine at [place] [address] [place] [address] Katarina Jack, SCAFFOLDING HELPER [address] [place] [address] Tonsil pain (Primary Dx); BMI 26.0-26.9,adult Social History Tobacco [...] on file Legal Sex Female 7:28 PM INSPECTOR PRECISION Gender Identity Not on file Sexual Orientation Not on file documented as of this encounter Last Filed Vital Signs Vital Sign Reading Time Taken Comments Blood Pressure 100/60 10/14/2023 2:00 PM INSPECTOR PRECISION Pulse 85 10/14/2023 2:00 PM INSPECTOR PRECISION Temperature 37.1 ??C (98.8 ??F) 10/14/2023 2:00 PM CS T Respiratory Rate - - Oxygen Saturation 99% 10/14/2023 2:00 PM INSPECTOR PRECISION Inhaled Oxygen Concentration - - Weight 66.7 kg (147 lb) 10/14/2023 2:00 PM INSPECTOR PRECISION Height 157.5 cm (5' 2 ) 10/14/2023 2:00 PM INSPECTOR PRECISION Body Mass Index 26.89 10/14/2023 2:00 PM INSPECTOR PRECISION documented in this encounter Patient Instructions * Patient Instructions* Katarina Jack NP - 10/14/2023 2:00 PM INSPECTOR PRECISION Use referral to follow-up with ENT. Contact the office with any questions or concerns ECTOR PRECISION documented in this encounter Progress Notes * Katarina Jack NP - 10/14/2023 2:00 PM CST Subjective/Objective Patient ID: Mary Coffman is a 18 y.o. female. Visit Date: 10/14/2023 Chief Complaint Consult (Wants to talk about problems with her tonsils, stones ?) HPI 18-year-old female in with complaints of tonsil stones. She states that she does have pain in her tonsils at times. She has declines a history of strep frequently. She would like to see ENT Review of Systems Constitutional: Negative for activity change, chills and fatigue. HENT: Negative for congestion, ear pain, nosebleeds, rhinorrhea and sinus pressure. Tonsil stones present Respiratory: Negative for cough and shortness of [...] is well-developed. HENT: Head: Normocephalic and atraumatic. Mouth/Throat: Comments: Posterior tonsillar stones presents Eyes: Pupils: Pupils are equal, round, and [...] Diagnoses and all orders for this visit: Tonsil pain (R09.89) (Primary) Comments: Use referral to follow-up with ENT for evaluation of tonsil stones and pains Orders: - Ambulatory referral to ENT; Future BMI 26.0-26.9,adult (Z68.26) Comments: Maintain healthy and balanced diet Cosigned by Maria C Ordonez MD at 11/06/2023 3:58 PM INSPECTOR PRECISION ECTOR PRECISION ECTOR PRECISION documented in this encounter Plan of Treatment Not on file documented as of this encounter Visit Diagnoses Diagnosis Tonsil pain- Primary BMI 26.0-26.9,adult documented in this encounter Care Teams Process Coordinator Relationship Specialty Start Date End Date Katarina Jack NP [address] [place] [address] [place] [address] PCP - General Internal Medicine 02/17/23 documented as of this encounter
--- OUTSIDE RECORDS SUMMARY | 2024-10-06 05:45 | XMS_ITS | Encounter Summary ---
Author Organization [facility] Address [address] [place] [address] Care Team Providers Care Sample Sewer Name Role Phone Katarina Jack NP Primary Care Provider Encounter Details Date Type Department Care Team (Late st Contact Info) Description 04/08/2023 Telephone [facility] Internal Medicine at [place] [address] [place] [address] Katarina Jack, BATTER DEPOSITOR [address] [place] [address] [place] [address] Social History Tobacco Use Types [...] on file Legal Sex Female 7:28 PM CLINICAL EXERCISE PHYSIOLOGIST Gender Identity Not on file Sexual Orientation [...] documented as of this encounter Care Teams Sample Sewer Relationship Specialty Start Date End Date Katarina Jack NP [address] [place] [address] PCP - General Internal Medicine 02/17/23 documented as of this encounter
--- OUTSIDE RECORDS SUMMARY | 2024-10-06 05:45 | XMS_ITS | Encounter Summary ---
Author Organization [facility] Address 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 TRACHOMATIS / N. GONORRHOEAE, URINE Routine 06/09/2023 10:22 AM CDT documented in this encounter Results * C. trachomatis / N. gonorrhoeae, urine Urine Cervical Swab (06/09/2023 10:22 AM CDT) Urine (Cervical Swab) us Historical Provider LAB MICROBIOLOGY - GENERA L ORDERABLES Final Result documented in this encounter Visit Diagnoses Not on filedocumented in this encounter Care Teams Executive Vice President And Chief Financial Officer Relationship Specialty Start Date End Date Katarina Jack, MARCELLO [address] [facility] [address] [address] [place] [address] PCP - General Internal Medicine 02/17/23 documented as of this encounter
--- OUTSIDE RECORDS SUMMARY | 2024-10-06 06:10 | XMS_ITS | Encounter Summary ---
Author Organization [facility] Address [address] [address] Care Team Providers Care Adjunct Sociology Professor Name Role Phone Radha Grove MD Primary Care Provider Reason for Visit * Reason Onset Date Comments Consultation 08/28/2021 for abnormal pel neftali US, acute lower abdominal pain Encounter Details Date Type Department Care Team (Late st Contact Info) Description 08/28/2021 Telephone [facility] [address] [place], [place] [id number] Beti Sesay MD [address] [address] Consultation (for abnormal pelvic US, [...] and then sent to ER. Seen at [facility] in [place]. Labs and pelvic ultrasound done. Ultrasound showed 2 m cystic area in superior portion of uterus suggestive of fibroid. Recommended MRI f/u. Pat still with pain. Labs n/a to PNP at time of phone call (CBC,CMP, amylase, lipase). Did have neg urine test. Advised we will call to schedule new patient consultation with myself or one of my [facility] colleagues next week at our [facility] office location. PNP requested we call mother directly to schedule. Confirmed mother Radha Coffman Phone numbers: [phone] [address]vised Ms. Dowling we would contact them [...] then reassess. ED Course as of 08/27/21 5259 Time: 08/27 2326 Comment: Ultrasound shows 2.8 [...] Farzana Amin MD Jill K Powell, MD [employer] documented in this encounter Plan of Treatment Not on file documented as of this encounter Visit Diagnoses Not on filedocumented in this encounter Care Teams Adjunct Sociology Professor Relationship Specialty Start Date End Date Radha Grove MD [address] [place] [address] PCP - General Pediatrics 08/28/21 documented as of this encounter
--- OUTSIDE RECORDS SUMMARY | 2024-10-06 06:10 | XMS_ITS | Encounter Summary ---
Author Organization [facility] Address [address] [place] [place] [address] Care Team Providers Care Dry Cure Worker Name Role Phone Alfredo Cardoza MD Primary Care Provider Unavail able Encounter Details Date Type Department Care Team (Latest Contact Info) Description 01/09/2014 3:30 PM CDT - 01/09/2014 3:43 PM CDT Hospital Encounter [facility] [place] [facility] Pediatrics - Urology [address] [place] [address] Jan Pena MD [address] [place] [address] Discharge Disposition: Home or Self Care Social [...] on filedocumented in this encounter Care Teams Dry Cure Worker Relationship Specialty Start Date End Date Alfredo Cardoza MD PCP - General 02/05/11 08/27/21 documented as of this encounter
--- OUTSIDE RECORDS SUMMARY | 2024-10-06 06:10 | XMS_ITS | Encounter Summary ---
Author Organization [facility] Address [address] [place] [address] Care Team Providers Care Manager Of Transportation Name Role Phone Alfredo Cardoza MD Primary Care Provider Unavail able Reason for Visit * Reason Onset Date Comments Consultation 01/07/2014 Encounter Details Date Type Department Care Team (Late st Contact Info) Description 01/07/2014 Telephone [facility] Pediatrics - Urology [address] [place] [id number] Lin Pearson I RN Consultation Social History [...] on filedocumented in this encounter Care Teams Manager Of Transportation Relationship Specialty Start Date End Date Alfredo Cardoza MD PCP - General 02/05/11 08/27/21 documented as of this encounter
--- OUTSIDE RECORDS SUMMARY | 2024-10-06 06:10 | XMS_ITS | Encounter Summary ---
Author Organization [facility] Address [address] [place] [address] Care Team Providers Care Social Sciences Department Chair Name Role Phone Alfredo Cardoza MD Primary Care Provider Unavail able Reason for Visit * Reason Comments Surgical Follow-up appendectomy Mom thi nks there is a lump at umbilicus and child compains of pain. no drainage Encounter Details Date Type Department Care Team (Late st Contact Info) Description 03/16/2011 3:50 PM CDT Hospital Encounter [facility] Pediatrics - Surgery [address] [place] [address] Alfred Minor MD No information available Discharge [...] on filedocumented in this encounter Care Teams Social Sciences Department Chair Relationship Specialty Start Date End Date Alfredo Cardoza MD PCP - General 02/05/11 08/27/21 documented as of this encounter
--- OUTSIDE RECORDS SUMMARY | 2024-10-06 06:10 | XMS_ITS | Encounter Summary ---
Author Organization [facility] Address [address] [place] [address] Care Team Providers Care Layup Worker Name Role Phone Radha Grove MD Primary Care Provider [phone] Reason for Visit * Reason Onset Date Comments Mri Triage 09/11/2021 Encounter Details Date Type Department Care Team (Late st Contact Info) Description 09/11/2021 Telephone [facility] [address] [place], [place] [id number] Beti Sesay MD [address] [address] Mri Triage Social History Tobacco [...] next period. Mother agreeable. Beti Sesay MD RITIES TRADER * Telephone Encounter - Ju Rodriguez - 09/11/2021 10:50 AM CST Pt's mother called in on her behalf wanting to speak with a nurse regarding her mri results. Pleaseadvise. CB# [phone] RITIES TRADER documented in this encounter Plan of Treatment Not on file documented as of this encounter Visit Diagnoses Not on filedocumented in this encounter Care Teams Layup Worker Relationship Specialty Start Date End Date Radha Grove MD [address] [place] [phone] PCP - General Pediatrics 08/28/21 documented as of this encounter
--- OUTSIDE RECORDS SUMMARY | 2024-10-06 06:10 | XMS_ITS | Encounter Summary ---
Author Organization [facility] Address [address] [place] [address] Care Team Providers Care Virtualization Architect Name Role Phone Alfredo Cardoza MD Primary Care Provider Unavail able Encounter Details Date Type Department Care Team (Late st Contact Info) Description 03/16/2011 3:50 PM CDT Hospital Encounter [facility] Pediatrics - Surgery [address] [place] [address] Alfred Minor MD No information available Surgery [...] on filedocumented in this encounter Care Teams Virtualization Architect Relationship Specialty Start Date End Date Alfredo Cardoza MD PCP - General 02/05/11 08/27/21 documented as of this encounter
--- OUTSIDE RECORDS SUMMARY | 2024-10-06 06:10 | XMS_ITS | Encounter Summary ---
Author Organization [facility] Address [address] [facility] [place] [address] Care Team Providers Care Director Broadcast Name Role Phone Radha Grove MD Primary Care Provider Reason for Visit * Radiology Services (Routine) - Closed Specialty Diagnoses / Procedures Referred By Contac t Referred To Contact MRI Diagnoses Uterine mass Left lower quadrant abdominal pain Left flank pain Procedures MRI PELVIS WWO CONTRAST Beti Sesay MD [address] [employer] [address] [address] [facility] [address] [place] [address] Referral ID Status Reason Start Date Expiration Date Visits Re quested Visits Authorized [id number] Closed 09/02/2021 10/31/2021 1 1 Encounter Details Date Type Department Care Team (Latest Contact Info) Description 09/09/2021 3:08 PM M[employer]ICAN FOOD MAKER HAND - 09/09/2021 11:59 PM [facility] Hospital Encounter [facility] Jose - MRI [address] [place] [address] Beti Sesay MD [address] [employer] [facility] [address] [place] [address] Discharge Disposition: Home or Self [...] PELVIS WWO CONTRAST Routine 09/09/2021 4:56 PM MEXICAN FOOD MAKER HAND Uterine mass Left lower quadrant abdominal pain Left flank pain documented in this encounter Results * MRI PELVIS WWO CONTRAST (09/09/2021 4:56 PM MEXICAN FOOD MAKER HAND) Anatomical Region Laterality Modality Pelvis Magnetic Resonan ce 09/10/2021 10:3 5 AM MEXICAN FOOD MAKER HAND Addenda Addendum by Fawn Nolan MD on 09/10/2021 11:46 AM M[employer]ICAN FOOD MAKER HAND Findings should state: VAGINAL CANAL/VULVA: No abnormal signal or enhancement. > Interpreting Provider: Fawn Nolan MD on 09/10/2021 11:43 AM Impressions 09/10/2021 11:37 AM M[employer]ICAN FOOD MAKER HAND IMPRESSION: 1. A 4.7 cm simple left ovarian cyst for which no further follow-up is required. 2. Normal adnexa and uterus. > Interpreting Provider: Fawn Nolan MD on 09/10/2021 11:37 AM Narrative 09/10/2021 11:37 AM MEXICAN FOOD MAKER HAND PROCEDURE: ??MRI PELVIS WWO CONTRAST, DATE/TIME OF EXAM: ??09/09/2021 4:58 PM, LOCATION ??[facility] INDICATION: N85.8: Other specified noninflammatory disorders of uterus; R10.32: Left lower quadrant pain; R10.9: Unspecified abdominal pain ADDITIONAL CLINICAL INFORMATION: Ordering Provider Reason For Exam: ??acute LLQ/left flank pain, ??PV US at [facility] in [place] 08/27 wtih 2.8 cm heterogeneous area in body of uterus (report in [facility]) Technologist Note: ??Left lower quadrant/left flank [...] DATE/TIME OF EXAM: 09/09/2021 4:58 PM, LOCATION [facility] INDICATION: N85.8: Other specified noninflammatory disorders of uterus; R10.32: Left lower quadrant pain; R10.9: Unspecified abdominal pain ADDITIONAL CLINICAL INFORMATION: Ordering Provider Reason For Exam: acute LLQ/left flank pain, PV US at [facility] in [place] 08/27 wtih 2.8 cm heterogeneous area in body of uterus (report in [facility]) Technologist Note: Left lower quadrant/left flank pain, outsideultrasound 08/27/2021 showed 2.8 cm heterogeneous focus in the fundus of the uterus Additional: [facility] described [...] $ Given - Contrast 09/09/2021 4:40 PM MEXICAN FOOD MAKER HAND 6 mL documented in this encounter Care Teams Director Broadcast Relationship Specialty Start Date End Date Radha Grove MD [address] [place] [address] PCP - General Pediatrics 08/28/21 documented as of this encounter
--- OUTSIDE RECORDS SUMMARY | 2024-10-06 06:10 | XMS_ITS | Patient Health Summary ---
Author Organization [facility] Address [address] [place] [address] Care Team Providers Care Indexer Name Role Phone Radha Grove MD Primary Care Provider [phone] Note from [facility],non-owned Affiliates and Associated Physician Practices is amultiple site organization consisting of ambulatory clinics and hospital sitesin [place], [place], [place] and [place]. This disclosure is being madepursuant to the Care Everywhere program and may not contain all information available regarding this patient. Last updated 18.[facility] Allergies * Amoxicillin(Other) -Medium Criticality [...] Comments Blood Pressure 122/78 09/02/2021 8:33 AM CEMENT AND CONCRETE PLANT WORKER Pulse 100 03/07/2015 3:26 PM CDT Temperature 37 ??C (98.6 ??F) 03/07/2015 3:26 PM CDT Respiratory Rate 24 03/07/2015 3:26 PM CDT Oxygen Saturation 100% 03/07/2015 3:26 PM CDT Inhaled Oxygen Concentration - - Weight 61.2 kg (135 lb) 09/02/2021 8:33 AM [employer]E PLANT WORKER Height 157.5 cm (5' 2 ) 09/02/2021 8:33 AM [employer]CR[employer]E PLANT WORKER Body Mass Index 24.69 09/02/2021 8:33 AM [employer]CRETE PLANT WORKER Procedures * MRI PELVIS WWO CONTRAST(Performed 09/09/2021) [...] MRI PELVIS WWO CONTRAST (09/09/2021 4:56 PM [employer] PL[employer] WORKER) Anatomical Region Laterality Modality Pelvis Magnetic Resonan ce 09/10/2021 10:3 5 AM [employer]CR[employer]E PLANT WORKER Addenda Addendum by Fawn Nolan MD on 09/10/2021 11:46 AM [employer]CR[employer]E PLANT WORKER Findings should state: VAGINAL CANAL/VULVA: No abnormal signal or enhancement. > Interpreting Provider: Fawn Nolan MD on 09/10/2021 11:43 AM Impressions 09/10/2021 11:37 AM [employer]CRETE PLANT WORKER IMPRESSION: 1. A 4.7 cm simple left ovarian cyst for which no further follow-up is required. 2. Normal adnexa and uterus. > Interpreting Provider: Fawn Nolan MD on 09/10/2021 11:37 AM Narrative 09/10/2021 11:37 AM [employer]CR[employer]E PLANT WORKER PROCEDURE: ??MRI PELVIS WWO CONTRAST, DATE/TIME OF EXAM: ??09/09/2021 4:58 PM, LOCATION ??[facility] INDICATION: N85.8: Other specified noninflammatory disorders of uterus; R10.32: Left lower quadrant pain; R10.9: Unspecified abdominal pain ADDITIONAL CLINICAL INFORMATION: Ordering Provider Reason For Exam: ??acute LLQ/left flank pain, ??PV US at [facility] in [place] 08/27 wtih 2.8 cm heterogeneous area in body of uterus (report in [facility]) Technologist Note: ??Left lower quadrant/left flank pain, [...] DATE/TIME OF EXAM: 09/09/2021 4:58 PM, LOCATION [facility] INDICATION: N85.8: Other specified noninflammatory disorders of uterus; R10.32: Left lower quadrant pain; R10.9: Unspecified abdominal pain ADDITIONAL CLINICAL INFORMATION: Ordering Provider Reason For Exam: acute LLQ/left flank pain, PV US at [facility] in [place] 08/27 wtih 2.8 cm heterogeneous area in body of uterus (report in [facility]) Technologist Note: Left lower quadrant/left flank pain, [...] CULTURE URINE REFLEXED III (09/02/2021 11:57 AM [employer]E PLANT WORKER) Reflexive Urine Culture See Below [facility] Comment: NO CULTURE INDICATED Test Performed at: [facility] ??[id number] SHAKA HAY MD 09/02/2021 11:5 7 AM [employer]ETE PLANT WORKER 09/03/2021 2:53 AM [employer] AND CONCRETE PLANT WORKER Beti Sesay MD LAB - MICROBIOLOGY O RDERABLES [address] [address] * URINALYSIS W/MICROSCOPIC REFLEX TO CULTURE (09/02/2021 11:57 AM [employer]CR[employer]E PLANT WORKER) Color UA YELLOW YELLOW [facility] Appearance CLEAR CLEAR [facility] Specific [place] UA 1.024 1.001 - 1.035 [facility] pH [...] SEEN /LPF [facility] Comment: Test Performed at: [facility] ??[id number] SHAKA HAY MD Urine URINE SPECIMEN OBTAINED BY CLEAN CATCH PROCEDURE / Unknown 09/02/2021 11:57 AM [employer]E PLANT WORKER 09/03/2021 2:53 AM [employer] AND CONCRETE PLANT WORKER Beti Sesay MD LAB - URINALYSIS ORD ERABLES [facility] [place] [address] [place] [address] * CULTURE URINE (08/13/2015 5:52 PM [employer]CRETE PLANT WORKER) Only the most recent of4 resultswithin the time period is included. Culture <10,000 CFU/mL normal urogenital sarah HE 08/15/2015 7:51 AM CEMENT AND CONCRETE PLANT WORKER [facility] MICROBIOLOGY Urine URINE SPECIMEN OBTAINED BY CLEAN CATCH PROCEDURE / Unknown 08/13/2015 5:52 PM [employer] CONCRETE PLANT WORKER 08/13/2015 4:43 PM [employer]E PLANT WORKER Henrietta Lal APRN-SPACE AND STORAGE CLERK LAB - MICROBIO LOGY ORDERABLES Performing Organization Address City/[facility]/ZIP Co de Phone Number [facility] MICROBIOLOGY [address] [phone] * (ABNORMAL) URINALYSIS ROUTINE AUTO (08/13/2015 4:43 PM [employer]CR[employer]E PLANT WORKER) Only the most recent of4 resultswithin the time period is included. Color UA Yellow Straw, Yellow, Dark Yellow 08/13/2015 5:10 PM [facility] Clarity UA Clear 08/13/2015 5:10 PM [facility] Specific [place] UA <=1.005 1.005 - 1.030 08/13/2015 5:10 PM [facility] pH UA 7.0 5.0 - 8.0 pH 08/13/2015 5:10 PM [facility] Protein UA Negative Negative 08/13/2015 5:10 PM [facility] Blood UA Negative Negative 08/13/2015 5:10 PM [facility] Leukocyte UA Trace(A) Negative 08/13/2015 5:10 PM [facility] Nitrite UA Negative Negative 08/13/2015 5:10 PM [facility] Glucose UA Negative Negative 08/13/2015 5:10 PM [facility] Ketone UA Negative Negative 08/13/2015 5:10 PM [facility] Bilirubin UA Negative Negative 08/13/2015 5:10 PM [facility] Urobilinogen UA 0.2 0.1 - 1.0 EU/dL 08/13/2015 5:10 PM CEMENT [employer] CONCRETE PLANT WORKER [facility] Urine URINE SPECIMEN OBTAINED BY CLEAN CATCH PROCEDURE / Unknown 08/13/2015 4:43 PM [employer] CONCRETE PLANT WORKER 08/13/2015 4:43 PM [employer]E PLANT WORKER Henrietta Lal VP GENETIC-SPACE AND STORAGE CLERK LAB - URINALYS IS ORDERABLES Performing Organization Address [facility] Co de Phone Number [facility] [address] [place] [address] * (ABNORMAL) URINALYSIS MICROSCOPIC ONLY (08/13/2015 4:43 PM [employer] CONCRETE PLANT WORKER) Only the most recent of4 resultswithin the time period is included. RBC UA 0-2 0-2, 2-5 # /hpf 08/13/2015 5:10 PM C[employer] CONCRETE PLANT WORKER [facility] WBC UA 2-5 0-2, 2-5 # /hpf 08/13/2015 5:10 PM [facility] Bacteria UA Trace None Seen, Trace 08/13/2015 5:10 PM [facility] Epithelial Cell UA 5-10(A) 0-2, 2-5 08/13/2015 5:10 PM [facility] Urine URINE SPECIMEN OBTAINED BY CLEAN CATCH PROCEDURE / Unknown 08/13/2015 4:43 PM C[employer] AND CONCRETE PLANT WORKER 08/13/2015 4:43 PM C[employer] CONCRETE PLANT WORKER Henrietta Lal VP GENETIC-SPACE AND STORAGE CLERK LAB - URINALYS IS ORDERABLES Performing Organization Address [facility] de Phone Number [facility] [address] [place] [address] * XR KNEE 1 OR 2 VW [...] Urine 3.36 mg/dL 03/06/2014 5:41 PM CDT [facility] Creatinine Urine 79.20 mg/dL 03/06/2014 5:41 PM CDT [facility] Calcium/Creatin ine Ratio Urine 0.04 03/06/2014 5:41 PM CDT [facility] Urine URINE SPECIMEN OBTAINED BY CLEAN CATCH PROCEDURE / Unknown 03/06/2014 4:49 PM CDT 03/06/2014 4:56 PM CDT Narrative [facility] - 03/06/2014 5:41 PM CDT Normal ? <0.16 Borderline ??0.16-0.20 Abnormal ?? >0.20 Gayatri Yepez [facility] LAB - URINE CHEM ISTRY ORDERABLES [facility] [address] [place] [address] * LAB RESULTS ORDER (02/07/2014 10:12 AM [...] I agree with this report. Gayatri [facility]pez [facility] US ORDERABLES * XR ABDOMEN 1 [...] bases are clear. IMPRESSION Normal Gayatri [facility]pez [facility] DIAGNOSTIC IMAGI NG ORDERABLES * XR [...] I agree with this report. Tameka Collazo APRN-SPACE AND STORAGE CLERK DIAGNOSTIC IMAG ING ORDERABLES * PATHOLOGY/CYTOLOGY REPORT ORDER (02/09/2011 9:05 AM CDT) Narrative Procedure Note Document, Scanned - 02/09/2011 9:05 AM CDT Scanned Document LAB - PATHOLOGY/CYTO LOGY ORDERABLES * (ABNORMAL) CBC W AUTO DIFFERENTIAL (02/07/2011 11:51 AM CDT) WBC 5.92 5.0 - 14.5 K/cumm [facility] RBC 3.73(L) 3.90 - 5.30 mill/cumm [facility] Hemoglobin 10.6(L) 11.5 - 13.5 gm/dl [facility] Hematocrit 30.8(L) 34.0 - 40.0 % [facility] MCV 82.6 75.0 - 87.0 cu microns [facility] MCH 28.4 24.0 - 30.0 uug [facility] MCHC 34.4 31.0 - 37.0 % [facility] RDW 12.5 % [facility] MPV 9.1 fl [facility] Platelet Count 310 100 - 400 K/cumm [facility] Granulocytes % 56.3 20 - 70 % [facility] Lymphocytes % 33.1 16 - 70 % [facility] Monocytes % 7.4 3 - 13 % [facility] Eosinophils % 2.4 0 - 7 % [facility] Basophils % 0.8 0 - 1 % [facility] Comment Manual Diff Automated Diff Performed [facility] BLOOD SPECIMEN / Unknown 02/07/2011 11:51 AM CDT 02/07/2011 12:06 PM CDT Alexi Saxena MD LAB - HEMATOLOGY O RDERABLES [facility] [address] [facility] [address] * GROSS + MICRO EXAM (02/05/2011 9:20 PM CDT) [facility] Clinical History [facility] Comment: The patient is a 5-year-old girl with appendicitis who underwent laparoscopic appendectomy. Gross Description [facility] Comment: Submitted fresh in one [...] diameter. ??The specimen is serially sectioned, and malt liquors sales representative sections are submitted in cassette A1 . ?? (CT/lw) Microscopic Examination [facility] Comment: 1 H+E Sections of the appendix show intraluminal pus, a transmural neutrophilic infiltrate with focal necrosis, and a serosal surface with a fibrinopurulent exudate. ??(SS/lw) Diagnosis [facility] Comment: DIAGNOSIS: ??VERMIFORM APPENDIX, APPENDECTOMY: ?-ACUTE APPENDICITIS. This case has been personally reviewed and interpreted by the attending (teaching) pathologist. Coal Unloader Zbigniew Parker, [facility] Resident in Pathology Daylin Miner M.D. [facility] Pathologist Dc Rodríguez M.D. [facility] Electronically Signed By Dc Rodríguez M.D. [facility] ENTIRE APPENDIX / Unknown 02/05/2011 9:20 PM CDT 02/08/2011 8:18 AM CDT Alexi Saxena MD LAB - PATHOLOGY/CY DIETER ORDERABLES [facility] [address] [place] [address] * CT ABDOMEN AND PELVIS WITH IV [...] with appendicitis as described above. Michelle Vera XanderGoldieFowler CT ORDERABLES * US ABD FOR APPENDICITIS [...] abdomen. Alexi Saxena MD ORDERABLES Care Teams Indexer Relationship Specialty Start Date End Date Radha Grove MD [address] [place] [address] PCP - General Pediatrics 08/28/21
--- OUTSIDE RECORDS SUMMARY | 2024-10-06 06:10 | XMS_ITS | Encounter Summary ---
Author Organization [facility] Address [address] [place] [address] Care Team Providers Care Care Manager Name Role Phone Alfredo Cardoza MD [...] 2:56 PM CDT Hospital Encounter CG [address] [address] Alexi Saxena MD [address] [place] [phone] Maynor Parks MD [address] [place] [address] Surgery General Discharge Disposition: Home or Self [...] for this basename: SODIUM:3,POTASSIUM:3,CHLORIDE:3,CO2:3,BUN:3,CREATININE:3,GLUCOSE:3,CALCIUM:3 in the last 62949 hours Consultations: None Diagnostic studies: radiology: CT [...] or edema Mary Coffman Home Medication Instructions JOSIE:[facility]_[id number] Printed on:02/07/11 1232 Medication Information montelukast (SINGULAIR) [...] Parks MD during the Surgery clinic. Call [phone] for appointment time. Return to ER or call [phone] and page pediatric surgery resident if develop [...] CDT No significant events noted during shift [id number]. * Maynor Parks MD - 02/06/2011 7:53 [...] mL 20 mL/kg Intravenous Once Ani G Silvester, DO Last Dose: 340 mL at 02/05/11 [...] for this basename: WBC,HGB,HCT,PLTCOUNT in the last 29453 hoursNo results found for this basename: SODIUM,POTASSIUM,CLORIDE,CO2,BUN,CREATININE,GLUCOSE in the last 72138 hoursNo r esults found for this basename: PT,INR,PTT in the last 99714 hours Test:No results found for this basename: HCGURINE,HCGQUAL in the last 77607 hours VITAL SIGNS Temp: 98.6 ??F Pulse: [...] Illness 5 yr old female presents to [facility] ER with c/o abdominal pain. Patient's mother [...] which received Ibuprofen. Child was taken to [facility] in [place] where workup revealed a WBC count of 14.8 and a KUB which showed some stool in her rectum - she received some laxatives for this. She was transferred to [facility] ER for further evaluation and treatment of [...] performed: Laparoscopic appendectomy Surgeon: Maynor Parks MD Diploma Medical Assistant: Black Uribe MD Anesthesia: General endotracheal anesthesia [...] fashion. IV antibiotics were given and a Johnston catheter was placed. We made a 10 [...] PM CDT 02/05/2011 5:06 PM [id number] [facility] EMERGENCY DEPT History Chief Complaint [...] PM CDT 02/05/2011 4:55 PM [id number] [facility] EMERGENCY DEPT History Chief Complaint [...] amount stool in rectal vault. Went to [facility] in [place].Found that WBC was 14.8. Given 1mg morphine from outside facility and Zofran. No congestion, runny nose. Has a small cough, but nothing out of ordinary for her as she is a known asthmatic. Transferred to [facility] for r/o appy. Otherwise other med hx [...] CDT) WBC 5.92 5.0 - 14.5 K/cumm [facility] RBC 3.73(L) 3.90 - 5.30 mill/cumm [facility] Hemoglobin 10.6(L) 11.5 - 13.5 gm/dl [facility] Hematocrit 30.8(L) 34.0 - 40.0 % [facility] MCV 82.6 75.0 - 87.0 cu microns [facility] MCH 28.4 24.0 - 30.0 uug [facility] MCHC 34.4 31.0 - 37.0 % [facility] RDW 12.5 % [facility] MPV 9.1 fl [facility] Platelet Count 310 100 - 400 K/cumm [facility] Granulocytes % 56.3 20 - 70 % [facility] Lymphocytes % 33.1 16 - 70 % [facility] Monocytes % 7.4 3 - 13 % [facility] Eosinophils % 2.4 0 - 7 % [facility] Basophils % 0.8 0 - 1 % [facility] Comment Manual Diff Automated Diff Performed [facility] BLOOD SPECIMEN / Unknown 02/07/2011 11:51 AM CDT 02/07/2011 12:06 PM CDT Alexi Saxena MD LAB - HEMATOLOGY O RDERABLES [facility] [address] [facility] [place] [address] * GROSS + MICRO EXAM (02/05/2011 9:20 PM CDT) [facility] Clinical History [facility] Comment: The patient is a 5-year-old girl with appendicitis who underwent laparoscopic appendectomy. Gross Description [facility] Comment: Submitted fresh in one [...] diameter. ??The specimen is serially sectioned, and procurement representative sections are submitted in cassette A1 . ?? (CT/lw) Microscopic Examination [facility] Comment: 1 H+E Sections of the appendix show intraluminal pus, a transmural neutrophilic infiltrate with focal necrosis, and a serosal surface with a fibrinopurulent exudate. ??(SS/lw) Diagnosis [facility] Comment: DIAGNOSIS: ??VERMIFORM APPENDIX, APPENDECTOMY: ?-ACUTE APPENDICITIS. This case has been personally reviewed and interpreted by the attending (teaching) pathologist. Gallery Or Museum Curator Zbigniew Parker, [facility] Resident in Pathology Daylin Miner M.D. [facility] Pathologist Dc Rodríguez M.D. [facility] Electronically Signed By Dc Rodríguez M.D. [facility] ENTIRE APPENDIX / Unknown 02/05/2011 9:20 PM CDT 02/08/2011 8:18 AM CDT Alexi Saxena MD LAB - PATHOLOGY/CY TOLOGY ORDERABLES [facility] [address] [facility] [place] [address] * CT ABDOMEN AND PELVIS WITH IV [...] TIANA)2024 ($ Given - Provider: Rika Bowman [place])2054 (Rx Stopped - Provider: Rika Bowman [place]) 0232 ($ Given - Provider: Rika Bowman [place])0306 (Rx Stopped - Provider: Rika Arcos)0803 ($ [...] RN) documented in this encounter Care Teams Care Manager Relationship Specialty Start Date End Date Alfredo Cardoza MD PCP - General 02/05/11 08/27/21 documented as of this encounter
--- OUTSIDE RECORDS SUMMARY | 2024-10-06 06:10 | XMS_ITS | Encounter Summary ---
Author Organization [facility] Address [address] [place] [address] Care Team Providers Care Charter Coordinator Name Role Phone Alfredo Cardoza MD Primary [...] 06/12/2013 10:15 PM CDT Emergency ER at [address] [address] Tameka Collazo, OPERATIONAL INTELLIGENCE OFFICER-SENIOR ENERGY ANALYST [address] [place] [address] Jaw pain (Primary Dx); Contusion of [...] ?? Avoid: All gas-forming vegetables (corn, radishes, [place] sprouts, onions, broccoli, cabbage, parsnips, turnips, chili [...] horseradish, and pepper. SAMPLE MENU Breakfast ?? [place] juice. ?? Oatmeal. ?? Soft cooked egg. ?? [place] and margarine. ?? 2% milk. ?? Coffee. [...] Document Reviewed: 12/19/2008 ExitCare?? Patient Information ??2013 [employer]. * Discharge Instructions* Document, Scanned - 06/13/2013 [...] hours a day, from any computer, through [employer], the online version of our electronic medical record. If you would like to use this service, please call Shiloh Tamez, Connectivity Coordinator, at . We appreciate the opportunity to care for your patients. If you would like additional information, please call the emergency department directly at . Sincerely, RADHA Parkinson Division of Emergency Medicine [facility], [place] [facility] [place] FIRST TRAUMA I DESIGNATED EMERGENCY DEPARTMENT Provider contact with the patient: 06/12/2013 19:45 Mary Coffman [id number] [facility] EMERGENCY DEPARTMENT History Chief Complaint [...] I agree with this report. Tameka Collazo OPERATIONAL INTELLIGENCE OFFICER-SENIOR ENERGY ANALYST DIAGNOSTIC IMAG ING ORDERABLES documented in this [...] Luo) documented in this encounter Care Teams Charter Coordinator Relationship Specialty Start Date End Date Alfredo Cardoza MD PCP - General 02/05/11 08/27/21 documented as of this encounter
--- OUTSIDE RECORDS SUMMARY | 2024-10-06 06:10 | XMS_ITS | Encounter Summary ---
Author Organization [facility] Address [address] [place] [address] Care Team Providers Care Boot Turner Name Role Phone Alfredo Cardoza MD Primary Care Provider Unavail able Reason for Visit * Reason Comments Surgical Follow-up appy 02/05 then dejan garcia infection Encounter Details Date Type Department Care Team (Latest Contact Info) Description 03/25/2011 8:59 AM CDT - 03/25/2011 11:59 PM CDT Hospital Encounter [facility] Pediatrics - Surgery [address] [place] [address] Discharge Disposition: Home or Self Care Social [...] on filedocumented in this encounter Care Teams Boot Turner Relationship Specialty Start Date End Date Alfredo Cardoza MD PCP - General 02/05/11 08/27/21 documented as of this encounter
--- OUTSIDE RECORDS SUMMARY | 2024-10-06 06:10 | XMS_ITS | Encounter Summary ---
Author Organization [facility] Address [address] [place] [address]. [place], [place] [address] [place] [address] Care Team Providers Care Meal Attendant Name Role Phone Bg Gordon MD Primary Care Provider Unavailable Encounter Details Date Type Department Care Team (Late st Contact Info) Description 04/04/2016 Abstract [facility] [address] [place], [place] [id number] Shaniqua Banks, PEN TENDER [address] [facility] [address] [place], [place] [id number] Social History Tobacco Use Types Packs/Day Years [...] unspecified documented in this encounter Care Teams Meal Attendant Relationship Specialty Start Date End Date Bg Gordon MD PCP - General 04/04/16 documented as of this encounter
--- OUTSIDE RECORDS SUMMARY | 2024-10-06 06:10 | XMS_ITS | Encounter Summary ---
Author Organization [facility] Address [address] [place] [address] Care Team Providers Care Electroplating Technician Name Role Phone Alfredo Cardoza MD Primary Care Provider Unavail able Reason for Referral * Radiology Services - Closed Specialty Diagnoses / Procedures Referred By Rowena garcia Referred To Contact Diagnoses Dysuria Procedures US KIDNEY AND BLADDER Gayatri Yepez APRN-CNP [address] [place] [phone] Referral ID Status Reason Start Date Expiration Date Visits Re quested Visits Authorized [id number] Closed 01/04/2014 07/03/2014 1 1 Reason for Visit * Reason Onset Date Comments Consultation 01/04/2014 Encounter Details Date Type Department Care Team (Late st Contact Info) Description 01/04/2014 Telephone [facility] Pediatrics - Urology [address] [place] [phone] Lin Pearson I RN Consultation Social [...] I agree with this report. Gayatri Yepez APRN-HAT STEAMER US ORDERABLES * XR ABDOMEN 1 VW [...] bases are clear. IMPRESSION Normal Gayatri Yepez APRN-HAT STEAMER DIAGNOSTIC IMAGI NG ORDERABLES documented in this encounter Visit Diagnoses Diagnosis Dysuria- Primary Dysuria Dysuria documented in this encounter Care Teams Electroplating Technician Relationship Specialty Start Date End Date Alfredo Cardoza MD PCP - General 02/05/11 08/27/21 documented as of this encounter
--- OUTSIDE RECORDS SUMMARY | 2024-10-06 06:10 | XMS_ITS | Encounter Summary ---
Author Organization [facility] Address [address] [facility] [place] [address] Care Team Providers Care Weatherization Field Technician Name Role Phone Alfredo Cardoza MD Primary Care Provider Unavail able Reason for Visit * Reason Comments Follow-up appendectomy Encounter Details Date Type Department Care Team (Latest Contact Info) Description 02/18/2011 10:15 AM CDT - 02/18/2011 11:59 PM T Hospital Encounter [facility] Pediatrics - Surgery [address] [place] [address] Maynor Parks MD [address] [place] [address] Discharge Disposition: Home or Self Care Social [...] on filedocumented in this encounter Care Teams Weatherization Field Technician Relationship Specialty Start Date End Date Alfredo Cardoza MD PCP - General 02/05/11 08/27/21 documented as of this encounter
--- OUTSIDE RECORDS SUMMARY | 2024-10-06 06:10 | XMS_ITS | Encounter Summary ---
Author Organization [facility] Address [address] [place] [address] Care Team Providers Care Creel Cleaner Name Role Phone Alfredo Cardoza MD Primary Care Provider Unavail able Encounter Details Date Type Department Care Team (Latest Contact Info) Description 01/09/2014 2:31 PM CDT - 01/09/2014 3:29 PM CDT Hospital Encounter [facility] Pediatrics - Radiology [address] [place] [address] Discharge Disposition: Home or Self Care Social [...] lung bases are clear. IMPRESSION Normal Gayatri Yepze APRN-NEUROPSYCHOLOGY MEDICAL CONSULTANT DIAGNOSTIC IMAGI NG ORDERABLES documented in this encounter Visit Diagnoses Diagnosis Dysuria documented in this encounter Care Teams Creel Cleaner Relationship Specialty Start Date End Date Alfredo Cardoza MD PCP - General 02/05/11 08/27/21 documented as of this encounter
--- OUTSIDE RECORDS SUMMARY | 2024-10-06 06:10 | XMS_ITS | Encounter Summary ---
Author Organization [facility] Address [address] [facility] [place] [address] Care Team Providers Care Abstracter Name Role Phone Alfredo Cardoza MD Primary Care Provider Unavail able Encounter Details Date Type Department Care Team (Latest Contact Info) Description 02/18/2011 10:14 AM CDT Hospital Encounter [facility] Pediatrics - Surgery [address] [place] [address] Maynor Parks MD [facility] [place] [address] Surgery General Discharge Disposition: Home or Self [...] peritonitis documented in this encounter Care Teams Abstracter Relationship Specialty Start Date End Date Alfredo Cardoza MD PCP - General 02/05/11 08/27/21 documented as of this encounter
--- OUTSIDE RECORDS SUMMARY | 2024-10-06 06:10 | XMS_ITS | Clinical Summary ---
Author Organization [facility] Address [address] [place] [address] Care Team Providers Care Gate Watch Name Role Phone Radha Grove MD Primary Care Provider [phone] Source Comments [facility],non-owned Affiliates and Associated Physician Practices is amultiple site organization consisting of ambulatory clinics and hospital sitesin [place], [place], [place] and [place]. This disclosure is being madepursuant to the Care Everywhere program and may not contain all information available regarding this patient. Last updated 18.[facility] Allergies Active Allergy Reactions Criticality Noted Date [...] Comments Blood Pressure 122/78 09/02/2021 8:33 AM SCLEROSCOPE TESTER Pulse 100 03/07/2015 3:26 PM CDT Temperature 37 ??C (98.6 ??F) 03/07/2015 3:26 PM CDT Respiratory Rate 24 03/07/2015 3:26 PM CDT Oxygen Saturation 100% 03/07/2015 3:26 PM CDT Inhaled Oxygen Concentration - - Weight 61.2 kg (135 lb) 09/02/2021 8:33 AM SCLEROSCOPE TESTER Height 157.5 cm (5' 2 ) 09/02/2021 8:33 AM SCLEROSCOPE TESTER Body Mass Index 24.69 09/02/2021 8:33 AM SCLEROSCOPE TESTER Plan of Treatment Health Maintenance Due Date [...] age to complete this topic Care Teams Gate Watch Relationship Specialty Start Date End Date Radha Grove MD [address] [place] [address] PCP - General Pediatrics 08/28/21
--- OUTSIDE RECORDS SUMMARY | 2024-10-06 06:10 | XMS_ITS | Referral Summary ---
Author Organization [facility] Address [address] [place] [address] Care Team Providers Care Credit Control Assistant Name Role Phone Radha Grove MD Primary Care Provider [phone] Source Comments [facility],non-owned Affiliates and Associated Physician Practices is amultiple site organization consisting of ambulatory clinics and hospital sitesin [place], [place], [place] and [place]. This disclosure is being madepursuant to the Care Everywhere program and may not contain all information available regarding this patient. Last updated 18.[facility] Allergies Active Allergy Reactions Criticality Noted Date [...] Comments Blood Pressure 122/78 09/02/2021 8:33 AM PROJECT CONTROL OFFICER Pulse 100 03/07/2015 3:26 PM CDT Temperature 37 ??C (98.6 ??F) 03/07/2015 3:26 PM CDT Respiratory Rate 24 03/07/2015 3:26 PM CDT Oxygen Saturation 100% 03/07/2015 3:26 PM CDT Inhaled Oxygen Concentration - - Weight 61.2 kg (135 lb) 09/02/2021 8:33 AM PROJECT CONTROL OFFICER Height 157.5 cm (5' 2 ) 09/02/2021 8:33 AM PROJECT CONTROL OFFICER Body Mass Index 24.69 09/02/2021 8:33 AM PROJECT CONTROL OFFICER Plan of Treatment Not on file Care Teams Credit Control Assistant Relationship Specialty Start Date End Date Radha Grove MD [address] [place] [address] PCP - General Pediatrics 08/28/21
--- OUTSIDE RECORDS SUMMARY | 2024-10-06 06:10 | XMS_ITS | Encounter Summary ---
Author Organization [facility] Address [address] [facility] [place] [address] Care Team Providers Care Right Of Way Clearer Name Role Phone Alfredo Cardoza MD Primary Care Provider Unavail able Reason for Referral * Radiology Services - Closed Specialty Diagnoses / Procedures Referred By Rowena garcia Referred To Contact Diagnoses Dysuria Procedures KIDNEY AND BLADDER Gayatri Yepez APRN-CNP [address] [place] [phone] Referral ID Status Reason Start Date Expiration Date Visits Re quested Visits Authorized [id number] Closed 01/04/2014 07/03/2014 1 1 Reason for Visit * Radiology Services - Closed Specialty Diagnoses / Procedures Referred By Rowena garcia Referred To Contact Diagnoses Dysuria Procedures KIDNEY AND BLADDER Gayatri Yepez APRN-CNP [address] [place] [phone] Referral ID Status Reason Start Date Expiration Date Visits Re quested Visits Authorized [id number] Closed 01/04/2014 07/03/2014 1 1 Encounter Details Date Type Department Care Team (Latest Contact Info) Description 01/09/2014 2:31 PM CDT - 01/09/2014 3:29 PM CDT Hospital Encounter [facility] Jose - Ultrasound [address] [place] [address] Lucho Gayatri, DICKSON-SIGNALING DESIGN ENGINEER [address] [place] [address] Discharge Disposition: Home or Self Care Social [...] I agree with this report. Gayatri Yepez WADER BOOT TOP ASSEMBLER-SIGNALING DESIGN ENGINEER US ORDERABLES documented in this encounter Visit Diagnoses Diagnosis Dysuria documented in this encounter Care Teams Right Of Way Clearer Relationship Specialty Start Date End Date Alfredo Cardoza MD PCP - General 02/05/11 08/27/21 documented as of this encounter
--- OUTSIDE RECORDS SUMMARY | 2024-10-06 06:10 | XMS_ITS | Clinical Summary ---
Author Organization [facility] Address [address] [place] [address]. [place] [address] Care Team Providers Care Furniture Delivery Driver Name Role Phone Unavailable Primary Care Provider [...]
--- OUTSIDE RECORDS SUMMARY | 2024-10-06 06:10 | XMS_ITS | Encounter Summary ---
Author Organization [facility] Address [address] [facility] [place] [address] Care Team Providers Care Yarrow Gatherer Name Role Phone Alfredo Cardoza MD Primary Care Provider Unavail able Reason for Visit * Reason Onset Date Comments Follow-up 03/08/2014 Encounter Details Date Type Department Care Team (Late st Contact Info) Description 03/08/2014 Telephone [facility] Pediatrics - Urology [address] [place] [address] Gayatri Yepez APRN-CNP [address] [place] [address] Follow-up Social History Tobacco Use Types Packs/Day [...] mother/ Dr. Pena reviewed records and tests [id number]. He agrees with the plan of care [...] on filedocumented in this encounter Care Teams Yarrow Gatherer Relationship Specialty Start Date End Date Alfredo Cardoza MD PCP - General 02/05/11 08/27/21 documented as of this encounter
--- OUTSIDE RECORDS SUMMARY | 2024-10-06 06:10 | XMS_ITS | Encounter Summary ---
Author Organization [facility] Address [address] [facility] [place] [address] Care Team Providers Care Bullet Casting Operator Name Role Phone Alfredo Cardoza MD [...] 03/07/2015 5:07 PM CDT Emergency ER at [address] [address] Knee pain, acute, right; Overuse injury Discharge [...] Document Reviewed: 12/09/2009 ExitCare?? Patient Information ??2014 [employer] documented in this encounter Medications at Time [...] PM CDT Pt transported to and from [facility] with fastener technologist. * Nadine Martinez APRN-LADI - 03/07/2015 3:33 [...] hours a day, from any computer, through [employer], the online version of our electronic medical record. If you would like to use this service, please call Shiloh Tamez, Connectivity Coordinator, at . We appreciate the opportunity to care for your patients. If you would like additional information, please call the emergency department directly at . Sincerely, Nadine Martinez APRN-LADI Division of Emergency Medicine [place], [place] [facility] EMERGENCY DEPARTMENT AND TRAUMA CENTER [place]AND[place] [facility]EV[place] I PEDIATRIC TRAUMA CENTER Provider contact with the patient: 03/07/2015 15:33 Mary Coffman [id number] [facility] EMERGENCY [facility]PARTMENT History Chief Complaint Patient [...] fever. Denies injury. Child has been attending [employer] camp for 5 days which involves Aurea, [...] the anterior tibial tubercle which may represent [place]-Schlatter's disease. No fracture or dislocation. Narrative 03/07/2015 [...] the anterior tibial tubercle which may represent Chesterfield-Schlatter's disease. No fracture or dislocation. Nadine Martinez PREPARATION OPERATOR-THIOKOL OPERATOR DIAGNOSTIC SALIMA GING ORDERABLES documented in this encounter Visit [...] RN) documented in this encounter Care Teams Bullet Casting Operator Relationship Specialty Start Date End Date Alfredo Cardoza MD PCP - General 02/05/11 08/27/21 documented as of this encounter
--- OUTSIDE RECORDS SUMMARY | 2024-10-06 06:10 | XMS_ITS | Encounter Summary ---
Author Organization [facility] Address [address] [facility] [place] [address] Care Team Providers Care Bird Trapper Name Role Phone Radha Grove MD Primary Care Provider [phone] Reason for Referral * Radiology Services (Routine) - Closed Specialty Diagnoses / Procedures Referred By Contdidi t Referred To Contact MRI Diagnoses Uterine mass Left lower quadrant abdominal pain Left flank pain Procedures MRI PELVIS WWO CONTRAST Beti Sesay MD [address] [address] [place] [address] Referral ID Status Reason Start Date Expiration Date Visits Re quested Visits Authorized [id number] Closed 09/02/2021 10/31/2021 1 1 GUARD INSPECTOR Reason for Visit * Reason Comments Pain Abdominal left side Encounter Details Date Type Department Care Team (Late st Contact Info) Description 09/02/2021 8:30 AM ICE GUARD INSPECTOR Office Visit [facility] [address] [place] [address] Beti Sesay MD [address] [address] Uterine mass (Primary Dx); Left [...] Comments Blood Pressure 122/78 09/02/2021 8:33 AM ICE GUARD INSPECTOR Pulse - - Temperature - - Respiratory Rate - - Oxygen Saturation - - Inhaled Oxygen Concentration - - Weight 61.2 kg (135 lb) 09/02/2021 8:33 AM ICE GUARD INSPECTOR Height 157.5 cm (5' 2 ) 09/02/2021 8:33 AM ICE GUARD INSPECTOR Body Mass Index 24.69 09/02/2021 8:33 AM ICE GUARD INSPECTOR Body Mass Index Percentile 82.52% 09/02/2021 8:3 3 AM ICE GUARD INSPECTOR [place] Chart: [facility] [place], 2- 20 Years[place] documented in this encounter Patient Instructions * Patient Instructions* Beti Sesay MD - 09/02/2021 9:19 AM ICE GUARD INSPECTOR Trial of lidocaine patches as directed on [...] the scheduling for it by Friday 09/07. GUARD INSPECTOR documented in this encounter Progress Notes * Beti Sesay MD - 09/13/2021 11:51 PM CST 16 year old 1 month old here for f/u abnormal ultrasound ?2.8 cm homogeneous echogenic area at fundus of uterus 08/27/21 [facility] pelvic US. Reviewed report in CareEverywhere [...] acute LLQ/left flank pain, PV US at [facility] in [place] 08/27 wtih 2.8 cm heterogeneous area in [...] it by Friday 09/07. Beti Sesay MD GUARD INSPECTOR documented in this encounter Plan of Treatment Not on file documented as of this encounter Procedures Procedure Name Priority Date/Time Associated Diagnosis Comments CULTURE URINE REFLEXED III 09/02/2021 11:57 AM ICE GUARD INSPECTOR Left lower quadrant abdominal pain Left flank pain URINALYSIS W/MICROSCOPIC REFLEX TO CULTURE Routine 09/02/2021 11:57 AM ICE GUARD INSPECTOR Left lower quadrant abdominal pain Left flank pain documented in this encounter Results * MRI PELVIS WWO CONTRAST (09/09/2021 4:56 PM ICE GUARD INSPECTOR) Anatomical Region Laterality Modality Pelvis Magnetic Resonan ce 09/10/2021 10:3 5 AM ICE GUARD INSPECTOR Addenda Addendum by Fawn Nolan MD on 09/10/2021 11:46 AM ICE GUARD INSPECTOR Findings should state: VAGINAL CANAL/VULVA: No abnormal signal or enhancement. > Interpreting Provider: Fawn Nolan MD on 09/10/2021 11:43 AM Impressions 09/10/2021 11:37 AM ICE GUARD INSPECTOR IMPRESSION: 1. A 4.7 cm simple left ovarian cyst for which no further follow-up is required. 2. Normal adnexa and uterus. > Interpreting Provider: Fawn Nolan MD on 09/10/2021 11:37 AM Narrative 09/10/2021 11:37 AM ICE GUARD INSPECTOR PROCEDURE: ??MRI PELVIS WWO CONTRAST, DATE/TIME OF EXAM: ??09/09/2021 4:58 PM, LOCATION ??[facility] INDICATION: N85.8: Other specified noninflammatory disorders of uterus; R10.32: Left lower quadrant pain; R10.9: Unspecified abdominal pain ADDITIONAL CLINICAL INFORMATION: Ordering Provider Reason For Exam: ??acute LLQ/left flank pain, ??PV US at [facility] in [place] 08/27 wtih 2.8 cm heterogeneous area in body of uterus [facility] Technologist Note: ??Left lower quadrant/left flank pain, [...] DATE/TIME OF EXAM: 09/09/2021 4:58 PM, LOCATION [facility] INDICATION: N85.8: Other specified noninflammatory disorders of uterus; R10.32: Left lower quadrant pain; R10.9: Unspecified abdominal pain ADDITIONAL CLINICAL INFORMATION: Ordering Provider Reason For Exam: acute LLQ/left flank pain, PV US at [facility] in [place] 08/27 wtih 2.8 cm heterogeneous area in body of uterus ([facility] Technologist Note: Left lower quadrant/left flank pain, [...] CULTURE URINE REFLEXED III (09/02/2021 11:57 AM ICE GUARD INSPECTOR) Reflexive Urine Culture See Below [facility] Comment: NO CULTURE INDICATED Test Performed at: [facility] ??[id number] SHAKA HAY MD 09/02/2021 11:5 7 AM ICE GUARD INSPECTOR 09/03/2021 2:53 AM ICE GUARD INSPECTOR Beti Sesay MD LAB - MICROBIOLOGY O RDERABLES [address] [address] * URINALYSIS W/MICROSCOPIC REFLEX TO CULTURE (09/02/2021 11:57 AM ICE GUARD INSPECTOR) Color UA YELLOW YELLOW [facility] Appearance CLEAR CLEAR [facility] Specific [place] UA 1.024 1.001 - 1.035 [facility] pH [...] SEEN /LPF [facility] Comment: Test Performed at: [facility] [place], [place] ??[address] SHAKA HAY MD Urine URINE SPECIMEN OBTAINED BY CLEAN CATCH PROCEDURE / Unknown 09/02/2021 11:57 AM ICE GUARD INSPECTOR 09/03/2021 2:53 AM ICE GUARD INSPECTOR Beti Sesay MD LAB - URINALYSIS ORD ERABLES Performing Organization Address City/State/[facility] Co de Phone Number [address] [address] documented in this encounter Visit Diagnoses Diagnosis Uterine mass- Primary Other specified symptom associated with female genital organs Left lower quadrant abdominal pain Left flank pain Abdominal pain, unspecified site Uterine mass Other specified symptom associated with female genital organs Left lower quadrant abdominal pain Left flank pain Abdominal pain, unspecified site documented in this encounter Care Teams Bird Trapper Relationship Specialty Start Date End Date Radha Grove MD [address] [place] [address] PCP - General Pediatrics 08/28/21 documented as of this encounter
--- OUTSIDE RECORDS SUMMARY | 2024-10-06 06:10 | XMS_ITS | Encounter Summary ---
Author Organization [facility] Address [address] [place] [address] Care Team Providers Care Culinary Internship Name Role Phone Alfredo Cardoza MD Primary Care Provider Unavail able Reason for Visit * Reason Comments Pain Urinary Mom states pt has sanchez d intermittent complaint of dysuria for a week, but has worsened. No fever. Encounter Details Date Type Department Care Team (Late st Contact Info) Description 12/09/2013 11:00 AM CDT - 12/09/2013 12:18 PM CDT Emergency ER at [address] [address] Farzana Preston, [address] [address] Dysuria (Primary Dx); Constipation Discharge [...] Discharge Instructions * Discharge Instructions* Farzana Preston, BASIC COMBATANT SWIMMER-BUILDING CODE INSPECTOR - 12/09/2013 12:10 PM CDT Dysuria Dysuria [...] may irritate the prostate. ?? Only take [id number] or prescription medicines for pain, discomfort, or [...] Cheerios, 1 Cup, 3 grams of fiber [place] [place] Flakes, 1 Cup, 0.7 grams of fiber [...] Lettuce, 1 Cup, 0.5 grams of fiber [place], canned, ?? Cup, 1.6 gramsof fiber Tomato, ?? Cup, 1.1 grams of fiberInformation taken from the USDA National Nutrient Database, 2008. Document Released: 09/12/2006 Document Revised: 12/04/2012 Document Reviewed: 01/16/2008 ExitCare?? Patient Information ??2013 [employer]. * Discharge Instructions* Document, Scanned - 12/11/2013 [...] hours a day, from any computer, through [employer], the online version of our electronic medical record. If you would like to use this service, please call Shiloh Tamez, Connectivity Coordinator, at . We appreciate the opportunity to care for your patients. If you would like additional information, please call the emergency department directly at . Sincerely, Farzana Preston APRN-LADI Division of Emergency Medicine [place], [place] [facility] EMERGENCY & TRAUMA CENTER [place] FIRST TRAUMA I DESIGNATED EMERGENCY DEPARTMENT Provider contact with the patient: 12/09/2013 11:15 Mary Coffman [id number] [facility] EMERGENCY DEPARTMENT History Chief Complaint Patient [...] Yellow, Dark Yellow Clarity UA Clear Specific [place] UA 1.010 1.005-1.030 pH UA 7.0 5.0-8.0 [...] daily to facilitate bowel movements. Call your aviation operations specialist for persistence/worsening or other concerns. Our follow-up [...] normal urogenital sarah 12/11/2013 6:59 AM CDT [facility] MICROBIOLOGY Urine URINE SPECIMEN OBTAINED BY CLEAN CATCH PROCEDURE / Unknown 12/09/2013 11:13 AM CDT 12/09/2013 11:29 AM CDT Farzana Preston APRN-BUILDING CODE INSPECTOR LAB - MICROBIOL OGY ORDERABLES [facility]CRO[facility] [address] [place], [place] [address], [facility] * URINALYSIS ROUTINE AUTO (12/09/2013 11:13 AM CDT) Color UA Yellow Straw, Yellow, Dark Yellow 12/09/2013 11:43 AM CDT [facility] Clarity UA Clear 12/09/2013 11:43 AM CDT [facility] Specific [place] UA 1.010 1.005 - 1.030 12/09/2013 11:43 AM CDT [facility] pH UA 7.0 5.0 - 8.0 pH 12/09/2013 11:43 AM CDT [facility] Protein UA Negative Negative 12/09/2013 11:43 AM CDT [facility] Blood UA Negative Negative 12/09/2013 11:43 AM CDT [facility] Leukocyte UA Negative Negative 12/09/2013 11:43 AM CDT [facility] Nitrite UA Negative Negative 12/09/2013 11:43 AM CDT [facility] Glucose UA Negative Negative 12/09/2013 11:43 AM CDT [facility] Ketone UA Negative Negative 12/09/2013 11:43 AM T [facility] Bilirubin UA Negative Negative 12/09/2013 11:43 AM T [facility] Urobilinogen UA 0.2 0.1 - 1.0 EU/dL 12/09/2013 11:43 AM T [facility] Urine URINE SPECIMEN OBTAINED BY CLEAN CATCH PROCEDURE / Unknown 12/09/2013 11:13 AM CDT 12/09/2013 11:29 AM CDT Farzana Preston APRN-BUILDING CODE INSPECTOR LAB - URINALYSI S ORDERABLES Performing Organization Address [facility] Co de Phone Number [facility] [address] [place] [address] * URINALYSIS MICROSCOPIC ONLY (12/09/2013 11:13 AM CDT) RBC UA 0-2 0-2, 2-5 # /hpf 12/09/2013 11:52 AM T [facility] WBC UA 0-2 0-2, 2-5 # /hpf 12/09/2013 11:52 AM T [facility] Bacteria UA Trace None Seen, Trace 12/09/2013 11:52 AM T [facility] Epithelial Cell UA 0-2 0-2, 2-5 12/09/2013 11:52 AM T [facility] Urine URINE SPECIMEN OBTAINED BY CLEAN CATCH PROCEDURE / Unknown 12/09/2013 11:13 AM CDT 12/09/2013 11:29 AM CDT Farzana Preston APRN-BUILDING CODE INSPECTOR LAB - URINALYSI S ORDERABLES Performing Organization Address City/[facility] Co de Phone Number [facility] [address] [place] [address] documented in this encounter Visit Diagnoses Diagnosis Dysuria- Primary Constipation documented in this encounter Care Teams Culinary Internship Relationship Specialty Start Date End Date Alfredo Cardoza MD PCP - General 02/05/11 08/27/21 documented as of this encounter
--- OUTSIDE RECORDS SUMMARY | 2024-10-06 06:10 | XMS_ITS | Encounter Summary ---
Author Organization [facility] Address [address] [place] [address] Care Team Providers Care Portable Canteen Operator Name Role Phone Alfredo Cardoza MD Primary Care Provider Unavail able Reason for Visit * Reason Onset Date Comments Results 01/10/2014 Encounter Details Date Type Department Care Team (Late st Contact Info) Description 01/10/2014 Telephone [facility] Pediatrics - Urology [address] [place] [id number] Gayatri Yepez APRN-CNP [address] [place] [id number] Results Social History Tobacco Use Types Packs/Day [...] on filedocumented in this encounter Care Teams Portable Canteen Operator Relationship Specialty Start Date End Date Alfredo Cardoza MD PCP - General 02/05/11 08/27/21 documented as of this encounter
--- OUTSIDE RECORDS SUMMARY | 2024-10-06 06:10 | XMS_ITS | Encounter Summary ---
Author Organization [facility] Address [address] [place] [address] Care Team Providers Care Process Assistant Name Role Phone Alfredo Cardoza MD Primary Care Provider Unavail able Reason for Visit * Reason Comments Evaluation mom states primary doctor sent her for urine issues (negative urine cultures) Encounter Details Date Type Department Care Team (Latest Contact Info) Description 01/09/2014 3:44 PM CDT - 01/09/2014 11:59 PM CDT Hospital Encounter [facility] Pediatrics - Urology [address] [place] [address] Lin Kowalski, FRONT END MANAGER-[facility] [address] [place] [address] Discharge Disposition: Home or Self Care Social [...] 01/09/2014 3:4 5 PM CDT Growth Chart: [facility] (Girls, 2- 20 Years) documented in this encounter Discharge Instructions * Patient Instructions* Gayatri Yepez APRN-BENZENE WASHER OPERATOR - 01/09/2014 4:55 PM CDT BOWEL MANAGEMENT [...] and hamburger buns that are whole grain. [employer] high fiber buns. Check the fiber content on the package. ?? Fresh fruits especially apples and pears (not bananas) ?? Salads or any fresh vegetables-uncooked is best but cooked works too. ?? Dried fruits e.g. Raisins, prunes, apricots, Craisins by [place] (they come in flavors of antonio, strawberry, orange and plain) ?? Hot cereal (especially oatmeal). ?? Bran, Total, Wheaties, Frosted Mini Wheats, Frosted [place] Mini Wheats ?? Fiber Plus granola bars [...] hot cup of tea; available at [employer], [facility]'s; drink in the evening and get up [...] health: ?? Caffeine ?? Brown chocolate ?? [place] fruits and juices ?? Carbonation ?? Energy drinks ?? Gatorade ?? Zyrtec ?? Benadryl STEP 2: Send the calendar to our office (att'n. Pediatric Urology) or fax it to us at [phone].Include your child's name, your name and a [...] CULTURE URINE (01/09/2014 5:04 PM CDT) Pathologist [facility] Culture No Growth (<1,000 CFU/mL) 01/11/2014 6:57 AM CDT [facility] Urine URINE SPECIMEN OBTAINED BY CLEAN CATCH PROCEDURE / Unknown 01/09/2014 5:04 PM CDT 01/09/2014 5:14 PM CDT Gayatri TORRES LAB - MICROBIOLO GY ORDERABLES [facility] [address] [facility] * (ABNORMAL) URINALYSIS ROUTINE AUTO (01/09/2014 5:04 PM CDT) Color UA Yellow Straw, Yellow, Dark Yellow 01/09/2014 5:25 PM CDT [facility] Clarity UA Clear 01/09/2014 5:25 PM CDT [facility] Specific [place] UA 1.010 1.005 - 1.030 01/09/2014 5:25 PM CDT [facility] pH UA 6.5 5.0 - 8.0 pH 01/09/2014 5:25 PM CDT [facility] Protein UA Negative Negative 01/09/2014 5:25 PM CDT [facility] Blood UA Negative Negative 01/09/2014 5:25 PM CDT [facility] Leukocyte UA Trace(A) Negative 01/09/2014 5:25 PM CDT [facility] Nitrite UA Negative Negative 01/09/2014 5:25 PM CDT [facility] Glucose UA Negative Negative 01/09/2014 5:25 PM CDT [facility] Ketone UA Negative Negative 01/09/2014 5:25 PM CDT [facility] Bilirubin UA Negative Negative 01/09/2014 5:25 PM CDT [facility] Urobilinogen UA 0.2 0.1 - 1.0 EU/dL 01/09/2014 5:25 PM CDT [facility] Urine URINE SPECIMEN OBTAINED BY CLEAN CATCH PROCEDURE / Unknown 01/09/2014 5:04 PM CDT 01/09/2014 5:13 PM CDT Gayatri Yepez FRONT END MANAGER-BENZENE WASHER OPERATOR LAB - URINALYSIS ORDERABLES Performing Organization Address City/[facility] Co de Phone Number [facility] [address] [place] [address] * URINALYSIS MICROSCOPIC ONLY (01/09/2014 5:04 PM CDT) RBC UA 0-2 0-2, 2-5 # /hpf 01/09/2014 5:25 PM CDT [facility] WBC UA 0-2 0-2, 2-5 # /hpf 01/09/2014 5:25 PM CDT [facility] Bacteria UA None Seen None Seen, Trace 01/09/2014 5:25 PM CDT [facility] Epithelial Cell UA 0-2 0-2, 2-5 01/09/2014 5:25 PM CDT [facility] Urine URINE SPECIMEN OBTAINED BY CLEAN CATCH PROCEDURE / Unknown 01/09/2014 5:04 PM CDT 01/09/2014 5:13 PM CDT Gayatri Yepez FRONT END MANAGER-BENZENE WASHER OPERATOR LAB - URINALYSIS ORDERABLES Performing Organization Address City/[facility] Co de Phone Number [facility] [address] [place] [address] documented in this encounter Visit Diagnoses Diagnosis Unspecified constipation- Primary Urinary frequency documented in this encounter Care Teams Process Assistant Relationship Specialty Start Date End Date Alfredo Cardoza MD PCP - General 02/05/11 08/27/21 documented as of this encounter
--- OUTSIDE RECORDS SUMMARY | 2024-10-06 06:10 | XMS_ITS | Encounter Summary ---
Author Organization [facility] Address [address] [place] [address] Care Team Providers Care Sewing Demonstrator Name Role Phone Alfredo Cardoza MD Primary Care Provider Unavail able Reason for Visit * Reason Comments Urinary frequency Dysuria Encounter Details Date Type Department Care Team (Latest Contact Info) Description 03/06/2014 3:45 PM CDT - 03/06/2014 11:59 PM CDT Hospital Encounter [facility] Pediatrics - Urology [address] [place] [address] Lin Kowalski, DIRECT MAIL COORDINATOR-[address] [address] Discharge Disposition: Home or Self Care Social [...] 03/06/2014 3:4 6 PM CDT Growth Chart: [facility] (Girls, 2- 20 Years) documented in this encounter Discharge Instructions * Patient Instructions* Lucho Gayatri, DIRECT MAIL COORDINATOR-SEALANT MIXER - 03/06/2014 4:37 PM CDT Call me [...] fruits e.g. Raisins, prunes, apricots, Craisins by [place] (they come in flavors of antonio, strawberry, orange and plain) Hot cereal (especially oatmeal). Bran, Total, Wheaties, Frosted Mini Wheats, Frosted [place] Mini Wheats Fiber Plus granola bars or [...] each. Popcorn-for children over 3 years old. [employer] has raisin bran bagels (7Gm. Fiber) and [...] irritants/discontinue for bladder health: Caffeine Brown chocolate [place] fruits and juices Carbonation Energy drinks Gatorade Zyrtec Benadryl STEP 2: Send the calendar to our office (att'n. Pediatric Urology) or fax it to us at [phone].Include your child's name, your name and a [...] Urine 3.36 mg/dL 03/06/2014 5:41 PM CDT [facility] Creatinine Urine 79.20 mg/dL 03/06/2014 5:41 PM CDT [facility] Calcium/Creatin ine Ratio Urine 0.04 03/06/2014 5:41 PM CDT [facility] Urine URINE SPECIMEN OBTAINED BY CLEAN CATCH PROCEDURE / Unknown 03/06/2014 4:49 PM CDT 03/06/2014 4:56 PM CDT Narrative [facility] - 03/06/2014 5:41 PM CDT Normal ? <0.16 Borderline ??0.16-0.20 Abnormal ?? >0.20 [facility]atri [facility]pez [facility] LAB - URINE CHEM ISTRY ORDERABLES Performing Organization Address City/[facility] Co de Phone Number [facility] [address] [place] [address] * CULTURE URINE (03/06/2014 4:48 PM CDT) [facility] Culture 10,000-50,000 CFU/mL normal urogenital sarah 03/08/2014 11:46 AM CDT [facility] MICROBIOLOG[facility] Urine URINE SPECIMEN OBTAINED BY CLEAN CATCH PROCEDURE / Unknown 03/06/2014 4:48 PM CDT 03/06/2014 4:56 PM CDT [facility]atri [facility] LAB - MICROBIOLO GY ORDERABLES Performing Organization Address City/[facility]/ZIP Co de Phone Number [facility] [address] [place] [address], [facility] * (ABNORMAL) URINALYSIS ROUTINE AUTO (03/06/2014 4:48 PM CDT) Color UA Yellow Straw, Yellow, Dark Yellow 03/06/2014 5:39 PM CDT [facility] Clarity UA Clear 03/06/2014 5:39 PM CDT [facility] Specific [place] UA 1.010 1.005 - 1.030 03/06/2014 5:39 PM CDT [facility] pH UA 8.5(H) 5.0 - 8.0 pH 03/06/2014 5:39 PM CDT [facility] Protein UA Negative Negative 03/06/2014 5:39 PM CDT [facility] Blood UA Negative Negative 03/06/2014 5:39 PM CDT [facility] Leukocyte UA Negative Negative 03/06/2014 5:39 PM CDT [facility] Nitrite UA Negative Negative 03/06/2014 5:39 PM CDT [facility] Glucose UA Negative Negative 03/06/2014 5:39 PM CDT [facility] Ketone UA Negative Negative 03/06/2014 5:39 PM CDT [facility] Bilirubin UA Negative Negative 03/06/2014 5:39 PM CDT [facility] Urobilinogen UA 0.2 0.1 - 1.0 EU/dL 03/06/2014 5:39 PM CDT [facility] Urine URINE SPECIMEN OBTAINED BY CLEAN CATCH PROCEDURE / Unknown 03/06/2014 4:48 PM CDT 03/06/2014 4:56 PM CDT Gayatri Yepez APRN-SEALANT MIXER LAB - URINALYSIS ORDERABLES Performing Organization Address City/[facility]/ZIP Co de Phone Number [facility] [address] [place] [address] * URINALYSIS MICROSCOPIC ONLY (03/06/2014 4:48 PM CDT) RBC UA 0-2 0-2, 2-5 # /hpf 03/06/2014 5:39 PM CDT [facility] WBC UA 0-2 0-2, 2-5 # /hpf 03/06/2014 5:39 PM CDT [facility] Bacteria UA None Seen None Seen, Trace 03/06/2014 5:39 PM CDT [facility] Epithelial Cell UA 0-2 0-2, 2-5 03/06/2014 5:39 PM CDT [facility] Urine URINE SPECIMEN OBTAINED BY CLEAN CATCH PROCEDURE / Unknown 03/06/2014 4:48 PM CDT 03/06/2014 4:56 PM CDT Gayatri Yepez APRN-SEALANT MIXER LAB - URINALYSIS ORDERABLES Performing Organization Address City/[facility]/ZIP Co de Phone Number [facility] [address] [place] [address] documented in this encounter Visit Diagnoses Diagnosis Frequency- Primary Urinary frequency Unspecified constipation documented in this encounter Care Teams Sewing Demonstrator Relationship Specialty Start Date End Date Alfredo Cardoza MD PCP - General 02/05/11 08/27/21 documented as of this encounter
--- OUTSIDE RECORDS SUMMARY | 2024-10-06 06:10 | XMS_ITS | Encounter Summary ---
Author Organization [facility] Address [address] [place] [address]. [place] [id number] [place] [address] Care Team Providers Care Director Of Patient Safety Name Role Phone Bg Gordon MD Primary Care Provider Unavailable Encounter Details Date Type Department Care Team (Late st Contact Info) Description 07/30/2017 [place] [address] Bg Gordon MD Social History Tobacco Use [...] on filedocumented in this encounter Care Teams Director Of Patient Safety Relationship Specialty Start Date End Date Bg Gordon MD PCP - General 04/04/16 documented as of this encounter
--- OUTSIDE RECORDS SUMMARY | 2024-10-06 06:10 | XMS_ITS | Encounter Summary ---
Author Organization [facility] Address [address] [place] [address] Care Team Providers Care Lathe Puller Name Role Phone Alfredo Cardoza MD Primary Care Provider Unavail able Reason for Visit * Reason Comments Urinary frequency Encounter Details Date Type Department Care Team (Latest Contact Info) Description 08/13/2015 3:15 PM INVESTIGATIVE ASSISTANT - 08/13/2015 11:59 PM [facility] Hospital Encounter [facility] Pediatrics - Urology [address] [place] [address] Henrietta Lal, DESK ATTENDANT-STARCH CRAB [address] [place] [address] Discharge Disposition: Home or Self Care Social [...] Comments Blood Pressure 90/58 08/13/2015 3:34 PM INVESTIGATIVE ASSISTANT Pulse - - Temperature - - Respiratory Rate - - Oxygen Saturation - - Inhaled Oxygen Concentration - - Weight 37 kg (81 lb 9.1 oz) 08/13/2015 3:[address] Height 141 cm (4' 7.51 ) 08/13/2015 3:34 PM INVESTIGATIVE ASSISTANT Body Mass Index 18.61 08/13/2015 3:34 PM INVESTIGATIVE ASSISTANT Body Mass Index Percentile 65.86% 08/13/2015 3:3 4 PM INVESTIGATIVE ASSISTANT Growth Chart: [facility] (Girls, 2- 20 Years) documented in this encounter Discharge Instructions * Patient Instructions* Hali Henrietta DICKSON Velasquez-STARCH CRAB - 08/13/2015 4:10 PM INVESTIGATIVE ASSISTANT Foods to be encouraged to help with Bowel Movements (Your child should pick at least 3 from these groups): ?? Whole grain bread e.g.. Netta Bowman Brumble, Cinnamon Raisin, Brown Sugar, Smooth and Soft; Wonder-Whole Grain White; Iron Kids or Essentials bread. Netta Bowman also has a hot dog and hamburger buns that are whole grain. [employer] brand high fiber buns. Check the fiber content on the package. ?? Fresh fruits especially apples and pears (not bananas) ?? Salads or any fresh vegetables-uncooked is best but cooked works too. ?? Dried fruits e.g. Raisins, prunes, apricots, Craisins by [place] (they come in flavors of antonio, strawberry, orange and plain) ?? Hot cereal (especially oatmeal). ?? Bran, Total, Wheaties, Frosted Mini Wheats, Frosted [place] Mini Wheats ?? Fiber Plus granola bars [...] empty squirt bottle filled with warm water. [place] the genital area to improve hygiene after [...] etc for caffeine eg mocha flavors) ?? [place] fruit and juices ?? Energy drinks (contain [...] in the genital area eg. Zest, [place], [place], Coast, Dial, Lever 2000 ?? Bubble [...] update or as needed with concerns at [phone] ext [phone]. Our fax number is . STIGATIVE ASSISTANT documented in this encounter Medications at Time [...] seen in our Pediatric Urology Clinic at [facility] on 08/13/2015. She is a 10 y.o. [...] Yellow, Dark Yellow Clarity UA Clear Specific [place] UA <=1.005 1.005-1.030 pH UA 7.0 5.0-8.0 [...] 6 months (around 02/11/2016). BRIAN Farley 08/13/2015 STIGATIVE ASSISTANT documented in this encounter Plan of Treatment Not on file documented as of this encounter Procedures Procedure Name Priority Date/Time Associated Diagnosis Comments CULTURE URINE Routine 08/13/2015 5:52 PM INVESTIGATIVE ASSISTANT Urinary frequency URINALYSIS REFLEX TO MICROSCOPIC NO CULTURE Routine 08/13/2015 4:43 PM INVESTIGATIVE ASSISTANT Urinary frequency URINE MICROSCOPIC ONLY Routine 08/13/2015 4:43 PM INVESTIGATIVE ASSISTANT Urinary frequency documented in this encounter Results * CULTURE URINE (08/13/2015 5:52 PM INVESTIGATIVE ASSISTANT) Pathologist [facility] Culture <10,000 CFU/mL normal urogenital sarah HE 08/15/2015 7:51 AM INVESTIGATIVE ASSISTANT [facility] MICROBIOLOGY Urine URINE SPECIMEN OBTAINED BY CLEAN CATCH PROCEDURE / Unknown 08/13/2015 5:52 PM INVESTIGATIVE ASSISTANT 08/13/2015 4:43 PM INVESTIGATIVE ASSISTANT Henrietta TORRES LAB - MICROBIO LOGY ORDERABLES [facility] [address] [place] [address], [facility] [phone] * (ABNORMAL) URINALYSIS MICROSCOPIC ONLY (08/13/2015 4:43 PM INVESTIGATIVE ASSISTANT) Pathologist [facility] RBC UA 0-2 0-2, 2-5 # /hpf 08/13/2015 5:10 PM [facility] WBC UA 2-5 0-2, 2-5 # /hpf 08/13/2015 5:10 PM [facility] Bacteria UA Trace None Seen, Trace 08/13/2015 5:10 PM [facility] Epithelial Cell UA 5-10(A) 0-2, 2-5 08/13/2015 5:10 PM [facility] Urine URINE SPECIMEN OBTAINED BY CLEAN CATCH PROCEDURE / Unknown 08/13/2015 4:43 PM INVESTIGATIVE ASSISTANT 08/13/2015 4:43 PM INVESTIGATIVE ASSISTANT Henrietta A Hali DESK ATTENDANT-STARCH CR[facility] LAB - URINALYS IS ORDERABLES Performing Organization Address City/State/[facility] Co de Phone Number [facility] [place] [address] * (ABNORMAL) URINALYSIS ROUTINE AUTO (08/13/2015 4:43 PM INVESTIGATIVE ASSISTANT) Color UA Yellow Straw, Yellow, Dark Yellow 08/13/2015 5:10 PM [facility] Clarity UA Clear 08/13/2015 5:10 PM [facility] Specific [place] UA <=1.005 1.005 - 1.030 08/13/2015 5:10 PM [facility] pH UA 7.0 5.0 - 8.0 pH 08/13/2015 5:10 PM [facility] Protein UA Negative Negative 08/13/2015 5:10 PM [facility] Blood UA Negative Negative 08/13/2015 5:10 PM [facility] Leukocyte UA Trace(A) Negative 08/13/2015 5:10 PM [facility] Nitrite UA Negative Negative 08/13/2015 5:10 PM [facility] Glucose UA Negative Negative 08/13/2015 5:10 PM [facility] Ketone UA Negative Negative 08/13/2015 5:10 PM [facility] Bilirubin UA Negative Negative 08/13/2015 5:10 PM [facility] Urobilinogen UA 0.2 0.1 - 1.0 EU/dL 08/13/2015 5:10 PM [facility] Urine URINE SPECIMEN OBTAINED BY CLEAN CATCH PROCEDURE / Unknown 08/13/2015 4:43 PM INVESTIGATIVE ASSISTANT 08/13/2015 4:43 PM INVESTIGATIVE ASSISTANT Henrietta A Hali DESK ATTENDANT-STARCH CRAB LAB - URINALYS IS ORDERABLES [facility] [address] [place] [address] documented in this encounter Visit Diagnoses Diagnosis Urinary frequency- Primary documented in this encounter Care Teams Lathe Puller Relationship Specialty Start Date End Date Alfredo Cardoza MD PCP - General 02/05/11 08/27/21 documented as of this encounter
--- OUTSIDE RECORDS SUMMARY | 2024-10-06 06:11 | XMS_ITS | Clinical Summary ---
Author Organization 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
--- OUTSIDE RECORDS SUMMARY | 2024-10-06 06:11 | XMS_ITS | Clinical Summary ---
Author Organization [place] [id number] Address [address] [place] [address] Care Team Providers Care Operations Planner Name Role Phone Katarina Jack NP Primary Care Provider [phone] Allergies Active Allergy Reactions Criticality Noted Date [...] Department Care Team Description 09/29/2024 6:45 AM POWER HOUSE CONTROL ROOM OPERATOR - 09/29/2024 8:03 AM [facility] Emergency [facility] Emergency Department [address] [place] [address] Bakari Alba MD Abdominal pain (Primary Dx); Nausea and vomiting, unspecified vomiting type Discharge Disposition: Discharge to home or self care 09/28/2024 Telephone [facility] Family Medicine [address] [facility] [address] [place] [address] Sangeeta Randall PA 08/28/2024 Telephone [facility] [address] [facility] 2nd [address] [place] [address] Sydni Mendoza LPN 08/20/2024 9:25 AM POWER HOUSE CONTROL ROOM OPERATOR Lab [facility] Endocrinology Metabolism and Lipid [address] [facility] 12th [place] [address] [place] [address] Irritable bowel syndrome with constipation; Screening for cholesterol level 08/20/2024 9:21 AM POWER HOUSE CONTROL ROOM OPERATOR - 08/20/2024 11:59 PM POWER HOUSE CONTROL ROOM OPERATOR Hospital Encounter [facility] [address] [place] [address] Irritable bowel syndrome with constipation Discharge Disposition: Discharge to home or self care 08/20/2024 8:30 AM POWER HOUSE CONTROL ROOM OPERATOR Office Visit [facility] [address] [facility] 12th [place] [address] [place] [address] Bel Mata PA Irritable bowel syndrome with [...] on file Legal Sex Female 7:28 PM POWER HOUSE CONTROL ROOM OPERATOR Gender Identity Not on file Sexual Orientation Not on file Obstetrics History Last Filed Vital Signs Vital Sign Reading Time Taken Comments Blood Pressure 141/81 09/29/2024 7:30 AM POWER HOUSE CONTROL ROOM OPERATOR Pulse 80 09/29/2024 7:30 AM POWER HOUSE CONTROL ROOM OPERATOR Temperature 36.7 ??C (98 ??F) 09/29/2024 6:37 AM POWER HOUSE CONTROL ROOM OPERATOR Respiratory Rate 18 09/29/2024 7:30 AM POWER HOUSE CONTROL ROOM OPERATOR Oxygen Saturation 99% 09/29/2024 7:30 AM POWER HOUSE CONTROL ROOM OPERATOR Inhaled Oxygen Concentration - - Weight 64.4 kg (141 lb 15.6 oz) 09/29/2024 6:37 AM POWER HOUSE CONTROL ROOM OPERATOR Height 157.5 cm (5' 2 ) 09/29/2024 6:37 AM POWER HOUSE CONTROL ROOM OPERATOR Body Mass Index 25.97 09/29/2024 6:37 AM POWER HOUSE CONTROL ROOM OPERATOR Plan of Treatment Health Maintenance Due Date [...] POCT HCG, URINE Routine 09/29/2024 7:45 AM POWER HOUSE CONTROL ROOM OPERATOR URINALYSIS, MICROSCOPIC ONLY STAT 09/29/2024 7:45 AM POWER HOUSE CONTROL ROOM OPERATOR URINALYSIS AND REFLEX TO MICROSCOPIC AND CULTURE STAT 09/29/2024 7:45 AM POWER HOUSE CONTROL ROOM OPERATOR EGFR STAT 09/29/2024 6:47 AM POWER HOUSE CONTROL ROOM OPERATOR DIFFERENTIAL AUTO STAT 09/29/2024 6:4 7 AM POWER HOUSE CONTROL ROOM OPERATOR COMPREHENSIVE METABOLIC PANEL STAT 09/29/2024 6:47 AM POWER HOUSE CONTROL ROOM OPERATOR CBC WITH AUTO DIFFERENTIAL STAT 09/29/2024 6:47 AM POWER HOUSE CONTROL ROOM OPERATOR INFLUENZA A/B, RSV, AND COVID-19 PCR STAT 09/29/2024 6:47 AM POWER HOUSE CONTROL ROOM OPERATOR LIPID PANEL Routine 08/20/2024 9:22 AM POWER HOUSE CONTROL ROOM OPERATOR Screening for cholesterol level IGA Routine 08/20/2024 9:21 AM POWER HOUSE CONTROL ROOM OPERATOR Irritable bowel syndrome with constipation TISSUE TRANSGLUTAMINASE, IGA Routine 08/20/2024 9:21 AM POWER HOUSE CONTROL ROOM OPERATOR Irritable bowel syndrome with constipation CBC WITH AUTO DIFFERENTIAL Routine 08/20/2024 9:21 AM POWER HOUSE CONTROL ROOM OPERATOR Irritable bowel syndrome with constipation COMPREHENSIVE METABOLIC PANEL Routine 08/20/2024 9:21 AM POWER HOUSE CONTROL ROOM OPERATOR Irritable bowel syndrome with constipation TSH Routine 08/20/2024 9:21 AM POWER HOUSE CONTROL ROOM OPERATOR Irritable bowel syndrome with constipation from Last 3 Months Results * (ABNORMAL) Urinalysis reflex to microscopic and culture Urine (09/29/2024 7:45 AM POWER HOUSE CONTROL ROOM OPERATOR) Color, ur Yellow Yellow Comment:Testing performed by : [address] [address] Clarity, ur Clear Clear CAROLINE Comment:Testing performed by : [address] [address] Specific gravity, ur 1.030 1.003 - 1.030 CAROLINE Comment:Testing performed by : [address] [address] pH, urine 7.0 CAROLINE Comment: Interpretive Data ? Urine pH is affected by diet, medications, systemic acid-base disturbances, and renal tubular function. ??pH may affect urinary stone formation. ??For example, urine pH below 6.0 may help reduce the tendency for calcium phosphate stones and pH greater than 6.0 may reduce the tendency for uric acid stone formation. Source: [facility] Current Interpretive Data was last revised on 2017 Testing performed by: [address] [address] Protein, ur ql 1+(A) Negative CAROLINE Comment:Testing performed by : [address] [address] Glucose, ur ql Negative Negative CAROLINE Comment:Testing performed by : [address] [address] Ketones, ur 2+(A) Negative CAROLINE Comment:Testing performed by : [address] [address] Bilirubin, ur Negative Negative CAROLINE Comment:Testing performed by : [address] [address] Blood, ur Negative Negative CAROLINE Comment:Testing performed by : [address], [place]., [address] Urobilinogen, ur <2.0 <2.0 mg/dL CAROLINE HORVATH Comment:Testing performed by : [facility] [address] [place] [address], [place]., [address] Nitrite, ur Negative Negative CAROLINE Comment:Testing performed by : [facility] [address] [place] [address], [place]., [address] Leukocyte esterase, ur Negative Negative CAROLINE Comment:Testing performed by : [facility] [address] [place] [address], [place]., [address] UA reflex comment Reflex to microscopic UA will be performed. CAROLINE HORVATH Comment:Testing performed by : [facility] [address] [place] [address], [place]., [address] Urine 09/29/2024 7:45 AM POWER HOUSE CONTROL ROOM OPERATOR 09/29/2024 7:48 AM POWER HOUSE CONTROL ROOM OPERATOR Bakari Alba MD LAB MICROBIOLOGY - GEN ERAL ORDERABLES Final Result CAROLINE [address] [facility] Department [place] [address] * (ABNORMAL) Urinalysis, microscopic only (09/29/2024 7:45 AM POWER HOUSE CONTROL ROOM OPERATOR) WBC, ur 0-5 0 - 5 /HPF Comment:Testing performed by : [facility] [address] [place] [address], [place]., [address] RBC, ur 0-2 0 - 2 /HPF CAROLINE HORVATH Comment:Testing performed by : [facility] [address] [place] [address], [place]., [address] Epithelial cells, squamous, ur 21-50(A) 0 - 5 /HPF CAROLINE Comment:Testing performed by : [facility] [address] [place] [address], [place]., [address] Mucous, ur Present(A) CAROLINE HORVATH Comment:Testing performed by : [address], [place]., [address] Culture Reflex Comment Reflex conditions for urine culture (WBC >10) not met. CAROLINE HORVATH Comment:Testing performed by : [facility] [address] [place] [address], [place]., [address] Urine 09/29/2024 7:45 AM POWER HOUSE CONTROL ROOM OPERATOR 09/29/2024 7:48 AM POWER HOUSE CONTROL ROOM OPERATOR Bakari Alba MD LAB URINE ORDERABLES F inal Result CAROLINE [address] [facility] Department [place] [address] * POCT hCG, urine (09/29/2024 7:45 AM POWER HOUSE CONTROL ROOM OPERATOR) Pathologist [facility] HCG, ur, POC Negative Negative Lot Number [id number] QC Backgroud Clear Acceptable QC Control Line Acceptable Urine 09/29/2024 7:45 AM POWER HOUSE CONTROL ROOM OPERATOR Bakari Alba MD POINT OF CARE TEST ORD ERABLES Final Result * Influenza A/B, RSV, and COVID-19 PCR Nasopharyngeal (09/29/2024 6:47 AM POWER HOUSE CONTROL ROOM OPERATOR) [facility] COVID-19 RNA Negative Negative Comment:Testing performed by : [address] [address] Influenza A RNA Negative Negative [facility] Comment:Testing performed by : [address] [address] Influenza B RNA Negative Negative [facility] Comment:Testing performed by : [address] [address] RSV RNA Negative Negative [facility] Comment: Interpretive data: Testing performed by [facility]. This test is performed using the [employer] Xpert Xpress CoV-2/Flu/RSV plus assay. This is a multiplex, real-time reverse transcriptase PCR assay intended for the qualitative detection of nucleic acid from SARS-CoV-2, influenza A, influenza B, and respiratory syncytial virus. This assay has been cleared by the [place] Food and Drug administration. The performance characteristics have been verified by the [facility]. ??Results must be considered in the clinical context, and a negative result does not rule out infection. Interpretive Data last revised 2023 Testing performed by: [address], [place]., [address] Nasopharyngeal 09/29/2024 6: 47 AM POWER HOUSE CONTROL ROOM OPERATOR 09/29/2024 6:51 AM POWER HOUSE CONTROL ROOM OPERATOR Narrative CAROLINE HORVATH - 09/29/2024 7:36 AM POWER HOUSE CONTROL ROOM OPERATOR Is the Patient experiencing symptoms consistent with COVID?->Unknown Bakari Alba MD LAB MICROBIOLOGY - GEN ERAL ORDERABLES Final Result CAROLINE [address] [facility] Department [place] [address] * eGFR (09/29/2024 6:47 AM POWER HOUSE CONTROL ROOM OPERATOR) eGFR >90 >=60 mL/min/1. 73 m2 Comment: [...] was last reviewed 2021. Testing performed by: [facility], [address] [place] [address]., [address] Blood 09/29/2024 6:47 AM POWER HOUSE CONTROL ROOM OPERATOR 09/29/2024 6:51 AM POWER HOUSE CONTROL ROOM OPERATOR us Bakari Alba MD LAB BLOOD ORDERABLES F inal Result CAROLINE [address] [facility] Department [place] [address] * (ABNORMAL) Differential, auto (09/29/2024 6:47 AM POWER HOUSE CONTROL ROOM OPERATOR) Neutrophil abs 9.2(H) 1.5 - 6.5 K/cumm Comment:Testing performed by : [address] [address] Imm gran abs 0.0 0.0 - 0.1 K/cumm CAROLINE Comment:Testing performed by : [address] [address] Lymphocyte abs 1.1 0.8 - 3.3 K/cumm CAROLINE Comment:Testing performed by : [address] [address] Monocyte abs 0.3 0.2 - 0.8 K/cumm CAROLINE Comment:Testing performed by : [address] [address] Eosinophil abs 0.0 0.0 - 0.5 K/cumm CAROLINE Comment:Testing performed by : [address] [address] Basophil abs 0.0 0.0 - 0.1 K/cumm CAROLINE Comment:Testing performed by : [address] [address] Neutrophil pct 86.0 % CAROLINE Comment: Interpretive Data Percent cell count reference ranges are not reported, since discordance with absolute values may lead to misinterpretation of CBC data. Current Interpretive Data was last revised on 2018. Testing performed by: [address] [address] Imm gran pct 0.3 % [facility] Comment: Interpretive Data Percent cell count reference ranges are not reported, since discordance with absolute values may lead to misinterpretation of CBC data. Current Interpretive Data was last revised on 2018. Testing performed by: [address] [address] Lymphocyte pct 10.3 % [facility] Comment: Interpretive Data Percent cell count reference ranges are not reported, since discordance with absolute values may lead to misinterpretation of CBC data. Current Interpretive Data was last revised on 2018. Testing performed by: [address] [address] Monocyte pct 3.0 % [facility] Comment: Interpretive Data Percent cell count reference ranges are not reported, since discordance with absolute values may lead to misinterpretation of CBC data. Current Interpretive Data was last revised on 2018. Testing performed by: [address] [address] Eosinophil pct 0.1 % [facility] Comment: Interpretive Data Percent cell count reference ranges are not reported, since discordance with absolute values may lead to misinterpretation of CBC data. Current Interpretive Data was last revised on 2018. Testing performed by: [address] [address] Basophil pct 0.3 % [facility] Comment: Interpretive Data Percent cell count reference ranges are not reported, since discordance with absolute values may lead to misinterpretation of CBC data. Current Interpretive Data was last revised on 2018. Testing performed by: [address] [address] Blood 09/29/2024 6:47 AM POWER HOUSE CONTROL ROOM OPERATOR 09/29/2024 6:51 AM POWER HOUSE CONTROL ROOM OPERATOR us Bakari Alba MD LAB BLOOD ORDERABLES F inal Result CAROLINE [address] [facility] Department [place] [address] * (ABNORMAL) CBC with auto differential (09/29/2024 6:47 AM POWER HOUSE CONTROL ROOM OPERATOR) WBC 10.7(H) 3.8 - 9.9 K/cumm Comment:Testing performed by : [address] [place]., [address] Hgb 12.8 11.9 - 15.5 g/dL CAROLINE Comment:Testing performed by : [address] [address] Hct 37.4 35.6 - 45.5 % CAROLINE Comment:Testing performed by : [address] [address] Plt 318 150 - 400 K/cumm CAROLINE Comment:Testing performed by : [address] [address] MPV 9.8 9.1 - 12.3 fL CAROLINE Comment:Testing performed by : [address], [address] RBC 4.22 3.90 - 5.20 M/cumm CAROLINE Comment:Testing performed by : [address] [address] MCV 88.6 81.3 - 96.4 fL CAROLINE Comment:Testing performed by : [address] [address] MCH 30.3 27.1 - 33.3 pg CAROLINE Comment:Testing performed by : [address] [address] MCHC 34.2 32.3 - 35.7 g/dL CAROLINE Comment:Testing performed by : [address], [address] RDW CV 11.9 11.1 - 14.9 % CAROLINE Comment:Testing performed by : [address], [address] RDW SD 38.1 35.7 - 48.1 fL CAROLINE Comment:Testing performed by : [address] [address] NRBC abs 0.00 0.00 - 0.01 K/cumm CAROLINE Comment:Testing performed by : [address] [address] Blood 09/29/2024 6:47 AM POWER HOUSE CONTROL ROOM OPERATOR 09/29/2024 6:51 AM POWER HOUSE CONTROL ROOM OPERATOR us Bakari Alba MD LAB BLOOD ORDERABLES F inal Result CAROLINE [address] [facility] Department [place] [address] * (ABNORMAL) Comprehensive metabolic panel (09/29/2024 6:47 AM POWER HOUSE CONTROL ROOM OPERATOR) Sodium 138 135 - 145 mmol/L Comment:Testing performed by : [address] [address] Potassium, pl 4.1 3.3 - 4.9 mmol/L CAROLINE Comment:Testing performed by : [address] [address] Chloride 104 97 - 110 mmol/L CAROLINE Comment:Testing performed by : [address] [address] CO2 23 22 - 32 mmol/L CAROLINE Comment:Testing performed by : [address] [address] Anion gap 11 2 - 15 mmol/L CAROLINE Comment:Testing performed by : [address] [address] BUN 8 6 - 25 mg/dL CAROLINE Comment:Testing performed by : [address] [address] Creatinine 0.50(L) 0.60 - 1.10 mg/dL CAROLINE Comment:Testing performed by : [address] [address] Glucose 118 70 - 199 mg/dL CAROLINE [...] was last revised 2022. Testing performed by: [facility], [address] [place] [address]., [address] Calcium 9.7 8.5 - 10.3 mg/dL CAROLINE Comment:Testing performed by : [facility], [address] [place] [address]., [address] Bilirubin, total 0.4 0.1 - 1.2 mg/dL CAROLINE Comment:Testing performed by : [address], [address] Protein, pl 8.0 6.5 - 8.5 g/dL CAROLINE Comment:Testing performed by : [address] [address] Albumin 4.7 3.5 - 5.0 g/dL CAROLINE Comment:Testing performed by : [address] [address] Alk phos 61 40 - 130 Units/L CAROLINE Comment:Testing performed by : [address], [address] ALT 8 7 - 45 Units/L CAROLINE Comment:Testing performed by : [address] [address] AST 19 10 - 45 Units/L CAROLINE Comment:Testing performed by : [address] [address] Blood 09/29/2024 6:47 AM POWER HOUSE CONTROL ROOM OPERATOR 09/29/2024 6:51 AM POWER HOUSE CONTROL ROOM OPERATOR us Bakari Alba MD LAB BLOOD ORDERABLES F inal Result CAROLINE [address] [facility] Department [place] [address] * (ABNORMAL) Lipid panel (08/20/2024 9:22 AM POWER HOUSE CONTROL ROOM OPERATOR) Triglycerides 179(H) <150 mg/dL [facility] Comment: Desirable: <150 mg/dL, fasting <175 mg/dL, [...] triglycerides are elevated. Blood 08/20/2024 9:22 AM POWER HOUSE CONTROL ROOM OPERATOR 08/20/2024 11:01 AM POWER HOUSE CONTROL ROOM OPERATOR Narrative [facility] - 08/20/2024 12:10 PM POWER HOUSE CONTROL ROOM OPERATOR Current interpretive data was last updated August 28, 2021. us Katarina Jack OFFICE SYSTEM ANALYST LAB BLOOD ORDERABLES Final Re sult [facility] * CBC with auto differential (08/20/2024 9:21 AM POWER HOUSE CONTROL ROOM OPERATOR) White Blood Count 6.9 3.6 - 11.2 [...] [facility] Blood 08/20/2024 9:21 AM POWER HOUSE CONTROL ROOM OPERATOR 08/20/2024 11:01 AM POWER HOUSE CONTROL ROOM OPERATOR Bel JORGENSEN LAB BLOOD ORDERABLES Fi nal Result Performing Organization Address City/[facility]/ZIP Co de Phone Number [facility] * Tissue transglutaminase IgA (TGG-IgA Ab) (08/20/2024 9:21 AM POWER HOUSE CONTROL ROOM OPERATOR) TTG ab, IgA <0.5 <=14.9 units/mL Comment: Interpretive data Negative: <15 units/mL Positive: > or equal to 15 units/mL Current interpretive data was last revised on 2017. Blood 08/20/2024 9:21 AM POWER HOUSE CONTROL ROOM OPERATOR 08/20/2024 12:06 PM POWER HOUSE CONTROL ROOM OPERATOR Bel JORGENSEN LAB BLOOD ORDERABLES Fi nal Result CAROLINE [facility] Department [place] [address] * TSH (08/20/2024 9:21 AM POWER HOUSE CONTROL ROOM OPERATOR) TSH (Thyrotropin) 1.76 0.27 - 4.20 uIU/mL [facility] Blood 08/20/2024 9:21 AM POWER HOUSE CONTROL ROOM OPERATOR 08/20/2024 11:01 AM POWER HOUSE CONTROL ROOM OPERATOR Bel JORGENSEN LAB BLOOD ORDERABLES Fi nal Result [facility] * IgA (08/20/2024 9:21 AM POWER HOUSE CONTROL ROOM OPERATOR) Immunoglobulin A 97 70 - 400 mg/dL Blood 08/20/2024 9:21 AM POWER HOUSE CONTROL ROOM OPERATOR 08/20/2024 12:06 PM POWER HOUSE CONTROL ROOM OPERATOR Bel JORGENSEN LAB BLOOD ORDERABLES Fi nal Result CAROLINE [facility] Department [place] [address] * Comprehensive metabolic panel (08/20/2024 9:21 AM POWER HOUSE CONTROL ROOM OPERATOR) Total Protein 8.1 6.1 - 8.4 g/dL [...] [facility] Blood 08/20/2024 9:21 AM POWER HOUSE CONTROL ROOM OPERATOR 08/20/2024 11:01 AM POWER HOUSE CONTROL ROOM OPERATOR Bel JORGENSEN LAB BLOOD ORDERABLES Fi nal Result [facility] from Last 3 Months Insurance [employer] [place] [facility] [employer] [place] [employer] [place] [employer] [place] [facility] Care Teams Operations Planner Relationship Specialty Start Date End Date Katarina Jack NP [address] [facility] [address] [place] [address] PCP - General Internal Medicine 02/17/23
--- OUTSIDE RECORDS SUMMARY | 2024-10-06 06:11 | XMS_ITS | Encounter Summary ---
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 Emergency [facility] Emergency Department [address] [place], [place] [id number] Bakari Alba MD [address] [place] [address] [place], [place] [id number] Abdominal pain (Primary Dx); Nausea and vomiting, [...] on file Legal Sex Female 7:28 PM PUBLICATIONS SALES REPRESENTATIVE Gender Identity Not on file Sexual Orientation Not on file documented as of this encounter Last Filed Vital Signs Vital Sign Reading Time Taken Comments Blood Pressure 141/81 09/29/2024 7:30 AM PUBLICATIONS SALES REPRESENTATIVE Pulse 80 09/29/2024 7:30 AM PUBLICATIONS SALES REPRESENTATIVE Temperature 36.7 ??C (98 ??F) 09/29/2024 6:37 AM PUBLICATIONS SALES REPRESENTATIVE Respiratory Rate 18 09/29/2024 7:30 AM PUBLICATIONS SALES REPRESENTATIVE Oxygen Saturation 99% 09/29/2024 7:30 AM PUBLICATIONS SALES REPRESENTATIVE Inhaled Oxygen Concentration - - Weight 64.4 kg (141 lb 15.6 oz) 09/29/2024 6:37 AM PUBLICATIONS SALES REPRESENTATIVE Height 157.5 cm (5' 2 ) 09/29/2024 6:37 AM PUBLICATIONS SALES REPRESENTATIVE Body Mass Index 25.97 09/29/2024 6:37 AM PUBLICATIONS SALES REPRESENTATIVE documented in this encounter Discharge Instructions * Attachments The following attachments cannot be sent through Care Everywhere. * Acute Nausea and Vomiting (AfterCare(R) Instructions(ER/ED)) (French) documented in this encounter Medications at Time of Discharge albuterol HFA (PROVENTIL HFA,VENTOLIN HFA,PROAIR HFA) 90 mcg/actuation inhalerIndications:M ild persistent asthma, unspecified whether complicated INHALE 2 PUFFS BY MOUTH EVERY 6 HOURS NEEDED FOR SHORTNESS OF BREATH 6.7 g 1 09/27/2024 drospirenone-ethinyl estradioL (Sydni, 28,) 3-0.02 mg per tabletIndications:Co ntraceptive education Take 1 tablet by mouth daily 84 tablet 2 09/28/2024 ibuprofen 200 mg tab/cap Take 1 tablet/capsule (200 mg total) by mouth every 6 (six) hours as needed ondansetron ODT (ZOFRAN-ODT) 4 mg disintegrating tablet Take 1 tablet (4 mg total) by mouth every 8 (eight) hours as needed for nausea or vomiting 20 tablet 09/29/2024 polyethylene glycol (MIRALAX) 17 gram packetIndications:co nstipation Take 1 packet (17 g total) by mouth daily 30 packet 11 08/20/2024 triamcinolone (KENALOG) 0.1 % creamIndications:Ecz yesika, unspecified type Apply topically 3 (three) times a day 30 g 1 02/17/2023 documented as of this encounter Ordered Prescriptions Prescription Sig Dispense Quantity Refills Last Filled Start Date End Date ondansetron ODT (ZOFRAN-ODT) 4 mg disintegrating tablet Take 1 tablet (4 mg total) by mouth every 8 (eight) hours as needed for nausea or vomiting 20 tablet 09/29/2024 documented in this encounter Discharge Disposition Disposition Code Departure Means Destination Comment s Discharge to home or self care documented in this encounter ED Notes * Bakari Alba MD - 09/29/2024 6:38 AM CST HPI Chief Complaint Patient presents with Abdominal Pain Vomiting HPI 7:52 AM Mary Coffman is a 19 y.o. female presenting to the ED c/o nausea vomiting diarrhea. Symptoms began early this morning. She has associated abdominal pain. Pain is located in the middle abdomen. She denies fever. She denies chest pain shortness a breathing. She also has associated headache. 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 She denies known sick contacts. Her only prescription medicine is control. Patient History: Past Medical History: Diagnosis Date Asthma Eczema Past Surgical History: Procedure Laterality Date APPENDECTOMY Family History Problem Relation Age of Onset Hypertension Mother Diabetes Father Hypertension Father Stroke Father Pancreatitis Sister Multiple myeloma Maternal Grandfather Social History Tobacco Use Smoking status: Never Smokeless tobacco: Never Substance and Sexual Activity Drug use: Never Sexual activity: Not Currently Alcohol Use: Unknown (03/08/2024) AUDIT-C Frequency of Alcohol Consumption: Not on file Average Number of Drinks: Patient does not drink Frequency of Binge Drinking: Not on file No current facility-administered medications for this encounter. Current Outpatient Medications: albuterol HFA (PROVENTIL HFA,VENTOLIN HFA,PROAIR HFA) 90 mcg/actuation inhaler drospirenone-ethinyl estradioL (Sydni, 28,) 3-0.02 mg per tablet fluticasone propionate (FLONASE) 50 mcg/actuation nasal spray ibuprofen 200 mg tab/cap ondansetron ODT (ZOFRAN-ODT) 4 mg disintegrating tablet polyethylene glycol (MIRALAX) 17 gram packet triamcinolone (KENALOG) 0.1 % cream Review of Systems Review of Systems All other systems reviewed and are negative. All systems reviewed and are neg or non contributory for this patients presentation today other than as stated in the HPI . Physical Exam ED Triage Vitals [09/29/24 0637] Temp Pulse Resp BP SpO2 36.7 ??C (98 ??F) 84 16 122/66 100 % Temp src Heart Rate Source Patient Position BP Location FiO2 (%) Tympanic -- -- -- -- Height Height Method Weight Weight Method 1.575 m (5' 2 ) Stated 64.4 kg (141 lb 15.6 oz) Bed scale;Standing scale Physical Exam Vitals reviewed. HENT: Head: Normocephalic. Mouth/Throat: Mouth: Mucous membranes are moist. Pharynx: Oropharynx is clear. Eyes: Pupils: Pupils are equal, round, and reactive to light. Cardiovascular: Rate and Rhythm: Normal rate and regular rhythm. Heart sounds: Normal heart sounds. Pulmonary: Breath sounds: Normal breath sounds. Abdominal: General: There is no distension. Palpations: Abdomen is soft. Tenderness: There is no abdominal tenderness. Musculoskeletal: Cervical back: Neck supple. Neurological: Mental Status: She is alert. Procedures MDM Labs Reviewed CBC WITH AUTO DIFFERENTIAL - Abnormal Result Value WBC 10.7 (*) Hgb 12.8 Hct 37.4 Plt 318 MPV 9.8 RBC 4.22 MCV 88.6 MCH 30.3 MCHC 34.2 RDW CV 11.9 RDW SD 38.1 NRBC abs 0.00 COMPREHENSIVE METABOLIC PANEL - Abnormal Sodium 138 Potassium, pl 4.1 Chloride 104 CO2 23 Anion gap 11 BUN 8 Creatinine 0.50 (*) Glucose 118 Calcium 9.7 Bilirubin, total 0.4 Protein, pl 8.0 Albumin 4.7 Alk phos 61 ALT 8 AST 19 DIFFERENTIAL AUTO - Abnormal Neutrophil abs 9.2 (*) Imm gran abs 0.0 Lymphocyte abs 1.1 Monocyte abs 0.3 Eosinophil abs 0.0 Basophil abs 0.0 Neutrophil pct 86.0 Imm gran pct 0.3 Lymphocyte pct 10.3 Monocyte pct 3.0 Eosinophil pct 0.1 Basophil pct 0.3 INFLUENZA A/B, RSV, AND COVID-19 PCR COVID-19 RNA Negative Influenza A RNA Negative Influenza B RNA Negative RSV RNA Negative Narrative: Is the Patient experiencing symptoms consistent with COVID?->Unknown URINALYSIS AND REFLEX TO MICROSCOPIC AND CULTURE EGFR eGFR >90 POCT HCG, URINE HCG, ur, POC Negative Lot Number [id number] QC Backgroud Clear Acceptable QC Control Line Acceptable No orders to display BP 142/72 Pulse 73 Temp 36.7 ??C (98 ??F) (Tympanic) Resp 16 Ht 157.5 cm (5' 2 ) Wt 64.4 kg (141 lb 15.6 oz) LMP 09/20/2024 SpO2 99% BMI 25.97 kg/m?? MDM Risk of Complications, Morbidity, and/or Mortality Presenting problems: moderate Diagnostic procedures: moderate Management options: moderate General comments: Differential diagnosis includes gastroenteritis, viral illness, . Vital signs are normal on room air. Patient is not ill-appearing. ED Course as of 09/29/24 075 Time: 09/29 0749 Comment: Patient feeling improved after IV fluid and Zofran. Workup reassuring. Will treat symptomatically have patient follow up as needed. By: Bakari Alba MD This examination was transcribed using the [employer] voice recognition system without human etl informatica architect. In an effort to expedite patient care, this report has not been adjusted for typographical, grammatical, and syntax by a trained director medical affairs. Clinical Impression: Abdominal pain Nausea and vomiting, unspecified vomiting type Bakari Alba MD 09/29/24 0756 ICATIONS SALES REPRESENTATIVE * Sera Saleh RN - 09/29/2024 6:36 AM CST Mid abd pain with N\V\D x 0100. ICATIONS SALES REPRESENTATIVE documented in this encounter Plan of Treatment Not on file documented as of this encounter Procedures Procedure Name Priority Date/Time Associated Diagnosis Comments URINALYSIS AND REFLEX TO MICROSCOPIC AND CULTURE STAT 09/29/2024 7:45 AM PUBLICATIONS SALES REPRESENTATIVE URINALYSIS, MICROSCOPIC ONLY STAT 09/29/2024 7:45 AM PUBLICATIONS SALES REPRESENTATIVE POCT HCG, URINE Routine 09/29/2024 7:45 AM PUBLICATIONS SALES REPRESENTATIVE INFLUENZA A/B, RSV, AND COVID-19 PCR STAT 09/29/2024 6:47 AM PUBLICATIONS SALES REPRESENTATIVE EGFR STAT 09/29/2024 6:47 AM PUBLICATIONS SALES REPRESENTATIVE DIFFERENTIAL AUTO STAT 09/29/2024 6:4 7 AM PUBLICATIONS SALES REPRESENTATIVE CBC WITH AUTO DIFFERENTIAL STAT 09/29/2024 6:47 AM PUBLICATIONS SALES REPRESENTATIVE COMPREHENSIVE METABOLIC PANEL STAT 09/29/2024 6:47 AM PUBLICATIONS SALES REPRESENTATIVE documented in this encounter Results * (ABNORMAL) Urinalysis, microscopic only (09/29/2024 7:45 AM PUBLICATIONS SALES REPRESENTATIVE) WBC, ur 0-5 0 - 5 /HPF Comment:Testing performed by : [address] [address] RBC, ur 0-2 0 - 2 /HPF CAROLINE Comment:Testing performed by : [address] [address] Epithelial cells, squamous, ur 21-50(A) 0 - 5 /HPF CAROLINE Comment:Testing performed by : [address] [address] Mucous, ur Present(A) CAROLINE Comment:Testing performed by : [address] [address] Culture Reflex Comment Reflex conditions for urine culture (WBC >10) not met. CAROLINE Comment:Testing performed by : [address] [place]., [address] Urine 09/29/2024 7:45 AM PUBLICATIONS SALES REPRESENTATIVE 09/29/2024 7:48 AM PUBLICATIONS SALES REPRESENTATIVE Bakari Alba MD LAB URINE ORDERABLES F inal Result [facility] [address] [facility] Department [place] [address] * POCT hCG, urine (09/29/2024 7:45 AM PUBLICATIONS SALES REPRESENTATIVE) HCG, ur, POC Negative Negative Lot Number [id number] QC Backgroud Clear Acceptable QC Control Line Acceptable Urine 09/29/2024 7:45 AM PUBLICATIONS SALES REPRESENTATIVE Bakari Alba MD POINT OF CARE TEST ORD ERABLES Final Result * (ABNORMAL) Urinalysis reflex to microscopic and culture Urine (09/29/2024 7:45 AM PUBLICATIONS SALES REPRESENTATIVE) Color, ur Yellow Yellow Comment:Testing performed by : [address] [address] Clarity, ur Clear Clear CAROLINE Comment:Testing performed by : [address] [address] Specific gravity, ur 1.030 1.003 - 1.030 CAROLINE Comment:Testing performed by : [address] [address] pH, urine 7.0 CAROLINE Comment: Interpretive Data ? Urine pH is affected by diet, medications, systemic acid-base disturbances, and renal tubular function. ??pH may affect urinary stone formation. ??For example, urine pH below 6.0 may help reduce the tendency for calcium phosphate stones and pH greater than 6.0 may reduce the tendency for uric acid stone formation. Source: [employer] Systems Current Interpretive Data was last revised on 2017 Testing performed by: [address] [address] Protein, ur ql 1+(A) Negative CAROLINE Comment:Testing performed by : [address], [place]., [address] Glucose, ur ql Negative Negative CAROLINE Comment:Testing performed by : [address], [place]., [address] Ketones, ur 2+(A) Negative CAROLINE Comment:Testing performed by : [address], [place]., [address] Bilirubin, ur Negative Negative CAROLINE Comment:Testing performed by : [address], [place]., [address] Blood, ur Negative Negative CAROLINE Comment:Testing performed by : [address], [place]., [address] Urobilinogen, ur <2.0 <2.0 mg/dL CAROLINE Comment:Testing performed by : [address], [place]., [address] Nitrite, ur Negative Negative CAROLINE Comment:Testing performed by : [address], [place]., [address] Leukocyte esterase, ur Negative Negative CAROLINE Comment:Testing performed by : [address], [place]., [address] UA reflex comment Reflex to microscopic UA will be performed. CAROLINE Comment:Testing performed by : [address], [place]., [address] Urine 09/29/2024 7:45 AM PUBLICATIONS SALES REPRESENTATIVE 09/29/2024 7:48 AM PUBLICATIONS SALES REPRESENTATIVE us Bakari Alba MD LAB MICROBIOLOGY - GEN ERAL ORDERABLES Final Result CAROLINE [address] [facility] Department [place] [address] * eGFR (09/29/2024 6:47 AM PUBLICATIONS SALES REPRESENTATIVE) eGFR >90 >=60 mL/min/1. 73 m2 Comment: [...] was last reviewed 2021. Testing performed by: [address] [address] Blood 09/29/2024 6:47 AM PUBLICATIONS SALES REPRESENTATIVE 09/29/2024 6:51 AM PUBLICATIONS SALES REPRESENTATIVE us Bakari Alba MD LAB BLOOD ORDERABLES F inal Result [facility] [address] [facility] Department [place] [address] * (ABNORMAL) Differential, auto (09/29/2024 6:47 AM PUBLICATIONS SALES REPRESENTATIVE) Neutrophil abs 9.2(H) 1.5 - 6.5 K/cumm Comment:Testing performed by : [address] [address] Imm gran abs 0.0 0.0 - 0.1 K/cumm CAROLINE HORVATH Comment:Testing performed by : [address] [address] Lymphocyte abs 1.1 0.8 - 3.3 K/cumm CAROLINE Comment:Testing performed by : [address] [address] Monocyte abs 0.3 0.2 - 0.8 K/cumm CAROLINE Comment:Testing performed by : [address] [address] Eosinophil abs 0.0 0.0 - 0.5 K/cumm CAROLINE Comment:Testing performed by : [address] [address] Basophil abs 0.0 0.0 - 0.1 K/cumm CAROLINE Comment:Testing performed by : [address] [address] Neutrophil pct 86.0 % CAROLINE Comment: Interpretive Data Percent cell count reference ranges are not reported, since discordance with absolute values may lead to misinterpretation of CBC data. Current Interpretive Data was last revised on 2018. Testing performed by: [address] [address] Imm gran pct 0.3 % BANNERVIVIAN Comment: Interpretive Data Percent cell count reference ranges are not reported, since discordance with absolute values may lead to misinterpretation of CBC data. Current Interpretive Data was last revised on 2018. Testing performed by: [address] [address] Lymphocyte pct 10.3 % [facility] Comment: Interpretive Data Percent cell count reference ranges are not reported, since discordance with absolute values may lead to misinterpretation of CBC data. Current Interpretive Data was last revised on 2018. Testing performed by: [address] [address] Monocyte pct 3.0 % BANNERVIVIAN Comment: Interpretive Data Percent cell count reference ranges are not reported, since discordance with absolute values may lead to misinterpretation of CBC data. Current Interpretive Data was last revised on 2018. Testing performed by: [address] [address] Eosinophil pct 0.1 % [facility] Comment: Interpretive Data Percent cell count reference ranges are not reported, since discordance with absolute values may lead to misinterpretation of CBC data. Current Interpretive Data was last revised on 2018. Testing performed by: [address] [address] Basophil pct 0.3 % CAROLINE HORVATH Comment: Interpretive Data Percent cell count reference ranges are not reported, since discordance with absolute values may lead to misinterpretation of CBC data. Current Interpretive Data was last revised on 2018. Testing performed by: [address] [address] Blood 09/29/2024 6:47 AM PUBLICATIONS SALES REPRESENTATIVE 09/29/2024 6:51 AM PUBLICATIONS SALES REPRESENTATIVE us Bakari Alba MD LAB BLOOD ORDERABLES F inal Result [facility] [address] [facility] Department [place] [address] * Influenza A/B, RSV, and COVID-19 PCR Nasopharyngeal (09/29/2024 6:47 AM PUBLICATIONS SALES REPRESENTATIVE) COVID-19 RNA Negative Negative Comment:Testing performed by : [address] [address] Influenza A RNA Negative Negative CAROLINE Comment:Testing performed by : [address] [address] Influenza B RNA Negative Negative CAROLINE Comment:Testing performed by : [address] [address] RSV RNA Negative Negative CAROLINE Comment: Interpretive data: Testing performed by [facility]. This test is performed using the [employer] Xpert Xpress CoV-2/Flu/RSV plus assay. This is a multiplex, real-time reverse transcriptase PCR assay intended for the qualitative detection of nucleic acid from SARS-CoV-2, influenza A, influenza B, and respiratory syncytial virus. This assay has been cleared by the [place] Food and Drug administration. The performance characteristics have been verified by the [facility]. ??Results must be considered in the clinical context, and a negative result does not rule out infection. Interpretive Data last revised 2023 Testing performed by: [address] [place] [address] Nasopharyngeal 09/29/2024 6: 47 AM PUBLICATIONS SALES REPRESENTATIVE 09/29/2024 6:51 AM PUBLICATIONS SALES REPRESENTATIVE Narrative CAROLINE - 09/29/2024 7:36 AM PUBLICATIONS SALES REPRESENTATIVE Is the Patient experiencing symptoms consistent with COVID?->Unknown Bakari Alba MD LAB MICROBIOLOGY - GEN ERAL ORDERABLES Final Result [facility]INE [address] [facility] Department [place] [address] * (ABNORMAL) Comprehensive metabolic panel (09/29/2024 6:47 AM PUBLICATIONS SALES REPRESENTATIVE) Sodium 138 135 - 145 mmol/L Comment:Testing performed by : [address] [address] Potassium, pl 4.1 3.3 - 4.9 mmol/L CAROLINE Comment:Testing performed by : [address] [address] Chloride 104 97 - 110 mmol/L CAROLINE Comment:Testing performed by : [address] [address] CO2 23 22 - 32 mmol/L CAROLINE Comment:Testing performed by : [address] [address] Anion gap 11 2 - 15 mmol/L CAROLINE Comment:Testing performed by : [address] [address] BUN 8 6 - 25 mg/dL CAROLINE Comment:Testing performed by : [address] [address] Creatinine 0.50(L) 0.60 - 1.10 mg/dL CAROLINE Comment:Testing performed by : [address] [address] Glucose 118 70 - 199 mg/dL CAROLINE [...] was last revised 2022. Testing performed by: [address] [address] Calcium 9.7 8.5 - 10.3 mg/dL CAROLINE Comment:Testing performed by : [address] [address] Bilirubin, total 0.4 0.1 - 1.2 mg/dL CAROLINE Comment:Testing performed by : [address] [address] Protein, pl 8.0 6.5 - 8.5 g/dL CAROLINE Comment:Testing performed by : [address] [address] Albumin 4.7 3.5 - 5.0 g/dL BANNERVIVIAN Comment:Testing performed by : [address] [address] Alk phos 61 40 - 130 Units/L BANNERVIVIAN Comment:Testing performed by : [address] [address] ALT 8 7 - 45 Units/L CAROLINE Comment:Testing performed by : [address] [address] AST 19 10 - 45 Units/L CAROLINE Comment:Testing performed by : [address] [address] Blood 09/29/2024 6:47 AM PUBLICATIONS SALES REPRESENTATIVE 09/29/2024 6:51 AM PUBLICATIONS SALES REPRESENTATIVE us Bakari Alba MD LAB BLOOD ORDERABLES F inal Result [facility] [address] [facility] Department of Laboratories [place], [place] [id number] * (ABNORMAL) CBC with auto differential (09/29/2024 6:47 AM PUBLICATIONS SALES REPRESENTATIVE) [facility] Signature WBC 10.7(H) 3.8 - 9.9 K/cumm Comment:Testing performed by : [address], [address] Hgb 12.8 11.9 - 15.5 g/dL CAROLINE Comment:Testing performed by : [address], [address] Hct 37.4 35.6 - 45.5 % CAROLINE Comment:Testing performed by : [address], [address] Plt 318 150 - 400 K/cumm CAROLINE Comment:Testing performed by : [address], [address] MPV 9.8 9.1 - 12.3 fL CAROLINE Comment:Testing performed by : [address], [address] RBC 4.22 3.90 - 5.20 M/cumm CAROLINE Comment:Testing performed by : [address], [address] MCV 88.6 81.3 - 96.4 fL CAROLINE Comment:Testing performed by : [address], [address] MCH 30.3 27.1 - 33.3 pg CAROLINE Comment:Testing performed by : [address], [address] MCHC 34.2 32.3 - 35.7 g/dL CAROLINE Comment:Testing performed by : [address], [address] RDW CV 11.9 11.1 - 14.9 % CAROLINE Comment:Testing performed by : [address], [address] RDW SD 38.1 35.7 - 48.1 fL CAROLINE Comment:Testing performed by : [address], [address] NRBC abs 0.00 0.00 - 0.01 K/cumm CAROLINE Comment:Testing performed by : [address], [place]., [address] Blood 09/29/2024 6:47 AM PUBLICATIONS SALES REPRESENTATIVE 09/29/2024 6:51 AM PUBLICATIONS SALES REPRESENTATIVE us Bakari Alba MD LAB BLOOD ORDERABLES F inal Result [facility] [address] [facility] Department [place] [address] documented in this encounter Visit Diagnoses Diagnosis Abdominal pain- Primary Abdominal pain, unspecified site Nausea and vomiting, unspecified vomiting type documented in this encounter Administered Medications Inactive Administered Medications - up to 3 most recent administrations Medication Order MAR Action Action Date Dose Rate Site ondansetron (ZOFRAN) injection 4 mg 4 mg, intravenous, Administer over 2 Minutes, Once, On 09/29/24 at 0640, For 1 dose, Indications: Nausea, VomitingIndications:Nausea, Vomiting Given 09/29/2024 6:46 AM PUBLICATIONS SALES REPRESENTATIVE 4 mg sodium chloride 0.9% bolus 1,000 mL 1,000 mL, intravenous, at 1,000 mL/hr, Administer over 1 Hours, Once, On 09/29/24 at 0640, For 1 dose New Bag 09/29/2024 6:46 AM PUBLICATIONS SALES REPRESENTATIVE 1,000 mL 1000 mL/hr documented in this encounter Active and Recently Administered Medications Times are shown in PUBLICATIONS SALES REPRESENTATIVE. Scheduled Medication Order 09/27/2024 09/28/2024 09/29/2024 ondansetron (ZOFRAN) injection 4 mg (COMPLETED) 4 mg, intravenous, Administer over 2 Minutes, Once, On 09/29/24 at 0640, For 1 dose, Indications: Nausea, Vomiting 0646 (Given - Provid er: Paula Duran RN) sodium chloride 0.9% bolus 1,000 mL (COMPLETED) 1,000 mL, intravenous, at 1,000 mL/hr, Administer over 1 Hours, Once, On 09/29/24 at 0640, For 1 dose 0646 (New Bag - Prov ider: Paula Duran RN)0740 (Stopped - Provider: Rosa [place] RN) documented in this encounter Additional Health Concerns Infection Onset Date Last Indicated Resolved Time COVID: Suspected 09/29/2024 09/29/2024 09/29/2024 7:37 AM PUBLICATIONS SALES REPRESENTATIVE documented as of this encounter Care Teams Packing House Laborer Relationship Specialty Start Date End Date Katarina Jack NP [address] [facility] [address] [place] [address] PCP - General Internal Medicine 02/17/23 documented as of this encounter
--- OUTSIDE RECORDS SUMMARY | 2024-10-06 06:11 | XMS_ITS | Encounter Summary ---
Author Organization [facility] Address [address] [place] [address] Phone Care Team Providers Care Contract Modeler Name Role Phone Katarina Jack NP Primary Care Provider [phone] Encounter Details Date Type Department Care Team (Late st Contact Info) Description 08/20/2024 9:25 AM MARKET GARDENER Lab [facility] Endocrinology Metabolism and Lipid [address] [facility] Advanced [facility] 12th [place] [address] [place] [address] Irritable bowel syndrome with constipation; [...] on file Legal Sex Female 7:28 PM MARKET GARDENER Gender Identity Not on file Sexual Orientation Not on file documented as of this encounter Plan of Treatment Not on file documented as of this encounter Procedures Procedure Name Priority Date/Time Associated Diagnosis Comments LIPID PANEL Routine 08/20/2024 9:22 AM MARKET GARDENER Screening for cholesterol level CBC WITH AUTO DIFFERENTIAL Routine 08/20/2024 9:21 AM MARKET GARDENER Irritable bowel syndrome with constipation TSH Routine 08/20/2024 9:21 AM MARKET GARDENER Irritable bowel syndrome with constipation COMPREHENSIVE METABOLIC PANEL Routine 08/20/2024 9:21 AM MARKET GARDENER Irritable bowel syndrome with constipation documented in this encounter Results * (ABNORMAL) Lipid panel (08/20/2024 9:22 AM MARKET GARDENER) Triglycerides 179(H) <150 mg/dL [facility] [...] triglycerides are elevated. Blood 08/20/2024 9:22 AM MARKET GARDENER 08/20/2024 11:01 AM MARKET GARDENER Narrative [facility] - 08/20/2024 12:10 PM MARKET GARDENER Current interpretive data was last updated August 28, 2021. us Katarina Jack PUTTY AND PATCH WORKER LAB BLOOD ORDERABLES Final Re sult [facility] * CBC with auto differential (08/20/2024 9:21 AM MARKET GARDENER) White Blood Count 6.9 3.6 - 11.2 [...] [facility] Blood 08/20/2024 9:21 AM MARKET GARDENER 08/20/2024 11:01 AM MARKET GARDENER us Bel [facility] LAB BLOOD ORDERABLES Fi nal Result [facility] * Comprehensive metabolic panel (08/20/2024 9:21 AM MARKET GARDENER) Total Protein 8.1 6.1 - 8.4 g/dL [...] [facility] Blood 08/20/2024 9:21 AM MARKET GARDENER 08/20/2024 11:01 AM MARKET GARDENER Bel JORGENSEN LAB BLOOD ORDERABLES Fi nal Result [facility] * TSH (08/20/2024 9:21 AM MARKET GARDENER) TSH (Thyrotropin) 1.76 0.27 - 4.20 uIU/mL [facility] Blood 08/20/2024 9:21 AM MARKET GARDENER 08/20/2024 11:01 AM MARKET GARDENER Bel [facility] LAB BLOOD ORDERABLES Fi nal Result [facility] documented in this encounter Visit Diagnoses Diagnosis Irritable bowel syndrome with constipation Irritable bowel syndrome Screening for cholesterol level documented in this encounter Care Teams Contract Modeler Relationship Specialty Start Date End Date Katarina Jack NP [address] [address] PCP - General Internal Medicine 02/17/23 documented as of this encounter
--- OUTSIDE RECORDS SUMMARY | 2024-10-06 06:11 | XMS_ITS | Encounter Summary ---
Author Organization [facility] Address [address] [place] [address] Care Team Providers Care College Specialist Name Role Phone Unavailable Primary Care Provider Unavailabl e Encounter Details Date Type Department Care Team (Late st Contact Info) Description 08/04/2020 Lab Requisition [facility] Mobile Testing [facility] [address] [place] [address] [place] [address] [place] [address] Social History Tobacco Use Types Packs/Day Years Used Date Smoking Tobacco: Never Assessed Comments Unknown Sex and Gender Information Value Date Recorded Sex Assigned at Not on file Legal Sex Female 1:51 PM CASING WRINGER OPERATOR Gender Identity Not on file Sexual Orientation Not on file documented as of this encounter Plan of Treatment Not on file documented as of this encounter Procedures Procedure Name Priority Date/Time Associated Diagnosis Comments SARS-COV-2 PCR [facility] ONLY Routine 08/04/2020 3:02 PM CASING WRINGER OPERATOR documented in this encounter Visit Diagnoses Not on filedocumented in this encounter
--- OUTSIDE RECORDS SUMMARY | 2024-10-06 06:11 | XMS_ITS | Encounter Summary ---
Author Organization [facility] Address [address] [place] [address] Care Team Providers Care Furniture Inspector Name Role Phone Unavailable Primary Care Provider Unavailabl e Encounter Details Date Type Department Care Team (Late st Contact Info) Description 08/04/2020 2:00 PM FACILITY SERVICE ASSOCIATE Rapid Evaluation [place] [facility] Community Testing [facility] [address] [place] [address] Social History Tobacco Use Types Packs/Day Years Used Date Smoking Tobacco: Never Assessed Comments Unknown Sex and Gender Information Value Date Recorded Sex Assigned at Not on file Legal Sex Female 1:51 PM FACILITY SERVICE ASSOCIATE Gender Identity Not on file Sexual Orientation Not on file documented as of this encounter Plan of Treatment Not on file documented as of this encounter Visit Diagnoses Not on filedocumented in this encounter
--- OUTSIDE RECORDS SUMMARY | 2024-10-06 06:11 | XMS_ITS | Encounter Summary ---
Author Organization [facility] Healthcare Address [address] [place] [address] Care Team Providers Care Sanitary Plumber Name Role Phone Katarina Jack NP Primary Care Provider [phone] Encounter Details Date Type Department Care Team (Late st Contact Info) Description 09/28/2024 Telephone [facility] Medical [facility] Family Medicine [address] [facility] [address] [place] [address] Sangeeta Randall PA [address] [place] [address] [place] [address] Social History Tobacco Use Types [...] on file Legal Sex Female 7:28 PM SUPERVISOR PHOSPHATIC FERTILIZER Gender Identity Not on file Sexual Orientation [...] Renae García LPN - 09/28/2024 8:16 AM SUPERVISOR PHOSPHATIC FERTILIZER Refill sent per pt request RVISOR PHOSPHATIC FERTILIZER documented in this encounter Plan of Treatment [...] documented as of this encounter Care Teams Sanitary Plumber Relationship Specialty Start Date End Date Katarina Jack NP [address] [facility] [address] [place] [address] PCP - General Internal Medicine 02/17/23 documented as of this encounter
--- OUTSIDE RECORDS SUMMARY | 2024-10-06 06:11 | XMS_ITS | Encounter Summary ---
Author Organization [facility] Address [address] [facility] [address] [place] [address] Phone Care Team Providers Care Oil Tester Name Role Phone Katarina Jack NP Primary Care Provider [phone] Encounter Details Date Type Department Care Team (Late st Contact Info) Description 08/28/2024 Telephone [facility] Gastroenterology [address] [facility] 2nd [address] [place] [address] Sydni Mendoza LPN Social History Tobacco Use [...] on file Legal Sex Female 7:28 PM TELEGRAPHER AGENT Gender Identity Not on file Sexual Orientation Not on file documented as of this encounter Miscellaneous Notes * Telephone Encounter - Sydni Mendoza LPN - 08/28/2024 11:22 AM CST Called and left detailed VM for patient to discuss celiac testing results. GRAPHER AGENT documented in this encounter Plan of Treatment Not on file documented as of this encounter Visit Diagnoses Not on filedocumented in this encounter Care Teams Oil Tester Relationship Specialty Start Date End Date Katarina Jack NP [address] [facility] [address] [place] [address] PCP - General Internal Medicine 02/17/23 documented as of this encounter
--- OUTSIDE RECORDS SUMMARY | 2024-10-06 06:11 | XMS_ITS | Encounter Summary ---
Author Organization [facility] Healthcare Address [address] [place] [address] Care Team Providers Care Glass Presser Name Role Phone Katarina Jack NP Primary Care Provider [phone] Encounter Details Date Type Department Care Team (Latest Contact Info) Description 08/20/2024 9:21 AM FILTER TIP INSPECTOR - 08/20/2024 11:59 PM FILTER TIP INSPECTOR Hospital Encounter [address] [address] Irritable bowel syndrome with constipation Discharge Disposition: [...] on file Legal Sex Female 7:28 PM FILTER TIP INSPECTOR Gender Identity Not on file Sexual Orientation [...] TISSUE TRANSGLUTAMINASE, IGA Routine 08/20/2024 9:21 AM FILTER TIP INSPECTOR Irritable bowel syndrome with constipation IGA Routine 08/20/2024 9:21 AM FILTER TIP INSPECTOR Irritable bowel syndrome with constipation documented in this encounter Results * IgA (08/20/2024 9:21 AM FILTER TIP INSPECTOR) Immunoglobulin A 97 70 - 400 mg/dL Blood 08/20/2024 9:21 AM FILTER TIP INSPECTOR 08/20/2024 12:06 PM FILTER TIP INSPECTOR us Bel [facility]GENS[facility] LAB BLOOD ORDERABLES Fi nal Result [facility] [place] [address] * Tissue transglutaminase IgA (TGG-IgA Ab) (08/20/2024 9:21 AM FILTER TIP INSPECTOR) TTG ab, IgA <0.5 <=14.9 units/mL Comment: Interpretive data Negative: <15 units/mL Positive: > or equal to 15 units/mL Current interpretive data was last revised on 2017. Blood 08/20/2024 9:21 AM FILTER TIP INSPECTOR 08/20/2024 12:06 PM FILTER TIP INSPECTOR us Bel JORGENS[facility] LAB BLOOD ORDERABLES Fi nal Result [facility] [address] [facility] Department [place] [address] documented in this encounter Visit Diagnoses Diagnosis Irritable bowel syndrome with constipation Irritable bowel syndrome documented in this encounter Care Teams Glass Presser Relationship Specialty Start Date End Date Katarina Jack NP [address] [facility] [address] [place] [address] PCP - General Internal Medicine 02/17/23 documented as of this encounter
--- OUTSIDE RECORDS SUMMARY | 2024-10-06 06:11 | XMS_ITS | Referral Summary ---
Author Organization [facility] [address] [facility] [address] Address [facility] [place] [address] Care Team Providers Care Lathe Set Up Operator Name Role Phone Katarina Jack NP Primary Care Provider [phone] Encounters Date Type Department Care Team Description 09/29/2024 6:45 AM INTERNAL COMBUSTION ENGINEER - 09/29/2024 8:03 AM INTERNAL COMBUSTION ENGINEER Emergency [facility] Emergency Department [address] [place] [address] Bakari Alba MD Abdominal pain (Primary Dx); Nausea and vomiting, unspecified vomiting type Discharge Disposition: Discharge to home or self care 09/28/2024 Telephone [facility] [address] [place] [address] Sangeeta Randall PA 08/28/2024 Telephone [facility] [address] [facility] 2nd [address] [place] [address] Sydni Mendoza LPN 08/20/2024 9:21 AM INTERNAL COMBUSTION ENGINEER - 08/20/2024 11:59 PM INTERNAL COMBUSTION ENGINEER Hospital Encounter [facility] [address] [place] [address] Irritable bowel syndrome with constipation Discharge Disposition: Discharge to home or self care 08/20/2024 9:25 AM INTERNAL COMBUSTION ENGINEER Lab [facility] Metabolism and Lipid [address] [facility] 12th [place] [address] [place] [address] Irritable bowel syndrome with constipation; Screening for cholesterol level 08/20/2024 8:30 AM INTERNAL COMBUSTION ENGINEER Office Visit [facility] [address] [facility] 12th [place] [address] [place] [address] Bel Mata PA Irritable bowel syndrome with [...] on file Legal Sex Female 7:28 PM INTERNAL COMBUSTION ENGINEER Gender Identity Not on file Sexual Orientation Not on file Last Filed Vital Signs Vital Sign Reading Time Taken Comments Blood Pressure 141/81 09/29/2024 7:30 AM INTERNAL COMBUSTION ENGINEER Pulse 80 09/29/2024 7:30 AM INTERNAL COMBUSTION ENGINEER Temperature 36.7 ??C (98 ??F) 09/29/2024 6:37 AM INTERNAL COMBUSTION ENGINEER Respiratory Rate 18 09/29/2024 7:30 AM INTERNAL COMBUSTION ENGINEER Oxygen Saturation 99% 09/29/2024 7:30 AM INTERNAL COMBUSTION ENGINEER Inhaled Oxygen Concentration - - Weight 64.4 kg (141 lb 15.6 oz) 09/29/2024 6:37 AM INTERNAL COMBUSTION ENGINEER Height 157.5 cm (5' 2 ) 09/29/2024 6:37 AM INTERNAL COMBUSTION ENGINEER Body Mass Index 25.97 09/29/2024 6:37 AM INTERNAL COMBUSTION ENGINEER Plan of Treatment Not on file Procedures Procedure Name Priority Date/Time Associated Diagnosis Comments POCT HCG, URINE Routine 09/29/2024 7:45 AM INTERNAL COMBUSTION ENGINEER URINALYSIS, MICROSCOPIC ONLY STAT 09/29/2024 7:45 AM INTERNAL COMBUSTION ENGINEER URINALYSIS AND REFLEX TO MICROSCOPIC AND CULTURE STAT 09/29/2024 7:45 AM INTERNAL COMBUSTION ENGINEER EGFR STAT 09/29/2024 6:47 AM INTERNAL COMBUSTION ENGINEER DIFFERENTIAL AUTO STAT 09/29/2024 6:4 7 AM INTERNAL COMBUSTION ENGINEER COMPREHENSIVE METABOLIC PANEL STAT 09/29/2024 6:47 AM INTERNAL COMBUSTION ENGINEER CBC WITH AUTO DIFFERENTIAL STAT 09/29/2024 6:47 AM INTERNAL COMBUSTION ENGINEER INFLUENZA A/B, RSV, AND COVID-19 PCR STAT 09/29/2024 6:47 AM INTERNAL COMBUSTION ENGINEER LIPID PANEL Routine 08/20/2024 9:22 AM INTERNAL COMBUSTION ENGINEER Screening for cholesterol level IGA Routine 08/20/2024 9:21 AM INTERNAL COMBUSTION ENGINEER Irritable bowel syndrome with constipation TISSUE TRANSGLUTAMINASE, IGA Routine 08/20/2024 9:21 AM INTERNAL COMBUSTION ENGINEER Irritable bowel syndrome with constipation CBC WITH AUTO DIFFERENTIAL Routine 08/20/2024 9:21 AM INTERNAL COMBUSTION ENGINEER Irritable bowel syndrome with constipation COMPREHENSIVE METABOLIC PANEL Routine 08/20/2024 9:21 AM INTERNAL COMBUSTION ENGINEER Irritable bowel syndrome with constipation TSH Routine 08/20/2024 9:21 AM INTERNAL COMBUSTION ENGINEER Irritable bowel syndrome with constipation from Last 3 Months Results * (ABNORMAL) Urinalysis reflex to microscopic and culture Urine (09/29/2024 7:45 AM INTERNAL COMBUSTION ENGINEER) Color, ur Yellow Yellow Comment:Testing performed by : [address] [address] Clarity, ur Clear Clear CAROLINE Comment:Testing performed by : [address] [address] Specific gravity, ur 1.030 1.003 - 1.030 CAROLINE Comment:Testing performed by : [address] [address] pH, urine 7.0 CAROLINE Comment: Interpretive Data ? Urine pH is affected by diet, medications, systemic acid-base disturbances, and renal tubular function. ??pH may affect urinary stone formation. ??For example, urine pH below 6.0 may help reduce the tendency for calcium phosphate stones and pH greater than 6.0 may reduce the tendency for uric acid stone formation. Source: [employer] Current Interpretive Data was last revised on 2017 Testing performed by: [address] [address] Protein, ur ql 1+(A) Negative CAROLINE Comment:Testing performed by : [facility], [address] [place] [address], [place]., [address] Glucose, ur ql Negative Negative CAROLINE Comment:Testing performed by : [address], [place]., [address] Ketones, ur 2+(A) Negative CAROLINE HORVATH Comment:Testing performed by : [facility], [address] [place] [address], [place]., [address] Bilirubin, ur Negative Negative CAROLINE Comment:Testing performed by : [address], [place]., [address] Blood, ur Negative Negative CAROLINE Comment:Testing performed by : [address], [place]., [address] Urobilinogen, ur <2.0 <2.0 mg/dL CAROLINE Comment:Testing performed by : [address], [place]., [address] Nitrite, ur Negative Negative CAROLINE Comment:Testing performed by : [address], [place]., [address] Leukocyte esterase, ur Negative Negative CAROLINE Comment:Testing performed by : [address], [place]., [address] UA reflex comment Reflex to microscopic UA will be performed. CAROLINE Comment:Testing performed by : [address], [place]., [address] Urine 09/29/2024 7:45 AM INTERNAL COMBUSTION ENGINEER 09/29/2024 7:48 AM INTERNAL COMBUSTION ENGINEER us Bakari Alba MD LAB MICROBIOLOGY - GEN ERAL ORDERABLES Final Result CAROLINE [address] [facility] Department [place] [address] * (ABNORMAL) Urinalysis, microscopic only (09/29/2024 7:45 AM INTERNAL COMBUSTION ENGINEER) WBC, ur 0-5 0 - 5 /HPF Comment:Testing performed by : [address], [place]., [address] RBC, ur 0-2 0 - 2 /HPF CAROLINE HORVATH Comment:Testing performed by : [facility], [address] [place] [address]., [address] Epithelial cells, squamous, ur 21-50(A) 0 - 5 /HPF CAROLINE Comment:Testing performed by : [facility], [address] [place] [address], [place]., [address] Mucous, ur Present(A) CAROLINE Comment:Testing performed by : [address], [place]., [address] Culture Reflex Comment Reflex conditions for urine culture (WBC >10) not met. CAROLINE Comment:Testing performed by : [address] [address] Urine 09/29/2024 7:45 AM INTERNAL COMBUSTION ENGINEER 09/29/2024 7:48 AM INTERNAL COMBUSTION ENGINEER Bakari Alba MD LAB URINE ORDERABLES F inal Result Performing Organization Address City/State/[facility] Co de Phone Number CAROLINE [address] [facility] Department [place] [address] * POCT hCG, urine (09/29/2024 7:45 AM INTERNAL COMBUSTION ENGINEER) HCG, ur, POC Negative Negative Lot Number [id number] QC Backgroud Clear Acceptable QC Control Line Acceptable Urine 09/29/2024 7:45 AM INTERNAL COMBUSTION ENGINEER Bakari Alba MD POINT OF CARE TEST ORD ERABLES Final Result * Influenza A/B, RSV, and COVID-19 PCR Nasopharyngeal (09/29/2024 6:47 AM INTERNAL COMBUSTION ENGINEER) COVID-19 RNA Negative Negative Comment:Testing performed by : [address] [address] Influenza A RNA Negative Negative CAROLINE Comment:Testing performed by : [address] [address] Influenza B RNA Negative Negative CAROLINE Comment:Testing performed by : [address] [address] RSV RNA Negative Negative CAROLINE Comment: Interpretive data: Testing performed by [facility]. This test is performed using the [employer] Xpert Xpress CoV-2/Flu/RSV plus assay. This is a multiplex, real-time reverse transcriptase PCR assay intended for the qualitative detection of nucleic acid from SARS-CoV-2, influenza A, influenza B, and respiratory syncytial virus. This assay has been cleared by the [place] Food and Drug administration. The performance characteristics have been verified by the [facility]. ??Results must be considered in the clinical context, and a negative result does not rule out infection. Interpretive Data last revised 2023 Testing performed by: [facility], [address] [place] [address], [place]., [address] Nasopharyngeal 09/29/2024 6: 47 AM INTERNAL COMBUSTION ENGINEER 09/29/2024 6:51 AM INTERNAL COMBUSTION ENGINEER Narrative CAROLINE - 09/29/2024 7:36 AM INTERNAL COMBUSTION ENGINEER Is the Patient experiencing symptoms consistent with COVID?->Unknown us Bakari Alba MD LAB MICROBIOLOGY - GEN ERAL ORDERABLES Final Result [facility] [address] [facility] Department [place] [address] * eGFR (09/29/2024 6:47 AM INTERNAL COMBUSTION ENGINEER) eGFR >90 >=60 mL/min/1. 73 m2 Comment: [...] was last reviewed 2021. Testing performed by: [address] [address] Blood 09/29/2024 6:47 AM INTERNAL COMBUSTION ENGINEER 09/29/2024 6:51 AM INTERNAL COMBUSTION ENGINEER us Bakari Alba MD LAB BLOOD ORDERABLES F inal Result [place] [id number] [facility] Department [place] [address] * (ABNORMAL) Differential, auto (09/29/2024 6:47 AM INTERNAL COMBUSTION ENGINEER) Neutrophil abs 9.2(H) 1.5 - 6.5 K/cumm Comment:Testing performed by : [address] [address] Imm gran abs 0.0 0.0 - 0.1 K/cumm CAROLINE Comment:Testing performed by : [address] [address] Lymphocyte abs 1.1 0.8 - 3.3 K/cumm CAROLINE Comment:Testing performed by : [address] [address] Monocyte abs 0.3 0.2 - 0.8 K/cumm CAROLINE Comment:Testing performed by : [address] [address] Eosinophil abs 0.0 0.0 - 0.5 K/cumm CAROLINE Comment:Testing performed by : [address] [address] Basophil abs 0.0 0.0 - 0.1 K/cumm CAROLINE Comment:Testing performed by : [address] [address] Neutrophil pct 86.0 % CAROLINE Comment: Interpretive Data Percent cell count reference ranges are not reported, since discordance with absolute values may lead to misinterpretation of CBC data. Current Interpretive Data was last revised on 2018. Testing performed by: [address] [address] Imm gran pct 0.3 % CAROLINE Comment: Interpretive Data Percent cell count reference ranges are not reported, since discordance with absolute values may lead to misinterpretation of CBC data. Current Interpretive Data was last revised on 2018. Testing performed by: [address] [address] Lymphocyte pct 10.3 % [facility] Comment: Interpretive Data Percent cell count reference ranges are not reported, since discordance with absolute values may lead to misinterpretation of CBC data. Current Interpretive Data was last revised on 2018. Testing performed by: [address] [address] Monocyte pct 3.0 % [facility] Comment: Interpretive Data Percent cell count reference ranges are not reported, since discordance with absolute values may lead to misinterpretation of CBC data. Current Interpretive Data was last revised on 2018. Testing performed by: [address] [address] Eosinophil pct 0.1 % [facility] Comment: Interpretive Data Percent cell count reference ranges are not reported, since discordance with absolute values may lead to misinterpretation of CBC data. Current Interpretive Data was last revised on 2018. Testing performed by: [address] [address] Basophil pct 0.3 % [facility] Comment: Interpretive Data Percent cell count reference ranges are not reported, since discordance with absolute values may lead to misinterpretation of CBC data. Current Interpretive Data was last revised on 2018. Testing performed by: [address] [address] Blood 09/29/2024 6:47 AM INTERNAL COMBUSTION ENGINEER 09/29/2024 6:51 AM INTERNAL COMBUSTION ENGINEER us Bakari Alba MD LAB BLOOD ORDERABLES F inal Result CAROLINE [address] [facility] Department [place] [address] * (ABNORMAL) CBC with auto differential (09/29/2024 6:47 AM INTERNAL COMBUSTION ENGINEER) [facility] WBC 10.7(H) 3.8 - 9.9 K/cumm Comment:Testing performed by : [address] [address] Hgb 12.8 11.9 - 15.5 g/dL CAROLINE Comment:Testing performed by : [address] [address] Hct 37.4 35.6 - 45.5 % CAROLINE Comment:Testing performed by : [address] [address] Plt 318 150 - 400 K/cumm CAROLINE Comment:Testing performed by : [address] [address] MPV 9.8 9.1 - 12.3 fL CAROLINE Comment:Testing performed by : [address] [address] RBC 4.22 3.90 - 5.20 M/cumm CAROLINE Comment:Testing performed by : [address] [address] MCV 88.6 81.3 - 96.4 fL CAROLINE Comment:Testing performed by : [address] [address] MCH 30.3 27.1 - 33.3 pg CAROLINE HORVATH Comment:Testing performed by : [address] [address] MCHC 34.2 32.3 - 35.7 g/dL CAROLINE Comment:Testing performed by : [address] [address] RDW CV 11.9 11.1 - 14.9 % CAROLINE HORVATH Comment:Testing performed by : [address] [address] RDW SD 38.1 35.7 - 48.1 fL CAROLINE HORVATH Comment:Testing performed by : [address] [address] NRBC abs 0.00 0.00 - 0.01 K/cumm CAROLINE HORVATH Comment:Testing performed by : [address] [address] Blood 09/29/2024 6:47 AM INTERNAL COMBUSTION ENGINEER 09/29/2024 6:51 AM INTERNAL COMBUSTION ENGINEER us Bakari Alba MD LAB BLOOD ORDERABLES F inal Result [facility] Department [place] [address] * (ABNORMAL) Comprehensive metabolic panel (09/29/2024 6:47 AM INTERNAL COMBUSTION ENGINEER) Sodium 138 135 - 145 mmol/L Comment:Testing performed by : [address] [address] Potassium, pl 4.1 3.3 - 4.9 mmol/L CAROLINE HORVATH Comment:Testing performed by : [address] [address] Chloride 104 97 - 110 mmol/L CAROLINE HORVATH Comment:Testing performed by : [address] [address] CO2 23 22 - 32 mmol/L CAROLINE HORVATH Comment:Testing performed by : [address] [address] Anion gap 11 2 - 15 mmol/L CAROLINE HORVATH Comment:Testing performed by : [address] [address] BUN 8 6 - 25 mg/dL CAROLINE HORVATH Comment:Testing performed by : [address] [address] Creatinine 0.50(L) 0.60 - 1.10 mg/dL CAROLINE HORVATH Comment:Testing performed by : [address] [address] Glucose 118 70 - 199 mg/dL CAROLINE [...] was last revised 2022. Testing performed by: [address] [address] Calcium 9.7 8.5 - 10.3 mg/dL CAROLINE Comment:Testing performed by : [address] [address] Bilirubin, total 0.4 0.1 - 1.2 mg/dL CAROLINE Comment:Testing performed by : [address] [address] Protein, pl 8.0 6.5 - 8.5 g/dL CAROLINE Comment:Testing performed by : [address] [address] Albumin 4.7 3.5 - 5.0 g/dL CAROLINE Comment:Testing performed by : [address] [address] Alk phos 61 40 - 130 Units/L CAROLINE Comment:Testing performed by : [address] [address] ALT 8 7 - 45 Units/L [facility]Testing performed by : [address] [address] AST 19 10 - 45 Units/L CAROLINE Comment:Testing performed by : [address] [address] Blood 09/29/2024 6:47 AM INTERNAL COMBUSTION ENGINEER 09/29/2024 6:51 AM INTERNAL COMBUSTION ENGINEER Bakari Alba MD LAB BLOOD ORDERABLES F inal Result Performing Organization Address City/[facility]/ZIP Co de Phone Number CAROLINE [facility] Department [place] [address] * (ABNORMAL) Lipid panel (08/20/2024 9:22 AM INTERNAL COMBUSTION ENGINEER) Triglycerides 179(H) <150 mg/dL [facility] [...] triglycerides are elevated. Blood 08/20/2024 9:22 AM INTERNAL COMBUSTION ENGINEER 08/20/2024 11:01 AM INTERNAL COMBUSTION ENGINEER Narrative [facility] - 08/20/2024 12:10 PM INTERNAL COMBUSTION ENGINEER Current interpretive data was last updated August 28, 2021. Katarina Jack NP LAB BLOOD ORDERABLES Final Re sult [facility] * CBC with auto differential (08/20/2024 9:21 AM INTERNAL COMBUSTION ENGINEER) White Blood Count 6.9 3.6 - 11.2 [...] [facility] Blood 08/20/2024 9:21 AM INTERNAL COMBUSTION ENGINEER 08/20/2024 11:01 AM INTERNAL COMBUSTION ENGINEER Bel JORGENSEN LAB BLOOD ORDERABLES Fi nal Result [facility] * Tissue transglutaminase IgA (TGG-IgA Ab) (08/20/2024 9:21 AM INTERNAL COMBUSTION ENGINEER) TTG ab, IgA <0.5 <=14.9 units/mL Comment: Interpretive data Negative: <15 units/mL Positive: > or equal to 15 units/mL Current interpretive data was last revised on 2017. Blood 08/20/2024 9:21 AM INTERNAL COMBUSTION ENGINEER 08/20/2024 12:06 PM INTERNAL COMBUSTION ENGINEER Bel JORGENSEN LAB BLOOD ORDERABLES Fi nal Result CAROLINE [facility] Department [place] [address] * TSH (08/20/2024 9:21 AM INTERNAL COMBUSTION ENGINEER) TSH (Thyrotropin) 1.76 0.27 - 4.20 uIU/mL [facility] Blood 08/20/2024 9:21 AM INTERNAL COMBUSTION ENGINEER 08/20/2024 11:01 AM INTERNAL COMBUSTION ENGINEER Bel JORGENSEN LAB BLOOD ORDERABLES Fi nal Result Performing Organization Address City/[facility] Co de Phone Number [facility] * IgA (08/20/2024 9:21 AM INTERNAL COMBUSTION ENGINEER) Pathologist [facility] Immunoglobulin A 97 70 - 400 mg/dL Blood 08/20/2024 9:21 AM INTERNAL COMBUSTION ENGINEER 08/20/2024 12:06 PM INTERNAL COMBUSTION ENGINEER Bel JORGENSEN LAB BLOOD ORDERABLES Fi nal Result Performing Organization Address [facility] Co de Phone Number CAROLINE [facility] Department [place] [address] * Comprehensive metabolic panel (08/20/2024 9:21 AM INTERNAL COMBUSTION ENGINEER) Total Protein 8.1 6.1 - 8.4 g/dL [...] [facility] Blood 08/20/2024 9:21 AM INTERNAL COMBUSTION ENGINEER 08/20/2024 11:01 AM INTERNAL COMBUSTION ENGINEER us Bel JORGENSEN LAB BLOOD ORDERABLES Fi nal Result Performing Organization Address City/State/[facility] Co de Phone Number [facility] from Last 3 Months Insurance [facility] [place] [employer] [place] [place] [place] [employer] [place] Care Teams Lathe Set Up Operator Relationship Specialty Start Date End Date Katarina Jack NP [address] [facility] [place] [address] [place] [address] PCP - General Internal Medicine 02/17/23
--- OUTSIDE RECORDS SUMMARY | 2024-10-06 06:11 | XMS_ITS | Encounter Summary ---
Author Organization [facility] Address [address] [facility] [address] [place] [address] Phone Care Team Providers Care Excavator Backhoe Operator Name Role Phone Katarina Jack REPAIRER SWITCHGEAR Primary Care Provider [phone] Reason for Visit * Consultation (Routine) - Authorized Specialty Diagnoses / Procedures Referred By Contdidi t Referred To Contact Gastroenterology Diagnoses Diarrhea, unspecified type Katarina Jack NP [address] [place] [address] Phone: tel: fax: Aditi Maradiaga MD [address] [place] [address] Phone: tel: fax: Referral ID Status Reason Start Date Expiration Date Visits Requested Visits Authorized [id number] Authorized Specialty Services Required 02/10/2024 03/11/2025 99 99 Encounter Details Date Type Department Care Team (Late st Contact Info) Description 08/20/2024 8:30 AM CHILD ADVOCATE Office Visit [facility] Gastroenterology [address] [facility] 12th [place] [address] [place] [address] Bel Mata PA [address] [place] [address] Irritable bowel syndrome with constipation (Primary Dx); [...] on file Legal Sex Female 7:28 PM CHILD ADVOCATE Gender Identity Not on file Sexual Orientation Not on file documented as of this encounter Last Filed Vital Signs Vital Sign Reading Time Taken Comments Blood Pressure 114/72 08/20/2024 8:39 AM CHILD ADVOCATE Pulse 78 08/20/2024 8:39 AM CHILD ADVOCATE Temperature 36.2 ??C (97.2 ??F) 08/20/2024 8:39 AM CS T Respiratory Rate - - Oxygen Saturation - - Inhaled Oxygen Concentration - - Weight 65.8 kg (145 lb) 08/20/2024 8:39 AM CHILD ADVOCATE Height 157.5 cm (5' 2 ) 08/20/2024 8:39 AM CHILD ADVOCATE Body Mass Index 26.52 08/20/2024 8:39 AM CHILD ADVOCATE documented in this encounter Patient Instructions * Patient Instructions* Bel Mata PA - 08/20/2024 8:30 AM CHILD ADVOCATE Office [phone] Increase dietary fiber Start Miralax + Benefiber once daily If you are going too much or stools too soft- take 1/2 capful of Miralax and continue Benefiber Call or message with update if not better D ADVOCATE D ADVOCATE documented in this encounter Ordered Prescriptions Prescription [...] Mom- IBS 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 The new patient intake form was reviewed [...] Return in about 3 months (around 11/20/2024). D ADVOCATE documented in this encounter Plan of Treatment Not on file documented as of this encounter Results * Tissue transglutaminase IgA (TGG-IgA Ab) (08/20/2024 9:21 AM CHILD ADVOCATE) TTG ab, IgA <0.5 <=14.9 units/mL Comment: Interpretive data Negative: <15 units/mL Positive: > or equal to 15 units/mL Current interpretive data was last revised on 2017. Blood 08/20/2024 9:21 AM CHILD ADVOCATE 08/20/2024 12:06 PM CHILD ADVOCATE Bel [facility] LAB BLOOD ORDERABLES Fi nal Result Performing Organization Address City/[facility] Co de Phone Number [facility] [place] [address] * IgA (08/20/2024 9:21 AM CHILD ADVOCATE) Pathologist [facility] Immunoglobulin A 97 70 - 400 mg/dL Blood 08/20/2024 9:21 AM CHILD ADVOCATE 08/20/2024 12:06 PM CHILD ADVOCATE Bel [facility] LAB BLOOD ORDERABLES Fi nal Result Performing Organization Address [facility] de Phone Number [facility] Department [place] [address] * TSH (08/20/2024 9:21 AM CHILD ADVOCATE) TSH (Thyrotropin) 1.76 0.27 - 4.20 uIU/mL [facility] Blood 08/20/2024 9:21 AM CHILD ADVOCATE 08/20/2024 11:01 AM CHILD ADVOCATE Bel [facility] LAB BLOOD ORDERABLES Fi nal Result Performing Organization Address City/[facility] Co de Phone Number [facility] CORE LAB [facility] * Comprehensive metabolic panel (08/20/2024 9:21 AM CHILD ADVOCATE) Total Protein 8.1 6.1 - 8.4 g/dL [...] [facility] Blood 08/20/2024 9:21 AM CHILD ADVOCATE 08/20/2024 11:01 AM CHILD ADVOCATE us Bel [facility] BLOOD ORDERABLES Fi nal Result [facility] * CBC with auto differential (08/20/2024 9:21 AM CHILD ADVOCATE) White Blood Count 6.9 3.6 - 11.2 [...] [facility] Blood 08/20/2024 9:21 AM CHILD ADVOCATE 08/20/2024 11:01 AM CHILD ADVOCATE Bel [facility] LAB BLOOD ORDERABLES Fi nal Result [facility] documented in this encounter Visit Diagnoses Diagnosis Irritable bowel syndrome with constipation- Primary Irritable bowel syndrome Heartburn Diarrhea, unspecified type documented in this encounter Orders Outpatient Referral Count Last Ordered Date Fir st Ordered Date AMB REFERRAL TO GASTROENTEROLOGY 1 08/20/20 24 documented in this encounter Care Teams Excavator Backhoe Operator Relationship Specialty Start Date End Date Katarina Jack NP [address] [facility] [address] [place] [address] PCP - General Internal Medicine 02/17/23 documented as of this encounter
--- OUTSIDE RECORDS SUMMARY | 2024-10-06 06:12 | XMS_ITS | Encounter Summary ---
Author Organization [facility] Healthcare Address [address] [place] [address] Care Team Providers Care Engine Mechanic Name Role Phone Katarina Jack BUTTING SAW OPERATOR Primary Care Provider [phone] Reason for Visit * Reason Comments Consult Wants to talk about problems with her tonsils, stones ? Encounter Details Date Type Department Care Team (Late st Contact Info) Description 10/14/2023 2:00 PM FAMILY HELPER Office Visit [facility] Medical Group Internal Medicine at [place] [address] [place] [address] Katarina Jack, BUTTING SAW OPERATOR [address] [place] [address] Tonsil pain (Primary Dx); BMI [...] on file Legal Sex Female 7:28 PM FAMILY HELPER Gender Identity Not on file Sexual Orientation Not on file documented as of this encounter Last Filed Vital Signs Vital Sign Reading Time Taken Comments Blood Pressure 100/60 10/14/2023 2:00 PM FAMILY HELPER Pulse 85 10/14/2023 2:00 PM FAMILY HELPER Temperature 37.1 ??C (98.8 ??F) 10/14/2023 2:00 PM CS T Respiratory Rate - - Oxygen Saturation 99% 10/14/2023 2:00 PM FAMILY HELPER Inhaled Oxygen Concentration - - Weight 66.7 kg (147 lb) 10/14/2023 2:00 PM FAMILY HELPER Height 157.5 cm (5' 2 ) 10/14/2023 2:00 PM FAMILY HELPER Body Mass Index 26.89 10/14/2023 2:00 PM FAMILY HELPER documented in this encounter Patient Instructions * Patient Instructions* Katarina Jack NP - 10/14/2023 2:00 PM FAMILY HELPER Use referral to follow-up with ENT. Contact the office with any questions or concerns LY HELPER documented in this encounter Progress Notes * [...] C Ordonez MD at 11/06/2023 3:58 PM FAMILY HELPER LY HELPER LY HELPER documented in this encounter Plan of Treatment Not on file documented as of this encounter Visit Diagnoses Diagnosis Tonsil pain- Primary BMI 26.0-26.9,adult documented in this encounter Care Teams Engine Mechanic Relationship Specialty Start Date End Date Katarina Jack NP [address] [place] [address] PCP - General Internal Medicine 02/17/23 documented as of this encounter
--- OUTSIDE RECORDS SUMMARY | 2024-10-06 06:12 | XMS_ITS | Encounter Summary ---
Author Organization [facility] Medical Group Address [address] [facility] [place] [address] Care Team Providers Care Folder Machine Name Role Phone Katarina Jack RESIDENTIAL CASE MANAGER Primary Care Provider [phone] Reason for Visit * Reason Comments Establish Care New pt Encounter Details Date Type Department Care Team (Late st Contact Info) Description 02/17/2023 9:30 AM CDT Office Visit [facility] Medical Group Internal Medicine at [place] 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 (Girls, 2- 20 Years) documented in [...] LAB BLOOD ORDERABLES Final Re sult CAROLINE [address] [facility] Department [place] [address] * (ABNORMAL) Lipid panel (02/17/2023 [...] on 2018. Non-HDL Cholesterol 134 <=144 mg/dL [facility] Comment: Interpretive Data Ages < or = [...] last revised on 2018. Chol/HDL ratio 3 [facility] Blood 02/17/2023 11:1 4 AM CDT 02/17/2023 11:19 AM CDT us Katarina Jack RESIDENTIAL CASE MANAGER LAB BLOOD ORDERABLES Final Re sult [facility] [address] [facility] Department [place] [address] * (ABNORMAL) Comprehensive metabolic panel (02/17/2023 11:14 AM CDT) Sodium 139 135 - 145 mmol/L [facility] Potassium, pl 4.1 3.3 - 4.9 mmol/L [facility] Chloride 104 97 - 110 mmol/L [facility] CO2 24 22 - 32 mmol/L [facility] Anion gap 11 2 - 15 mmol/L [facility] BUN 9 8 - 25 mg/dL [facility] Creatinine 0.60 0.40 - 1.00 mg/dL [facility] Glucose 97 70 - 199 mg/dL [facility] Comment: Interpretive Data Fasting glucose >/= 126 [...] 2022. Calcium 10.1 8.5 - 10.3 mg/dL [facility] Bilirubin, total 0.5 0.1 - 1.2 mg/dL [facility] Protein, pl 8.5 6.5 - 8.5 g/dL [facility] Albumin 5.2(H) 3.5 - 5.0 g/dL [facility] Alk phos 63(L) 70 - 260 Units/L [facility] ALT 9 7 - 45 Units/L [facility] AST 17 10 - 45 Units/L [facility] Blood 02/17/2023 11:1 4 AM CDT 02/17/2023 11:19 AM CDT Katarina Jack RESIDENTIAL CASE MANAGER LAB BLOOD ORDERABLES Final Re sult Performing Organization Address City/[facility] de Phone Number [address] [place] [address] * Iron profile w/ IBC (02/17/2023 11:14 AM CDT) [facility] Iron 117 35 - 145 mcg/dL [facility] TIBC 380 250 - 400 mcg/dL [facility] Transferrin saturation 31 20 - 50 % [facility] Blood 02/17/2023 11:1 4 AM CDT 02/17/2023 11:19 AM CDT Katarina Jack RESIDENTIAL CASE MANAGER LAB BLOOD ORDERABLES Final Re sult [address] [place] [address] * CBC with auto differential (02/17/2023 11:14 AM CDT) Pathologist [facility] WBC 6.4 3.8 - 9.9 K/cumm [facility] Hgb 13.8 11.9 - 15.5 g/dL [facility] Hct 41.5 35.6 - 45.5 % [facility] Plt 319 150 - 400 K/cumm [facility] MPV 9.5 9.1 - 12.3 fL [facility] RBC 4.52 3.90 - 5.20 M/cumm [facility] MCV 91.8 81.3 - 96.4 fL [facility] MCH 30.5 27.1 - 33.3 pg [facility] MCHC 33.3 32.3 - 35.7 g/dL [facility] RDW CV 12.1 11.1 - 14.9 % [facility] RDW SD 40.4 35.7 - 48.1 fL [facility] NRBC abs 0.00 0.00 - 0.01 K/cumm [facility] Blood 02/17/2023 11:1 4 AM CDT 02/17/2023 11:19 AM CDT Katarina Jack NP LAB BLOOD ORDERABLES Final Re sult [facility] [address] [facility] Department of Laboratories [place], [place] [id number] documented in this encounter Visit Diagnoses Diagnosis [...] documented as of this encounter Care Teams Folder Machine Relationship Specialty Start Date End Date Katarina Jack NP [address] [facility] [address] [place] [address] PCP - General Internal Medicine 02/17/23 documented as of this encounter
--- OUTSIDE RECORDS SUMMARY | 2024-10-06 06:12 | XMS_ITS | Encounter Summary ---
Author Organization [facility] Medical Group Address [address] [address] Care Team Providers Care Fisher Name Role Phone Katarina Jack NP Primary Care Provider [phone] Reason for Visit * Reason Onset Date Comments Appointment Request 05/20/2023 Encounter Details Date Type Department Care Team (Late st Contact Info) Description 05/20/2023 Telephone [facility] Medical [facility] Internal Medicine at [place] [address] [place] [address] Katarina Jack NP [address] [place] [address] Appointment Request Social History Tobacco [...] on file 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 Yes-Action Needed documented in this encounter Plan of Treatment Not on file documented as of this encounter Visit Diagnoses Not on filedocumented in this encounter Care Teams Fisher Relationship Specialty Start Date End Date Katarina Jack NP [address] [facility] [address] [place] [address] PCP - General Internal Medicine 02/17/23 documented as of this encounter
--- OUTSIDE RECORDS SUMMARY | 2024-10-06 06:12 | XMS_ITS | Encounter Summary ---
Author Organization [facility] Address [address] [facility] [address] [place] [address] Care Team Providers Care Site Interpreter Name Role Phone Katarina Jack NP Primary Care Provider [phone] Encounter Details Date Type Department Care Team (Late st Contact Info) Description 06/21/2023 Telephone [facility] Family Medicine [address] [place] [address] Katarina Jack NP [address] [facility] [address] [place] [address] Social History Tobacco Use Types [...] on file Legal Sex Female 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 Pt discharged with orders for metronidazole. See attached notes. documented in this encounter Plan of Treatment Not on file documented as of this encounter Visit Diagnoses Not on filedocumented in this encounter Care Teams Site Interpreter Relationship Specialty Start Date End Date Katarina Jack NP [address] [facility] [address] [place] [address] PCP - General Internal Medicine 02/17/23 documented as of this encounter
--- OUTSIDE RECORDS SUMMARY | 2024-10-06 06:12 | XMS_ITS | Encounter Summary ---
Author Organization [facility] Address [address] [facility] [address] [place] [address] Phone Care Team Providers Care Accounting File Clerk Name Role Phone Katarina Jack NP Primary Care Provider [phone] Reason for Visit * Reason Comments New Patient Tonsils * Consultation (Routine) - Authorized Specialty Diagnoses / Procedures Referred By Rowena garcia Referred To Contact Otolaryngology Diagnoses Tonsil pain Katarina Jack, TERRAZZO GRINDER [address] [place] [address] Phone: tel: fax: Stanislav Sr MD [address] [place] [address] Phone: tel: fax: Referral ID Status Reason Start Date Expiration Date Visits Requested Visits Authorized [id number] Authorized Specialty Services Required 12/16/2023 01/14/2025 6 6 Encounter Details Date Type Department Care Team (Late st Contact Info) Description 03/08/2024 2:00 PM CDT Office Visit [place] [facility]) - [facility] [address] [facility] 2nd [address], [address] [place] [address] Mandeep Fischer MD [address] [place] [address] Sore throat (Primary Dx); Tonsil [...] on file 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 Department of Otolaryngology [facility] New Patient Report [...] 03/08/2024 documented in this encounter Care Teams Accounting File Clerk Relationship Specialty Start Date End Date Katarina Jack NP [address] [address] PCP - General Internal Medicine 02/17/23 documented as of this encounter
--- OUTSIDE RECORDS SUMMARY | 2024-10-06 06:12 | XMS_ITS | Encounter Summary ---
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
--- OUTSIDE RECORDS SUMMARY | 2024-10-06 06:12 | XMS_ITS | Encounter Summary ---
Author Organization [facility] Healthcare Address [address] [place] [address] Care Team Providers Care Hospice Clinical Supervisor Name Role Phone Alfredo Cardzoa MD Primary Care Provider [phone] Encounter Details Date Type Department Care Team (Late st Contact Info) Description 03/14/2019 9:55 AM CDT - 03/14/2019 11:20 AM CDT Hospital Encounter [facility] Emergency Department [address] [place] [address] Unknown, Norma Hwang, Keven Isidro MD [address] [place] [address] [place] [address] Discharge Disposition: Discharge to home or self care Social History Tobacco Use Types Packs/Day Years Used Date Smoking Tobacco: Never Assessed Comments Unknown Sex and Gender Information Value Date Recorded Sex Assigned at Not on file Legal 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
--- OUTSIDE RECORDS SUMMARY | 2024-10-06 06:12 | XMS_ITS | Encounter Summary ---
Author Organization [facility] Medical Group Address [address] [address] Care Team Providers Care Hooker Inspector Name Role Phone Rahda Grove MD PhD Primary Care Pr ovider Reason for Visit * Reason Comments Sore Throat Pt states she has so re throat, painful to swallow. Ongoing 3-4days Encounter Details Date Type Department Care Team (Late st Contact Info) Description 01/20/2023 3:00 PM CDT Office Visit [facility] [address] [place] [address] Nickie Claire PA [address] [place] [address] Sore throat (Primary Dx) Social History Tobacco Use Types Packs/Day Years Used Date Smoking Tobacco: Never Smokeless Tobacco: Never Alcohol Use Standard Drinks/Week Comments Never 0 (1 standard drink = 0.6 oz pur e alcohol) Comments No Sex and Gender Information Value Date Recorded Sex Assigned at Not on file 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 * Strep Throat in Children (Fish Skinning Machine Feeder) (Swedish) documented in this encounter Ordered Prescriptions Prescription [...] AM CDT 01/21/2023 11:17 AM CDT [facility]ative [facility] - 01/24/2023 11:30 AM CDT Collection date/time has been modified to:01/20/2023 09:55. Previous Collection date/time: 01/21/2023 09:55. Testing performed by [facility] ([phone]). [facility] Final Result [facility] [address] [facility] Department [place] [address] documented in this encounter Visit Diagnoses Diagnosis [...] 3 added in this encounter Care Teams Hooker Inspector Relationship Specialty Start Date End Date Radha Grove MD PhD PCP - General Pediatrics 08/27/21 02/16/23 documented as of this encounter
--- OUTSIDE RECORDS SUMMARY | 2024-10-06 06:12 | XMS_ITS | Encounter Summary ---
Author Organization [facility] Address [address] [place] [address] Phone Care Team Providers Care Body Specialist Name Role Phone Katarina Jack NP Primary Care Provider [phone] Encounter Details Date Type Department Care Team (Late st Contact Info) Description 01/27/2024 Telephone [place] [facility]) - [facility] ENT [address] [facility] Advanced Medicine 11th [place] [address] [place] [address] Karolina Benton MS Social History Tobacco Use [...] on file Legal 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 [address] [place] [address] PCP - General Internal Medicine 02/17/23 documented as of this encounter
--- OUTSIDE RECORDS SUMMARY | 2024-10-06 06:12 | XMS_ITS | Encounter Summary ---
Author Organization [facility] Medical Group Address [address] [facility] [address] [place] [address] Care Team Providers Care Director Of Media Name Role Phone Katarina Jack NP Primary Care Provider [phone] Encounter Details Date Type Department Care Team (Late st Contact Info) Description 04/08/2023 Telephone [facility] Medical [facility] Internal Medicine at [place] [address] [place] [address] Katarina Jack, SATELLITE PROJECT SITE MONITOR [address] [place] [address] Social History Tobacco Use Types [...] on file Legal 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
--- OUTSIDE RECORDS SUMMARY | 2024-10-06 06:12 | XMS_ITS | Encounter Summary ---
Author Organization [facility] Healthcare Address [address] [place] [address] Care Team Providers Care Elastic Tape Inserter Name Role Phone Katarina Jack HRIS ADMINISTRATOR Primary Care Provider [phone] Reason for Visit * Reason Comments Follow-up Follow up 4wk Encounter Details Date Type Department Care Team (Late st Contact Info) Description 03/09/2024 9:30 AM CDT Office Visit [facility] Medical [facility] Internal Medicine at [place] [address] [place] [address] Katarina Jack, HRIS ADMINISTRATOR [address] [place] [address] [place], [place] [id number] Physical exam, annual (Primary Dx); BMI 26.0-26.9,adult; [...] on file Legal 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 Female 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 Gender Identity Not on file Sexual Orientation [...] on: 08/20/2024 09:22 AM Modules accepted: Orders H STAINER documented in this encounter Plan of Treatment Scheduled Orders Name Type Priority Associated Diagnoses Orde r Schedule TSH Lab Routine Screening for thyroid disorder Expected: 03/12/2024, Expires: 03/09/2025 Comprehensive metabolic panel Lab Routine Screening for diabetes mellitus Expected: 03/12/2024, Expires: 03/09/2025 documented as of this encounter Results * (ABNORMAL) Lipid panel (08/20/2024 9:22 AM BRUSH STAINER) Triglycerides 179(H) <150 mg/dL [facility] [...] triglycerides are elevated. Blood 08/20/2024 9:22 AM BRUSH STAINER 08/20/2024 11:01 AM BRUSH STAINER Narrative [facility] - 08/20/2024 12:10 PM BRUSH STAINER Current interpretive data was last updated August 28, 2021. us Katarina Jack NP LAB BLOOD ORDERABLES Final Re sult [facility] documented [...] documented as of this encounter Care Teams Elastic Tape Inserter Relationship Specialty Start Date End Date Katarina Jack, HRIS ADMINISTRATOR [address] [facility] [address] [place] [address] PCP - General Internal Medicine 02/17/23 documented as of this encounter
--- OUTSIDE RECORDS SUMMARY | 2024-10-06 06:12 | XMS_ITS | Encounter Summary ---
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 73 m2 [facility] [...] 02/17/2023 11:19 AM CDT us Katarina Jack BEHAVIORAL ANALYST LAB BLOOD ORDERABLES Final Re sult [facility] [address] [facility] Department [place] [address] * Differential, auto (02/17/2023 11:14 AM CDT) Neutrophil abs 3.7 1.7 - 6.5 K/cumm [facility] Imm gran abs 0.0 0.0 - 0.1 K/cumm [facility] Lymphocyte abs 2.3 0.8 - 3.3 K/cumm [facility] Monocyte abs 0.4 0.2 - 0.8 K/cumm [facility] Eosinophil abs 0.1 0.0 - 0.5 K/cumm [facility] Basophil abs 0.1 0.0 - 0.1 K/cumm [facility] Neutrophil pct 56.7 % [facility] Comment: Interpretive Data Percent cell count reference ranges are not reported, since discordance with absolute values may lead to misinterpretation of CBC data. Current Interpretive Data was last revised on 2018. Imm gran pct 0.2 % [facility] Comment: Interpretive Data Percent cell count reference ranges are not reported, since discordance with absolute values may lead to misinterpretation of CBC data. Current Interpretive Data was last revised on 2018. Lymphocyte pct 35.0 % [facility] Comment: Interpretive Data Percent cell count reference ranges are not reported, since discordance with absolute values may lead to misinterpretation of CBC data. Current Interpretive Data was last revised on 2018. Monocyte pct 6.4 % [facility] Comment: Interpretive Data Percent cell count reference ranges are not reported, since discordance with absolute values may lead to misinterpretation of CBC data. Current Interpretive Data was last revised on 2018. Eosinophil pct 0.9 % [facility] Comment: Interpretive Data Percent cell count reference ranges are not reported, since discordance with absolute values may lead to misinterpretation of CBC data. Current Interpretive Data was last revised on 2018. Basophil pct 0.8 % [facility] Comment: Interpretive Data Percent cell count reference ranges are not reported, since discordance with absolute values may lead to misinterpretation of CBC data. Current Interpretive Data was last revised on 2018. Blood 02/17/2023 11:1 4 AM CDT 02/17/2023 11:19 AM CDT Katarina Jack BEHAVIORAL ANALYST LAB BLOOD ORDERABLES Final Re sult Performing Organization Address City/[facility]/ZIP Co de Phone Number CAROLINE [address] [place] [address] * CBC with auto differential (02/17/2023 11:14 AM CDT) WBC 6.4 3.8 - 9.9 K/cumm [facility] Hgb 13.8 11.9 - 15.5 g/dL [facility] Hct 41.5 35.6 - 45.5 % [facility] Plt 319 150 - 400 K/cumm [facility] MPV 9.5 9.1 - 12.3 fL [facility] RBC 4.52 3.90 - 5.20 M/cumm [facility] MCV 91.8 81.3 - 96.4 fL [facility] MCH 30.5 27.1 - 33.3 pg [facility] MCHC 33.3 32.3 - 35.7 g/dL [facility] RDW CV 12.1 11.1 - 14.9 % [facility] RDW SD 40.4 35.7 - 48.1 fL [facility] NRBC abs 0.00 0.00 - 0.01 K/cumm [facility] Blood 02/17/2023 11:1 4 AM CDT 02/17/2023 11:19 AM CDT Katarina Jack BEHAVIORAL ANALYST LAB BLOOD ORDERABLES Final Re sult Performing Organization Address City/[facility] Co de Phone Number CAROLINE [address] [place] [address] * Iron profile w/ IBC (02/17/2023 11:14 AM CDT) Iron 117 35 - 145 mcg/dL [facility] TIBC 380 250 - 400 mcg/dL [facility] Transferrin saturation 31 20 - 50 % [facility] Blood 02/17/2023 11:1 4 AM CDT 02/17/2023 11:19 AM CDT us Katarina Jack BEHAVIORAL ANALYST LAB BLOOD ORDERABLES Final Re sult [facility] [address] [facility] Department [place] [address] * (ABNORMAL) Comprehensive metabolic panel (02/17/2023 11:14 AM CDT) Sodium 139 135 - 145 mmol/L [facility] Potassium, pl 4.1 3.3 - 4.9 mmol/L [facility] Chloride 104 97 - 110 mmol/L [facility] CO2 24 22 - 32 mmol/L [facility] Anion gap 11 2 - 15 mmol/L [facility] BUN 9 8 - 25 mg/dL [facility] Creatinine 0.60 0.40 - 1.00 mg/dL [facility] Glucose 97 70 - 199 mg/dL [facility] Comment: Interpretive Data Fasting [...] 2022. Calcium 10.1 8.5 - 10.3 mg/dL [facility] Bilirubin, total 0.5 0.1 - 1.2 mg/dL [facility] Protein, pl 8.5 6.5 - 8.5 g/dL [facility] Albumin 5.2(H) 3.5 - 5.0 g/dL [facility] Alk phos 63(L) 70 - 260 Units/L [facility] ALT 9 7 - 45 Units/L [facility] AST 17 10 - 45 Units/L [facility] Blood 02/17/2023 11:1 4 AM CDT 02/17/2023 11:19 AM CDT us Katarina Jack BEHAVIORAL ANALYST LAB BLOOD ORDERABLES Final Re sult [facility] [address] [facility] Department [place] [address] * (ABNORMAL) Lipid panel (02/17/2023 11:14 AM [...] CDT 02/17/2023 11:19 AM CDT Katarina Jack BEHAVIORAL ANALYST LAB BLOOD ORDERABLES Final Re sult Performing Organization Address City/[facility] Co de Phone Number CAROLINE [facility] [place] [address] * TSH (02/17/2023 11:14 AM CDT) Thyroid Stimulating Hormone 1.05 0.30 - 4.20 mcIUnit/mL [facility] Blood 02/17/2023 11:1 4 AM CDT 02/17/2023 11:19 AM CDT Katarina Jack BEHAVIORAL ANALYST LAB BLOOD ORDERABLES Final Re sult Performing Organization Address City/[facility] de Phone Number [place] [id number] [facility] [place] [address] documented in this encounter Visit Diagnoses Diagnosis Physical exam, annual documented in this encounter Care Teams Skiagrapher Relationship Specialty Start Date End Date Katarina Jack NP [address] [facility] [address] [place] [address] PCP - General Internal Medicine 02/17/23 documented as of this encounter
--- OUTSIDE RECORDS SUMMARY | 2024-10-06 06:12 | XMS_ITS | Encounter Summary ---
Author Organization [facility] Healthcare Address [address] [place] [address] Care Team Providers Care Composition Worker Name Role Phone Radha Grove MD PhD Primary Care Pr ovider Encounter Details Date Type Department Care Team (Latest Contact Info) Description 01/20/2023 3:22 PM CDT - 01/20/2023 11:59 PM CDT Hospital Encounter [address] [address] Sore throat Discharge Disposition: Discharge to home or self care Social History Tobacco Use Types Packs/Day Years Used Date Smoking Tobacco: Never Smokeless Tobacco: Never Alcohol Use Standard Drinks/Week Comments Never 0 (1 standard drink = 0.6 oz pur e alcohol) Comments No Sex and Gender Information Value Date Recorded Sex Assigned at Not on file 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 [facility] Throat 01/20/2023 9:55 AM CDT 01/21/2023 11:17 AM CDT Narrative [facility] - 01/24/2023 11:30 AM CDT Collection date/time has been modified to:01/20/2023 09:55. Previous Collection date/time: 01/21/2023 09:55. Testing performed by [facility] ([phone]). [facility]CROBIOLOGY - [facility] NIKHIL MESSINA Final Result [facility] Department [place] [address] documented in this encounter Visit Diagnoses Diagnosis Sore throat Acute pharyngitis documented in this encounter Care Teams Composition Worker Relationship Specialty Start Date End Date Radha Grove MD PhD PCP - General Pediatrics 08/27/21 02/16/23 documented as of this encounter
--- OUTSIDE RECORDS SUMMARY | 2024-10-06 06:12 | XMS_ITS | Encounter Summary ---
Author Organization [facility] Healthcare Address [address] [place] [address] Care Team Providers Care Traffic Attendant Name Role Phone Katarina Jack STORE ASSOCIATE Primary Care Provider [phone] Reason for Visit * Reason Onset Date Comments Constipation 03/15/2024 Encounter Details Date Type Department Care Team (Late st Contact Info) Description 03/15/2024 Nurse Triage [facility] Medical Group Internal Medicine at [place] [address] [place] [address] Katarina Jack, STORE ASSOCIATE [address] [place] [address] Social History Tobacco Use Types [...] on file 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 Gender Identity Not on file Sexual Orientation Not on file documented as of this encounter Miscellaneous Notes * Telephone Encounter - Abi Lee RN - 03/15/2024 10:54 AM CDT Patient's mother, ELLA Garcia, called baseball umpire for little league stating Mary with C/O abdominal pain, constipation, [...] a laxative, suppository, or enema Protocols used: [id number] * Telephone Encounter - Abi Lee RN [...] on filedocumented in this encounter Care Teams Traffic Attendant Relationship Specialty Start Date End Date Katarina Jack NP [address] [address] PCP - General Internal Medicine 02/17/23 documented as of this encounter
--- OUTSIDE RECORDS SUMMARY | 2024-10-06 06:12 | XMS_ITS | Encounter Summary ---
Author Organization [facility] Address [address] [facility] [address] [place] [address] Phone Care Team Providers Care Silk Screen Operator Name Role Phone Katarina Jack NP Primary Care Provider [phone] Encounter Details Date Type Department Care Team (Late st Contact Info) Description 01/25/2024 Telephone [place] [facility] ([facility]) - [facility] ENT [address] [facility] Advanced Medicine [address]th [place] [address] [place] [phone] Karolina Benton MS Social History Tobacco Use [...] on file 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
--- OUTSIDE RECORDS SUMMARY | 2024-10-06 06:12 | XMS_ITS | Encounter Summary ---
Author Organization [facility] Healthcare Address [address] [place] [address] Care Team Providers Care Instructional Manager Name Role Phone Radha Grove MD PhD Primary Care Pr ovider Reason for Visit * Reason Comments Abdominal Pain Flank Pain Encounter Details Date Type Department Care Team (Late st Contact Info) Description 08/27/2021 7:22 PM ADVISOR [employer] - 08/27/2021 11:33 PM [employer] Emergency [facility] Emergency Department [address] [place], [place] [address] Farzana Amin MD [address] [place] [address] [place] [address] Uterine leiomyoma, unspecified location (Primary Dx) Discharge [...] on file Legal Sex Female 7:28 PM ADVISOR [employer] Gender Identity Not on file Sexual Orientation Not on file documented as of this encounter Last Filed Vital Signs Vital Sign Reading Time Taken Comments Blood Pressure 144/73 08/27/2021 11:32 PM [employer] Pulse 69 08/27/2021 11:32 PM [employer] Temperature 36.8 ??C (98.2 ??F) 08/27/2021 7:09 PM CS T Respiratory Rate 18 08/27/2021 11:3 2 PM [employer] Oxygen Saturation 98% 08/27/2021 11: 32 PM [employer] Inhaled Oxygen Concentration - - Weight 61.1 kg (134 lb 11.2 oz) 08/27/2021 7:09 PM [employer] Height 157.5 cm (5' 2 ) 08/27/2021 7:09 PM [employer] Body Mass Index 24.64 08/27/2021 7:09 PM [employer] Body Mass Index Percentile 82.31% 08/27/2021 7:0 9 PM [employer] Growth Chart: [facility] (Girls, 2- 20 Years) documented in this encounter Discharge Instructions * Discharge Instructions* Farzana Amin MD - 08/27/2021 11:20 PM ADVIS[employer] May do ibuprofen (600 mg) every 6 hours or heating pad as needed for pain. Follow up with gynecology at their soonest appointment. No referral needed for [facility] Gynecology. Return to the ER if severe worsening pain, fever or persistent vomiting. [employer] documented in this encounter Medications at Time [...] then reassess. ED Course as of 08/27/21 2829 Time: 08/27 2007 Comment: Patient is currently [...] results. By: Farzana Amin MD Time: 08/27 249 Comment: Ultrasound shows 2.8 cm heterogeneous round mass within the uterus fundus, possibly a fibroid and radiology recommended MRI for further evaluation. Ovaries and kidneys normal on ultrasound. Discussed ultrasound finding with mother and patient. Recommended close gynecology follow-upfor further imaging and evaluatuion. Also discussed NSAID and heating pad as needed for comfort until follow-up. Mother requested [facility] gynecology number, number provided. Gave return precautions. Mother and patient expressed understanding. By: Farzana Amin MD Final diagnoses: Uterine leiomyoma, unspecified location Farzana Amin MD 08/27/21 8780 [employer] * Negra Ordonez RN - 08/27/2021 7:11 PM CST Pt also had negative test today at PCP. [employer] * Negra Ordonez RN - 08/27/2021 7:08 PM CST Pt c/o left sided abd pain that radiates to left flank since yesterday. Denies fever, nausea, vomiting, diarrhea. Seen by PCP today and did UA; negative for UTI per mother. [employer] documented in this encounter Plan of Treatment Not on file documented as of this encounter Procedures Procedure Name Priority Date/Time Associated Diagnosis Comments US PELVIS LIMITED ED 08/27/2021 10: 22 PM [employer] US KIDNEY COMPLETE ED 08/27/2021 10 :21 PM [employer] DIFFERENTIAL AUTO STAT 08/27/2021 8:2 8 PM [employer] URINALYSIS AND REFLEX TO MICROSCOPIC AND CULTURE STAT 08/27/2021 8:28 PM [employer] CBC WITH AUTO DIFFERENTIAL STAT 08/27/2021 8:28 PM [employer] URINALYSIS, MICROSCOPIC ONLY STAT 08/27/2021 8:28 PM [employer] LIPASE STAT 08/27/2021 8:28 PM [employer] COMPREHENSIVE METABOLIC PANEL STAT 08/27/2021 8:28 PM [employer] POCT HCG, URINE STAT 08/27/2021 8:19 PM ADVIS[employer] documented in this encounter Results * US Pelvis Limited (08/27/2021 10:22 PM ADVIS[employer]) Anatomical Region Laterality Modality Pelvis N/A Ultrasound 08/27/2021 10:3 9 PM [employer] Narrative 08/27/2021 10:58 PM [employer] EXAM DESCRIPTION: ?? US PELVIS LIMITED REASON [...] PM T: ??08/27/2021 10:58 PM Report ID: [id number] Reading Location: ??[id number] Procedure Note Moise Montejo MD - 08/27/2021 [...] Moise Montejo M.D. RW: KAY Report ID: [id number] Reading Location: [id number] us Farzana Amin MD IMG US PROCEDURES Final Result * US Kidney Complete (08/27/2021 10:21 PM ADVIS[employer]) Anatomical Region Laterality Modality Kidney N/A Ultrasound 08/27/2021 10:3 3 PM [employer] Narrative 08/27/2021 10:39 PM [employer] EXAM DESCRIPTION: ?? US KIDNEY COMPLETE REASON [...] PM T: ??08/27/2021 10:39 PM Report ID: [id number] Reading Location: ??[id number] Procedure Note Moise Montejo MD - 08/27/2021 [...] Moise Montejo M.D. RW: KAY Report ID: [id number] Reading Location: [id number] us Farzana Amin MD [facility] US PROCEDURES Final Result * (ABNORMAL) Urinalysis, microscopic only (08/27/2021 8:28 PM ADVISOR [employer]) WBC, ur 0-5 0 - 5 /HPF CAROLINE HORVATH Comment:Testing performed by : [address] [address] RBC, ur 3-5(A) 0 - 2 /HPF CAROLINE Comment:Testing performed by : [address] [address] Epithelial cells, squamous, ur 21-50(A) 0 - 5 /HPF CAROLINE Comment: Suggestive of contamination. Consider recollection by clean catch. Testing performed by: [address] [address] Bacteria, ur Trace(A) CAROLINE Comment:Testing performed by : [address], [place]., [address] Mucous, ur Present(A) CAROLINE Comment:Testing performed by : [address] [address] Culture Reflex Comment Reflex conditions for urine culture (WBC >10) not met. CAROLINE Comment:Testing performed by : [address] [address] Urine, clean voided 08/27/2021 8:28 PM [employer] 08/27/2021 8:33 PM ADVIS[employer] us Farzana Amin MD LAB URINE ORDERABLES nal Result [facility]INE [address] [facility] Department [place] [address] * Differential, auto (08/27/2021 8:28 PM [employer]) Neutrophil abs 3.1 1.7 - 6.5 K/cumm CAROLINE Comment:Testing performed by : [address] [address] Imm gran abs 0.0 0.0 - 0.1 K/cumm CAR[facility]INE Comment:Testing performed by : [address] [address] Lymphocyte abs 2.7 0.8 - 3.3 K/cumm CAR[facility]INE Comment:Testing performed by : [address] [address] Monocyte abs 0.5 0.2 - 0.8 K/cumm [facility] Comment:Testing performed by : [address] [address] Eosinophil abs 0.1 0.0 - 0.5 K/cumm [facility] Comment:Testing performed by : [address], [place]., [address] Basophil abs 0.0 0.0 - 0.1 K/cumm [facility] Comment:Testing performed by : [address] [address] Neutrophil pct 47.8 % [facility] Comment: Interpretive Data Percent cell count reference ranges are not reported, since discordance with absolute values may lead to misinterpretation of CBC data. Current Interpretive Data was last revised on 2018. Testing performed by: [address] [address] Imm gran pct 0.2 % [facility] Comment: Interpretive Data Percent cell count reference ranges are not reported, since discordance with absolute values may lead to misinterpretation of CBC data. Current Interpretive Data was last revised on 2018. Testing performed by: [address] [address] Lymphocyte pct 41.8 % [facility] Comment: Interpretive Data Percent cell count reference ranges are not reported, since discordance with absolute values may lead to misinterpretation of CBC data. Current Interpretive Data was last revised on 2018. Testing performed by: [address] [address] Monocyte pct 8.3 % [facility] Comment: Interpretive Data Percent cell count reference ranges are not reported, since discordance with absolute values may lead to misinterpretation of CBC data. Current Interpretive Data was last revised on 2018. Testing performed by: [address] [address] Eosinophil pct 1.4 % [facility] Comment: Interpretive Data Percent cell count reference ranges are not reported, since discordance with absolute values may lead to misinterpretation of CBC data. Current Interpretive Data was last revised on 2018. Testing performed by: [address] [address] Basophil pct 0.5 % CAR[facility]INE Comment: Interpretive Data Percent cell count reference ranges are not reported, since discordance with absolute values may lead to misinterpretation of CBC data. Current Interpretive Data was last revised on 2018. Testing performed by: [address] [address] Blood 08/27/2021 8:28 PM [employer] 08/27/2021 8:33 PM [employer] us Farzana Amin MD LAB BLOOD ORDERABLES Fi nal Result [facility] [address] [facility] Department [place] [address] * (ABNORMAL) Urinalysis reflex to microscopic and culture Urine, clean voided (08/27/2021 8:28 PM ADVIS[employer]) Color, ur Yellow Yellow CAROLINE Comment:Testing performed by : [address] [address] Clarity, ur Clear Clear CAROLINE Comment:Testing performed by : [address] [address] Specific gravity, ur 1.028 1.003 - 1.030 CAR[facility]INE Comment:Testing performed by : [address] [address] pH, urine 6.0 CAROLINE Comment:Testing performed by : [address] [address] Protein, ur ql 2+(A) Negative CAR[facility]INE Comment:Testing performed by : [address] [address] Glucose, ur ql Negative Negative CAR[facility]INE Comment:Testing performed by : [address] [address] Ketones, ur Negative Negative [facility]INE Comment:Testing performed by : [address] [address] Bilirubin, ur Negative Negative CAR[facility]INE Comment:Testing performed by : [address] [address] Blood, ur 2+(A) Negative [facility]INE Comment:Testing performed by : [address] [address] Urobilinogen, ur 2.0(A) <2.0 mg/dL CAR[facility]INE HORVATH Comment:Testing performed by : [address] [address] Nitrite, ur Negative Negative [facility]INE Comment:Testing performed by : [address] [address] Leukocyte esterase, ur Negative Negative [facility]INE Comment:Testing performed by : [address] [address] UA reflex comment Reflex to microscopic UA will be performed. CAR[facility]INE Comment:Testing performed by : [address] [address] Urine, clean voided 08/27/2021 8:28 PM [employer] 08/27/2021 8:33 PM [employer] Narrative CAROLINE HORVATH - 08/27/2021 8:39 PM [employer] ?? Urine pH is affected by diet, medications, systemic acid-base disturbances, and renal tubular function. ??pH may affect urinary stone formation. ??For example, urine pH below 6.0 may help reduce the tendency for calcium phosphate stones and pH greater than 6.0 may reduce the tendency for uric acid stone formation. Source: [facility]. Last revised 10-06-2017 Farzana Amin MD LAB MICROBIOLOGY - GENE [facility] ORDERABLES Final Result CAROLINE [address] [facility] Department of Laboratories [place], [place] [id number] * Lipase (08/27/2021 8:28 PM [employer]) Lipase 27 5 - 50 Units/L CAROLINE Comment:Testing performed by : [address] [address] Blood 08/27/2021 8:28 PM [employer] 08/27/2021 8:33 PM ADVIS[employer] Farzana Amin MD LAB BLOOD ORDERABLES Fi nal Result [facility] [address] [facility] Department [place] [address] * (ABNORMAL) Comprehensive metabolic panel (08/27/2021 8:28 PM [employer]) Sodium 139 135 - 145 mmol/L CAROLINE Comment:Testing performed by : [address] [address] Potassium, pl 3.9 3.3 - 4.9 mmol/L CAROLINE Comment:Testing performed by : [address] [address] Chloride 104 100 - 114 mmol/L CAROLINE Comment:Testing performed by : [address] [address] CO2 24 20 - 30 mmol/L CAROLINE Comment:Testing performed by : [address] [address] Anion gap 11 2 - 15 mmol/L CAROLINE Comment:Testing performed by : [address] [address] BUN 9 9 - 18 mg/dL CAROLINE Comment:Testing performed by : [address] [address] Creatinine 0.60 0.40 - 1.00 mg/dL CAROLINE Comment:Testing performed by : [address] [address] Glucose 88 70 - 199 mg/dL CAROLINE [...] was last revised 2017. Testing performed by: [address] [place]., [address] Calcium 9.7 8.5 - 10.3 mg/dL CAROLINE Comment:Testing performed by : [address] [address] Bilirubin, total 0.5 0.1 - 1.2 mg/dL CAROLINE Comment:Testing performed by : [address] [address] Protein, pl 7.6 6.5 - 8.5 g/dL CAROLINE Comment:Testing performed by : [address] [address] Albumin 4.7 3.2 - 5.0 g/dL CAR[facility]INE Comment:Testing performed by : [address] [address] Alk phos 64(L) 70 - 260 Units/L CAROLINE Comment:Testing performed by : [address] [address] ALT 10 7 - 45 Units/L CAROLINE Comment:Testing performed by : [address] [address] AST 14 10 - 50 Units/L CAROLINE Comment:Testing performed by : [address] [address] Blood 08/27/2021 8:28 PM [employer] 08/27/2021 8:33 PM ADVIS[employer] us Farzana Amin MD LAB BLOOD ORDERABLES Fi nal Result [facility] [address] [facility] Department [place] [address] * CBC with auto differential (08/27/2021 8:28 PM ADVISOR [employer]ER) [facility] WBC 6.5 3.8 - 9.9 K/cumm CAROLINE Comment:Testing performed by : [address] [address] Hgb 13.5 11.9 - 15.5 g/dL CAROLINE Comment:Testing performed by : [address] [address] Hct 40.7 35.6 - 45.5 % CAROLINE Comment:Testing performed by : [address], [address] Plt 342 150 - 400 K/cumm CAROLINE Comment:Testing performed by : [address], [address] MPV 9.6 9.1 - 12.3 fL CAROLINE Comment:Testing performed by : [address], [address] RBC 4.55 3.90 - 5.20 M/cumm CAROLINE Comment:Testing performed by : [address], [address] MCV 89.5 81.3 - 96.4 fL CAROLINE Comment:Testing performed by : [address], [address] MCH 29.7 27.1 - 33.3 pg CAROLINE Comment:Testing performed by : [address], [address] MCHC 33.2 32.3 - 35.7 g/dL CAROLINE Comment:Testing performed by : [address], [address] RDW CV 12.0 11.1 - 14.9 % CAROLINE Comment:Testing performed by : [address], [address] RDW SD 39.5 35.7 - 48.1 fL CAROLINE Comment:Testing performed by : [address], [address] NRBC abs 0.00 0.00 - 0.01 K/cumm CAROLINE Comment:Testing performed by : [address], [address] Blood 08/27/2021 8:28 PM [employer] 08/27/2021 8:33 PM [employer] us Farzana Amin MD LAB BLOOD ORDERABLES Fi nal Result [facility] DE [address] Department [place] [address] * POCT hCG, urine (08/27/2021 8:19 PM [employer]) HCG, ur, POC Negative Lot Number [id number] QC Backgroud Clear Acceptable QC Control Line Acceptable Urine 08/27/2021 8:19 PM [employer] Farzana Amin MD POINT OF CARE TEST [...] For 1 dose Given 08/27/2021 8:54 PM [employer] 650 mg influenza quadrivalent [id number] (FLULAVAL,FLUARIX,FLUZONE) 60 mcg (15 mcg x 4)/0.5 mL vaccine (STANDARD age 6 months and up) 0.5 mL 0.5 mL, intramuscular, During hospitalization, immunization, Starting on Juanita 08/27/21 at 2006, For 1 dose Given 08/27/2021 8:25 PM [employer] 0.5 mL Right Deltoid sodium chloride 0.9% bolus 1,000 mL 1,000 mL, intravenous, Once, On Juanita 08/27/21 at 2003, For 1 dose New Bag 08/27/2021 8:24 PM [employer] 1,000 mL documented in this encounter Active and Recently Administered Medications Times are shown in [employer]. Scheduled Medication Order 08/25/2021 08/26/2021 08/27/2021 acetaminophen (TYLENOL) tablet 650 mg (COMPLETED) 650 mg, oral, Once, On Juanita 08/27/21 at 2048, For 1 dose 2053 (Given - Provid er: Jennifer Brandt RN) sodium chloride 0.9% bolus 1,000 mL (COMPLETED) 1,000 mL, intravenous, Once, On Juanita 08/27/21 at 2003, For 1 dose 2023 (New Bag - Prov ider: Jennifer Brandt RN)2137 (Stopped - Provider: Jennifer Brandt RN) PRN Medication Order 08/25/2021 08/26/2021 08/27/2021 influenza quadrivalent [id number] (FLULAVAL,FLUARIX,FLUZONE) 60 mcg (15 mcg x 4)/0.5 mL vaccine (STANDARD age 6 months and up) 0.5 mL (COMPLETED) 0.5 mL, intramuscular, During hospitalization, immunization, Starting on Juanita 08/27/21 at 2006, For 1 dose 2024 (Given - Provid er: Jennifer Brandt RN) documented in this encounter Care Teams Instructional Manager Relationship Specialty Start Date End Date Radha Gorve MD PhD PCP - General Pediatrics 08/27/21 02/16/23 documented as of this encounter
--- OUTSIDE RECORDS SUMMARY | 2024-10-06 06:12 | XMS_ITS | Encounter Summary ---
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
--- OUTSIDE RECORDS SUMMARY | 2024-10-06 06:12 | XMS_ITS | Encounter Summary ---
Author Organization [facility] Healthcare Address [address] [place] [address] Care Team Providers Care Physician Practice Coordinator Name Role Phone Katarina Jack NP Primary Care Provider [phone] Reason for Referral * Consultation (Routine) - Authorized Specialty Diagnoses / Procedures Referred By Contdidi t Referred To Contact Gastroenterology Diagnoses Diarrhea, unspecified type Katarina Jack NP [address] [place] [address] Phone: tel: fax: Aditi Sequeira MD [address] [facility] [place] [address] [address] [place] [address] Phone: tel: fax: Referral ID Status Reason Start Date Expiration Date Visits Requested Visits Authorized [id number] Authorized Specialty Services Required 02/10/2024 03/11/2025 99 99 Question Answer Process Instructions: THE AMBULATORY REFERRAL TO GASTROENTEROLOGY IS NOT AN ORDER FOR A PROCEDURE (I.E. EGD, COLONOSCOPY.) USE THE DIRECT SCHEDULING CASE REQUEST ORDER (GI50) IF THE PATIENT REQUIRES A PROCEDURE TO BE PERFORMED. Please select the performing region: [facility] (All Locations) [[id number]] To provider: ADITI SEQUEIRA [[id number]] # of visits: 1 Reason for Visit * Reason Comments Diarrhea Mult GI problems wan ting referral Constipation Encounter Details Date Type Department Care Team (Late st Contact Info) Description 02/10/2024 9:30 AM CDT Office Visit [facility] Internal Medicine at [place] [address] [place] [address] Katarina Jack NP [address] [place] [address] Diarrhea, unspecified type (Primary Dx); [...] on file 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. Follow-up in 4 weeks for annual wellness [...] constipation and diarrhea. [facility] States she has intermittent symptoms. Has taking Colace and MiraLax in the past. They caused stomach cramps and pain. Will not give Bentyl for this reason. She is currently taking astool softener. She would like to see a female at [place]. She will be due for her annual [...] 26.0-26.9,adult documented in this encounter Care Teams Physician Practice Coordinator Relationship Specialty Start Date End Date Katarina Jack NP [address] [facility] [address] [place] [address] PCP - General Internal Medicine 02/17/23 documented as of this encounter
--- OUTSIDE RECORDS SUMMARY | 2024-10-06 06:12 | XMS_ITS | Encounter Summary ---
Author Organization [facility] Healthcare Address [address] [place] [address] Care Team Providers Care Wire Coating Machine Operator Name Role Phone Katarina Jack NP Primary Care Provider [phone] Reason for Visit * Reason Comments Sore Throat Sore throat, body ac hes, cough started yesterday Encounter Details Date Type Department Care Team (Late st Contact Info) Description 04/14/2024 3:45 PM CDT Office Visit 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 * Strep Throat (AfterCare(R) Instructions(ER/ED)) (Senegalese) documented in this encounter Ordered Prescriptions Prescription [...] aches, cough since yesterday. Recently returned from [place]. Hx of asthma, has not needed to [...] S Final Result Performing Organization Address City/State/[facility] Co de Phone Number [facility] [address] [place] [address] documented in this encounter Visit Diagnoses Diagnosis Strep pharyngitis- Primary COVID-19 documented in this encounter Additional Health Concerns Infection Onset Date Last Indicated Resolved Time COVID: Suspected 04/14/2024 04/14/2024 04/14/2024 3:52 PM CDT COVID19 04/14/2024 04/14/2024 04/24/2024 3:05 AM CDT documented as of this encounter Care Teams Wire Coating Machine Operator Relationship Specialty Start Date End Date Katarina Jack NP [address] [place] [address] PCP - General Internal Medicine 02/17/23 documented as of this encounter
--- OUTSIDE RECORDS SUMMARY | 2024-10-06 06:12 | XMS_ITS | Encounter Summary ---
Author Organization [facility] Address [address] [facility] [address] [place] [address] Phone Care Team Providers Care Instructor Painting Name Role Phone Katarina Jack NP Primary Care Provider [phone] Encounter Details Date Type Department Care Team (Late st Contact Info) Description 01/23/2024 Telephone [facility] ([facility]) - [facility] ENT [address] [facility] Advanced Medicine 11th [place] [address] [place] [id number] Karolina Benton MS Social History Tobacco Use [...] on file 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
--- OUTSIDE RECORDS SUMMARY | 2024-10-06 06:12 | XMS_ITS | Encounter Summary ---
Author Organization [facility] Address [address] [place] [address] Care Team Providers Care Fire Watcher Name Role Phone Radha Grove MD PhD Primary Care Pr ovid Reason for Referral * Diagnostic Imaging (Routine) - Closed Specialty Diagnoses / Procedures Referred By Contac t Referred To Contact Diagnoses Pain in left hip Procedures XR Hip Left 2 or 3 Views Tameka Vilchis NP Phone: tel: fax: [address] [phone] Referral ID Status Reason Start Date Expiration Date Visits Re quested Visits Authorized [id number] Closed 12/16/2022 01/15/2024 1 1 Reason for Visit * Diagnostic Imaging (Routine) - Closed Specialty Diagnoses / Procedures Referred By Rowena garcia Referred To Contact Diagnoses Pain in left hip Procedures XR Hip Left 2 or 3 Views Tameka Vilchis NP Phone: tel: fax: [address] [phone] Referral ID Status Reason Start Date Expiration Date Visits Re quested Visits Authorized [id number] Closed 12/16/2022 01/15/2024 1 1 Encounter Details Date Type Department Care Team (Latest Contact Info) Description 12/16/2022 2:10 PM CDT - 12/16/2022 11:59 PM CDT Hospital Encounter [facility] Diagnostic Imaging [address] [place] [id number] Pain in left hip Discharge Disposition: Discharge to home or self care Social History Tobacco Use Types Packs/Day Years Used Date Smoking Tobacco: Never Smokeless Tobacco: Never Alcohol Use Standard Drinks/Week Comments Never 0 (1 standard drink = 0.6 oz pur e alcohol) Comments No Sex and Gender Information Value Date Recorded Sex Assigned at Not on file 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 T: Report ID: [id number] Reading Location: [id number] Tameka Vilchis OFFSET SECOND PRESS OPERATOR IMG XR PROCEDURES Final Result documented in this encounter Visit Diagnoses Diagnosis Pain in left hip documented in this encounter Care Teams Fire Watcher Relationship Specialty Start Date End Date Radha Grove MD PhD PCP - General Pediatrics 08/27/21 02/16/23 documented as of this encounter
--- OUTSIDE RECORDS SUMMARY | 2024-10-06 06:12 | XMS_ITS | Encounter Summary ---
Author Organization [facility] Address [address] [facility] [address] [place] [address] Care Team Providers Care Insole Buffer Name Role Phone Katarina Jack CAR SWEEPER Primary Care Provider [phone] Reason for Visit * Reason Comments Vaginal Bleeding Started spotting 3 - 4weeks agoStarted control pill in february Encounter Details Date Type Department Care Team (Late st Contact Info) Description 04/14/2023 10:30 AM CDT Office Visit [facility] Internal Medicine at [place] [address] [place] [address] Katarina Jack, CAR SWEEPER [address] [place] [address] [place] [address] Vaginal spotting (Primary Dx); BMI [...] on file 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 Notify the office in 1 month if you continue to bleed andwe will switch control. Follow-up as needed documented in this encounter Progress Notes * Katarina Jack NP - 04/14/2023 10:30 AM [...] 25.0-25.9,adult documented in this encounter Care Teams Insole Buffer Relationship Specialty Start Date End Date Katarina Jack NP [address] [facility] [address] [place] [address] PCP - General Internal Medicine 02/17/23 documented as of this encounter
== END 2024-09-29 07:43 | disposition left against medical advice (07) ==
DX: R11.2 Nausea with vomiting, unspecified (principal)
CPT/HCPCS: 99199